=== PATIENT | male | born 1960 | race Caucasian/White ===

== ENCOUNTER 2021-10-02 15:53 | Inpatient (IN) | payer MEDICARE, OTHER, SELFPAY ==
[2021-10-02] VITALS (39 sets, daily range): BP systolic 100–157; BP diastolic 57–99; PULSE 86–130; RESP 12–42; TEMP 36.9–37.3; O2SAT 3–96; BMI 34.9
[2021-10-02] MEDS: amiodarone 50 mg/mL SDV 3 mL 300 MG IVP (16:13)
[2021-10-02] MEDS: midazolam 1 mg/mL INJ 2 mL 2 MG IVP (16:15)
--- NOTE | 2021-10-02 16:25 | XRR_ITS ---
PROCEDURE INFORMATION: Exam: XR Chest Exam date and time: 10/02/2021 4:25 PM Age: 61 years old Clinical indication: Radiating; Patient HX: History--severe chest pain, radiates to the right arm. ; Additional info: Cp TECHNIQUE: Imaging protocol: XR of the chest. Views: 1 view. COMPARISON: CR Chest 1 [place] [id number] 06/11/2019 1:41 PM FINDINGS: Tubes, catheters and devices: External defibrillator patches overlie the chest. Lungs: Stable mild elevation of the right hemidiaphragm. Interval development of ill-defined opacities in the right and left upper lobes and the left lower lobe, findings may suggest atelectasis and/or pneumonia. Pleural spaces: No pleural effusion. No pneumothorax. Heart/Mediastinum: Cardiac monitoring leads overlie the chest. Stable mild enlargement of the cardiac silhouette. Mediastinal contours are unremarkable. Bones/joints: Old fracture of the right mid clavicle. Degenerative changes in the spine and shoulders. Osseous findings are stable. XR/XR chest 1V portable [id number] IMPRESSION: 1. Interval development of ill-defined opacities in the right and left upper lobes and the left lower lobe, findings may suggest atelectasis and/or pneumonia. Recommend followup chest x-ray to ensure resolution. 2. Incidental/nonacute findings are listed in the report. Radiation Dose CTDIVOL = (mGy): DLP = (mGy-cm)
--- NOTE | 2021-10-02 16:26 | ED_ITS ---
HPI - Chest Pain General: Chief Complaint: Chest Pain Stated Complaint: Chest pain Time Seen by Provider: 10/02/21 15:56 History of Present Illness: HPI narrative: 61-year-old male history of A. fib and left bundle branch block who is on NOAC and diltiazem presents with chest pain. States this started just prior to arrival. He was seen at [facility] at that time and EMS was called. Per initial EMS EKG he has A. fib with RVR and left bundle branch block. He reports chest pain that is pressure-like and does not radiate. Denies any lower extremity pain or swelling. Denies fever cough nausea or vomiting. Denies previous CAD. Review of Systems Narrative: - CONSTITUTIONAL: Denies weight loss, fever and chills. - HEENT: Denies changes in vision and hearing. - RESPIRATORY: Denies SOB and cough. - CV: As above - GI: Denies abdominal pain, nausea, vomiting and diarrhea. - : Denies dysuria and urinary frequency. - MSK: Denies myalgia and joint pain. - SKIN: Denies rash and pruritus. - NEUROLOGICAL: Denies headache, weakness, numbness and syncope. - PSYCHIATRIC: Denies suicidal ideation Physical Exam Narrative: EXAM NARRATIVE: - GENERAL: Alert and oriented x 3. Well-nourished. Diaphoretic and in distress. - EYES: EOMI. Anicteric. - HENT: Atraumatic, no C-spine tenderness. Moist mucous membranes. No scleral icterus. No cervical lymphadenopathy. - LUNGS: Clear to auscultation bilaterally. No accessory muscle use. Equal lung sounds bilaterally. No respiratory distress. - CARDIOVASCULAR: Tachycardic, regular rhythm - ABDOMEN: Soft, non-tender and non-distended. Negative CVA tenderness bilater ally, no rebound or guarding, negative Roblero sign. No palpable masses. - EXTREMITIES: No edema. Non-tender. - SKIN: No rashes or lesions. Warm. - NEUROLOGIC: No meningismus or focal neurological deficits. CN II-XII grossly intact. - PSYCHIATRIC: Cooperative. Appropriate mood and affect. Course Vital Signs: Vital signs: Vital Signs Temperature 99.2 F 10/02/21 16:34 Pulse Rate 97 10/02/21 16:34 Respiratory Rate 25 H 10/02/21 16:34 Blood Pressure 113/78 10/02/21 16:34 Pulse Oximetry 95 10/02/21 16:34 MDM - Chest Pain MDM Narrative: Medical decision making narrative: 61-year-old male with history of A. fib presents due to chest pain. States pain was acute and severe. Denies radiation to the back. He is hemodynamically unstable but has A. fib with RVR and left bundle branch block versus V. tach. Due to presence of chest pain he is deemed unstable. Required cardioversion, initially a synchronized rate of 100 J following this was still in RVR. Then he had synchronized cardioversion at 200 J and converted to sinus rhythm. 300 of amiodarone was also provided. Discussed with cardiology who agrees and recommend starting amiodarone drip. Post cardioversion EKG does not reveal any sign of ischemic change. He reports chest pain is resolved following cardioversion. This time lab work and imaging is pending. Per patient discussed with hospitalist regarding ICU admission. Remainder of lab work and imaging reviewed. Discussed with hospitalist and they agreed patient would benefit from admission. Patient admitted in guarded condition to ICU. Further evaluation management per hospitalist team. Lab Data: Labs: Lab Results 10/02/21 15:15 WBC 3.8 10^3/uL L 10^ 3/uL (4.0-10.0) RBC 4.99 10^6/uL 10^6 /uL (4.1-5.3) Hgb 14.3 g/dL g/dL (11.7-16.6) Hct 44.1 % % (42.0-52.0) MCV 88.4 fl fl (80-94) MCH 28.7 pg pg (28.0-34.0) MCHC 32.4 g/dL g/dL (30.0-36.0) RDW 13.9 % % (12.1-15.1) Plt Count 97 10^3/cmm L 10^ 3/cmm (130-400) MPV 14.0 fL H fL (7.4-10.4) Neut % (Auto) 68.3 % % Lymph % (Auto) 22.6 % % [place] % (Auto) 8.5 % % Eos % (Auto) 0.0 % % Baso % (Auto) 0.3 % % Neut # (Auto) 2.57 10^3/uL 10^3 /uL (1.8-7.7) Lymph # (Auto) 0.9 10^3/uL 10^3/ uL (0.8-4.8) [place] # (Auto) 0.3 10^3/uL 10^3/ uL (0.2-0.9) Eos # (Auto) 0.0 10^3/uL 10^3/ uL (0.0-0.8) Baso # (Auto) 0.0 10^3/uL 10^3/ uL (0.0-0.1) Nucleated RBC % (a uto) 0 % % Nucleated RBCs # 0.0 /100WBC /100W BC EKG Data^: EKG 1: Other EKG comments: EMS EKG, A. fib with RVR, rate of 190. EKG 2: Other EKG comments: Sinus rhythm with PVC, rate of 96, no sign of acute ischemia or other acute abnormality. Critical Care Time Critical Care Time: Critical Care Time: Yes Total Critical Care Time: 30 Attestation: This case had a high probability of a clinically significant, sudden, or life threatening deterioration of this patient's condition which required my full and direct attention, intervention and personal management. Coding Level of Care Code ED Rn Diabetes Educator for Maddy Robertson
--- NOTE | 2021-10-02 16:26 | ECG_ITS ---
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 Measurements Intervals [place] Rate: 96 P: 73 NC: 180 QRS: 64 QRSD: 160 T: 83 QT: 356 QTc: 451 Interpretive Statements SINUS RHYTHM WITH FREQUENT SUPRAVENTRICULAR PREMATURE COMPLEXES LEFT BUNDLE BRANCH BLOCK [120+ ms QRS DURATION, 80+ ms Q/S IN V1/V2, 85+ ms R IN I/aVL/V5/V6] Compared to ECG 06/11/2019 16:15:18 No significant changes Electronically Signed On 10-03-2021 17:11:24 CDT by Lefty Vargas M.D. [id number]
[2021-10-02 16:50] LABS: Basophils % 0.3 %; Hematocrit 44.1 % (42.0-52.0); Hemoglobin 14.3 g/dL (11.7-16.6); Lymphocytes # 0.9 10^3/uL (0.8-4.8); Lymphocytes % 22.6 %; Mean Corpuscular HGB Conc 32.4 g/dL (30.0-36.0); Mean Corpuscular Hemoglobin 28.7 pg (28.0-34.0); Mean Corpuscular Volume 88.4 fl (80-94); Monocytes # 0.3 10^3/uL (0.2-0.9); Monocytes % 8.5 %; Neutrophils # 2.57 10^3/uL (1.8-7.7); Neutrophils % 68.3 %; Nucleated Red Blood Cells % 0 %; Platelet Count 97 10^3/cmm (130-400); Red Blood Count 4.99 10^6/uL (4.1-5.3); Red Cell Distribution Width 13.9 % (12.1-15.1); White Blood Count 3.8 10^3/uL (4.0-10.0)
[2021-10-02] MEDS: fentaNYL 50 mcg/mL INJ 2mL 100 MCG IVP (17:10)
[2021-10-02 17:48] LABS: Alanine Aminotransferase 72 U/L (0-41); Alkaline Phosphatase 60 IU/L (40-130); Anion Gap 16.2 (5-19); Aspartate Amino Transferase 97 U/L (0-40); Blood Urea Nitrogen 21 mg/dL (8-23); Calcium 9.9 mg/dL (8.5-10.5); Carbon Dioxide 23 mmol/L (22-29); Chloride 98 mmol/L (98-107); Globulin 2.3 g/dL (1.3-4.6); Glomerular Filtration Rate 61.6 mL/min (90-130); Glucose 104 mg/dL (65-115); Lipase 93 U/L (13-60); NT Pro B Type Natriuretic Pept 568 pg/mL (0-125); Osmolality Calculated 279 mOsm/kg (285-295); Potassium 4.2 mmol/L (3.5-5.1); Sodium 133 mmol/L (136-145); Thyroid Stimulating Hormone 0.17 uIU/mL (0.27-4.20); Total Bilirubin 0.4 mg/dL (0.15-1.2); Total Protein 6.3 g/dL (6.6-8.7)
--- NOTE | 2021-10-02 17:49 | P.HP_ITS ---
Providers/Chief Complaint Admitting Physician: Shakira Carver Chief Complaint: Chest pain History of Present Illness Deepak Chacon is a 61 year old male with past medical history of paroxysmal atrial fibrillation on anticoagulation who presented to ER with chest pain. Started today, left sided pressure. Prior to this noted to have fever, chill, nonproductive cough. Upon arrival patient was cardioverted. Also noted to have covid-19 ag positive. Review of Systems General: Reports: 10 or more systems reviewed and unremarkable except in HPI and below PFSH Acute PFSH: Medical History (Updated 10/02/21 @ 20:06 by Shakira Carver MD) Atrial fibrillation Hyperlipidemia Hypertension Surgical History (Updated 10/02/21 @ 20:02 by Shakira Carver MD) History of knee replacement Social History (Updated 10/02/21 @ 20:03 by Shakira Carver MD) Smoking and tobacco status: never smoked Alcohol intake: never Substance/Drug Use: never Vitals/I&O/Wt Last Vital Signs Temp 99.1 F 10/02/21 18:05 Pulse 96 10/02/21 18:05 Resp 14 10/02/21 18:05 BP 125/83 10/02/21 19:45 Pulse Ox 3 L 10/02/21 18:05 Weight last 48 hrs Weight 123.377 kg Physical Exam Narrative: EXAM NARRATIVE: General : Alert, awake HEENT: EOMI CVS; tachy Chest; Non-labored abd; Soft,NT Ext; No edema Data : 10/02/21 15:15 10/02/21 15:15 A&P Assessment and plan (1) Atrial fibrillation with RVR: S/p cardioversion in Er Cardiology consult amiodarone gtt Tele ECHO Verify and resume anticoagulation Status: Acute (2) Chest pain: Cardiology consult ECHO Status: Acute (3) COVID-19: Not requring o2 Stable respiratory status Covid labs in am Status: Acute (4) Hyperlipidemia: Verify home meds Status: Inactive (5) Hypertension: Status: Inactive (6) Atrial fibrillation: Status: Inactive Attestations Medical Necessity Statement*: will require > 2 day in hospitalization for management of atrib/covid Time Spent in Patient Care: Greater than 35 minutes (>than 50% of time spent in counselling and/or direct pt care on unit) . Coding Level of Care Code Acute Funeral Pre Arrangement Counselor for Maddy Fwd Diagnoses Atrial fibrillation with RVR I48.91 Chest pain R07.9 COVID-19 U07.1 Hyperlipidemia E78.5 Hypertension I10 Atrial fibrillation I48.91
--- NOTE | 2021-10-02 18:18 | PC.NURSE ---
Called and gave report to Elvie BOWSER
--- NOTE | 2021-10-02 18:26 | ECG_ITS ---
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 Measurements Intervals [place] Rate: 92 P: 62 WV: 176 QRS: 110 QRSD: 166 T: 25 QT: 377 QTc: 469 Interpretive Statements SINUS RHYTHM WITH OCCASIONAL VENTRICULAR PREMATURE COMPLEXES LEFT BUNDLE BRANCH BLOCK [120+ ms QRS DURATION, 80+ ms Q/S IN V1/V2, 85+ ms R IN I/aVL/V5/V6] Compared to ECG 10/02/2021 16:19:34 Ventricular premature complex(es) now present Electronically Signed On 10-03-2021 17:16:09 CDT by Lefty Vargas M.D. [id number]
--- NOTE | 2021-10-02 18:35 | W.ED.CHESTPA ---
HPI - Chest Pain General: Chief Complaint: Chest Pain Stated Complaint: Chest pain Time Seen by Provider: 10/02/21 15:56 Course Vital Signs: Vital signs: Vital Signs Temperature 99.1 F 10/02/21 18:05 Pulse Rate 96 10/02/21 18:05 Respiratory Rate 14 10/02/21 18:05 Blood Pressure 120/80 10/02/21 18:05 Pulse Oximetry 3 L 10/02/21 18:05 MDM - Chest Pain Lab Data: Labs: Lab Results 10/02/21 10/02/21 15:15 15:15 WBC 3.8 10^3/uL L 10^ 3/uL (4.0-10.0) RBC 4.99 10^6/uL 10^6 /uL (4.1-5.3) Hgb 14.3 g/dL g/dL (11.7-16.6) Hct 44.1 % % (42.0-52.0) MCV 88.4 fl fl (80-94) MCH 28.7 pg pg (28.0-34.0) MCHC 32.4 g/dL g/dL (30.0-36.0) RDW 13.9 % % (12.1-15.1) Plt Count 97 10^3/cmm L 10^ 3/cmm (130-400) MPV 14.0 fL H fL (7.4-10.4) Neut % (Auto) 68.3 % % Lymph % (Auto) 22.6 % % [place] % (Auto) 8.5 % % Eos % (Auto) 0.0 % % Baso % (Auto) 0.3 % % Neut # (Auto) 2.57 10^3/uL 10^3 /uL (1.8-7.7) Lymph # (Auto) 0.9 10^3/uL 10^3/ uL (0.8-4.8) [place] # (Auto) 0.3 10^3/uL 10^3/ uL (0.2-0.9) Eos # (Auto) 0.0 10^3/uL 10^3/ uL (0.0-0.8) Baso # (Auto) 0.0 10^3/uL 10^3/ uL (0.0-0.1) Nucleated RBC % (a uto) 0 % % Nucleated RBCs # 0.0 /100WBC /100W BC Sodium 133 mmol/L L mmol /L (136-145) Potassium 4.2 mmol/L mmol/L (3.5-5.1) Chloride 98 mmol/L mmol/L (98-107) Carbon Dioxide 23 mmol/L mmol/L (22-29) Anion Gap 16.2 (5-19) BUN 21 mg/dL mg/dL (8-23) Creatinine 1.2 mg/dL mg/dL (0.7-1.2) GFR Calculation 61.6 mL/min L mL/ min (90-130) Glucose 104 mg/dL mg/dL (65-115) Calculated Osmolal ity 279 mOsm/kg L mOs m/kg (285-295) Calcium 9.9 mg/dL mg/dL (8.5-10.5) Total Bilirubin 0.4 mg/dL mg/dL (0.15-1.2) AST 97 U/L H U/L (0-40) ALT 72 U/L H U/L (0-41) Alkaline Phosphata se 60 IU/L IU/L (40-130) NT-Pro-B Natriuret Pep 568 pg/mL H pg/mL (0-125) Total Protein 6.3 g/dL L g/dL (6.6-8.7) Albumin 4.0 g/dL g/dL (3.5-5.2) Globulin 2.3 g/dL g/dL (1.3-4.6) Lipase 93 U/L H U/L (13-60) TSH 0.17 uIU/mL L uIU /mL (0.27-4.20) Free T4 1.60 ng/dL ng/dL (0.82-1.77) EKG Data^: EKG 1: Other EKG comments: Sinus rhythm with PVC, rate of 92, left bundle branch block, no sign of acute ischemia or other acute abnormality. Discharge Plan Discharge Admit Provider: Shakira aCrver Coding Level of Care Code ED Filenet Developer for g Ailyn
[2021-10-02 18:47] LABS: Bilirubin Urine 1+ (Negative); Blood Urine Neg (Negative); Glucose Urine UA Norm (Normal); Ketones Urine Negative (Negative); Leukocyte Esterase Urine Trace (Negative); Nitrate Urine Negative (Negative); Protein Urine 2+ (Negative); RBC Urine 0-4 /hpf (0-2); Urine Appearance SL Hazy (CLEAR); Urine Color Dark Yellow (Yellow); Urobilinogen Urine 1 mg/dL (Negative); pH Urine 5 (5-7)
[2021-10-02 18:48] LABS: Bacteria Urine 2+ /hpf; Mucus Urine 1+ /hpf; Squamous Epithelial Cell Urine 0-4 /hpf (0-5)
[2021-10-02 18:52] LABS: Add Urine Culture? Yes; Coarse Granular Casts Urine 15-25 /lpf
[2021-10-02 18:53] LABS: SARS Covid-2 Antigen Positive (Negative)
--- NOTE | 2021-10-02 19:16 | PC.NURSE ---
Pt arrived by EMS. Upon report, the patient was in AFIb with RVR. Provider was notified. Provider requested crash cart and ECG stat. The provider ordered that the Pt be cardioverted. Fentanyl 50 mcg was given at 1609, Pt was cardioverted at 100 joules at 1610. Fentanyl 50 mcg was given at 1617. Amiodarone 300 mg given at 1613. Verced 2 mg given at 1615. Second cardioversion, 200 joules at 1618. Pt was started on an amiodorone drip per provider order.
[2021-10-02 19:26] LABS: INR 1.03 (0.8-1.2)
[2021-10-02 19:27] LABS: Partial Thromboplastin Time 38.9 SECONDS (23.9-36.7)
[2021-10-02 19:29] LABS: D Dimer 0.41 ug/mIFEU (0-0.59)
[2021-10-02 19:50] LABS: Troponin(5th) Baseline 14 ng/L (0-15)
--- NOTE | 2021-10-02 19:56 | PM.CONSULT ---
Providers/Reason For Consult Consulting Physician/Specialty*: Lefty Vargas MD/ Cardiology Reason for Consult*: Atrial fibrillation Requesting Physician: Dr Escobar Attending Physician: Shakira Carver History of Present Illness History of Present Illness Deepak Chacon is a 61 year old male with past medical history of atrial fibrillation and known left bundle branch block presented to the hospital with chest discomfort, tachycardia. In the ER was found to be in A. fib with RVR. ER physician performed cardioversion. He briefly converted to normal sinus rhythm but went back into atrial fibrillation. Heart rate however is improved now. Denies CAD history. Patient is confused at this time likely from sedation for cardioversion. Family at bedside. Review of Systems General: Reports: ROS unobtainable due to mental status Meds/Allergies Home Medications and Allergies Home Medications Medication Instructions Recorded Confirmed Last Taken Type cyclobenzaprine 10 mg PO TID PRN 10/04/21 10/04/21 Unknown History dicyclomine 20 mg PO TID PRN 10/04/21 10/04/21 Unknown History diltiazem HCl 240 mg PO QAM 10/04/21 10/04/21 Unknown History gemfibrozil 600 mg PO BID 10/04/21 10/04/21 Unknown History levothyroxine 200 mcg PO QAM 10/04/21 10/04/21 Unknown History loratadine 10 mg PO QAM 10/04/21 10/04/21 Unknown History metoprolol tartrate 100 mg PO BID 10/04/21 10/04/21 Unknown History multivitamin 1 tab PO DAILY 10/04/21 10/04/21 Unknown History ofloxacin 2 - 3 drp OTIC (EAR) DAILY 10/04/21 10/04/21 Unknown History potassium chloride [Klor-Con M10] 10 meq PO BEDTIME 10/04/21 10/04/21 Unknown History rivaroxaban [Xarelto] 20 mg PO BEDTIME 10/04/21 10/04/21 Unknown History rizatriptan 10 mg PO Q2H PRN MDD 2 TABS 10/04/21 10/04/21 Unknown History terazosin 2 mg PO BEDTIME 10/04/21 10/04/21 Unknown History Allergies Allergy/AdvReac Type Severity Reaction Status Date / Time No Known Allergies Allergy Verified 10/04/21 10:45 Current Medications Current Medications Generic Name Dose Route Start Last Admin Trade Name Freq PRN Reason Stop Dose Admin Amiodarone HCl 900 mg/ 518 mls @ 0 mls/hr 10/02/21 16:30 10/02/21 16:58 Dextrose/ IV Miscellaneous IV 1 mg/min Supplies .Q0M KIYA 34.53 mls/hr Administration Protocol Per Protocol PFSH Acute PFSH: Medical History Atrial fibrillation Hyperlipidemia Hypertension Surgical History History of knee replacement Social History Smoking and tobacco status: never smoked Alcohol intake: never Substance/Drug Use: never Vitals/I&O/Wt Last Vital Signs Temp 99.1 F 10/02/21 18:05 Pulse 96 10/02/21 18:05 Resp 14 10/02/21 18:05 BP 125/83 10/02/21 19:45 Pulse Ox 3 L 10/02/21 18:05 Weight last 48 hrs Weight 272 lb Physical Exam Narrative: EXAM NARRATIVE: GENERAL: Confused NECK: No jugular vein distension. [] HEENT: No cyanosis. No icterus. No pallor. [] HEART: Tachycardic, irregularly irregular heart rhythm LUNGS: Clear to auscultate bilaterally. [] ABDOMEN: Soft, nontender and nondistended CENTRAL NERVOUS SYSTEM: Grossly nonfocal. [] EXTREMITIES: Lower extremities with 1+ edema bilaterally. Pulses palpable in the lower extremities, both dorsalis pedis and posterior tibial. [] A&P Assessment and plan (1) Chest pain: Status: Acute (2) Atrial fibrillation with RVR: Status: Acute Patient has presented with chest discomfort, atrial fibrillation with RVR. He is also found to have Covid on rapid testing. He was cardioverted however went back into A. fib with RVR. Start amiodarone drip. It can be switched to p.o. amiodarone later. Continue anticoagulation Given his Covid infection, ischemic work-up can be done as outpatient unless has significant elevation of troponins. Order echocardiogram. Thank you for involving us with care of this patient. We will follow if needed further assistance in case heart rates are not controlled. Please call with questions. Otherwise can follow-up with us as outpatient. Coding Level of Care Code Acute Appliquer Zigzag for Maddy Robertson Diagnoses Chest pain R07.9 Atrial fibrillation with RVR I48.91
--- NOTE | 2021-10-02 20:12 | CTR_ITS ---
PROCEDURE INFORMATION: Exam: CTA Chest With Contrast Exam date and time: 10/02/2021 8:12 PM Age: 61 years old Clinical indication: Cough and shortness of breath; Patient HX: Cough with SOB. History of afib. Covid +. Exam repeated. Both axial series submitted due to one having better bolus timing but severe motion artifact. The other with less motion but sub optimal bolus timing. Patient had difficulty controlling cough and holding breath for exam. ; Additional info: R/O pe, covid pneumonia TECHNIQUE: Imaging protocol: Computed tomographic angiography of the chest with contrast. 3D rendering (Not supervised by radiologist): MIP and/or 3D reconstructed images were created by the technologist. Total images: 1471 Radiation optimization: All CT scans at this facility use at least one of these dose optimization techniques: automated exposure control; mA and/or kV adjustment per patient size (includes targeted exams where dose is matched to clinical indication); or iterative reconstruction. Contrast material: OMNI 350; Contrast volume: 160 ml; Contrast route: INTRAVENOUS (IV); COMPARISON: CR XR chest 1V portable [id number] 10/02/2021 4:36 PM RADIATION DOSE METRICS: Total DLP (mGy-cm): 1954.45 FINDINGS: Pulmonary arteries: Pulmonary artery evaluation of poor technical quality due to motion but no pulmonary artery embolism identified. Aorta: Unremarkable. No aortic aneurysm. No aortic dissection. Lungs: Benign granulomatous disease of the lung is noted. Pleural spaces: Unremarkable. No pneumothorax. No pleural effusion. Heart: Unremarkable. No cardiomegaly. No pericardial effusion. Lymph nodes: Small calcified left hilar lymph nodes. Bones/joints: Unremarkable. No acute fracture. Soft tissues: Unremarkable. Other findings: Examination is motion limited. Bilateral patchy areas of ground-glass opacity. CT/CT angio chest PE protcl [id number] IMPRESSION: 1. Examination is motion limited. 2. No large central pulmonary artery embolism identified. Limited quality examination. 3. Bilateral patchy areas of ground-glass opacity. Imaging features can be seen with COVID-19 pneumonia, though are nonspecific and can occur with a variety of infectious and noninfectious processes. (Reference: Dylan) REFERENCES: Dylan Hinton et al., Radiological Society of [place] Expert Consensus Statement on Reporting Chest CT Findings Related to COVID-19. Endorsed by the Society of Thoracic Radiology, the [place] [employer], and RSNA. Published February 22, 2020. Radiation Dose CTDIVOL = (mGy): DLP = 4.45 (mGy-cm)
[2021-10-02 21:27] LABS: Troponin 5 2HR 13.67 ng/L (0-15)
[2021-10-02 21:32] LABS: Troponin 5 2HR Delta -0.33 ABS# (0-10)
--- NOTE | 2021-10-02 22:26 | ECG_ITS ---
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 Measurements Intervals [place] Rate: 126 P: [place]: QRS: 23 QRSD: 170 T: 99 QT: 340 QTc: 492 Interpretive Statements ATRIAL FIBRILLATION WITH RAPID VENTRICULAR RESPONSE LEFT BUNDLE BRANCH BLOCK [120+ ms QRS DURATION, 80+ ms Q/S IN V1/V2, 85+ ms R IN I/aVL/V5/V6] Compared to ECG 10/02/2021 18:13:44 Sinus rhythm no longer present Ventricular premature complex(es) no longer present Electronically Signed On 10-03-2021 17:15:53 CDT by Lefty Vargas M.D. [id number]
[2021-10-02] MEDS: morphine 4 mg/mL SDV 1 mL 2 MG IVP (22:30)
[2021-10-03] VITALS (55 sets, daily range): BP systolic 82–166; BP diastolic 54–139; PULSE 89–168; RESP 13–41; TEMP 36.9–39.6; O2SAT 86–95
[2021-10-03] MEDS: HYDROcodone-acetaminophen 5-325 mg Tablet 1 TAB PO (01:34)
[2021-10-03 01:48] LABS: Troponin 5 6HR 13.87 ng/L (0-15); Troponin 5 6HR Delta -0.13 ng/L (0-12)
[2021-10-03] MEDS: benzonatate 100 mg Capsule PO ×2 (03:42→14:35)
[2021-10-03] MEDS: metoprolol tartrate 1 mg/1 mL SDV 5 mL 5 MG IVP (03:42)
[2021-10-03 04:12] LABS: Basophils % 0.3 %; Hematocrit 42.6 % (42.0-52.0); Lymphocytes # 0.8 10^3/uL (0.8-4.8); Lymphocytes % 23.7 %; Mean Corpuscular HGB Conc 32.9 g/dL (30.0-36.0); Mean Corpuscular Volume 85.2 fl (80-94); Mean Platelet Volume 12.7 fL (7.4-10.4); Monocytes # 0.2 10^3/uL (0.2-0.9); Neutrophils % 69.7 %; Nucleated Red Blood Cells % 0 %; Platelet Count 93 10^3/cmm (130-400); Red Cell Distribution Width 13.6 % (12.1-15.1); White Blood Count 3.2 10^3/uL (4.0-10.0)
[2021-10-03 04:37] LABS: INR 1.18 (0.8-1.2)
[2021-10-03 04:40] LABS: D Dimer 0.53 ug/mIFEU (0-0.59)
[2021-10-03 04:43] LABS: Lactic Sepsis W/Reflex 0.9 mmol/L (0.5-2.2)
[2021-10-03 04:46] LABS: Chol HDL Ratio 7.33 mg/dL (1.0-5.00); Cholesterol 110 mg/dL (0-200); HDL Cholesterol 15 mg/dL (60-100); LDL Cholesterol Calculated 58 mg/dL (50-129); LDL HDL Ratio 3.87 RATIO (0.00-3.22); Triglycerides 186 mg/dL (0-150)
[2021-10-03 04:49] LABS: Free T4 Free Thyroxine 1.51 ng/dL (0.82-1.77); Procalcitonin 0.08 ng/mL (0-0.5)
[2021-10-03 04:56] LABS: Alanine Aminotransferase 70 U/L (0-41); Albumin Level 3.5 g/dL (3.5-5.2); Alkaline Phosphatase 55 IU/L (40-130); Anion Gap 14.7 (5-19); Aspartate Amino Transferase 92 U/L (0-40); Blood Urea Nitrogen 19 mg/dL (8-23); C Reactive Protein 27.7 mg/L (0.0-4.9); Calcium 9.6 mg/dL (8.5-10.5); Carbon Dioxide 22 mmol/L (22-29); Chloride 102 mmol/L (98-107); Ferritin 389 ng/mL (30-400); Globulin 2.9 g/dL (1.3-4.6); Glomerular Filtration Rate 85.8 mL/min (90-130); Glucose 100 mg/dL (65-115); Magnesium 1.9 mg/dL (1.7-2.3); Osmolality Calculated 282 mOsm/kg (285-295); Potassium 3.7 mmol/L (3.5-5.1); Sodium 135 mmol/L (136-145); Thyroid Stimulating Hormone 0.31 uIU/mL (0.27-4.20); Total Bilirubin 0.4 mg/dL (0.15-1.2); Total Protein 6.4 g/dL (6.6-8.7)
[2021-10-03] MEDS: iohexol 350 mg/mL 100 mL Btl IV ×2 (05:57→05:58)
[2021-10-03] MEDS: acetaminophen 325 mg Tablet 650 MG PO ×3 (08:33→19:45)
[2021-10-03] MEDS: pantoprazole DR 40 mg Tablet PO (08:33)
--- NOTE | 2021-10-03 08:51 | PC.NURSE ---
Addendum entered by BELTRAN Iqbal 10/03/21 18:03: Dr. Carver notified of patient's temperatures. Original Note: Patient temperature checked at 0730 this morning and was 102.4. Patient room temperature dropped. Patient temperature rechecked at 0830 and was 103.2. PRN Tylenol administered and blankets removed from patient. Will reassess temperature at 0900.
--- NOTE | 2021-10-03 10:07 | PM.PN ---
Subjective Subjective: Interval history: 61 year old male with past medical history of paroxysmal atrial fibrillation on anticoagulation who presented to ER with chest pain. Started today, left sided pressure. Prior to this noted to have fever, chill, nonproductive cough. Upon arrival patient was cardioverted and started on IV amiodarone gtt. Also noted to have covid-19 ag positive. Continue high fevers overnight. Started on decadron and remdesvir. Subjective Denied chest pain. Vitals/I&O/Wt Last Vital Signs Temp 98.5 F 10/03/21 20:00 Pulse 89 10/03/21 22:00 Resp 21 H 10/03/21 19:45 BP 134/88 10/03/21 17:00 Pulse Ox 93 10/03/21 17:00 10/03/21 10/03/21 10/04/21 14:59 22:59 06:59 Intake Total 1620 / 1620 1116.791 / 2736.791 Output Total 980 / 980 550 / 1530 Balance 640 / 640 566.791 / 1206.791 Weight last 48 hrs Weight 119.748 kg Weight 123.377 kg Physical Exam Narrative: EXAM NARRATIVE: General : Alert, awake HEENT: EOMI CVS; tachy Chest; Non-labored abd; Soft,NT Ext; No edema Data : 10/03/21 03:55 10/03/21 03:55 Micro: Microbiology 10/03/21 17:23 Blood Culture - Preliminary Blood SPECIMEN COLLECTED 10/03/21 17:20 Blood Culture - Preliminary Blood SPECIMEN COLLECTED A&P Assessment and plan (1) Atrial fibrillation with RVR: Cardiology consult amiodarone gtt Tele ECHO - pending Xarelto 20 mg PO daily Metoprolol 12.5 mg PO BID Status: Acute (2) Chest pain: Cardiology consult ECHO Will need outpatient stress test Status: Acute (3) COVID-19: Fever rq supplemental o2 CTA Chest - no PE, B/l ground glass Blood culture x 2 Empirically started on IV abx d/w pt risk vs benefit of remdesivir - agreeable to start Decadron 6 mg IV daily Status: Acute (4) Hyperlipidemia: Verify home meds Status: Inactive (5) Hypertension: Status: Inactive Attestations Medical Necessity Statement*: Will require further hospitalization for management of covid19, and afib with rvr. Time Spent in Patient Care: Greater than 35 minutes (>than 50% of time spent in counselling and/or direct pt care on unit). Coding Level of Care Code Acute Apartment Groundskeeper for Maddy Robertson Diagnoses Atrial fibrillation with RVR I48.91 Chest pain R07.9 COVID-19 U07.1 Hyperlipidemia E78.5 Hypertension I10
[2021-10-03] MEDS: morphine 4 mg/mL SDV 1 mL 2 MG IVP ×2 (10:51→19:45)
--- NOTE | 2021-10-03 15:20 | PC.NURSE ---
Addendum entered by BELTRAN Iqbal 10/03/21 18:04: Dr. Carver notified of patient's temperature. New order placed. Will continue to monitor. Original Note: Patient temperature checked at 1440 this afternoon and was 102.9. PRN Tylenol administered and blankets removed from patient. Will reassess temperature at 1506
[2021-10-03] MEDS: dexamethasone 10 mg/mL INJ 6 MG IVP (16:34)
[2021-10-03] MEDS: metoprolol tartrate 25 mg Tablet 12.5 MG PO (16:58)
[2021-10-03] MEDS: piperacillin-tazobactam 3.375 GM in sodium chloride 0.9% (plus) 50 ML IV (18:13)
[2021-10-03] MEDS: remdesivir 200 MG in sodium chloride 0.9% (100 ml) 60 ML 100 MG IV (18:44)
--- NOTE | 2021-10-03 19:58 | PC.NURSE ---
Addendum entered by Kina Romeo RN 10/03/21 23:47: When patient reassessed, patient states my migrane is almost gone. Rates pain 2/10. Patient also states that his vision has gone back to normal, no blurriness or stripes seen at this time by patient. Patient is resting with equan and nonlabored respirations Original Note: Patient c/o migrane with blurry vision in left eye, also states stripes are beginning to form in my vision Patient states that he takes maxalt for migranes. Dr Abarca notified of patient migrane and patient request for migrane medication. Fiorecit (1 capsule) ordered, [facility] does not carry this medication. Dr Abarca notified of unavailability of medication, recommended to give tylenol at this time. Medication administered.
[2021-10-04] VITALS (125 sets, daily range): BP systolic 97–147; BP diastolic 51–92; PULSE 82–106; RESP 13–52; TEMP 36.8–37.9; O2SAT 74–96
[2021-10-04] MEDS: piperacillin-tazobactam 3.375 GM in sodium chloride 0.9% (plus) 50 ML IV ×3 (01:56→20:12)
[2021-10-04] MEDS: benzonatate 100 mg Capsule PO (04:00)
[2021-10-04 05:12] LABS: Hematocrit 44.1 % (42.0-52.0); Lymphocytes # 0.4 10^3/uL (0.8-4.8); Lymphocytes % 14.1 %; Mean Corpuscular Hemoglobin 28.8 pg (28.0-34.0); Mean Corpuscular Volume 84.6 fl (80-94); Mean Platelet Volume 13.5 fL (7.4-10.4); Monocytes # 0.2 10^3/uL (0.2-0.9); Monocytes % 5.9 %; Neutrophils # 2.04 10^3/uL (1.8-7.7); Neutrophils % 79.6 %; Nucleated Red Blood Cells % 0 %; Platelet Count 89 10^3/cmm (130-400); Red Blood Count 5.21 10^6/uL (4.1-5.3); Red Cell Distribution Width 13.6 % (12.1-15.1); White Blood Count 2.6 10^3/uL (4.0-10.0)
[2021-10-04 05:18] LABS: Alanine Aminotransferase 77 U/L (0-41); Alkaline Phosphatase 54 IU/L (40-130); Blood Urea Nitrogen 16 mg/dL (8-23); Calcium 10.1 mg/dL (8.5-10.5); Carbon Dioxide 24 mmol/L (22-29); Chloride 100 mmol/L (98-107); Creatinine Clr Calc Pharmacy 152.3872; Globulin 2.7 g/dL (1.3-4.6); Glomerular Filtration Rate 114.6 mL/min (90-130); Glucose 106 mg/dL (65-115); Osmolality Calculated 288 mOsm/kg (285-295); Sodium 138 mmol/L (136-145); Total Bilirubin 0.5 mg/dL (0.15-1.2); Total Protein 6.7 g/dL (6.6-8.7)
[2021-10-04 05:23] LABS: Anion Gap 18.6 (5-19); Aspartate Amino Transferase 105 U/L (0-40); Potassium 4.6 mmol/L (3.5-5.1)
[2021-10-04 05:51] LABS: Procalcitonin 0.09 ng/mL (0-0.5)
--- NOTE | 2021-10-04 06:53 | NUR.SHIFT ---
Shift Summary: Treated patient for migrane, migrane resolved-see previous note. Educated patient on medications, vital signs, future plan of care. VSS, no signs or symptoms of distress at this time. Patient ambulated to bedside commode, heart rate increased to max 117, no symptoms of chest pain or shortness of breath with activity.
[2021-10-04] MEDS: pantoprazole DR 40 mg Tablet PO (08:42)
[2021-10-04] MEDS: metoprolol tartrate 25 mg Tablet 12.5 MG PO ×2 (08:42→20:15)
[2021-10-04] MEDS: rivaroxaban 10 mg Tablet 20 MG PO (08:42)
--- NOTE | 2021-10-04 10:05 | PC.CHAP ---
Pastoral Care Encounter/Spiritual Assessment Type of Contact [] Declined commercial real estate appraiser visit [] Patient/Family/Request visit [] Outpatient visit [] Follow-up visit [] Physician referral [] Code/Alert [x] Routine visit [] Staff referral [] Actively dying [] Patient sleeping [] Family support [] [] Out of room [] Palliative care [] [] Receiving care in room [] Pre-surgical visit [] Trauma [] Long length of stay [x] ICU visit [] Other: Relational/Emotional Strength [] Patient feels connected with others/family/visitors/staff [] Distress [] Loneliness/isolation [] Abandonment Spirituality of Patient [] Person of Colette [] Attends Yazidism of their [place] [] Believes in Prayer [] Reads Bible or Judaism materials [] There are Spiritual issues to be addressed Equity Research Analyst Interventions [x] Prayer [] Active listening [] Non-anxious presence [] Spiritual/emotional support [] Crisis/trauma care [] Spiritual counseling [] Bereavement support [] Provided bereavement packet [] Provided Bible/devotional materials [] Provided toy/stuffed animal, coloring book to patient or family member [] Provided Communion [] Anointing/[place] [] Salvation [x] Completed spiritual assessment [] Other: Impact on Illness or Injury [] Angry [] Fearful [] Anxious [] Often cries [] Exhaustion [] Unable to work [] Unable to attend jain [] Unable to walk/stand [] Unable to read [] Unable to drive [] Unable to eat/drink [] Unable to sleep [] Unable to be with family [] Patient intubated [] Other: Summary Time spent with patient
--- NOTE | 2021-10-04 10:45 | PC.PHAR ---
PT STATES HE TAKES CARE OF HIS OWN MEDICATIONS-
[2021-10-04] MEDS: amiodarone 200 mg Tablet 400 MG PO ×2 (10:57→17:52)
--- NOTE | 2021-10-04 11:59 | PM.PN ---
Subjective Subjective: Interval history: Continue to be in A.fib with RVR, has persistent non productive cough, saturating well on 2-3 Ls suplemental oxygen Medications: Reviewed: Yes Vitals/I&O/Wt Last Vital Signs Temp 100.3 F H 10/04/21 07:30 Pulse 92 10/04/21 09:25 Resp 30 H 10/04/21 09:25 BP 117/69 10/04/21 09:25 Pulse Ox 93 10/04/21 09:25 10/03/21 10/04/21 10/04/21 22:59 06:59 14:59 Intake Total 1116.791 / 2736.791 50 / 2786.791 350 / 350 Output Total 550 / 1530 875 / 2405 Balance 566.791 / 1206.791 -825 / 381.791 350 / 350 Weight last 48 hrs Weight 117.962 kg Weight 119.748 kg Weight 123.377 kg Physical Exam Const: COMMON NORMALS: patient oriented x3 HENMT: COMMON NORMALS: normocephalic and atraumatic HEAD & SCALP: normocephalic and atraumatic Resp: COMMON NORMALS: clear to auscultation bilaterally AUSCULTATION: clear to auscultation bilaterally Cardio: COMMON NORMALS: regular rate, regular rhythm, S1 normal heart sound present, S2 normal heart sound present, No gallops present (Cardio), No murmurs present (Cardio), No rub (Cardio) and Peripheral pulses 2+ throughout RATE: regular rate RHYTHM: regular rhythm HEART SOUNDS: S1 normal heart sound present and S2 normal heart sound present PERIPHERAL PULSES: Peripheral pulses 2+ throughout GI: COMMON NORMALS: Normal to inspection, nondistended, normoactive bowel sounds present, Soft to palpation, non-tender, No hepatosplenomegaly present and no masses AUSCULTATION: Yes normoactive bowel sounds PALPATION: Yes Soft to palpation and Yes No hepatosplenomegaly present RECTAL EXAM: Yes deferred Extremity: COMMON NORMALS: no clubbing, cyanosis or edema and no pedal edema Neuro: COMMON NORMALS: patient oriented x3 Data : 10/04/21 04:33 10/04/21 04:33 Micro: Microbiology 10/02/21 17:49 Urine Culture - Preliminary Urine,Clean Catch 10/03/21 17:23 Blood Culture - Preliminary Blood SPECIMEN COLLECTED 10/03/21 17:20 Blood Culture - Preliminary Blood SPECIMEN COLLECTED A&P Assessment and plan (1) Atrial fibrillation with RVR: Cardiology consult amiodarone gtt Tele ECHO - pending Xarelto 20 mg PO daily Metoprolol 12.5 mg PO BID Status: Acute (2) Chest pain: Cardiology consult ECHO Will need outpatient stress test Status: Acute (3) COVID-19: Fever rq supplemental o2 CTA Chest - no PE, B/l ground glass Blood culture x 2 Empirically started on IV abx d/w pt risk vs benefit of remdesivir - agreeable to start Decadron 6 mg IV daily Status: Acute (4) Hyperlipidemia: Verify home meds Status: Inactive (5) Hypertension: Status: Inactive Attestations Medical Necessity Statement*: Patient needs to be in hospital for management of COVID as well as A.fib with RVR Coding Level of Care Code Acute Hyperbaric Welder Diver for Chg Fwd Diagnoses Atrial fibrillation with RVR I48.91 Chest pain R07.9 COVID-19 U07.1 Hyperlipidemia E78.5 Hypertension I10
[2021-10-04] MEDS: acetaminophen 325 mg Tablet 650 MG PO (12:10)
[2021-10-04] MEDS: guaiFENesin 100 mg/5 mL UDC 10 mL 200 MG PO ×3 (13:40→20:15)
--- NOTE | 2021-10-04 16:09 | PC.NURSE ---
New IV start to posterior right forearm. One attempt, 22 gauge. Pt tolerated well. Amiodarone gtt to this IV.
[2021-10-04] MEDS: dexamethasone 10 mg/mL INJ 6 MG IVP (16:32)
[2021-10-04] MEDS: remdesivir 100 MG in sodium chloride 0.9% (100 ml) 80 ML IV (18:33)
--- NOTE | 2021-10-04 18:41 | PC.NURSE ---
Shift Note Frequent safety and comfort rounds continue. Orders and/or nursing care completed as indicated. Patient monitored for response to intervention and treatment(s). Education provided includes medication education upon administration, oxygen safety and education, importance of ambulation, and current plan of care. Patient verbalizes understanding of teachings. Primary complaint this shift is of chronic abdominal pain, relieved my PRN Tylenol.
[2021-10-05] VITALS (134 sets, daily range): BP systolic 93–139; BP diastolic 53–100; PULSE 67–96; RESP 10–40; TEMP 36.7–37.1; O2SAT 83–100
[2021-10-05 00:36] LABS: Glucose Point of Care 122 mg/dL (70-110)
[2021-10-05] MEDS: guaiFENesin 100 mg/5 mL UDC 10 mL 200 MG PO ×7 (01:22→23:36)
[2021-10-05] MEDS: piperacillin-tazobactam 3.375 GM in sodium chloride 0.9% (plus) 50 ML IV ×3 (03:32→19:52)
[2021-10-05] MEDS: levothyroxine 200 mcg Tablet PO (05:45)
--- NOTE | 2021-10-05 06:56 | PC.NURSE ---
Shift Note Frequent safety and comfort rounds continue. Pt slept well throughout the night. Orders and nursing care completed as indicated. Patient monitored for response to intervention and treatments. Education provided includes zosyn. Patient and site safety representative verbalized understanding.
[2021-10-05] MEDS: amiodarone 200 mg Tablet 400 MG PO ×2 (07:53→18:33)
[2021-10-05] MEDS: metoprolol tartrate 25 mg Tablet 12.5 MG PO ×2 (07:53→23:36)
[2021-10-05] MEDS: pantoprazole DR 40 mg Tablet PO (07:54)
[2021-10-05] MEDS: rivaroxaban 10 mg Tablet 20 MG PO (07:54)
[2021-10-05] MEDS: acetaminophen 325 mg Tablet 650 MG PO (07:55)
--- NOTE | 2021-10-05 08:09 | PC.NURSE ---
Report taken, assessment revealed expiatory wheezing in the lower lungs bilaterally, overall diminished. Patient reports abdominal pain at a 7 on scale, relieved my PRN Tylenol. Patient reports increasing cough, relieved by scheduled Robitussin.
--- NOTE | 2021-10-05 08:56 | PC.NURSE ---
Rounded with Dr. Baptiste this morning, orders to stop amiodarone drip as well as for IS at bedside and Flutter valve at beside. orders followed promptly. Transfer pending room/bed availability.
--- NOTE | 2021-10-05 10:36 | PC.SOCIAL ---
IMM update IMM updated with patient's . Verbalized an understanding. Initialled, dated, timed, and placed in chart.
--- NOTE | 2021-10-05 12:52 | ECG_ITS ---
[facility] Test Date: 2021-10-05 Pat Name: Deepak Chacon Department: Room: ICU11 Gender: Male Administrative Program Specialist: : 1960 Requested By: Robi Baptiste Order Number: [id number] Efra MD: Lefty Vargas M.D. Measurements Intervals [place] Rate: 75 P: 59 OK: 193 QRS: 64 QRSD: 180 T: 61 QT: 448 QTc: 501 Interpretive Statements SINUS RHYTHM LEFT BUNDLE BRANCH BLOCK [120+ ms QRS DURATION, 80+ ms Q/S IN V1/V2, 85+ ms R IN I/aVL/V5/V6] Compared to ECG 10/02/2021 21:28:06 Atrial fibrillation no longer present Electronically Signed On 10-06-2021 22:00:01 PRODUCTION CONTROL SPECIALIST by Lefty Vargas M.D. [email or web address] [id number]
--- NOTE | 2021-10-05 12:52 | P.PN_ITS ---
Subjective Subjective: Interval history: Patient was seen and examined this morning, converted to normal sinus rhythm , amiodarone drip has been stopped , currently requiring 3-4 Ls suplemental oxygen. Currently remains afebrile, in the last 24 hours, his other vitals and labs have been reviewed. Medications: Reviewed: Yes Vitals/I&O/Wt Last Vital Signs Temp 98.7 F 10/05/21 07:20 Pulse 70 10/05/21 12:20 Resp 23 H 10/05/21 12:20 BP 130/84 10/05/21 12:20 Pulse Ox 92 10/05/21 12:20 10/04/21 10/05/21 10/05/21 22:59 06:59 14:59 Intake Total 352 / 942 850 / 1792 790 / 790 Output Total 650 / 650 400 / 400 Balance 352 / 942 200 / 1142 390 / 390 Weight last 48 hrs Weight 117.027 kg Weight 117.962 kg Physical Exam Const: COMMON NORMALS: patient oriented x3 HENMT: COMMON NORMALS: normocephalic and atraumatic HEAD & SCALP: normocephalic and atraumatic Resp: COMMON NORMALS: clear to auscultation bilaterally AUSCULTATION: clear to auscultation bilaterally Cardio: COMMON NORMALS: regular rate, regular rhythm, S1 normal heart sound present, S2 normal heart sound present, No gallops present (Cardio), No murmurs present (Cardio), No rub (Cardio) and Peripheral pulses 2+ throughout RATE: regular rate RHYTHM: regular rhythm HEART SOUNDS: S1 normal heart sound present and S2 normal heart sound present PERIPHERAL PULSES: Peripheral pulses 2+ throughout GI: COMMON NORMALS: Normal to inspection, nondistended, normoactive bowel sounds present, Soft to palpation, non-tender, No hepatosplenomegaly present and no masses AUSCULTATION: Yes normoactive bowel sounds PALPATION: Yes Soft to palpation and Yes No hepatosplenomegaly present RECTAL EXAM: Yes deferred Extremity: COMMON NORMALS: no clubbing, cyanosis or edema and no pedal edema Neuro: COMMON NORMALS: patient oriented x3 Data : 10/06/21 04:10 10/06/21 04:10 Micro: Microbiology 10/02/21 17:49 Urine Culture - Final Urine,Clean Catch 10/03/21 17:23 Blood Culture - Preliminary Blood NEGATIVE TO DATE 10/03/21 17:20 Blood Culture - Preliminary Blood NEGATIVE TO DATE A&P Assessment and plan (1) Atrial fibrillation with RVR: Patient has history of paroxysmal A. fib: At home he is on diltiazem to 240 mg p.o. daily as well as metoprolol tartrate 100 mg p.o. twice daily. ECHO : Initially on amiodarone gtt. Currently switched to amiodarone po 400 mg BID Xarelto 20 mg PO daily Metoprolol 12.5 mg PO BID Cardiology consult Status: Acute (2) Chest pain: Will need outpatient stress test Status: Acute (3) COVID-19: Fever rq supplemental o2 CTA Chest - no PE, B/l ground glass Blood culture x 2 Empirically started on IV abx d/w pt risk vs benefit of remdesivir - agreeable to start Decadron 6 mg IV daily Status: Acute (4) Hyperlipidemia: Verify home meds Status: Inactive (5) Hypertension: Status: Inactive Attestations Medical Necessity Statement*: Patient needs to be in hospital for management of pneumonia, A. fib. Coding Level of Care Code Acute Credit Rating Checker for [facility] Fwd Exam Detailed Diagnoses Atrial fibrillation with RVR I48.91 Chest pain R07.9 COVID-19 U07.1 Hyperlipidemia E78.5 Hypertension I10
[2021-10-05] MEDS: dexamethasone 10 mg/mL INJ 6 MG IVP (15:24)
--- NOTE | 2021-10-05 16:42 | PC.NURSE ---
Transfer to first floor: Report given to CSU nurse, patient transferred to room 105, patient appeared to be resting comfortably in bed. Nurse at CSU desk notified that patient arrived with his belongings and chart given to bilingual secretary.
[2021-10-05] MEDS: remdesivir 100 MG in sodium chloride 0.9% (100 ml) 80 ML 80 MG IV (18:34)
--- NOTE | 2021-10-05 19:09 | PC.NURSE ---
received into room 104 from icu.report received.pt is on isolation for covid.pt is alert and awake and oriented x 4.denies pain at present.sr on monitor.oriented to room environment.instructed to notify staff for any pain,sob,or for any concerns at all.pt verb understanding of instructions.
[2021-10-06] VITALS (33 sets, daily range): BP systolic 106–131; BP diastolic 64–84; PULSE 0–116; RESP 14–39; TEMP 36.6–36.8; O2SAT 85–96
[2021-10-06] MEDS: piperacillin-tazobactam 3.375 GM in sodium chloride 0.9% (plus) 50 ML IV ×3 (04:10→19:57)
[2021-10-06] MEDS: guaiFENesin 100 mg/5 mL UDC 10 mL 200 MG PO ×5 (04:10→23:34)
[2021-10-06 04:50] LABS: Hematocrit 40.3 % (42.0-52.0); Hemoglobin 13.6 g/dL (11.7-16.6); Lymphocytes # 0.3 10^3/uL (0.8-4.8); Lymphocytes % 8.4 %; Mean Corpuscular HGB Conc 33.7 g/dL (30.0-36.0); Mean Corpuscular Hemoglobin 28.6 pg (28.0-34.0); Mean Corpuscular Volume 84.7 fl (80-94); Monocytes # 0.3 10^3/uL (0.2-0.9); Monocytes % 7.8 %; Neutrophils % 83.5 %; Nucleated Red Blood Cells % 0 %; Platelet Count 121 10^3/cmm (130-400); Red Blood Count 4.76 10^6/uL (4.1-5.3); Red Cell Distribution Width 13.3 % (12.1-15.1); White Blood Count 3.6 10^3/uL (4.0-10.0)
[2021-10-06 05:26] LABS: D Dimer 0.75 ug/mIFEU (0-0.59)
[2021-10-06 05:29] LABS: Alanine Aminotransferase 43 U/L (0-41); Albumin Level 3.4 g/dL (3.5-5.2); Alkaline Phosphatase 41 IU/L (40-130); Anion Gap 13.6 (5-19); Aspartate Amino Transferase 43 U/L (0-40); Blood Urea Nitrogen 21 mg/dL (8-23); C Reactive Protein 20.6 mg/L (0.0-4.9); Carbon Dioxide 26 mmol/L (22-29); Chloride 101 mmol/L (98-107); Glucose 107 mg/dL (65-115); Lactate Dehydrogenase 313 U/L (135-225); Osmolality Calculated 287 mOsm/kg (285-295); Potassium 3.6 mmol/L (3.5-5.1); Sodium 137 mmol/L (136-145); Total Bilirubin 0.4 mg/dL (0.15-1.2); Total Protein 6.4 g/dL (6.6-8.7)
[2021-10-06] MEDS: levothyroxine 200 mcg Tablet PO (05:57)
[2021-10-06 07:01] LABS: Ferritin 500 ng/mL (30-400)
[2021-10-06] MEDS: amiodarone 200 mg Tablet 400 MG PO ×2 (09:25→17:46)
[2021-10-06] MEDS: rivaroxaban 10 mg Tablet 20 MG PO (09:26)
[2021-10-06] MEDS: pantoprazole DR 40 mg Tablet PO (09:27)
[2021-10-06] MEDS: metoprolol tartrate 25 mg Tablet 12.5 MG PO ×2 (09:28→19:58)
--- NOTE | 2021-10-06 09:33 | XRR_ITS ---
PROCEDURE INFORMATION: Exam: XR Chest Exam date and time: 10/06/2021 9:33 AM Age: 61 years old Clinical indication: Shortness of breath; Additional info: Pna TECHNIQUE: Imaging protocol: XR of the chest. Views: 1 view. Total images: 1 COMPARISON: CR XR chest 1V portable [id number] 10/02/2021 4:36 PM FINDINGS: Lungs: Bilateral patchy airspace densities, favoring pneumonia, possibly atypical pneumonia. Pleural spaces: Unremarkable. No pleural effusion. No pneumothorax. Heart/Mediastinum: Heart size is stable when compared to the prior exam. Diaphragm: There is nonspecific elevation of the right hemidiaphragm. Bones/joints: Osseous structures are unchanged from the prior exam. XR/XR chest 1V portable [id number] IMPRESSION: Bilateral patchy airspace densities, favoring pneumonia, possibly atypical pneumonia. This has shown interval worsening. Radiation Dose CTDIVOL = (mGy): DLP = (mGy-cm)
[2021-10-06] MEDS: ipratropium-albuterol 3 mL Neb INHALATION ×3 (11:18→23:37)
[2021-10-06] MEDS: FUROsemide 10 mg/mL SDV 2mL 20 MG IVP ×2 (11:30→17:46)
--- NOTE | 2021-10-06 12:21 | PC.NURSE ---
flexeril pulled from [facility] for pt.after pkg opened..pt decided to not take.pill was wasted in [facility]..and disposed of properly with alex collier as witness.
--- NOTE | 2021-10-06 14:04 | USCV_ITS ---
InesDeepak Age: 61 Gender: M : 1960 Exam Date: 10/06/2021 15:13 Ordering Phys: Robi Baptiste MD Technologist: Margaret Nelson [place] [facility] [place]: Shortness of breath BP: 107 / 84 HR: 81 Rhythm: Sinus Technical Quality: Suboptimal MEASUREMENTS (Male / Female) Normal Values 2D ECHO LV Diastolic Diameter PLAX 4.0 cm 4.2 - 5.9 / 3.9 - 5.3 cm LV Systolic Diameter PLAX 2.7 cm LV Chamber Size 4.1 cm IVS Diastolic Thickness 2.4 cm 0.6 - 1.0 / 0.6 - 0.9 cm IVS Systolic Thickness 2.5 cm LVPW Diastolic Thickness 1.6 cm 0.6 - 1.0 / 0.6 - 0.9 cm LVPW Systolic Thickness 1.8 cm RV Chamber Size 3.8 cm LVOT Diameter 2.2 cm LV Ejection Fraction 2D Teich 60.7 % LV Ejection Fraction MOD 2C 51.3 % LV Ejection Fraction 2C AL 51.2 % LA Diameter 3.6 cm LA Width 2.8 cm LA Height 3.9 cm RA Width 2.3 cm RA Height 3.7 cm Aorta at Sinotubular Diameter 3.8 cm M-MODE LV Diastolic Diameter MM 5.3 cm 4.2 - 5.9 / 3.9 - 5.3 cm LV Systolic Diameter MM 3.2 cm LV Ejection Fraction MM Teich 69.6 % IVS Diastolic Thickness MM 1.2 cm 0.6 - 1.0 / 0.6 - 0.9 cm IVS Systolic Thickness MM 2.0 cm LVPW Diastolic Thickness MM 1.6 cm 0.6 - 1.0 / 0.6 - 0.9 cm LVPW Systolic Thickness MM 1.9 cm RV Diastolic Diameter MM 1.1 cm Aortic Annulus Diameter 4.3 cm LA Ao Ratio MM 1.0 DOPPLER AV Peak Velocity 139.0 cm/s LVOT Peak Velocity 116.0 cm/s AV Area Cont Eq vti 3.2 cm squared AV Area Cont Eq pk 3.3 cm squared MV Area PHT 5.0 cm squared Mitral E to A Ratio 0.8 MV E' Velocity 35.0 cm/s Mitral E to MV E' Ratio 7.8 Mitral E to LV E' Lateral Ratio 7.7 Mitral E to LV E' Septal Ratio 8.0 TV Peak E Velocity 83.0 cm/s Right Atrial Pressure 3.0 mmHg PV Peak Velocity 127.0 cm/s RV Acceleration Time 0.1 s RV Ejection Time 0.2 s RV AcT/ET 0.4 FINDINGS Left Ventricle Normal left ventricular size. LV systolic function is grossly normal. Regional wall motion abnormalities cannot be accurately assessed because of poor visualization. Septal motion is consistent with conduction abnormality. Grade 1 diastolic dysfunction is seen. Right Ventricle The right ventricle is normal in size and function. Right Atrium The right atrium is normal in size. Left Atrium The left atrium is normal in size. Mitral Valve Structurally normal mitral valve without significant stenosis or prolapse. There is trace mitral regurgitation. Aortic Valve Grossly normal. No significant stenosis seen. There is no aortic regurgitation. Tricuspid Valve Structurally normal tricuspid valve without significant stenosis or regurgitation. Insufficient TR jet to calculate RVSP Pulmonic Valve Not well-visualized Pericardium Normal pericardium without effusion. Aorta Aortic root appears to be mildly dilated. CONCLUSIONS Technically limited quality echocardiogram because of poor ultrasonic windows. LV systolic function is grossly normal. Septal motion is consistent with conduction abnormality. Grade 1 diastolic dysfunction is seen. Trace mitral regurgitation noted. Aortic root appears to be mildly dilated. Compared to prior echocardiogram from 2013, no significant changes are noted. Lefty Vargas MD (Electronically Signed) Final Date: 06 October 2021 21:52 S
--- NOTE | 2021-10-06 15:33 | P.PN_ITS ---
Subjective Subjective: Interval history: Patient was seen and examined this morning continues to have worsening cough, supplemental oxygen requirement is also going up, currently requiring 6 L oxygen through nasal cannula, he is also having watery diarrhea. X-ray chest done this morning shows worsening of bilateral infiltrates. His other vitals and labs have been reviewed. Medications: Reviewed: Yes Vitals/I&O/Wt Last Vital Signs Temp 982 F H 10/06/21 08:00 Pulse 89 10/06/21 11:36 Resp 24 H 10/06/21 11:36 BP 116/67 10/06/21 08:00 Pulse Ox 91 10/06/21 11:36 10/06/21 10/06/21 10/06/21 06:59 14:59 22:59 Intake Total 630 / 630 Output Total 450 / 450 Balance 180 / 180 Weight last 48 hrs Weight 117.48 kg Weight 117.027 kg Physical Exam Const: COMMON NORMALS: patient oriented x3 HENMT: COMMON NORMALS: normocephalic and atraumatic HEAD & SCALP: normocephalic and atraumatic Resp: OTHER: Bilateral wheezing present in both lungs. Cardio: COMMON NORMALS: regular rate, regular rhythm, S1 normal heart sound present, S2 normal heart sound present, No gallops present (Cardio), No murmurs present (Cardio), No rub (Cardio) and Peripheral pulses 2+ throughout RATE: regular rate RHYTHM: regular rhythm HEART SOUNDS: S1 normal heart sound present and S2 normal heart sound present PERIPHERAL PULSES: Peripheral pulses 2+ throughout GI: COMMON NORMALS: Normal to inspection, nondistended, normoactive bowel sounds present, Soft to palpation, non-tender, No hepatosplenomegaly present and no masses AUSCULTATION: Yes normoactive bowel sounds PALPATION: Yes Soft to palpation and Yes No hepatosplenomegaly present RECTAL EXAM: Yes deferred Extremity: COMMON NORMALS: no clubbing, cyanosis or edema and no pedal edema Neuro: COMMON NORMALS: patient oriented x3 Data : 10/06/21 04:10 10/06/21 04:10 A&P Assessment and plan (1) COVID-19: Pneumonia secondary to COVID-19: CTA Chest - no PE, B/l ground glass. Blood culture:NTD ESR CRP D-dimer Ferritin LDH Dexamethasone 6 mg IV daily for 10 days Remdesivir 5 days Duo nebs Advair inhaler Pulmonary toilet Empirically on Zosyn I/O Charting Lasix as needed. Supplemental oxygen as needed. incentive spirometer and flutter valve Possible pulmonary consult Status: Acute (2) Atrial fibrillation with RVR: Patient has history of paroxysmal A. fib: At home he is on diltiazem to 240 mg p.o. daily as well as metoprolol tartrate 100 mg p.o. twice daily. ECHO : Initially on amiodarone gtt. Currently switched to amiodarone po 400 mg BID Xarelto 20 mg PO daily Metoprolol 12.5 mg PO BID Cardiology consult Status: Acute (3) Chest pain: Will need outpatient stress test Status: Acute (4) Hyperlipidemia: Verify home meds Status: Inactive (5) Hypertension: Status: Inactive Attestations Medical Necessity Statement*: Patient is to be in hospital for management of Covid pneumonia. Coding Level of Care Code Acute Church History Professor for Maddy Robertson Diagnoses COVID-19 U07.1 Atrial fibrillation with RVR I48.91 Chest pain R07.9 Hyperlipidemia E78.5 Hypertension I10
--- NOTE | 2021-10-06 15:37 | PC.NURSE ---
pt began shift on 5 liter o2 nc. rt added high flow o2 at 6 liters at aprox 0900.rt communicated to public relations writer that that dr thomas wants to keep o2 sat 90% or greater.public relations writer increased hf o2 to 7 liters at approx 1400 for o2 sats 87-88%.
[2021-10-06] MEDS: dexamethasone 10 mg/mL INJ 6 MG IVP (16:25)
[2021-10-06] MEDS: benzonatate 100 mg Capsule PO (16:26)
[2021-10-06] MEDS: remdesivir 100 MG in sodium chloride 0.9% (100 ml) 80 ML IV (17:47)
--- NOTE | 2021-10-06 19:17 | PC.NURSE ---
at end of shift,pt remains on 7 l hf o2..sats 90%.sats do drop into 80's when pt talks.dr prakash ordered another 20 mg lasix iv push
[2021-10-07] VITALS (23 sets, daily range): BP systolic 113–146; BP diastolic 70–93; PULSE 85–99; RESP 17–39; TEMP 36.6; O2SAT 81–93
[2021-10-07] MEDS: piperacillin-tazobactam 3.375 GM in sodium chloride 0.9% (plus) 50 ML IV ×3 (03:15→20:37)
[2021-10-07] MEDS: guaiFENesin 100 mg/5 mL UDC 10 mL 200 MG PO ×6 (03:15→23:41)
[2021-10-07] MEDS: ipratropium-albuterol 3 mL Neb INHALATION ×6 (03:19→23:48)
[2021-10-07 04:01] LABS: Hematocrit 39.8 % (42.0-52.0); Hemoglobin 13.4 g/dL (11.7-16.6); Lymphocytes # 0.3 10^3/uL (0.8-4.8); Mean Corpuscular HGB Conc 33.7 g/dL (30.0-36.0); Mean Corpuscular Hemoglobin 28.4 pg (28.0-34.0); Mean Corpuscular Volume 84.3 fl (80-94); Mean Platelet Volume 12.3 fL (7.4-10.4); Monocytes # 0.3 10^3/uL (0.2-0.9); Monocytes % 7.1 %; Neutrophils # 3.89 10^3/uL (1.8-7.7); Neutrophils % 86.7 %; Nucleated Red Blood Cells % 0 %; Platelet Count 133 10^3/cmm (130-400); Red Blood Count 4.72 10^6/uL (4.1-5.3); Red Cell Distribution Width 13.4 % (12.1-15.1); White Blood Count 4.5 10^3/uL (4.0-10.0)
[2021-10-07 04:17] LABS: D Dimer 0.39 ug/mIFEU (0-0.59)
[2021-10-07 04:22] LABS: Alanine Aminotransferase 39 U/L (0-41); Albumin Level 3.4 g/dL (3.5-5.2); Alkaline Phosphatase 40 IU/L (40-130); Anion Gap 14.9 (5-19); Aspartate Amino Transferase 35 U/L (0-40); Blood Urea Nitrogen 22 mg/dL (8-23); C Reactive Protein 13.3 mg/L (0.0-4.9); Calcium 9.6 mg/dL (8.5-10.5); Carbon Dioxide 26 mmol/L (22-29); Chloride 100 mmol/L (98-107); Glomerular Filtration Rate 98.3 mL/min (90-130); Glucose 127 mg/dL (65-115); Lactate Dehydrogenase 291 U/L (135-225); Osmolality Calculated 291 mOsm/kg (285-295); Sodium 138 mmol/L (136-145); Total Bilirubin 0.4 mg/dL (0.15-1.2); Total Protein 6.4 g/dL (6.6-8.7)
[2021-10-07 04:25] LABS: Potassium 2.9 mmol/L (3.5-5.1)
[2021-10-07 05:28] LABS: Ferritin 448 ng/mL (30-400)
[2021-10-07] MEDS: potassium chloride ER 20 mEq Tablet 40 MEQ PO (05:56)
[2021-10-07] MEDS: levothyroxine 200 mcg Tablet PO (05:56)
--- NOTE | 2021-10-07 07:54 | PC.NURSE ---
Pt sitting up in bed hob at 45 degree. Pt had O2 non-rebreather mask pulled off and pulseox pulled off finger. Pt teaching was given on the importance of leaving supplemental oxygen and puseox on. Pt verbalized understanding Pulseox was replaced and non-rebreather mask put back on. Pts O2 sat 92% with non-rebreather mask at 15 Lpm. Pt had no c/o pain or discomfort at the present time. No needs voiced. Call light in reach. Will continue to monitor.
--- NOTE | 2021-10-07 08:40 | PC.SOCIAL ---
IMM Updated Updated pt's on IMM. No question voiced. Provided pt care nurse a copy to give to pt. Initialed, dated, & timed copy in chart.
[2021-10-07] MEDS: metoprolol tartrate 25 mg Tablet 12.5 MG PO ×2 (09:25→20:38)
[2021-10-07] MEDS: pantoprazole DR 40 mg Tablet PO (09:25)
[2021-10-07] MEDS: rivaroxaban 10 mg Tablet 20 MG PO (09:27)
[2021-10-07] MEDS: amiodarone 200 mg Tablet 400 MG PO ×2 (09:27→18:00)
[2021-10-07] MEDS: FUROsemide 10 mg/mL SDV 4mL 40 MG IVP (09:28)
[2021-10-07] MEDS: lidocaine 1% 5 ML in potassium chloride premix 100 ML 25 ML IV (12:48)
--- NOTE | 2021-10-07 12:51 | P.PN_ITS ---
Subjective Subjective: Interval history: Patient was seen and examined this morning, patient says he is felling better. Supplemental oxygen requirement has slowly gone up to 8 L HFNC. He has remained afebrile, his other vitals and labs have been reviewed. Medications: Reviewed: Yes Vitals/I&O/Wt Last Vital Signs Temp 97.8 F 10/07/21 11:37 Pulse 95 10/07/21 11:36 Resp 39 H 10/07/21 11:36 BP 113/77 10/07/21 11:36 Pulse Ox 88 L 10/07/21 11:36 10/06/21 10/07/21 10/07/21 22:59 06:59 14:59 Intake Total 410 / 1040 297.5 / 1337.5 50 / 50 Output Total 450 / 1100 600 / 1700 Balance -40 / -60 -302.5 / -362.5 50 / 50 Weight last 48 hrs Weight 117.48 kg Weight 117.48 kg Physical Exam Const: COMMON NORMALS: patient oriented x3 HENMT: COMMON NORMALS: normocephalic and atraumatic HEAD & SCALP: normoceph alic and atraumatic Resp: COMMON NORMALS: clear to auscultation bilaterally AUSCULTATION: clear to auscultation bilaterally OTHER: Diminished air entry bilaterally Cardio: COMMON NORMALS: regular rate, regular rhythm, S1 normal heart sound present, S2 normal heart sound present, No gallops present (Cardio), No murmurs present (Cardio), No rub (Cardio) and Peripheral pulses 2+ throughout RATE: regular rate RHYTHM: regular rhythm HEART SOUNDS: S1 normal heart sound present and S2 normal heart sound present PERIPHERAL PULSES: Peripheral pulses 2+ throughout GI: COMMON NORMALS: Normal to inspection, nondistended, normoactive bowel sounds present, Soft to palpation, non-tender, No hepatosplenomegaly present and no masses AUSCULTATION: Yes normoactive bowel sounds PALPATION: Yes Soft to palpation and Yes No hepatosplenomegaly present RECTAL EXAM: Yes deferred Extremity: COMMON NORMALS: no clubbing, cyanosis or edema and no pedal edema Neuro: COMMON NORMALS: patient oriented x3 Data : 10/07/21 03:36 10/07/21 03:36 Micro: Microbiology 10/06/21 12:30 C.difficile Toxin B Gene (PCR) - Final Stool Routine Collection 10/06/21 12:30 Stool Lactoferrin - Final Stool - Stool Aspirate A&P Assessment and plan (1) COVID-19: Pneumonia secondary to COVID-19: CTA Chest - no PE, B/l ground glass. Blood culture:NTD Urine culture: No growth ESR CRP D-dimer Ferritin LDH Dexamethasone 6 mg IV daily for 10 days Remdesivir 5 days Duo nebs Advair inhaler Pulmonary toilet Empirically on Zosyn I/O Charting Lasix as needed. Supplemental oxygen as needed. incentive spirometer and flutter valve Possible pulmonary consult Status: Acute (2) Atrial fibrillation with RVR: Patient has history of paroxysmal A. fib: At home he is on diltiazem to 240 mg p.o. daily as well as metoprolol tartrate 100 mg p.o. twice daily. ECHO : Poor quality LV systolic function is normal, grade 1 diastolic, trace MR. Initially on amiodarone gtt. Currently switched to amiodarone po 400 mg BID Xarelto 20 mg PO daily Metoprolol 12.5 mg PO BID Cardiology consult Status: Acute (3) Chest pain: Will need outpatient stress test Status: Acute (4) Hyperlipidemia: Verify home meds Status: Inactive (5) Hypertension: Status: Inactive Additional A&P Information Diarrhea: Stool C. difficile negative, follow other stool studies. is improved today DVT prophylaxis: Not needed patient is on Xarelto CODE STATUS: Full code Attestations Medical Necessity Statement*: Patient is still in hospital for management of Covid pneumonia Coding Level of Care Code Acute Link Wire Fabric Machine Tender for [facility] Fwd Exam Detailed Diagnoses COVID-19 U07.1 Atrial fibrillation with RVR I48.91 Chest pain R07.9 Hyperlipidemia E78.5 Hypertension I10
[2021-10-07] MEDS: dexamethasone 10 mg/mL INJ 6 MG IVP (16:05)
[2021-10-07] MEDS: remdesivir 100 MG in sodium chloride 0.9% (100 ml) 80 ML IV (18:01)
[2021-10-08] VITALS (12 sets, daily range): BP systolic 107–140; BP diastolic 55–84; PULSE 84–102; RESP 18–33; TEMP 36.6–37; O2SAT 86–96
[2021-10-08 04:00] LABS: Hematocrit 39.9 % (42.0-52.0); Lymphocytes # 0.2 10^3/uL (0.8-4.8); Lymphocytes % 5.8 %; Mean Corpuscular HGB Conc 32.6 g/dL (30.0-36.0); Mean Corpuscular Hemoglobin 27.7 pg (28.0-34.0); Mean Corpuscular Volume 85.1 fl (80-94); Mean Platelet Volume 12.5 fL (7.4-10.4); Monocytes # 0.2 10^3/uL (0.2-0.9); Monocytes % 6.1 %; Neutrophils # 3.47 10^3/uL (1.8-7.7); Neutrophils % 87.6 %; Nucleated Red Blood Cells % 0 %; Platelet Count 171 10^3/cmm (130-400); Red Blood Count 4.69 10^6/uL (4.1-5.3); Red Cell Distribution Width 13.5 % (12.1-15.1)
[2021-10-08 04:27] LABS: D Dimer 0.42 ug/mIFEU (0-0.59)
[2021-10-08 04:35] LABS: Alanine Aminotransferase 40 U/L (0-41); Albumin Level 3.5 g/dL (3.5-5.2); Alkaline Phosphatase 43 IU/L (40-130); Anion Gap 14.6 (5-19); Aspartate Amino Transferase 33 U/L (0-40); Blood Urea Nitrogen 16 mg/dL (8-23); Calcium 9.8 mg/dL (8.5-10.5); Carbon Dioxide 27 mmol/L (22-29); Chloride 101 mmol/L (98-107); Ferritin 377 ng/mL (30-400); Globulin 2.9 g/dL (1.3-4.6); Glomerular Filtration Rate 98.3 mL/min (90-130); Glucose 161 mg/dL (65-115); Osmolality Calculated 293 mOsm/kg (285-295); Potassium 3.6 mmol/L (3.5-5.1); Sodium 139 mmol/L (136-145); Total Bilirubin 0.4 mg/dL (0.15-1.2); Total Protein 6.4 g/dL (6.6-8.7)
[2021-10-08] MEDS: piperacillin-tazobactam 3.375 GM in sodium chloride 0.9% (plus) 50 ML IV ×2 (05:18→10:07)
[2021-10-08] MEDS: guaiFENesin 100 mg/5 mL UDC 10 mL 200 MG PO ×4 (05:18→22:36)
[2021-10-08] MEDS: levothyroxine 200 mcg Tablet PO (05:18)
[2021-10-08] MEDS: ipratropium-albuterol 3 mL Neb INHALATION ×5 (07:45→23:12)
[2021-10-08] MEDS: rivaroxaban 10 mg Tablet 20 MG PO (10:08)
[2021-10-08] MEDS: potassium chloride oral liq 20 mEq/15 mL UDC 40 MEQ PO (10:08)
[2021-10-08] MEDS: amiodarone 200 mg Tablet 400 MG PO (10:09)
[2021-10-08] MEDS: benzonatate 100 mg Capsule PO (10:09)
[2021-10-08] MEDS: metoprolol tartrate 25 mg Tablet 12.5 MG PO ×2 (10:10→22:34)
[2021-10-08] MEDS: pantoprazole DR 40 mg Tablet PO (10:10)
[2021-10-08] MEDS: FUROsemide 10 mg/mL SDV 2mL 20 MG IVP (10:13)
--- NOTE | 2021-10-08 10:27 | PM.PN ---
Subjective Subjective: Interval history: Patient was seen and examined this morning,Continue to require 7-8Ls. Supplemental oxygen HFNC. Medications: Reviewed: Yes Vitals/I&O/Wt Last Vital Signs Temp 98 F 10/08/21 03:45 Pulse 84 10/08/21 07:46 Resp 18 10/08/21 07:46 BP 140/84 10/08/21 03:45 Pulse Ox 92 10/08/21 07:46 10/07/21 10/08/21 10/08/21 22:59 06:59 14:59 Intake Total 355 / 405 290 / 695 50 / 50 Output Total 700 / 700 1250 / 1950 Balance -345 / -295 -960 / -1255 50 / 50 Weight last 48 hrs Weight 117.48 kg Weight 117.48 kg Physical Exam Const: COMMON NORMALS: patient oriented x3 HENMT: COMMON NORMALS: normocephalic and atraumatic HEAD & SCALP: normocephalic and atraumatic Resp: COMMON NORMALS: clear to auscultation bilaterally AUSCULTATION: clear to auscultation bilaterally Cardio: COMMON NORMALS: regular rate, regular rhythm, S1 normal heart sound present, S2 normal heart sound present, No gallops present (Cardio), No murmurs present (Cardio), No rub (Cardio) and Peripheral pulses 2+ throughout RATE: regular rate RHYTHM: regular rhythm HEART SOUNDS: S1 normal heart sound present and S2 normal heart sound present PERIPHERAL PULSES: Peripheral pulses 2+ throughout GI: COMMON NORMALS: Normal to inspection, nondistended, normoactive bowel sounds present, Soft to palpation, non-tender, No hepatosplenomegaly present and no masses AUSCULTATION: Yes normoactive bowel sounds PALPATION: Yes Soft to palpation and Yes No hepatosplenomegaly present RECTAL EXAM: Yes deferred Extremity: COMMON NORMALS: no clubbing, cyanosis or edema and no pedal edema Neuro: COMMON NORMALS: patient oriented x3 Data : 10/08/21 03:18 10/08/21 03:18 Micro: Microbiology 10/06/21 12:30 Enteric Pathogens (PCR) - Final Stool Routine Collection Parasite Antigen Panel - Final C.difficile Toxin B Gene (PCR) - Final A&P Assessment and plan (1) COVID-19: Pneumonia secondary to COVID-19: CTA Chest - no PE, B/l ground glass. Blood culture:NTD Urine culture: No growth ESR: CRP:9 D-dimer:0.42 Ferritin:377 LDH:291 Dexamethasone 6 mg IV daily for 10 days Remdesivir 5 days Duo nebs Advair inhaler Pulmonary toilet Was Empirically on Zosyn discontinued on 10/08 I/O Charting Lasix as needed. Supplemental oxygen as needed. incentive spirometer and flutter valve Possible pulmonary consult Status: Acute (2) Atrial fibrillation with RVR: Patient has history of paroxysmal A. fib: At home he is on diltiazem to 240 mg p.o. daily as well as metoprolol tartrate 100 mg p.o. twice daily. ECHO : Poor quality LV systolic function is normal, grade 1 diastolic, trace MR. Initially on amiodarone gtt. Currently switched to amiodarone po 400 mg BID Xarelto 20 mg PO daily Metoprolol 12.5 mg PO BID Cardiology consult Status: Acute (3) Chest pain: Will need outpatient stress test Status: Acute (4) Hyperlipidemia: Verify home meds Status: Inactive (5) Hypertension: Status: Inactive Additional A&P Information Diarrhea: Stool C. difficile negative, stool enteric bacterial panel by PCR: Negative, stool enteric parasitic panel: Negative. Has resolved DVT prophylaxis: Not needed patient is on Xarelto CODE STATUS: Full code Attestations Medical Necessity Statement*: Patient is to be in hospital for management of pneumonia Coding Level of Care Code Acute Program Manager Transportation for g Fwd Diagnoses COVID-19 U07.1 Atrial fibrillation with RVR I48.91 Chest pain R07.9 Hyperlipidemia E78.5 Hypertension I10
[2021-10-08] MEDS: dexamethasone 10 mg/mL INJ 6 MG IVP (19:34)
--- NOTE | 2021-10-08 20:24 | PC.NURSE ---
attempt to ween o2 this shift.began shift at 8 liters hf.at 0945 decreased to 7 l hf...but at 1140 ,had to increase back to 8 l due to sats decreasing into lower 80's.cierra villatoro'd this shift.pt's appetite has increased..diet changed to regular diet .
[2021-10-09] VITALS (9 sets, daily range): BP systolic 113–139; BP diastolic 71–89; PULSE 69–98; RESP 16–25; TEMP 36.4–36.6; O2SAT 88–94
[2021-10-09] MEDS: ipratropium-albuterol 3 mL Neb INHALATION ×3 (03:37→13:25)
[2021-10-09] MEDS: levothyroxine 200 mcg Tablet PO (05:00)
[2021-10-09] MEDS: guaiFENesin 100 mg/5 mL UDC 10 mL 200 MG PO ×3 (05:00→12:06)
--- NOTE | 2021-10-09 06:31 | PC.NURSE ---
Frequent safety and comfort rounds continue. Orders and/or nursing care completed as indicated. Patient monitored for response to intervention and treatment(s). Education provided includes oxygen importance. Patient and/or wine sales representative verbalizes understanding. Will continue to monitor.
[2021-10-09] MEDS: pantoprazole DR 40 mg Tablet PO (08:27)
[2021-10-09] MEDS: rivaroxaban 10 mg Tablet 20 MG PO (08:27)
[2021-10-09] MEDS: potassium chloride oral liq 20 mEq/15 mL UDC 40 MEQ PO (08:27)
[2021-10-09] MEDS: amiodarone 200 mg Tablet PO (08:27)
[2021-10-09] MEDS: metoprolol tartrate 25 mg Tablet 12.5 MG PO (08:27)
--- NOTE | 2021-10-09 08:33 | XR_ITS ---
WS: [id number] PORTABLE CHEST HISTORY: Pneumonia. COMPARISON: 10/06/2021, 10/02/2021 Mild elevation of the RIGHT hemidiaphragm is chronic. Mild improvement in the bilateral scattered opa cifications since 10/06/2021. There is still areas of atelectasis and opacification noted bilaterally. Blunting of the RIGHT costophrenic angle. Cardiac size: Mildly enlarged cardiac silhouette. Mediastinum/Aorta: Mild atherosclerosis aorta. No osseous abnormality seen. XR/XR chest 1V portable [id number] IMPRESSION: 1. Mild improvement in the bilateral multilobar opacifications from pneumonia. 2. Small RIGHT pleural effusion. 3. Stable mild elevation RIGHT hemidiaphragm.
--- NOTE | 2021-10-09 08:48 | PC.SOCIAL ---
IMM Update Pg. 2 of IMM updated and reviewed with patient, who verbalized understanding. Initialed, dated, and timed and placed in chart.
[2021-10-09] MEDS: FUROsemide 10 mg/mL SDV 2mL 20 MG IVP (09:18)
--- NOTE | 2021-10-09 09:33 | P.PN_ITS ---
Subjective Subjective: Interval history: Patient was seen and examined this morning,Continue to require 7-8Ls. Supplemental oxygen HFNC. Medications: Reviewed: Yes Vitals/I&O/Wt Last Vital Signs Temp 97.6 F 10/09/21 07:47 Pulse 83 10/09/21 09:21 Resp 16 10/09/21 09:21 BP 113/71 10/09/21 07:47 Pulse Ox 93 10/09/21 09:21 10/08/21 10/09/21 10/09/21 22:59 06:59 14:59 Intake Total 240 / 580 150 / 730 240 / 240 Output Total 300 / 600 200 / 800 Balance -60 / -20 -50 / -70 240 / 240 Weight last 48 hrs Weight 117.48 kg Weight 117.48 kg Physical Exam Const: COMMON NORMALS: patient oriented x3 HENMT: COMMON NORMALS: normocephalic and atraumatic HEAD & SCALP: normocephalic and atraumatic Resp: COMMON NORMALS: clear to auscultation bilaterally AUSCULTATION: clear to auscultation bilaterally OTHER: Diminished air entry bilaterally Cardio: COMMON NORMALS: regular rate, regular rhythm, S1 normal heart sound present, S2 normal heart sound present, No gallops present (Cardio), No murmurs present (Cardio), No rub (Cardio) and Peripheral pulses 2+ throughout RATE: regular rate RHYTHM: regular rhythm HEART SOUNDS: S1 normal heart sound present and S2 normal heart sound present PERIPHERAL PULSES: Peripheral pulses 2+ throughout GI: COMMON NORMALS: Normal to inspection, nondistended, normoactive bowel sounds present, Soft to palpation, non-tender, No hepatosplenomegaly present and no masses AUSCULTATION: Yes normoactive bowel sounds PALPATION: Yes Soft to palpation and Yes No hepatosplenomegaly present RECTAL EXAM: Yes deferred Extremity: COMMON NORMALS: no clubbing, cyanosis or edema and no pedal edema Neuro: COMMON NORMALS: patient oriented x3 Data : 10/08/21 03:18 10/08/21 03:18 Micro: Microbiology 10/03/21 17:23 Blood Culture - Final Blood NO GROWTH AFTER 5 DAYS 10/03/21 17:20 Blood Culture - Final Blood NO GROWTH AFTER 5 DAYS A&P Assessment and plan (1) COVID-19: Pneumonia secondary to COVID-19: CTA Chest - no PE, B/l ground glass. Blood culture:NTD Urine culture: No growth ESR: CRP:9 D-dimer:0.42 Ferritin:377 LDH:291 Dexamethasone 6 mg IV daily for 10 days Remdesivir 5 days Duo nebs Advair inhaler Pulmonary toilet Was Empirically on Zosyn discontinued on 10/08 I/O Charting Lasix as needed. Supplemental oxygen as needed. incentive spirometer and flutter valve Possible pulmonary consult Status: Acute (2) Atrial fibrillation with RVR: Patient has history of paroxysmal A. fib: At home he is on diltiazem to 240 mg p.o. daily as well as metoprolol tartrate 100 mg p.o. twice daily. ECHO : Poor quality LV systolic function is normal, grade 1 diastolic, trace MR. Initially on amiodarone gtt. Currently switched to amiodarone po 400 mg BID Xarelto 20 mg PO daily Metoprolol 12.5 mg PO BID Cardiology consult Status: Acute (3) Chest pain: Will need outpatient stress test Status: Acute (4) Hyperlipidemia: Verify home meds Status: Inactive (5) Hypertension: Status: Inactive Additional A&P Information Diarrhea: Stool C. difficile negative, stool enteric bacterial panel by PCR: N egative, stool enteric parasitic panel: Negative. Has resolved DVT prophylaxis: Not needed patient is on Xarelto CODE STATUS: Full code Coding Level of Care Code Acute Instrument Operator for Chg Fwd Diagnoses COVID-19 U07.1 Atrial fibrillation with RVR I48.91 Chest pain R07.9 Hyperlipidemia E78.5 Hypertension I10
--- NOTE | 2021-10-09 14:42 | P.DS_ITS ---
Discharge Providers Date of Admission: 10/02/21 17:30 Date of Discharge: October 09, 2021 Attending Provider at Admission: Shakira Carver Attending Provider at Discharge: Robi Baptiste MD Diagnoses at Discharge Discharge Diagnosis (1) COVID-19: (2) Atrial fibrillation with RVR: (3) Chest pain: (4) Hyperlipidemia: Status: Inactive (5) Hypertension: Status: Inactive Reason for Visit Reason for Visit: Chest pain Hospital Course Hospital Course 61 year old male with past medical history of paroxysmal atrial fibrillation on anticoagulation who presented to ER with chest pain. Upon arrival in the ER he was found to be in A. fib with RVR and had to be cardioverted, he was placed on amiodarone drip post cardioversion and subsequently to normal sinus rhythm, amiodarone drip was discontinued he was Switched to p.o. amiodarone.He was discharged on 200 mg p.o. amiodarone twice daily, as well as metoprolol succinate 25 mg p.o. daily Xarelto was continued on discharge.2D echo done during the hospital stay :Poor quality,LV systolic function is normal, grade 1 diastolic, trace MR.Cardizem and metoprolol tartrate was discontinued on discharge. Patient will follow cardiology as an outpatient (he will see Dr. Vargas in 2 weeks ).At the time of discharge patient was chest pain-free. On admission patient was also complaining of fever, chill, nonproductive cough. He was diagnosed with Covid pneumonia and was managed for the same during the hospital stay, he completed 5-day course of remdesivir, was kept on steroids, empirically on antibiotics, conservative respiratory support measures ( I/S, Flutter valve, supplemental oxygen as needed, cough medications, nebs) .In flammatory markers were trended. Patient has been discharged on Advair inhaler, albuterol inhaler, oral dexamethasone, as well as vitamin C,zinc, and cough medications, he is on anticoagulation, At the time of discharge he qualified for 5 Ls home oxygen.Patient was also having diarrhea during the hospital Stool C. difficile negative, stool enteric bacterial panel by PCR: Negative, stool enteric parasitic panel: Negative. At the time of discharge diarrhea had resolved Patient responded well to above medical management and was discharged in stable condition to home, he will continue to follow with a primary care physician as well as cardiology as an outpatient. Physical Exam Const: COMMON NORMALS: patient oriented x3 HENMT: COMMON NORMALS: normocephalic and atraumatic HEAD & SCALP: normocephalic and atraumatic Chest: COMMONS NORMALS: normal inspection of the chest and normal palpation of entire chest wall CHEST: Yes Symmetrical chest wall rise Resp: COMMON NORMALS: normal respiratory effort, No retractions, No use of accessory muscles and clear to auscultation bilaterally EFFORT & INSPECTION: Yes symmetric chest movement AUSCULTATION: clear to auscultation bilaterally Cardio: COMMON NORMALS: regular rate, regular rhythm, S1 normal heart sound present, S2 normal heart sound present, No gallops present (Cardio), No murmurs present (Cardio), No rub (Cardio) and Peripheral pulses 2+ throughout RATE: regular rate RHYTHM: regular rhythm HEART SOUNDS: S1 normal heart sound present and S2 normal heart sound present PERIPHERAL PULSES: Peripheral pulses 2+ throughout GI: COMMON NORMALS: Normal to inspection, nondistended, normoactive bowel sounds present, Soft to palpation, non-tender, No hepatosplenomegaly present and no masses AUSCULTATION: Yes normoactive bowel sounds PALPATION: Yes Soft to palpation and Yes No hepatosplenomegaly present RECTAL EXAM: Yes deferred Extremity: COMMON NORMALS: no clubbing, cyanosis or edema and no pedal edema Neuro: COMMON NORMALS: patient oriented x3 Discharge Data Data Completed and Pending: Completed Studies During Hospitalization Category Date Time Status CT angio chest PE protcl [id number] Rout ine Cat Scan 10/02/21 20:12 Completed XR chest 1V corwin ble [id number] Routine Exams 10/06/21 09:33 Completed XR chest 1V corwin ble [id number] Routine Exams 10/09/21 08:33 Completed XR chest 1V corwin ble [id number] Stat Exams 10/02/21 16:25 Completed CV. echo complete * [id number] Routine Ultrasound 10/06/21 14:04 Completed Pending at discharge Category Date Time Status Erythrocyte Sedim entation Rate AM L ABS Lab 10/06/21 04:10 Received Vitals: Last Vital Signs Temp 97.6 F 10/09/21 13:49 Pulse 98 10/09/21 13:49 Resp 25 H 10/09/21 13:49 BP 139/76 10/09/21 13:49 Pulse Ox 89 L 10/09/21 13:49 Discharge Plan Discharge Patient Disposition: Home Condition: Stable Prescriptions: New amiodarone 200 mg tablet 200 mg PO BID Qty: 60 RF: 1 metoprolol succinate 25 mg tablet extended release 24 hr 25 mg PO DAILY Qty: 30 RF: 0 acetaminophen 325 mg Tablet 650 mg PO Q6H PRN (Reason: Mild/Mod Pain Or Temp >/= 101) 7 Days Qty: 10 RF: 0 dexamethasone 4 mg tablet 4 mg PO DAILY Qty: 7 RF: 0 Advair HFA 45-21 mcg/actuation HFA aerosol inhaler 2 inh inhalation BID Qty: 12 RF: 0 ProAir HFA 90 mcg/actuation HFA aerosol inhaler 1 inh inhalation Q6H PRN (Reason: shortness of breath or wheezing) Qty: 6.7 RF: 0 ascorbic acid (vitamin C) 500 mg tablet 250 mg PO BID Qty: 14 RF: 0 zinc 50 mg tablet 50 mg PO DAILY Qty: 7 RF: 0 Tessalon Perles 100 mg capsule 100 mg PO TID PRN (Reason: cough) Qty: 20 RF: 0 Robitussin Cough-Chest Jorgito DM 10-200 mg capsule 1 tab-cap PO Q8H PRN (Reason: cough) Qty: 20 RF: 0 Continued multivitamin Tablet 1 tab PO DAILY RF: 0 rizatriptan 10 mg tablet 10 mg PO Q2H MDD 2 TABS PRN (Reason: Migraine Headache) RF: 0 ofloxacin 0.3 % drops 2 - 3 drp otic (ear) DAILY RF: 0 terazosin 2 mg capsule 2 mg PO BEDTIME RF: 0 dicyclomine 20 mg tablet 20 mg PO TID PRN (Reason: Abdominal Pain) RF: 0 gemfibrozil 600 mg tablet 600 mg PO BID RF: 0 levothyroxine 200 mcg tablet 200 mcg PO QAM RF: 0 loratadine 10 mg tablet 10 mg PO QAM RF: 0 Klor-Con M10 10 mEq tablet,ER particles/crystals 10 meq PO BEDTIME RF: 0 Xarelto 20 mg tablet 20 mg PO BEDTIME RF: 0 Discontinued cyclobenzaprine 10 mg tablet 10 mg PO TID PRN (Reason: Muscle Spasm) RF: 0 metoprolol tartrate 100 mg tablet 100 mg PO BID RF: 0 diltiazem HCl 240 mg capsule,extended release 24hr 240 mg PO QAM RF: 0 Discharge Orders: Discharge Order (Routine); Ordered 10/09/21 Ordered By: Robi Baptiste Other Ambulatory Orders: DME: Oxygen (Order) Location: None Selected Ordered By: Robi Baptiste Referrals: [facility] [Outside] Lefty Vargas M.D [Physician] - 10/30/21 2:00 pm (You have an appointment with Dr. Vargas on October 30, at 2:00pm. ) Martha Savage DO [Family Provider] - 10/11/21 8:20 am ( You have a video appointment with Lennie Coy on Thursday, at 8:20am. ) Discharge Diet: Regular Discharge Activity: Increase activity as tolerated Patient Instructions: Benzonatate (By mouth), Metoprolol (By mouth), Acetaminophen (By mouth), Zinc Sulfate (By mouth), Amiodarone (By mouth), Ascorbic Acid (By mouth), Antitussives (By mouth), Dexamethasone (By mouth), Fluticasone/Salmeterol (By breathing) (Advair Diskus 100/50, Advair..., Opioid Safety Discharge Attestations Time Spent in Discharge Care*: less than 30 min Specific Discharge Activities: educating patient, educating and/or supporting family/caregiver, discussing with pcp/other providers, discussing with business case analyst/social workers/dc planners, documenting/other paperwork and evaluating patient/reviewing data Status at Discharge: Cognitive status at discharge: cognitively intact , Behavioral status at discharge: cooperative , Functional status at discharge: independent ambulation Overall status at discharge: patient is progressing back to baseline Quality Metrics Clinical Quality Measures During this hospital stay, did patient experience: None Coding Level of Care Code Acute Chg FW DC note Exam Detailed Diagnoses COVID-19 U07.1 Atrial fibrillation with RVR I48.91 Chest pain R07.9 Hyperlipidemia E78.5 Hypertension I10
--- NOTE | 2021-10-09 15:26 | PC.NURSE ---
Pt education provided, no questions or concerns. Pt is awaiting sons arrival for discharge
--- NOTE | 2021-10-09 16:38 | PC.NURSE ---
Patients transport has arrived and patient is being wheeled out of the facility
== END 2021-10-09 16:39 | disposition home or self-care (01) | DRG 177 ==
LOC: ER 16:51 → ICU 17:37 → CSU 10-05 16:24
PROVIDERS: Admitting Provider Hospitalist; Emergency Provider Emergency Medicine; Family Provider Family Medicine; Visit Provider Internal Medicine
DX: U07.1 COVID-19 (principal); J12.82 Pneumonia due to coronavirus disease 2019; I48.0 Paroxysmal atrial fibrillation; E78.5 Hyperlipidemia, unspecified; I10 Essential (primary) hypertension; R19.7 Diarrhea, unspecified; Z79.01 Long term (current) use of anticoagulants
CPT/HCPCS: 36415; 36416; 71045; 71275; 80053; 80061; 81001; 82728; 82962; 83605; 83615; 83630; 83690; 83735; 83880; 84145; 84439; 84443; 84481; 84484; 85025; 85378; 85610; 85651; 85730; 86140; 87040; 87086; 87426; 87493; 87506; 93005; 93306; 94640; 96365; 96375; 96376; 99285; J0282; J1100; J1940; J2250; J2270; J2543; J3010; J3480; J3490; J7060; Q9967

== ENCOUNTER 2022-04-14 15:47 | Observation (INO) | payer MEDICARE, SELFPAY ==
[2022-04-14] VITALS (16 sets, daily range): BP systolic 130–187; BP diastolic 67–113; PULSE 63–109; RESP 12–22; TEMP 36.4–36.9; O2SAT 92–96; BMI 37.3
--- NOTE | 2022-04-14 15:51 | ECG_ITS ---
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 Measurements Intervals [place] Rate: 77 P: 38 [place]: 205 QRS: -3 QRSD: 185 T: 98 QT: 442 QTc: 502 Interpretive Statements SINUS RHYTHM LEFT BUNDLE BRANCH BLOCK [120+ ms QRS DURATION, 80+ ms Q/S IN V1/V2, 85+ ms R IN I/aVL/V5/V6] Compared to ECG 10/05/2021 14:13:05 No significant changes Electronically Signed On 04-14-2022 17:31:17 CDT by Elise Khalil M.D. [id number]
--- NOTE | 2022-04-14 15:51 | XRR_ITS ---
PROCEDURE INFORMATION: Exam: XR Chest Exam date and time: 04/14/2022 4:43 PM Age: 61 years old Clinical indication: Pain; Angina pectoris; Additional info: Chest pain TECHNIQUE: Imaging protocol: XR of the chest. Views: 1 view. COMPARISON: CR XR chest 1V portable [id number] 10/09/2021 8:41 AM FINDINGS: Lungs: Unremarkable. No consolidation. Pleural spaces: Unremarkable. No pleural effusion. No pneumothorax. Heart/Mediastinum: Unremarkable. No cardiomegaly. Bones/joints: Unremarkable. XR/XR chest 1V portable [id number] IMPRESSION: No acute findings.
--- NOTE | 2022-04-14 17:51 | ECG_ITS ---
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 Measurements Intervals [place] Rate: 71 P: 53 [place]: 201 QRS: 10 QRSD: 181 T: 141 QT: 453 QTc: 493 Interpretive Statements SINUS RHYTHM LEFT BUNDLE BRANCH BLOCK [120+ ms QRS DURATION, 80+ ms Q/S IN V1/V2, 85+ ms R IN I/aVL/V5/V6] Compared to ECG 04/14/2022 16:19:28 No significant changes Electronically Signed On 04-14-2022 17:41:59 CDT by Elise Khalil M.D. [id number]
[2022-04-14 18:28] LABS: Eosinophils % 0.2 %; Hematocrit 43.6 % (42.0-52.0); Hemoglobin 14.1 g/dL (11.7-16.6); Lymphocytes # 0.9 10^3/uL (0.8-4.8); Lymphocytes % 21.5 %; Mean Corpuscular HGB Conc 32.3 g/dL (30.0-36.0); Mean Corpuscular Hemoglobin 28.5 pg (28.0-34.0); Mean Corpuscular Volume 88.1 fl (80-94); Mean Platelet Volume 12.9 fL (7.4-10.4); Monocytes # 0.4 10^3/uL (0.2-0.9); Monocytes % 9.4 %; Neutrophils # 2.72 10^3/uL (1.8-7.7); Neutrophils % 67.4 %; Nucleated Red Blood Cells % 0 %; Platelet Count 157 10^3/cmm (130-400); Red Blood Count 4.95 10^6/uL (4.1-5.3); Red Cell Distribution Width 15.6 % (12.1-15.1)
[2022-04-14 18:47] LABS: Anion Gap 13.6 (5-19); Blood Urea Nitrogen 15 mg/dL (8-23); Calcium 10.4 mg/dL (8.5-10.5); Carbon Dioxide 24 mmol/L (22-29); Chloride 106 mmol/L (98-107); Glomerular Filtration Rate 85.8 mL/min (90-130); Glucose 109 mg/dL (65-115); Osmolality Calculated 291 mOsm/kg (285-295); Potassium 3.6 mmol/L (3.5-5.1); Sodium 140 mmol/L (136-145)
[2022-04-14 18:50] LABS: Troponin(5th) Baseline 8 ng/L (0-15)
--- NOTE | 2022-04-14 18:50 | CTR_ITS ---
PROCEDURE INFORMATION: Exam: CTA Chest With Contrast Exam date and time: 04/14/2022 7:39 PM Age: 61 years old Clinical indication: Other: Sharp chest pain and hypertension; Additional info: Hypertension, stabbing chest pain TECHNIQUE: Imaging protocol: Computed tomographic angiography of the chest with contrast. 3D rendering (Not supervised by radiologist): MIP and/or 3D reconstructed images were created and reviewed. COMPARISON: CT abdomen pelvis w con* [id number] 07/22/2017 9:06 PM FINDINGS: Pulmonary arteries: Minimal dilatation of main pulmonary artery at 3.2 cm, unchanged. No obvious pulmonary embolism. Aorta: Minimal ascending aortic dilatation at 4.2 by 4.3 cm, unchanged. No dissection or periaortic hemorrhage. Descending aorta measures 3 cm. Lungs: Multiple calcified pulmonary granulomas bilaterally. Bilateral linear scarring in both upper and lower lung zones , likely sequela of previously demonstrated diffuse bilateral ground-glass opacities, likely CV 19 pneumonia. No acute consolidation or ground-glass opacity. No bronchiectasis. Pleural spaces: Unremarkable. No pneumothorax. No pleural effusion. Heart: Normal heart size with coronary calcification. Lymph nodes: Nonenlarged mediastinal hilar lymph nodes consistent with chronic granulomatous disease. Bones/joints: No acute fracture. Soft tissues: Unremarkable. PROCEDURE INFORMATION: Exam: CTA Abdomen and Pelvis With Contrast Exam date and time: 04/14/2022 7:39 PM Age: 61 years old Clinical indication: Other: Sharp chest pain and hypertension; Additional info: Hypertension, stabbing chest pain TECHNIQUE: Imaging protocol: Computed tomographic angiography of the abdomen and pelvis with contrast material. 3D rendering (Not supervised by radiologist): MIP and/or 3D reconstructed images were created by the technologist. Radiation optimization: All CT scans at this facility use at least one of these dose optimization techniques: automated exposure control; mA and/or kV adjustment per patient size (includes targeted exams where dose is matched to clinical indication); or iterative reconstruction. Contrast material: OMNI 300; Contrast volume: 80 ml; Contrast route: INTRAVENOUS (IV); COMPARISON: CT abdomen pelvis w con* [id number] 07/22/2017 9:06 PM RADIATION DOSE METRICS: Total DLP (mGy-cm): 2510.09 FINDINGS: Aorta: No aortic aneurysm or dissection. Infrarenal aorta measures 2 cm in diameter. Celiac trunk and mesenteric arteries: No occlusion or significant stenosis. Renal arteries: Bilateral accessory renal arteries. No significant renal artery stenosis. Right iliac arteries: No occlusion or significant stenosis. Left iliac arteries: No occlusion or significant stenosis. Liver: No mass. Gallbladder and bile ducts: Unremarkable. No calcified stones. No ductal dilation. Pancreas: Unremarkable. No mass. No ductal dilation. Spleen: Mild splenomegaly. Adrenal glands: Unremarkable. No mass. Kidneys and ureters: Irregular bilateral renal cortical contour suggesting chronic scarring. No hydronephrosis or suspicious mass. Stomach and bowel: Colonic diverticulosis. Low-moderate stool burden. No bowel obstruction. Appendix: normal appendix. Intraperitoneal space: Unremarkable. No free air. No significant fluid collection. Lymph nodes: Unremarkable. No enlarged lymph nodes. Urinary bladder: Unremarkable. No mass. Reproductive: Unremarkable as visualized. Bones/joints: No acute fracture. No dislocation. Soft tissues: Unremarkable. CT/CT angio chest abdomen pelvis IMPRESSION: 1. Stable minimal ascending aortic dilatation at 4.2 x 4.3 cm. No aortic dissection or other acute aortic findings. 2. Stable minimal dilatation of main pulmonary artery. 3. Bilateral pulmonary parenchymal scarring, likely sequela of CV 19 pneumonia seen on previous chest CT exam. No acute lung findings otherwise. 4. Other nonacute findings as described. IMPRESSION: 1. No aortic aneurysm or dissection. 2. Mild splenomegaly and colonic diverticulosis. No acute abdominopelvic findings otherwise.
[2022-04-14] MEDS: morphine 4 mg/mL SDV 1 mL IVP (18:57)
[2022-04-14] MEDS: labetalol 5 mg/mL SDV 20mL 20 MG IVP (18:57)
--- NOTE | 2022-04-14 18:59 | W.ED.GENADLT ---
HPI - General Adult General: Chief complaint: Chest Pain Stated complaint: Chest Pains Time Seen by Provider: 04/14/22 18:21 History of Present Illness: CC: Chest Pain HPI: This is a [61]yo patient hx of HTN, atrial fibrillation on amioarone, xarelto, prior covid presenting to the ED complaining of acute sudden onset intermittent sharp chest pain x 2pm with radiation to the back. No associated with shortness of breath, chest pain or dyspnea on exertion. Pain not associated with vomiting or PO intake. Denies any recent sympathomimetic drug use. Patient denies any cough. Denies palpitations, dysphagia, diaphoresis, radiation of pain to bilateral arms, jaw. Denies F/N/V/D. Patient denies any recent immobility, surgery, unilateral leg swelling, or prior PE. Patient denies any orthopnea. Onset: 2:30pm Duration: ongoing since 2:30pm Location: home Severity: mild/moderate Associated symptoms: Reports chest pain and dyspnea; Deny nausea, rash, palpitations or vomiting Review of Systems Const: Denies: fever(s) or chills Eyes: Denies: change in vision ENMT: Denies: mouth pain Card: Reports: chest pain; Denies: palpitations Resp: Reports: dyspnea; Denies: non-productive cough GI: Denies: abdominal pain, nausea, vomiting or diarrhea : Denies: dysuria Musc: Denies: extremity pain Skin/Breast: Denies: rash or new lesions Neuro: Reports: other (+light-headedness); Denies: weakness in extremities Psych: Reports: other (Normal mood) Damon/Lymph: Denies: easy bruising [facility] ED PFSH: Medical History Atrial fibrillation Atrial fibrillation with RVR Chest pain COVID-19 Hyperlipidemia Hypertension Surgical History History of knee replacement Social History Smoking and tobacco status: former smoker Alcohol intake: never Physical Exam Const: COMMON NORMALS: alert HENMT: COMMON NORMALS: atraumatic HEAD & SCALP: atraumatic MOUTH: moist mucous membranes not abnormal Eye: COMMON NORMALS: EOMs intact bilaterally and conjunctivae normal CONJUNCTIVA: Yes conjunctivae normal Neck/C-Spine: COMMON NORMALS: full ROM and supple Resp: COMMON NORMALS: normal respiratory effort and clear to auscultation bilaterally AUSCULTATION: clear to auscultation bilaterally Cardio: COMMON NORMALS: regular rate RATE: regular rate GI: COMMON NORMALS: Soft to palpation and non-tender PALPATION: Yes Soft to palpation Extremity: COMMON NORMALS: full ROM Neuro: SENSORIUM/ORIENTATION: Yes alert MOTOR EXAM: No Abnormal motor strength present and Other motor observations present (no focal motor deficits) Psych: COMMON NORMALS: speech normal SPEECH: Yes normal speech MOOD & AFFECT: Yes euthymic mood Course Vital Signs: Vital signs: Vital Signs Temperature 98.5 F 04/14/22 16:09 Pulse Rate 66 04/14/22 20:30 Respiratory Rate 12 04/14/22 20:30 Blood Pressure 172/95 04/14/22 20:30 Pulse Oximetry 96 04/14/22 20:30 MDM - General Adult Medical Decision Making [61]yo patient w/ hx of HTN, afib on xarelto/amiodarone presenting to the ED with evaluation of new onset sharp/ chestpresure like chest pain since 2:30pm consistent and sharp/stabbing. HDS, pulse 2+ radially bilaterally, no signs of fluid overload, AAOx3, neuro exam intact. Patient initially was found to have systolic blood pressure of 180/110 on the left arm and 212 110 on the right arm. Given systolic greater than 20 with sharp onset of pain, decision was made to evaluate for dissection. Workup: ECG x 2, CXR, CBC, BMP, Troponin x 2 Interventions: labetolol ad morphine Findings: ECG: LBBB, does not meet sgarbossa criteria No overt evidence of STEMI, hyperacute T waves, localizable STD or T wave inversions. No evidence of Brugada?s sign, delta wave, epsilon wave, significantly prolonged QTc, or malignant arrhythmia. No Q waves. Other Labs unremarkable for emergent problems. CXR: Without PTX, PNA, or widened mediastinum Last Stress Test: never Last Heart Catheterization: never Case was discussed with Dr. Vargas who recommended admission for cardiac workup given persistence of pain and uncontrolled BP. She received labetalol and morphine with mild improvement in pain. Patient is on a nitroglycerin drip. Disposition: admission Lab Data : 04/14/22 17:46 04/14/22 17:46 Radiology Impressions Chest X-Ray 04/14/22 15:51 IMPRESSION: No acute findings. Chest/Abdomen/Pelvis CTA 04/14/22 18:50 IMPRESSION: 1. Stable minimal ascending aortic dilatation at 4.2 x 4.3 cm. No aortic dissection or other acute aortic findings. 2. Stable minimal dilatation of main pulmonary artery. 3. Bilateral pulmonary parenchymal scarring, likely sequela of CV 19 pneumonia seen on previous chest CT exam. No acute lung findings otherwise. 4. Other nonacute findings as described. IMPRESSION: 1. No aortic aneurysm or dissection. 2. Mild splenomegaly and colonic diverticulosis. No acute abdominopelvic findings otherwise. Laboratory Results WBC 4.0 10^3/uL (4.0-10.0) 04/14/22 17:46 RBC 4.95 10^6/uL (4.1-5.3) 04/14/22 17:46 Hgb 14.1 g/dL (11.7-16.6) 04/14/22 17:46 Hct 43.6 % (42.0-52.0) 04/14/22 17:46 MCV 88.1 fl (80-94) 04/14/22 17:46 MCH 28.5 pg (28.0-34.0) 04/14/22 17:46 MCHC 32.3 g/dL (30.0-36.0) 04/14/22 17:46 RDW 15.6 % (12.1-15.1) H 04/14/22 17:46 Plt Count 157 10^3/cmm (130-400) 04/14/22 17:46 MPV 12.9 fL (7.4-10.4) H 04/14/22 17:46 Neut % (Auto) 67.4 % 04/14/22 17:46 Lymph % (Auto) 21.5 % 04/14/22 17:46 [place] % (Auto) 9.4 % 04/14/22 17:46 Eos % (Auto) 0.2 % 04/14/22 17:46 Baso % (Auto) 1.0 % 04/14/22 17:46 Neut # (Auto) 2.72 10^3/uL (1.8-7.7) 04/14/22 17:46 Lymph # (Auto) 0.9 10^3/uL (0.8-4.8) 04/14/22 17:46 [place] # (Auto) 0.4 10^3/uL (0.2-0.9) 04/14/22 17:46 Eos # (Auto) 0.0 10^3/uL (0.0-0.8) 04/14/22 17:46 Baso # (Auto) 0.0 10^3/uL (0.0-0.1) 04/14/22 17:46 Nucleated RBC % (auto) 0 % 04/14/22 17:46 Nucleated RBCs # 0.0 /100WBC 04/14/22 17:46 Sodium 140 mmol/L (136-145) 04/14/22 17:46 Potassium 3.6 mmol/L (3.5-5.1) 04/14/22 17:46 Chloride 106 mmol/L (98-107) 04/14/22 17:46 Carbon Dioxide 24 mmol/L (22-29) 04/14/22 17:46 Anion Gap 13.6 (5-19) 04/14/22 17:46 BUN 15 mg/dL (8-23) 04/14/22 17:46 Creatinine 0.9 mg/dL (0.7-1.2) 04/14/22 17:46 GFR Calculation 85.8 mL/min (90-130) L 04/14/22 17:46 Glucose 109 mg/dL (65-115) 04/14/22 17:46 Calculated Osmolality 291 mOsm/kg (285-295) 04/14/22 17:46 Calcium 10.4 mg/dL (8.5-10.5) 04/14/22 17:46 Troponin T Baseline 8 ng/L (0-15) 04/14/22 17:46 Troponin T 120 Minute 7.57 ng/L (0-15) 04/14/22 19:52 Imaging Data Other Imaging: Radiologist's impression: [address] [place] [address] CT Scan Report Signed Patient: Deepak Chacon Unit #: [id number] : 1960 Age/Sex: 61 / M ADM Date: 04/14/22 Loc: ER Room/Bed: Attending Dr: Ordering Provider/Ordering MD: Conrado Trevino MD Date of Service: 04/14/22 Procedure(s): CT angio chest abdomen pelvis Accession Number(s): [id number] Report Number: [id number] PROCEDURE INFORMATION: Exam: CTA Chest With Contrast Exam date and time: 04/14/2022 7:39 PM Age: 61 years old Clinical indication: Other: Sharp chest pain and hypertension; Additional info: Hypertension, stabbing chest pain TECHNIQUE: Imaging protocol: Computed tomographic angiography of the chest with contrast. 3D rendering (Not supervised by radiologist): MIP and/or 3D reconstructed images were created and reviewed. COMPARISON: CT abdomen pelvis w con* [id number] 07/22/2017 9:06 PM FINDINGS: Pulmonary arteries: Minimal dilatation of main pulmonary artery at 3.2 cm, unchanged. No obvious pulmonary embolism. Aorta: Minimal ascending aortic dilatation at 4.2 by 4.3 cm, unchanged. No dissection or periaortic hemorrhage. Descending aorta measures 3 cm. Lungs: Multiple calcified pulmonary granulomas bilaterally. Bilateral linear scarring in both upper and lower lung zones , likely sequela of previously demonstrated diffuse bilateral ground-glass opacities, likely CV 19 pneumonia. No acute consolidation or ground-glass opacity. No bronchiectasis. Pleural spaces: Unremarkable. No pneumothorax. No pleural effusion. Heart: Normal heart size with coronary calcification. Lymph nodes: Nonenlarged mediastinal hilar lymph nodes consistent with chronic granulomatous disease. Bones/joints: No acute fracture. Soft tissues: Unremarkable. PROCEDURE INFORMATION: Exam: CTA Abdomen and Pelvis With Contrast Exam date and time: 04/14/2022 7:39 PM Age: 61 years old Clinical indication: Other: Sharp chest pain and hypertension; Additional info: Hypertension, stabbing chest pain TECHNIQUE: Imaging protocol: Computed tomographic angiography of the abdomen and pelvis with contrast material. 3D rendering (Not supervised by radiologist): MIP and/or 3D reconstructed images were created by the technologist. Radiation optimization: All CT scans at this facility use at least one of these dose optimization techniques: automated exposure control; mA and/or kV adjustment per patient size (includes targeted exams where dose is matched to clinical indication); or iterative reconstruction. Contrast material: OMNI 300; Contrast volume: 80 ml; Contrast route: INTRAVENOUS (IV);? COMPARISON: CT abdomen pelvis w con* [id number] 07/22/2017 9:06 PM RADIATION DOSE METRICS: Total DLP (mGy-cm): 2510.09 FINDINGS: Aorta: No aortic aneurysm or dissection. Infrarenal aorta measures 2 cm in diameter. Celiac trunk and mesenteric arteries: No occlusion or significant stenosis. Renal arteries: Bilateral accessory renal arteries. No significant renal artery stenosis. Right iliac arteries: No occlusion or significant stenosis. Left iliac arteries: No occlusion or significant stenosis. Liver: No mass. Gallbladder and bile ducts: Unremarkable. No calcified stones. No ductal dilation. Pancreas: Unremarkable. No mass. No ductal dilation. Spleen: Mild splenomegaly. Adrenal glands: Unremarkable. No mass. Kidneys and ureters: Irregular bilateral renal cortical contour suggesting chronic scarring. No hydronephrosis or suspicious mass. Stomach and bowel: Colonic diverticulosis. Low-moderate stool burden. No bowel obstruction. Appendix: normal appendix. Intraperitoneal space: Unremarkable. No free air. No significant fluid collection. Lymph nodes: Unremarkable. No enlarged lymph nodes. Urinary bladder: Unremarkable. No mass. Reproductive: Unremarkable as visualized. Bones/joints: No acute fracture. No dislocation. Soft tissues: Unremarkable. CT/CT angio chest abdomen pelvis IMPRESSION: 1. Stable minimal ascending aortic dilatation at 4.2 x 4.3 cm. No aortic dissection or other acute aortic findings. 2. Stable minimal dilatation of main pulmonary artery. 3. Bilateral pulmonary parenchymal scarring, likely sequela of CV 19 pneumonia seen on previous chest CT exam. No acute lung findings otherwise. 4. Other nonacute findings as described. ? ? IMPRESSION: 1. No aortic aneurysm or dissection. 2. Mild splenomegaly and colonic diverticulosis. No acute abdominopelvic findings otherwise. ? Dictated By: Denise Carias MD Signed By: Denise Carias MD Signed Date/Time: 04/14/222031 DD/ [address] [address] XRay Report Signed Patient: Deepak Chacon Unit #: [id number] : 1960 Age/Sex: 61 / M ADM Date: 04/14/22 Loc: ER Room/Bed: Attending Dr: Ordering Provider/Ordering MD: Conrado Trevino MD Date of Service: 04/14/22 Procedure(s): XR chest 1V portable [id number] Accession Number(s): [id number] Report Number: [id number] PROCEDURE INFORMATION: Exam: XR Chest Exam date and time: 04/14/2022 4:43 PM Age: 61 years old Clinical indication: Pain; Angina pectoris; Additional info: Chest pain TECHNIQUE: Imaging protocol: XR of the chest. Views: 1 view. COMPARISON: CR XR chest 1V portable [id number] 10/09/2021 8:41 AM FINDINGS: Lungs: Unremarkable. No consolidation. Pleural spaces: Unremarkable. No pleural effusion. No pneumothorax. Heart/Mediastinum: Unremarkable. No cardiomegaly. Bones/joints: Unremarkable. XR/XR chest 1V portable [id number] IMPRESSION: No acute findings. ? Dictated By: Yeison Cardenas DO Signed By: Yeison Cardenas DO Signed Date/Time: 04/14/22 1701 DD/ 1643 Discharge Plan Discharge Patient Disposition: Admitted As Inpatient Clinical Impression: Chest pain, Hypertension Condition: Stable Coding Level of Care Code ED Partnership Manager for Chg Fwd Exam Comprehensive
[2022-04-14] MEDS: iohexol 300 mg/mL 100 mL Btl IV (19:43)
[2022-04-14 20:16] LABS: Troponin 5 2HR 7.57 ng/L (0-15)
[2022-04-14] MEDS: HYDROmorphone 1 mg/mL INJ 1 mL 0.5 MG IVP (20:21)
[2022-04-14 21:06] LABS: Troponin 5 2HR Delta -0.43 ABS# (0-10)
--- NOTE | 2022-04-14 21:06 | P.HP_ITS ---
Providers/Chief Complaint Primary Care Provider: Martha Savage DO Chief Complaint: Chest Pains History of Present Illness the patient is a 61-year-old male who presents chief complaint chest pain which started approximately 2 PM on April 14, 2022. He states he was watching TV when it was of sudden onset and localized to the left sternal area with radiation to the back. He describes the pain as a sharpness and it was constant since the time of onset. At its worst rated 8 out of 10 and it currently rates it as an 8 out of 10 although his outward appearance does not come close to matching the subjective rating of pain. He did not take any medication for the pain at home. With the onset of chest pain he admits to dyspnea, lightheadedness, dizziness, sense of rapid heartbeat. He denies diaphoresis, palpitations, sense of irregular heartbeat. He states that his last cardiac stress test was possibly 40 years prior to hospitalization. He presents for further evaluation Review of Systems General: Reports: 10 or more systems reviewed and unremarkable except in HPI and below Medications/Allergies Home Medications Medication Instructions Recorded Confirmed Last Taken Type gemfibrozil 600 mg tablet 600 mg PO BID 10/04/21 04/14/22 04/14/22 History levothyroxine 200 mcg tablet 200 mcg PO QAM 10/04/21 04/14/22 04/14/22 History loratadine 10 mg tablet 10 mg PO QAM PRN 10/04/21 04/14/22 Unknown History multivitamin 1 tab PO DAILY 10/04/21 04/14/22 04/14/22 History potassium chloride 10 mEq 10 meq PO BEDTIME 10/04/21 04/14/22 04/13/22 History tablet,extended release(part/cryst) (Klor-Con M) rivaroxaban 20 mg tablet (Xarelto) 20 mg PO BEDTIME 10/04/21 04/14/22 04/13/22 History rizatriptan 10 mg tablet 10 mg PO Q2H PRN MDD 2 TABS 10/04/21 04/14/22 Unknown History terazosin 2 mg capsule 2 mg PO BEDTIME 10/04/21 04/14/22 04/13/22 History zinc 50 mg tablet 50 mg PO DAILY #7 tab 10/09/21 04/14/22 04/14/22 Rx amiodarone 200 mg tablet 200 mg PO DAILY #90 tab 10/30/21 04/14/22 04/14/22 Rx metoprolol succinate 50 mg 50 mg PO DAILY #90 tab 10/30/21 04/14/22 04/14/22 Rx tablet,extended release 24 hr ascorbic acid (vitamin C) 500 mg 500 mg PO DAILY 04/14/22 04/14/22 04/14/22 History tablet Allergies Allergy/AdvReac Type Severity Reaction Status Date / Time No Known Allergies Allergy Verified 04/14/22 19:02 PFSH Acute PFSH: Medical History Atrial fibrillation Atrial fibrillation with RVR Chest pain COVID-19 Hyperlipidemia Hypertension Surgical History History of knee replacement Social History Smoking and tobacco status: former smoker Alcohol intake: never Vitals/I&O/Wt Last Vital Signs Temp 98.5 F 04/14/22 16:09 Pulse 66 04/14/22 20:30 Resp 12 04/14/22 20:30 BP 172/95 04/14/22 20:30 Pulse Ox 96 04/14/22 20:30 Weight last 48 hrs Weight 131.995 kg Physical Exam Narrative: General: -Alert -No acute distress -No dyspnea -No tachypnea Head: -Atraumatic -Normocephalic Eyes: -Pupils equally round and reactive to light and accommodation -Extraocular muscles intact Neurological: -Cranial nerves II-XII intact Neck: -No jugular venous distention -No thyromegaly -No cervical lymphadenopathy Heart: -Regular rate -Regular rhythm -No murmurs -No gallops -No rubs Lungs: -No wheeze -No rhonchi -No rales ? Abdomen: -Normal bowel sounds in all four quadrants -No rebound -No guarding -No tenderness Extremities: -2/4 pulse in all four extremities -No clubbing -No cyanosis -No edema -No calf tenderness present bilaterally -Negative Meng?s sign bilaterally Musculoskeletal: -5/5 bilateral upper extremity strength -5/5 bilateral lower extremity strength -Sensorium of bilateral upper extremities are equal and intact -Sensorium of bilateral lower extremities are equal and intact ? Additional Details / Additional Findings / Exceptions / Miscellaneous: Data : 04/14/22 17:46 04/14/22 17:46 A&P Assessment and plan (1) Chest pain: Status: Acute Plan chest pain, rule out ACS. Will monitor patient on telemetry and checks her cardiac enzymes. Check TSH, free T4, magnesium level. In the morning we will recheck EKG and check fasting lipid panel. Aspirin 81 Mill grams by mouth daily plus Lipitor 40 Mill grams by mouth daily at bedtime +1 inch every 6 hours. No beta-nahid due to borderline bradycardia. Echo cardiac pending. Lexiscan pending Diverticulosis Atrial for ablation. Telemetry monitoring. Amiodarone 200 Mill grams by mouth daily plus Xarelto 20 mg by mouth daily BPH History of migraine Seasonal allergies Hypothyroidism. TSH, free T4 pending History of grade 1 diastolic dysfunction. Echocardiogram pending Coronary artery disease. Aspirin 81 Mill grams by mouth daily plus Lipitor 40 Mill grams by mouth daily at bedtime +1 inch every 6 hours Hyperlipidemia. Fasting lipid panel pending. Lipitor 40 Mill grams by mouth daily at bedtime Hypertension. Nitropaste 1 inch every 6 hours Obesity. The patient becomes regarding left eye modification DVT Proflex is. Xarelto 20 Mill grams by mouth daily Attestations Medical Necessity Statement*: anticipate length of stay is less than 2 midnights for ruling out ACS Coding Level of Care Code Acute Certified Prosthetist for Maddy Robertson Diagnoses Chest pain R07.9
[2022-04-14] MEDS: nitroglycerin drip 50 MG/250 ML PREMIX IV (21:16)
[2022-04-14 21:38] LABS: Free T4 Free Thyroxine 1.88 ng/dL (0.82-1.77); Magnesium 1.9 mg/dL (1.7-2.3); Thyroid Stimulating Hormone 0.82 uIU/mL (0.27-4.20)
--- NOTE | 2022-04-14 21:51 | ECG_ITS ---
[facility] Test Date: 2022-04-14 Pat Name: Deepak Chacon Department: Room: 105 Gender: Male House Calls Nurse: : 1960 Requested By: Conrado Trevino Order Number: [id number] Efra MD: Lefty Vargas M.D. Measurements Intervals [place] Rate: 67 P: 51 MD: 208 QRS: 34 QRSD: 187 T: 86 QT: 461 QTc: 488 Interpretive Statements SINUS RHYTHM LEFT BUNDLE BRANCH BLOCK [120+ ms QRS DURATION, 80+ ms Q/S IN V1/V2, 85+ ms R IN I/aVL/V5/V6] Compared to ECG 04/14/2022 17:41:32 No significant changes Electronically Signed On 04-15-2022 17:17:52 CDT by Lefty Vargas M.D. [id number]
[2022-04-14] MEDS: sodium chloride 0.9% 1,000 ML 100 ML IV (22:15)
[2022-04-14] MEDS: atorvastatin 40 mg Tablet PO (22:16)
[2022-04-14] MEDS: nitroglycerin 1 gm/inch oint Pkt 1 INCH TOPICAL (22:16)
--- NOTE | 2022-04-14 22:22 | PC.NURSE ---
Clarified orders for nitro paste. Dr Ashford requested drip to be discontinued.
[2022-04-14 23:55] LABS: Troponin 5 6HR 9.94 ng/L (0-15)
[2022-04-14 23:57] LABS: Troponin 5 6HR Delta 1.94 ng/L (0-12)
[2022-04-15] VITALS (55 sets, daily range): BP systolic 97–190; BP diastolic 55–113; PULSE 32–100; RESP 7–30; TEMP 36.4–36.8; O2SAT 86–98
[2022-04-15] MEDS: acetaminophen 325 mg Tablet 650 MG PO ×3 (00:24→21:02)
[2022-04-15] MEDS: morphine 4 mg/mL SDV 1 mL IVP ×2 (00:24→04:25)
--- NOTE | 2022-04-15 01:52 | PC.NURSE ---
Patient reporting severe headache. Tylenol administered as ordered. Patient refusing nitropaste due to increase possibility of headache.
--- NOTE | 2022-04-15 03:42 | USCV_ITS ---
Deepak Chacon Age: 61 Gender: M : 1960 Exam Date: 04/15/2022 03:43 Ordering Phys: José Manuel Ashford DO Technologist: CANDY [place] [facility] [place]: Chest Pain BP: 121 / 69 HR: 57 Rhythm: Sinus Technical Quality: Adequate MEASUREMENTS (Male / Female) Normal Values 2D ECHO LV Diastolic Diameter PLAX 5.3 cm 4.2 - 5.9 / 3.9 - 5.3 cm LV Systolic Diameter PLAX 3.8 cm IVS Diastolic Thickness 1.5 cm 0.6 - 1.0 / 0.6 - 0.9 cm IVS Systolic Thickness 1.7 cm LVPW Diastolic Thickness 1.6 cm 0.6 - 1.0 / 0.6 - 0.9 cm LVPW Systolic Thickness 2.4 cm LVOT Diameter 2.2 cm LV Ejection Fraction 2D Teich 55.4 % LV Ejection Fraction MOD 2C 47.6 % LV Ejection Fraction 2C AL 46.1 % LA Diameter 4.2 cm LA Width 4.5 cm LA Height 8.5 cm RA Width 3.3 cm RA Height 4.3 cm Aorta at Sinotubular Diameter 3.5 cm IVC Diameter 2.3 cm M-MODE Aortic Annulus Diameter 3.9 cm LA Ao Ratio MM 1.2 MV E Point Septal Separation 0.7 cm DOPPLER AV Peak Velocity 126.8 cm/s LVOT Peak Velocity 128.0 cm/s AV Area Cont Eq vti 3.7 cm squared AV Area Cont Eq pk 3.7 cm squared MV Peak Velocity 80.0 cm/s MV Area PHT 2.9 cm squared Mitral E to A Ratio 0.8 MV E' Velocity 34.0 cm/s Mitral E to MV E' Ratio 8.2 Mitral E to LV E' Lateral Ratio 6.7 Mitral E to LV E' Septal Ratio 10.8 TR Peak Velocity 229.1 cm/s TR Peak Gradient 21.0 mmHg TR Mean Velocity 181.0 cm/s TR Mean Gradient 15.0 mmHg TR Velocity Time Integral 74.3 cm Right Atrial Pressure 10.0 mmHg Pulmonary Artery Systolic Pressu 31.0 mmHg PV Peak Velocity 119.0 cm/s RV Acceleration Time 0.1 s RV Ejection Time 0.3 s RV AcT/ET 0.4 FINDINGS Left Ventricle Normal left ventricular size. LV systolic function is grossly normal. Septal motion is consistent with conduction abnormalities. Grade 1 diastolic dysfunction Right Ventricle The right ventricle is normal in size and function. Right Atrium The right atrium is normal in size. Left Atrium The left atrium is dilated. Mitral Valve Structurally normal mitral valve without significant stenosis or prolapse. There is trace mitral regurgitation. Aortic Valve Structurally normal aortic valve without significant sclerosis or stenosis. There is no aortic regurgitation. Tricuspid Valve Structurally normal tricuspid valve without significant stenosis. Trace Tricuspid regurgitation. Insufficient TR jet to calculate RVSP Pulmonic Valve Not well visualized Pericardium Normal pericardium without effusion. Aorta Ascending aorta is dilated IVC CONCLUSIONS Technically limited quality echocardiogram because of poor ultrasonic windows LV systolic function is grossly normal Septal motion is consistent with conduction abnormalities Grade 1 diastolic dysfunction Left atrial enlargement Trace mitral regurgitation Trace tricuspid regurgitation Ascending aorta is dilated Compared to prior echocardiogram from 10/06/2021, no significant changes are seen Lefty Vargas MD (Electronically Signed) Final Date: 15 Apr 2022 12:10 S
[2022-04-15 04:08] LABS: Eosinophils % 0.3 %; Hematocrit 39.1 % (42.0-52.0); Hemoglobin 12.6 g/dL (11.7-16.6); Lymphocytes % 25.3 %; Mean Corpuscular HGB Conc 32.2 g/dL (30.0-36.0); Mean Corpuscular Hemoglobin 28.1 pg (28.0-34.0); Mean Corpuscular Volume 87.3 fl (80-94); Mean Platelet Volume 12.9 fL (7.4-10.4); Monocytes # 0.4 10^3/uL (0.2-0.9); Monocytes % 9.6 %; Neutrophils # 2.51 10^3/uL (1.8-7.7); Neutrophils % 63.5 %; Nucleated Red Blood Cells % 0 %; Platelet Count 128 10^3/cmm (130-400); Red Blood Count 4.48 10^6/uL (4.1-5.3); Red Cell Distribution Width 15.3 % (12.1-15.1)
[2022-04-15 04:15] LABS: Alanine Aminotransferase 27 U/L (0-41); Albumin Level 3.8 g/dL (3.5-5.2); Alkaline Phosphatase 54 IU/L (40-130); Anion Gap 12.3 (5-19); Aspartate Amino Transferase 19 U/L (0-40); Blood Urea Nitrogen 16 mg/dL (8-23); Calcium 9.4 mg/dL (8.5-10.5); Carbon Dioxide 25 mmol/L (22-29); Chloride 106 mmol/L (98-107); Chol HDL Ratio 8.19 mg/dL (1.0-5.00); Cholesterol 172 mg/dL (0-200); Globulin 2.1 g/dL (1.3-4.6); Glomerular Filtration Rate 85.8 mL/min (90-130); Glucose 133 mg/dL (65-115); HDL Cholesterol 21 mg/dL (60-100); LDL Cholesterol Calculated 101 mg/dL (50-129); LDL HDL Ratio 4.81 RATIO (0.00-3.22); Osmolality Calculated 293 mOsm/kg (285-295); Potassium 3.3 mmol/L (3.5-5.1); Sodium 140 mmol/L (136-145); Total Bilirubin 0.3 mg/dL (0.15-1.2); Total Protein 5.9 g/dL (6.6-8.7); Triglycerides 250 mg/dL (0-150)
--- NOTE | 2022-04-15 06:58 | ECG_ITS ---
[facility] Test Date: 2022-04-15 Pat Name: Deepak Chacon Department: Room: 105 Gender: Male Orthopedic Tech: : 1960 Requested By: José Manuel Ashford Order Number: [id number] Efra MD: Elise Khalil M.D. Interpretive Statements NAME OF STUDY: LEXISCAN SESTAMIBI STRESS TEST INDICATION: Chest Pain PROCEDURE: At the baseline, the blood pressure was 154/99 mmHg with oxygen saturation of 94% with a heart rate of 57 beats per minute. The electrocardiogram showed normal sinus rhythm with intraventricular conduction delay (left bundle branch like morphology). The Lexiscan was infused over a period of 20 seconds. A total of 0.4 milligrams of Lexiscan was infused. The stress phase was continued for a total of 5 minutes. Heart rate at the end of the stress phase was 66 bpm, oxygen saturation 98% with a blood pressure of 160/93 mmHg. The EKG at the peak infusion revealed sinus rhythm with intraventricular conduction delay. The study was terminated due to protocol completion. Sestamibi was injected 20 seconds after the Lexiscan infusion. Blood pressure at the end of the recovery phase was 155/95 mmHg, oxygen saturation 96% with a heart rate of 70 beats per minute. CONCLUSION: 1. Uninterpretable EKG with LexiScan infusion due to baseline left bundle branch block morphology. 2. No LexiScan induced chest pain or cardiac arrhythmia. 3. Normal blood pressure and heart rate response. 4. Sestamibi/sestamibi perfusion scan pending; see separate report. Electronically Signed On 04-15-2022 11:49:21 CDT by Elise Khalil M.D. [id number]
[2022-04-15] MEDS: regadenoson 0.4 Mg/5 ml Syringe IVP (07:40)
[2022-04-15] MEDS: aminophylline 25 mg/mL SDV 10 mL IVP (08:10)
--- NOTE | 2022-04-15 09:00 | PC.CHAP ---
Pastoral Care Encounter/Spiritual Assessment Type of Contact [] Declined contestant coordinator visit [] Patient/Family/Request visit [] Outpatient visit [] Follow-up visit [] Physician referral [] Code/Alert [] Routine visit [] Staff referral [] Actively dying [] Patient sleeping [] Family support [] [x] Out of room [] Palliative care [] [] Receiving care in room [] Pre-surgical visit [] Trauma [] Long length of stay [] ICU visit [] Other: Relational/Emotional Strength [] Patient feels connected with others/family/visitors/staff [] Distress [] Loneliness/isolation [] Abandonment Spirituality of Patient [] Person of [place]lette [] Attends Roman Catholic of their [place] [] Believes in Prayer [] Reads Bible or Lutheran materials [] There are Spiritual issues to be addressed Toll Testboard Worker Interventions [x] Prayer [] Active listening [] Non-anxious presence [] Spiritual/emotional support [] Crisis/trauma care [] Spiritual counseling [] Bereavement support [] Provided bereavement packet [] Provided Bible/devotional materials [] Provided toy/stuffed animal, coloring book to patient or family member [] Provided Communion [] Anointing/[place] [] Salvation [x] Completed spiritual assessment [] Other: Impact on Illness or Injury [] Angry [] Fearful [] Anxious [] Often cries [] Exhaustion [] Unable to work [] Unable to attend gnosticism [] Unable to walk/stand [] Unable to read [] Unable to drive [] Unable to eat/drink [] Unable to sleep [] Unable to be with family [] Patient intubated [] Other: Summary Time spent with patient
--- NOTE | 2022-04-15 09:02 | ECG_ITS ---
[facility] Test Date: 2022-04-15 Pat Name: Deepak Chacon Department: Room: 105 Gender: Male Expense Clerk: : 1960 Requested By: Feng Mackenzie Order Number: [id number] Efra MD: Lefty Vargas M.D. Measurements Intervals [place] Rate: 138 P: 39 DC: 104 QRS: 60 QRSD: 175 T: -54 QT: 269 QTc: 409 Interpretive Statements SINUS TACHYCARDIA WITH SHORT DC INTERVAL INTRAVENTRICULAR CONDUCTION DELAY [130+ ms QRS DURATION] Compared to ECG 04/14/2022 21:46:00 Short DC interval now present Intraventricular conduction delay now present Sinus rhythm no longer present Left bundle-branch block no longer present Electronically Signed On 04-15-2022 17:13:01 CDT by Lefty Vargas M.D. [id number]
[2022-04-15] MEDS: LORazepam 2 mg/mL INJ 1 mL 0.5 MG IVP (09:11)
[2022-04-15] MEDS: nitroglycerin drip 50 MG/250 ML PREMIX IV (09:21)
--- NOTE | 2022-04-15 09:23 | PC.NURSE ---
patient back to room from testing patient violently shacking in upper extremities patient stating he has chest pressure and right shoulder pain provider called to bedside instructions to give 0.5 mg ativan x1 and start nitro gtt patient continues to shake after Ativan administration
--- NOTE | 2022-04-15 09:41 | PC.NURSE ---
provider spoke with about patients NPO status and PO medications ok to give hold off on xarelto at this time
[2022-04-15] MEDS: amiodarone 200 mg Tablet PO (09:46)
[2022-04-15] MEDS: aspirin 81 mg Chew Tablet PO (09:46)
--- NOTE | 2022-04-15 12:00 | P.CONIM_ITS ---
Providers/Reason For Consult Consulting Physician/Specialty*: Dr. Khalil, Cardiology Reason for Consult*: Chest pain, mildly abnormal stress test Attending Physician: Feng Mackenzie MD Primary Care Provider: Martha Savage DO History of Present Illness History of Present Illness Deepak Chacon is a 61 year old male history of left bundle branch block, paroxysmal atrial fibrillation on amiodarone and Xarelto, h/o CV in 09/2021, dyslipidemia and obesity presented to ER chest discomfort. Patient was placed on nitroglycerin drip overnight. EKG showed left bundle branch block. Troponins x3 without any significant delta change. Lexiscan sestamibi myocardial perfusion imaging showed mild reversibility in mid anterior and mid anteroseptal lo. Left ventricular systolic function mildly decreased at 47%. Patient tells me he started having chest discomfort during the stress test that has persisted and is graded at 7/10 in intensity presently. Patient is on nitroglycerin gtt. at 10 mcgs. Prior intermittent episodes of chest discomfort. Prior cardiac catheterization in 2013 was normal. Review of Systems Const: Denies: fever(s) or chills Eyes: Denies: change in vision ENMT: Denies: mouth pain Card: Reports: chest pain; Denies: palpitations Resp: Reports: dyspnea; Denies: non-productive cough GI: Denies: abdominal pain, nausea, vomiting or diarrhea : Denies: dysuria Musc: Denies: extremity pain Skin/Breast: Denies: rash or new lesions Neuro: Reports: other (+light-headedness); Denies: weakness in extremities Psych: Reports: other (Normal mood) Damon/Lymph: Denies: easy bruising, petechiae or purpura Medications/Allergies Home Medications Medication Instructions Recorded Confirmed Last Taken Type gemfibrozil 600 mg tablet 600 mg PO BID 10/04/21 04/14/22 04/14/22 History levothyroxine 200 mcg tablet 200 mcg PO QAM 10/04/21 04/14/22 04/14/22 History loratadine 10 mg tablet 10 mg PO QAM PRN 10/04/21 04/14/22 Unknown History multivitamin 1 tab PO DAILY 10/04/21 04/14/22 04/14/22 History potassium chloride 10 mEq 10 meq PO BEDTIME 10/04/21 04/14/22 04/13/22 History tablet,extended release(part/cryst) (Klor-Con M) rivaroxaban 20 mg tablet (Xarelto) 20 mg PO BEDTIME 10/04/21 04/14/22 04/13/22 History rizatriptan 10 mg tablet 10 mg PO Q2H PRN MDD 2 TABS 10/04/21 04/14/22 Unknown History terazosin 2 mg capsule 2 mg PO BEDTIME 10/04/21 04/14/22 04/13/22 History zinc 50 mg tablet 50 mg PO DAILY #7 tab 10/09/21 04/14/22 04/14/22 Rx amiodarone 200 mg tablet 200 mg PO DAILY #90 tab 10/30/21 04/14/22 04/14/22 Rx metoprolol succinate 50 mg 50 mg PO DAILY #90 tab 10/30/21 04/14/22 04/14/22 Rx tablet,extended release 24 hr ascorbic acid (vitamin C) 500 mg 500 mg PO DAILY 04/14/22 04/14/22 04/14/22 History tablet Allergies Allergy/AdvReac Type Severity Reaction Status Date / Time No Known Allergies Allergy Verified 04/14/22 19:02 Current Medications Generic Name Dose Route Start Last Admin Trade Name Freq PRN Reason Stop Dose Admin Acetaminophen 650 mg 04/14/22 21:23 04/15/22 04:24 Acetaminophen 325 Mg Tablet PO 650 mg Q6H PRN Administration Mild/Mod Pain Or Temp >/= 101 Aminophylline 25 mg 04/15/22 06:59 04/15/22 08:10 Aminophylline 25 Mg/Ml Sdv 10 Ml IVP 04/16/22 06:58 25 mg Q2M PRN Administration see dose instructions Amiodarone HCl 200 mg 04/15/22 09:00 04/15/22 09:46 Amiodarone 200 Mg Tablet PO 200 mg DAILY KIYA Administration Aspirin 81 mg 04/15/22 09:00 04/15/22 09:46 Aspirin 81 Mg Chew Tablet PO 81 mg DAILY KIYA Administration Atorvastatin Calcium 40 mg 04/14/22 21:23 04/14/22 22:16 Atorvastatin 40 Mg Tablet PO 40 mg BEDTIME KIYA Administration Sodium Chloride 1,000 mls @ 100 mls/hr 04/14/22 21:23 04/14/22 22:15 Sodium Chloride 0.9% IV 100 mls/hr .Q10H KIYA Administration Nitroglycerin/Dextrose 50 mg in 250 mls @ 0 mls/hr 04/15/22 09:15 04/15/22 09:21 Nitroglycerin Drip IV 5 mcg/min .Q0M KIYA 1.5 mls/hr Administration Protocol Per Protocol Morphine Sulfate 4 mg 04/14/22 21:23 04/15/22 04:25 Morphine 4 Mg/Ml Sdv 1 Ml IVP 4 mg Q4H PRN Administration SEVERE PAIN Nitroglycerin 1 inch 04/14/22 21:23 04/15/22 09:40 Nitroglycerin 1 Gm/Inch Oint Pkt TOPICAL Not Given Q6H KIYA Rivaroxaban 20 mg 04/15/22 09:00 04/15/22 09:41 Rivaroxaban 10 Mg Tablet PO Not Given DAILY KIYA PFSH Acute PFSH: Medical History Atrial fibrillation Atrial fibrillation with RVR Chest pain COVID-19 Hyperlipidemia Hypertension Surgical History History of knee replacement Social History Smoking and tobacco status: former smoker Alcohol intake: never Vitals/I&O/Wt Last Vital Signs Temp 98.3 F 04/15/22 11:34 Pulse 64 04/15/22 11:34 Resp 20 H 04/15/22 11:34 BP 147/71 04/15/22 11:34 Pulse Ox 95 04/15/22 11:34 04/14/22 04/15/22 04/15/22 22:59 06:59 14:59 Intake Total 242.95 / 242.95 360 / 602.95 720 / 720 Output Total 200 / 200 800 / 800 Balance 242.95 / 242.95 160 / 402.95 -80 / -80 Weight last 48 hrs Weight 291 lb Weight 291 lb Physical Exam Narrative: GENERAL: Obese man laying in bed in no acute distress HEENT: Pupils equal round reactive to light. No pallor or icterus. NECK: No JVD. No carotid bruit. CARDIOVASCULAR SYSTEM: S1-S2 regular. No S3 or S4 present. No murmur rubs or gallops. RESPIRATORY SYSTEM: Chest clear to auscultation. No wheezes rhonchi or rubs heard. No use of accessory muscles. ABDOMEN: Soft, nontender and nondistended. Normal bowel sounds present. EXTREMITIES: No cyanosis or clubbing. No edema. No signs of chronic venous insufficiency. INFORMATION TECHNOLOGY TEACHER: Patient is alert oriented ?3. No focal neurological deficits. SKIN: Normal turgor and temperature. No breakdown, rash or nail changes noted. PSYCH: Normal insight and judgment. Data : 04/15/22 03:10 04/15/22 03:10 A&P Assessment and plan (1) Chest pain: CAD risk factors of hypertension, dyslipidemia and and mildly abnormal stress test -With ongoing chest discomfort I think he would benefit from cardiac catheterization for further risk ratification. -Xarelto has been held. Risks and benefits were discussed with the patients. Possible complications including risk of heart attack stroke and , coronary perforation, arrhythmia, cardiac tamponade in urgent CABG were discussed with the patient as well. Plan is to proceed for the procedure at the earliest. -I will defer that to patient's primary bulk picker Dr. Vargas. Status: Acute (2) Hypertension: Blood pressure Elevated on arrival -Usually runs good at home. Status: Acute (3) Hyperlipidemia: Status: Acute (4) Atrial fibrillation: Patient remains in sinus rhythm on arrival this time. Status: Acute Plan Chronic left bundle branch block Dyslipidemia BPH Obesity Former smoker Thank you for allowing me to participate in patient's care. Please feel free to call with questions or concerns. Coding Level of Care Code Acute Maintenance Services Dispatcher for Maddy Robertson Diagnoses Chest pain R07.9 Hypertension I10 Hyperlipidemia E78.5 Atrial fibrillation I48.91 Time Spent (min) 35
--- NOTE | 2022-04-15 13:06 | PM.PN ---
Subjective Subjective: Patient was seen this morning, he complained of chest pain overnight, similar in intensity to the chest pain that brought him into the emergency room, after his cardiac stress test, complaining of severe substernal chest pain radiating down the right arm, also had a diffuse tremor, he was placed on nitro drip, given Ativan, EKG no acute ST-T wave changes reexamined an hour after, his tremor has resolved, he was on 5 nitro, his chest pain had improved but continued to have substernal chest pain, I have kept him n.p.o., cardiology has been consulted Vitals/I&O/Wt Last Vital Signs Temp 98.3 F 04/15/22 11:34 Pulse 64 04/15/22 11:34 Resp 20 H 04/15/22 11:34 BP 147/71 04/15/22 11:34 Pulse Ox 95 04/15/22 11:34 04/14/22 04/15/22 04/15/22 22:59 06:59 14:59 Intake Total 242.95 / 242.95 360 / 602.95 720 / 720 Output Total 200 / 200 800 / 800 Balance 242.95 / 242.95 160 / 402.95 -80 / -80 Weight last 48 hrs Weight 131.995 kg Weight 131.995 kg Physical Exam Const: COMMON NORMALS: no acute distress and patient oriented x3 Resp: COMMON NORMALS: normal respiratory effort, No retractions, No use of accessory muscles and clear to auscultation bilaterally AUSCULTATION: clear to auscultation bilaterally Cardio: COMMON NORMALS: regular rate, regular rhythm, S1 normal heart sound present and S2 normal heart sound present RATE: regular rate RHYTHM: regular rhythm HEART SOUNDS: S1 normal heart sound present and S2 normal heart sound present GI: COMMON NORMALS: Normal to inspection, nondistended, normoactive bowel sounds present, Soft to palpation and non-tender PALPATION: Yes Soft to palpation Extremity: COMMON NORMALS: no pedal edema Neuro: COMMON NORMALS: patient oriented x3 Psych: COMMON NORMALS: mental status grossly normal Data : 04/15/22 03:10 04/15/22 03:10 A&P Assessment and plan (1) Chest pain: Status: Acute Plan chest pain, rule out ACS. LV is mildly dilated ?LV systolic function is mildly reduced with EF of 40-45% ?Left atrium is dilated ?Aortic valve is thickened. Mild aortic stenosis with aortic ?valve area of 1.2cm2 and mean gradient? across the valve of ?13.6mmHg.? There is mild to moderate aortic regurgitation.? ?Trace tricuspid regurgitation.? ?Compared to prior echocardiogram from 07/04/2020, no significant ?changes are seen ?1. Small sized perfusion abnormality of mid septal wall with mild reversibility ?in mid anteroseptal and mid anterior lo. ?2. This may represent small area of ischemia in left anterior descending artery ?territory.? However, sensitivity of this finding is limited given baseline left ?bundle branch block. ?3. The left ventricular ejection fraction is mildly reduced with a value of ?47%. ?4.? There is mild hypokinesis of mid anterior and septal lo.? ?5.? Uninterpretable EKG due to baseline left bundle branch block. -Left bundle branch block has been present since September -Continues to have chest pain, given Ativan, placed on nitro drip -Continue aspirin, statin, Xarelto placed on hold just in case he needs an angiogram -Keep n.p.o., cardiology consulted Diverticulosis Atrial for ablation. Telemetry monitoring. Amiodarone 200 Mill grams by mouth daily plus Xarelto 20 mg by mouth daily BPH History of migraine Seasonal allergies Hypothyroidism. TSH, free T4 pending History of grade 1 diastolic dysfunction. Echocardiogram pending Coronary artery disease. Aspirin 81 Mill grams by mouth daily plus Lipitor 40 Mill grams by mouth daily at bedtime +1 inch every 6 hours Hyperlipidemia. Fasting lipid panel pending. Lipitor 40 Mill grams by mouth daily at bedtime Hypertension. Nitropaste 1 inch every 6 hours Obesity. The patient becomes regarding left eye modification DVT Proflex is. Xarelto 20 Mill grams by mouth daily on hold Attestations Medical Necessity Statement*: Patient requires hospitalization for chest pain Coding Level of Care Code Acute Automatic Cigar Wrapper Tender for Maddy Robertson Diagnoses Chest pain R07.9
[2022-04-15] MEDS: atorvastatin 40 mg Tablet PO (21:02)
[2022-04-15] MEDS: ondansetron 2 mg/ML SDV 2 mL 4 MG IVP (21:10)
--- NOTE | 2022-04-15 21:23 | NMCV_ITS ---
NM carrie perf SPECT r/s* [id number] Deepak Chacon Age: 61 Gender: M : 1960 Exam Date: 04/15/2022 07:00 Ordering Phys: José Manuel Ashford DO Technologist: VICTORIA Richardson Exam Location: [facility] Indications: CHEST PAIN STRESS TEST Please see separate stress test report in [facility] for full findings IMAGE PROTOCOL Rest/Stress 1 Lexiscan Day Radiopharmaceutical Dose (mCi) Administration Site Administered by Rest: Tc-99m 10.9 IV VICTORIA Newman Sestamibi Stress:Tc-99m 33.0 IV VICTORIA Newman Sestamibi Rest: 15-Apr-2022 60 Discovery 630 Stress: 15-Apr-2022 30 Discovery 630 0.4mg Lexiscan. Images obtained in supine and prone position. SPECT RESULTS Technical Quality: Excellent Raw Data Analysis: Normal Image Corrections: No attenuation or motion correction applied Summed Stress Score: 3 Summed Rest Score: 4 Summed Difference Score: 1 PERFUSION FINDINGS Small size perfusion abnormality of mild severity of mid inferior, mid septal wall on rest images with some reversibility in mid anteroseptal and mid anterior wall on stress images. FUNCTIONAL RESULTS (calculated via Gated SPECT) Stress Image LV EF (%): 47 Stress EDV (mL):167 TID: 1.04 Stress ESV (mL):88 FUNCTIONAL FINDINGS: The left ventricle is normal in size. Transient Ischemia Dilatation of 1. There is mildly reduced left ventricular systolic function. The left ventricular ejection fraction is mildly reduced with a value of 47%. There is mild hypokinesis of mid anterior and septal lo. Abnormal septal motion. Increased end-diastolic and end-systolic volumes. IMPRESSIONS 1. Small sized perfusion abnormality of mid septal wall with mild reversibility in mid anteroseptal and mid anterior lo. 2. This may represent small area of ischemia in left anterior descending artery territory. However, sensitivity of this finding is limited given baseline left bundle branch block. 3. The left ventricular ejection fraction is mildly reduced with a value of 47%. 4. There is mild hypokinesis of mid anterior and septal lo. 5. Uninterpretable EKG due to baseline left bundle branch block. Elise Khalil MD (Electronically Signed) Final Date: 15 Apr 2022 12:11 S
[2022-04-15] MEDS: LORazepam 2 mg/mL INJ 1 mL 1 MG IVP (22:50)
--- NOTE | 2022-04-15 22:59 | PC.NURSE ---
Patient c/o nausea with vomiting and severe migraine. Patient has not had any relief with tylenol and zofran. Informed Dr Ashford and received telephone orders for Ativan 1mg IVP once and Imitrex 50mg PO once as well. RBVO
--- NOTE | 2022-04-15 23:12 | PC.NURSE ---
Patient refusing to continue with nitrodrip at this time. Patient stated, I just can't handle the headache and the nausea anymore. This stuff makes me feel like shit. Paused drip at this time per patient request. Dr Notified.
[2022-04-15] MEDS: SUMAtriptan 25 mg Tablet 50 MG PO (23:16)
--- NOTE | 2022-04-15 23:42 | PC.NURSE ---
Patient blood pressure is 190/108. Patient has nitro drip ordered but refuses to have it running. He believes it is making him more sick and worsening his headache. Blood pressure has been going up steadily since drip was stopped. Informed Dr Ashford and received order for Hydralazube 10mg IVP once now. RBVO
[2022-04-15] MEDS: hyDRALAzine 20 mg/mL INJ 1 mL 10 MG IVP (23:44)
[2022-04-16] VITALS (38 sets, daily range): BP systolic 132–194; BP diastolic 75–114; PULSE 60–94; RESP 7–25; O2SAT 73–99
--- NOTE | 2022-04-16 00:36 | PC.NURSE ---
BP is remaining 190s/111. He is resting at this time. Informed Dr Ashford and received telephone order for clonidine 0.3mg PO once. RBVO
[2022-04-16] MEDS: cloNIDine 0.1 mg Tablet 0.3 MG PO (00:44)
--- NOTE | 2022-04-16 00:47 | PC.NURSE ---
Patient reporting some relief to head. Medication given as ordered and documented for increased BP. Will continue to monitor.
--- NOTE | 2022-04-16 01:37 | PC.NURSE ---
Patient SpO2 decreasing to the 70s. Patient reports using cpap at home. Informed Dr Ashford and received order to start on cpap with home settings.
--- NOTE | 2022-04-16 03:23 | PC.NURSE ---
Patient with cpap in place. Noted significant decrease in blood pressure. Patient resting with eyes closed up in chair. No distress observed. Will continue to monitor.
[2022-04-16 04:09] LABS: Basophils % 0.6 %; Eosinophils % 0.4 %; Hematocrit 43.1 % (42.0-52.0); Hemoglobin 13.8 g/dL (11.7-16.6); Lymphocytes # 0.7 10^3/uL (0.8-4.8); Lymphocytes % 14.7 %; Mean Corpuscular Volume 87.6 fl (80-94); Mean Platelet Volume 12.7 fL (7.4-10.4); Monocytes # 0.4 10^3/uL (0.2-0.9); Monocytes % 8.2 %; Neutrophils % 75.7 %; Nucleated Red Blood Cells % 0 %; Platelet Count 144 10^3/cmm (130-400); Red Blood Count 4.92 10^6/uL (4.1-5.3); Red Cell Distribution Width 15.6 % (12.1-15.1)
[2022-04-16 04:28] LABS: Alanine Aminotransferase 29 U/L (0-41); Albumin Level 4.4 g/dL (3.5-5.2); Alkaline Phosphatase 56 IU/L (40-130); Anion Gap 11.8 (5-19); Aspartate Amino Transferase 19 U/L (0-40); Blood Urea Nitrogen 12 mg/dL (8-23); Calcium 9.8 mg/dL (8.5-10.5); Carbon Dioxide 27 mmol/L (22-29); Chloride 106 mmol/L (98-107); Globulin 2.3 g/dL (1.3-4.6); Glomerular Filtration Rate 85.8 mL/min (90-130); Glucose 115 mg/dL (65-115); Magnesium 2.1 mg/dL (1.7-2.3); Osmolality Calculated 293 mOsm/kg (285-295); Potassium 3.8 mmol/L (3.5-5.1); Sodium 141 mmol/L (136-145); Total Bilirubin 0.4 mg/dL (0.15-1.2); Total Protein 6.7 g/dL (6.6-8.7)
[2022-04-16] MEDS: diphenhydrAMINE 50 mg Capsule PO (04:59)
[2022-04-16] MEDS: sodium chloride 0.9% 1,000 ML 50 ML IV (04:59)
--- NOTE | 2022-04-16 05:03 | XACV_ITS ---
Exam Room: [facility] Ht: 188 cm Wt: 132 kg BSA: 2.67 m2 Gender: Male : 1960 Any Known Allergies: No known allergies Exam Priority: Routine Procedure(s): Procedure Description: Diagnostic procedure Procedure Description: Left Heart Catheterization Procedure Description: Coronary Angiography Diagnostic Cath Status: Elective Diagnostic Findings * No significant disease noted in the Left Main, Left Anterior Descending, Right, or Circumflex coronary arteries. * INDICATION: Typical chest pain symptoms/abnormal stress test. * Coronary angiography shows left dominance. Conclusions 1. No significant disease noted in the Left Main, Left Anterior Descending, Right, or Circumflex coronary arteries. Recommendations * Aggressive risk factor modification. * Outpatient cardiology follow up in 4 weeks. Interventional RX Recommendation: medical therapy and/or counseling Diagnostic RX Recommendation: medical therapy and/or counseling Pressures Phase:Rest AO : 122 / 91 ( 107 ) @ 7:38:00 AM 149 / 86 ( 111 ) @ 7:43:00 AM 137 / 67 ( 104 ) @ 7:43:00 AM LV : 144 / -5 / 11 @ 7:42:00 AM 146 / -5 / 12 @ 7:43:00 AM Valves Phase:DefaultPhase AV : 0.0 @ 6:52:03 AM 0.0 @ 6:52:03 AM AV Mean Gradient: 0.0 @ 6:52:03 AM 0.0 @ 6:52:03 AM Clinical Evaluation EBL: 5mL-10mL Procedural Details Procedure Consent Obtained. Pre-Procedure Time Out. Identified patient by full name and date of as verbalized by the patient/guarantor. Does the consent match the physician's order: Yes. Accurate & Complete Informed Consent: Yes. Inpatient/Outpatient History & Physical on Chart: Yes. If H&P is completed, is and addenduem needed: No; If yes, is the addendum complete: N/A. Visualize and Verify Site with Patient/Guarantor: N/A. Relevant Radiology Images available: Yes. Pre-op teaching completed and patient verbalized understanding. The risks, benefits, and alternatives of sedation and/or procedure were discussed by physician. The patient agrees to continue. Procedure started. [facility] Clinical Fraility Score: 3: Managing Well. Hearing Aid Dispenser Indications: Suspected CAD. Chest Pain Symptom Assessment: Typical Angina Symptoms. Correct patient, site and procedure confirmed by cath team. Current diagnosis: Chest Pain. PERRLA. Strong, equal hand mortgage assistant bilaterally. Lungs clear x 5 lobes. IV Site on Arrival: 18 gauge in the left anticubital. IV Fluids: 0.9% NaCl at KVO. 0 mL infused prior to supervisor laboratory. Oxygen started at 2liters/min via nasal canula. right groin was prepped with chloroprep then draped in the usual sterile fashion. right radial was prepped with chloroprep then draped in the usual sterile fashion. Physician notified. Baseline sample Acquired. HR: 0 BPM. Pre Procedural Pulses: right radial was 3+. Pre Procedural Pulses: bilateral dorsalis pedis was 3+. Pre Procedural Pulses: bilateral posterior tibial was 2+. Physician arrived. Physician scrubbed in. Immediate Pre-Procedure Time Out. Correct Patient: Yes; Correct Procedure: Yes; Correct Site: Yes; Correct Patient Position: Yes; Correct Supplies: Yes; Dried Flammable Prep: Yes; Blood Products Available: N/A;. Lidocaine 1% infiltrated to the right radial. A 20 gauge IV was started in the left forearm using aseptic technique. Arterial access obtained. A 5 st helenian TIG catheter in over wire. wire out. contrast hand injected through the catheter. wire inserted. Catheter removed over the standard wire. Lidocaine 1% infiltrated to the right groin. Arterial access obtained with micropuncture set. A TR Band was successful obtaining hemostatsis at the Right Radial artery insertion site. Lidocaine 1% infiltrated to the right groin. A 6 st helenian JL4 catheter in over wire. Multiple views taken of left coronary artery. Catheter removed over the standard wire. A 6 st helenian JR4 catheter in over wire. Multiple views taken of right coronary artery. EDP Sample taken: LV 144/-6,11; HR: 69 BPM; SpO2: 84%. Pullback taken: LV 146/-6,12; AO 149/86(111); Mean: 0mmHg, Peak to Peak: 0mmHg, SEP: 5sec/min; HR: 69 BPM; SpO2: 91%. Catheter removed over the standard wire. A Right femoral angiogram was performed to determine safe placement of closure device. A Angio-Seal VIP ([facility] [facility]) was successful obtaining hemostatsis at the Right Femoral artery insertion site. Post Procedure: Pulses reassessed and unchanged. PERRLA. Strong, equal hand mortgage assistant bilaterally. No VTE prophylaxis required. Medication's Wasted: Heparin = 1000 UNITS. Contrast type used: Visipaque 320 mgI/mL, 500 mL bottle. Total IV fluids: 48 mL. Complications: None. Estimated blood loss: 5mL-10mL. Responsiveness - Normal response to verbal stimuli; alert and oriented, PERRLA. Airway - Unaffected, no intervention required; spontaneous ventilation. Circulation: W/N/L, pulses unchanged. Nausea/Vomiting: No. Procedure completed. Patient transferred by bed to 1st floor. Post-op diagnosis: Non-obstructive CAD. Vital chart was stopped. Access Site Site: Right Radial artery Sheath Size: 6 Fr Hemostasis Method: TR Band Hemostasis Success: Successful Site: Right Femoral artery Sheath Size: 6 Fr Hemostasis Method: Angio-Seal VIP ([facility]) Hemostasis Success: Successful Procedure Medications Start: 5:58 AM Stop: 5:58 AM Medication: Fentanyl Amount: 50 mcg Route: I.V. Start: 6:10 AM Stop: 6:10 AM Medication: Versed Amount: 1 mg Route: I.V. Start: 6:19 AM Stop: 6:19 AM Medication: Nitrogylcerin Amount: 200 mcg Route: I.A. Start: 6:23 AM Stop: 6:23 AM Medication: Versed 1 mg and Fentanyl 25 mcg Amount: 1 Route: I.V. Start: 6:33 AM Stop: 6:33 AM Medication: Versed 1 mg and Fentanyl 25 mcg Amount: 1 Route: I.V. Start: 6:45 AM Stop: 6:45 AM Medication: Versed Amount: 1 mg Route: I.V. I, the attending physician, have reviewed and verified all procedure medications. Yes, all medications given per verbal order History/Risk Factors Hypertension: Yes Dyslipidemia: Yes Peripheral Arterial Disease (PAD): No Myocardial Infarction (CT): No Obesity: No Renal Disease: No Prior Interventions PCI: No CABG: No Valve Surgery: No Report Signatures Finalized by Lefty Vargas MD on 04/27/2022 11:11 PM
--- NOTE | 2022-04-16 05:16 | PC.NURSE ---
Patient reports feeling much better this morning. Headache and chest pain mostly resolve. Cpap used during the night.
--- NOTE | 2022-04-16 06:14 | W.PM.OPSUD ---
Surgery/Procedure H&P Update DATE OF PROCEDURE: April 16, 2022 DATE H&P PERFORMED: 04/15/22 H&P UPDATE INFORMATION: I have reviewed H&P completed within last 30 days, I have examined patient prior to procedure and No changes to prior documentation PREOP DIAGNOSIS: Worsening angina PRIMARY INDICATION FOR PROCEDURE: Worsening angina PLANNED PROCEDURE: Operation Date: 04/16/22 06:00 Proposed Procedures p Left heart cath with poss percutaneous coronary intervention(Left) - Lefty Vargas M.D PATIENT REASSESSED PRIOR TO SEDATION, WITH NO CHANGE NOTED: Yes PHYSICAL EXAM: alert, oriented x 3, clear to auscultation bilaterally and regular rate & rhythm AIRWAY EVAL/ANESTHESIA PLAN: ASA III, Risks, benefits & alternatives of sedation and/or procedure discussed and Patient agrees to continue as planned
[2022-04-16] MEDS: amiodarone 200 mg Tablet PO (09:15)
[2022-04-16] MEDS: aspirin 81 mg Chew Tablet PO (09:15)
--- NOTE | 2022-04-16 10:14 | PC.CHAP ---
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 visit [] Patient/Family/Request visit [] Outpatient visit [] Follow-up visit [] Physician referral [] Code/Alert [x] Routine visit [] Staff referral [] Actively dying [x] Patient sleeping [] Family support [] [] Out of room [] Palliative care [] [] Receiving care in room [] Pre-surgical visit [] Trauma [] Long length of stay [] ICU visit [] Other: Relational/Emotional Strength [] Patient feels connected with others/family/visitors/staff [] Distress [] Loneliness/isolation [] Abandonment Spirituality of Patient [] Person of [place]lette [] Attends Yarsanism of their [place] [] Believes in Prayer [] Reads Bible or Mosque materials [] There are Spiritual issues to be addressed Hydrogenation Still Operator Interventions [x] Prayer [] Active listening [] Non-anxious presence [] Spiritual/emotional support [] Crisis/trauma care [] Spiritual counseling [] Bereavement support [] Provided bereavement packet [] Provided Bible/devotional materials [] Provided toy/stuffed animal, coloring book to patient or family member [] Provided Communion [] Anointing/[place] [] Salvation [x] Completed spiritual assessment [] Other: Impact on Illness or Injury [] Angry [] Fearful [] Anxious [] Often cries [] Exhaustion [] Unable to work [] Unable to attend advent [] Unable to walk/stand [] Unable to read [] Unable to drive [] Unable to eat/drink [] Unable to sleep [] Unable to be with family [] Patient intubated [] Other: Summary Time spent with patient
--- NOTE | 2022-04-16 10:56 | P.DS_ITS ---
Discharge Providers Date of Admission: 04/14/22 21:23 Date of Discharge: April 16, 2022 Attending Provider at Admission: José Manuel Ashford DO Attending Provider at Discharge: Feng Mackenzie MD Primary Care Provider: Martha Savage DO Diagnoses at Discharge Discharge Diagnosis (1) Chest pain: Status: Resolved (2) Hypertension: Status: Resolved (3) Hyperlipidemia: Status: Resolved (4) Atrial fibrillation: Status: Resolved Reason for Visit Reason for Visit: Chest Pains Hospital Course Hospital Course This is a 61-year-old male with a past medical history of atrial fibrillation, hyperlipidemia, hypertension, who presents to [facility] for chest pain Patient was admitted to [facility] for chest pain, no significant delta troponin, EKG showing nonspecific ST-T wave changes in inferior leads CTA chest 1. Stable minimal ascending aortic dilatation at 4.2 x 4.3 cm. No aortic dissection or other acute aortic findings. 2. Stable minimal dilatation of main pulmonary artery. 3. Bilateral pulmonary parenchymal scarring, likely sequela of CV 19 pneumonia seen on previous chest CT exam. No acute lung findings otherwise. 4. Other nonacute findings as described. Cardiac stress test 1. Small sized perfusion abnormality of mid septal wall with mild reversibility ?in mid anteroseptal and mid anterior lo. ?2. This may represent small area of ischemia in left anterior descending artery ?territory.? However, sensitivity of this finding is limited given baseline left ?bundle branch block. ?3. The left ventricular ejection fraction is mildly reduced with a value of ?47%. ?4.? There is mild hypokinesis of mid anterior and septal lo.? ?5.? Uninterpretable EKG due to baseline left bundle branch block. cardiac echo ?Technically limited quality echocardiogram because of poor ?ultrasonic windows ?LV systolic function is grossly normal ?Septal motion is consistent with conduction abnormalities ?Grade 1 diastolic dysfunction ?Left atrial enlargement ?Trace mitral regurgitation ?Trace tricuspid regurgitation ?Ascending aorta is dilated ?Compared to prior echocardiogram from 10/06/2021, no significant ?changes are seen -Patient continued to have chest pain, substernal, requiring nitro drip, EKG showing nonspecific ST-T wave changes in inferior leads -Patient underwent coronary angiography, for recurrent chest pain, with no clinically significant evidence of obstructive CAD -Likely musculoskeletal related pain -Patient was discharged home with close follow-up with cardiology as outpatient -For his ascending aortic dilatation, follow-up with cardiothoracic surgery for routine monitoring Physical Exam Const: COMMON NORMALS: no acute distress and patient oriented x3 Resp: COMMON NORMALS: normal respiratory effort, No retractions, No use of accessory muscles and clear to auscultation bilaterally AUSCULTATION: clear to auscultation bilaterally Cardio: COMMON NORMALS: regular rate, regular rhythm, S1 normal heart sound present and S2 normal heart sound present RATE: regular rate RHYTHM: regul ar rhythm HEART SOUNDS: S1 normal heart sound present and S2 normal heart sound present GI: COMMON NORMALS: Normal to inspection, nondistended, normoactive bowel sounds present, Soft to palpation and non-tender PALPATION: Yes Soft to palpation Extremity: COMMON NORMALS: no pedal edema Neuro: COMMON NORMALS: patient oriented x3 Psych: COMMON NORMALS: mental status grossly normal Discharge Data Studies Completed and Pending Completed Studies During Hospitalization Category Date Time Status CTA chest abdomen pelvis [CT angio chest abdomen pelvis Cat Scan 04/14/22 18:50 Completed ] Urgent Cardiac Stress Test MIBI [Sestamibi Stress Test Request Exams 04/15/22 06:58 Completed ] Routine XR chest 1V portable [id number] Stat Exams 04/14/22 15:51 Completed NM carrie perf SPECT r/s* [id number] Routine Nuc Med 04/15/22 21:23 Completed CV. echo complete* [id number] Routine Ultrasound 04/15/22 03:42 Completed Pending at discharge Category Date Time Status ENVIRONMENTAL MONITORING TECHNICIAN request for service Routine Exams 04/16/22 05:03 Ordered Complete Blood Count w/Auto AM LABS Lab 04/17/22 04:00 Ordered Complete Blood Count w/Auto AM LABS Lab 04/18/22 04:00 Ordered Comprehensive Metabolic Panel AM LABS Lab 04/17/22 04:00 Ordered Comprehensive Metabolic Panel AM LABS Lab 04/18/22 04:00 Ordered Magnesium AM LABS Lab 04/17/22 04:00 Ordered Magnesium AM LABS Lab 04/18/22 04:00 Ordered Radiology Impressions Chest X-Ray 04/14/22 15:51 IMPRESSION: No acute findings. Chest/Abdomen/Pelvis CTA 04/14/22 18:50 IMPRESSION: 1. Stable minimal ascending aortic dilatation at 4.2 x 4.3 cm. No aortic dissection or other acute aortic findings. 2. Stable minimal dilatation of main pulmonary artery. 3. Bilateral pulmonary parenchymal scarring, likely sequela of CV 19 pneumonia seen on previous chest CT exam. No acute lung findings otherwise. 4. Other nonacute findings as described. IMPRESSION: 1. No aortic aneurysm or dissection. 2. Mild splenomegaly and colonic diverticulosis. No acute abdominopelvic findings otherwise. Laboratory Results WBC 5.0 10^3/uL (4.0-10.0) 04/16/22 03:40 RBC 4.92 10^6/uL (4.1-5.3) 04/16/22 03:40 Hgb 13.8 g/dL (11.7-16.6) 04/16/22 03:40 Hct 43.1 % (42.0-52.0) 04/16/22 03:40 MCV 87.6 fl (80-94) 04/16/22 03:40 MCH 28.0 pg (28.0-34.0) 04/16/22 03:40 MCHC 32.0 g/dL (30.0-36.0) 04/16/22 03:40 RDW 15.6 % (12.1-15.1) H 04/16/22 03:40 Plt Count 144 10^3/cmm (130-400) 04/16/22 03:40 MPV 12.7 fL (7.4-10.4) H 04/16/22 03:40 Neut % (Auto) 75.7 % 04/16/22 03:40 Lymph % (Auto) 14.7 % 04/16/22 03:40 Graham % (Auto) 8.2 % 04/16/22 03:40 Eos % (Auto) 0.4 % 04/16/22 03:40 Baso % (Auto) 0.6 % 04/16/22 03:40 Neut # (Auto) 3.80 10^3/uL (1.8-7.7) 04/16/22 03:40 Lymph # (Auto) 0.7 10^3/uL (0.8-4.8) L 04/16/22 03:40 Graham # (Auto) 0.4 10^3/uL (0.2-0.9) 04/16/22 03:40 Eos # (Auto) 0.0 10^3/uL (0.0-0.8) 04/16/22 03:40 Baso # (Auto) 0.0 10^3/uL (0.0-0.1) 04/16/22 03:40 Nucleated RBC % (auto) 0 % 04/16/22 03:40 Nucleated RBCs # 0.0 /100WBC 04/16/22 03:40 Sodium 141 mmol/L (136-145) 04/16/22 03:40 Potassium 3.8 mmol/L (3.5-5.1) 04/16/22 03:40 Chloride 106 mmol/L (98-107) 04/16/22 03:40 Carbon Dioxide 27 mmol/L (22-29) 04/16/22 03:40 Anion Gap 11.8 (5-19) 04/16/22 03:40 BUN 12 mg/dL (8-23) 04/16/22 03:40 Creatinine 0.9 mg/dL (0.7-1.2) 04/16/22 03:40 GFR Calculation 85.8 mL/min (90-130) L 04/16/22 03:40 Glucose 115 mg/dL (65-115) 04/16/22 03:40 Calculated Osmolality 293 mOsm/kg (285-295) 04/16/22 03:40 Calcium 9.8 mg/dL (8.5-10.5) 04/16/22 03:40 Magnesium 2.1 mg/dL (1.7-2.3) 04/16/22 03:40 Total Bilirubin 0.4 mg/dL (0.15-1.2) 04/16/22 03:40 AST 19 U/L (0-40) 04/16/22 03:40 ALT 29 U/L (0-41) 04/16/22 03:40 Alkaline Phosphatase 56 IU/L (40-130) 04/16/22 03:40 Troponin T Baseline 8 ng/L (0-15) 04/14/22 17:46 Troponin T 120 Minute 7.57 ng/L (0-15) 04/14/22 19:52 Delta Troponin T -0.43 ABS# (0-10) L 04/14/22 19:52 Troponin T Hi Sens 6Hr 9.94 ng/L (0-15) 04/14/22 23:32 Troponin T Hi Sens 6Hr Delta 1.94 ng/L (0-12) 04/14/22 23:32 Total Protein 6.7 g/dL (6.6-8.7) 04/16/22 03:40 Albumin 4.4 g/dL (3.5-5.2) 04/16/22 03:40 Globulin 2.3 g/dL (1.3-4.6) 04/16/22 03:40 Triglycerides 250 mg/dL (0-150) H 04/15/22 03:10 Cholesterol 172 mg/dL (0-200) 04/15/22 03:10 LDL Cholesterol, Calc 101 mg/dL (50-129) 04/15/22 03:10 HDL Cholesterol 21 mg/dL (60-100) L 04/15/22 03:10 LDL/HDL Ratio 4.81 RATIO (0.00-3.22) H 04/15/22 03:10 Cholesterol/HDL Ratio 8.19 mg/dL (1.0-5.00) H 04/15/22 03:10 TSH 0.82 uIU/mL (0.27-4.20) 04/14/22 17:46 Free T4 1.88 ng/dL (0.82-1.77) H 04/14/22 17:46 Vitals Last Vital Signs Temp 98.1 F 04/15/22 15:10 Pulse 68 04/16/22 08:00 Resp 19 H 04/16/22 08:00 BP 148/97 04/16/22 08:00 Pulse Ox 95 04/16/22 07:45 Discharge Plan Discharge Patient Disposition: Home Condition: Stable Prescriptions: Continued amiodarone 200 mg tablet 200 mg PO DAILY Qty: 90 3RF metoprolol succinate 50 mg tablet extended release 24 hr 50 mg PO DAILY Qty: 90 3RF multivitamin Tablet 1 tab PO DAILY 0RF rizatriptan 10 mg tablet 10 mg PO Q2H MDD 2 TABS PRN (Reason: Migraine Headache) 0RF terazosin 2 mg capsule 2 mg PO BEDTIME 0RF gemfibrozil 600 mg tablet 600 mg PO BID 0RF levothyroxine 200 mcg tablet 200 mcg PO QAM 0RF loratadine 10 mg tablet 10 mg PO QAM PRN (Reason: Allergy Symptoms) 0RF potassium chloride [Klor-Con M10] 10 mEq tablet,ER particles/crystals 10 meq PO BEDTIME 0RF Xarelto 20 mg tablet 20 mg PO BEDTIME 0RF zinc 50 mg tablet 50 mg PO DAILY Qty: 7 0RF ascorbic acid (vitamin C) 500 mg tablet 500 mg PO DAILY 0RF Discharge Orders: Discharge Order (Routine); Ordered 04/16/22 Ordered By: Feng Mackenzie Referrals: Lefty Vargas M.D [Physician] - (Please keep your appointment with Dr. Vargas on April 30 at 2:00P.M. If you have any questions or need to reschedule. Please call ) Martha Savage DO [Primary Care Provider] - (Please follow-up Martha Savage on April 22 at 9:40A.M. If you have any questions or need to reschedule. PLease call ) Discharge Diet: Cardiac Discharge Activity: Resume usual activity Discharge Attestations Time Spent in Discharge Care*: less than 30 min Status at Discharge: Cognitive status at discharge: cognitively intact , Behavioral status at discharge: cooperative , Quality Metrics Clinical Quality Measures [ No reported AMI, CVA or VTE this stay] Coding Level of Care Code Acute [facility] note Exam Detailed Diagnoses Chest pain R07.9 Hypertension I10 Hyperlipidemia E78.5 Atrial fibrillation I48.91
--- NOTE | 2022-04-16 11:12 | PM.PN ---
Subjective Subjective: Patient's chest pain has improved. Coronary angiogram was performed that showed patent coronary arteries Vitals/I&O/Wt Last Vital Signs Temp 98.1 F 04/15/22 15:10 Pulse 68 04/16/22 08:00 Resp 19 H 04/16/22 08:00 BP 148/97 04/16/22 08:00 Pulse Ox 95 04/16/22 07:45 04/15/22 04/16/22 04/16/22 22:59 06:59 14:59 Intake Total 640.375 / 2368.100 36.75 / 2404.850 Output Total 800 / 1600 200 / 1800 Balance -159.625 / 768.100 -163.25 / 604.850 Weight last 48 hrs Weight 291 lb Weight 291 lb Physical Exam Narrative: GENERAL: Obese man laying in bed in no acute distress HEENT: Pupils equal round reactive to light. No pallor or icterus. NECK: No JVD. No carotid bruit. CARDIOVASCULAR SYSTEM: S1-S2 regular. No S3 or S4 present. No murmur rubs or gallops. RESPIRATORY SYSTEM: Chest clear to auscultation. No wheezes rhonchi or rubs heard. No use of accessory muscles. ABDOMEN: Soft, nontender and nondistended. Normal bowel sounds present. EXTREMITIES: No cyanosis or clubbing. No edema. No signs of chronic venous insufficiency. CHEMICAL DEPENDENCY THERAPIST: Patient is alert oriented ?3. No focal neurological deficits. SKIN: Normal turgor and temperature. No breakdown, rash or nail changes noted. PSYCH: Normal insight and judgment. Data : 04/16/22 03:40 04/16/22 03:40 A&P Assessment and plan (1) Chest pain: CAD risk factors of hypertension, dyslipidemia and and mildly abnormal stress test -Coronary angiogram showed patent coronary arteries. Non cardiac chest pain -Restart xarelto Status: Resolved (2) Hypertension: Blood pressure Elevated on arrival -Usually runs good at home. Status: Resolved (3) Hyperlipidemia: Status: Resolved (4) Atrial fibrillation: Patient remains in sinus rhythm on arrival this time. Status: Resolved Plan Chronic left bundle branch block Dyslipidemia BPH Obesity Former smoker Thank you for allowing me to participate in patient's care. Please feel free to call with questions or concerns. Attestations Medical Necessity Statement*: Care expected to cross 2 midnights. Coding Level of Care Code Acute Call Center Trainer for Chg Fwd Diagnoses Chest pain R07.9 Hypertension I10 Hyperlipidemia E78.5 Atrial fibrillation I48.91
--- NOTE | 2022-04-16 13:56 | PC.NURSE ---
pt r fem site soft, non tender, no s/s of hematoma and no bleeding since arrival. r radial site oozed slightly post tr band removal. dressing applied with foam tape. instructed patient to use limb minimally to prevent bleeding. post cath instructions discussed in detail. no futher questions. no new medications or medication changes made. encouraged to use his cpap at home. pt left via [place] to private vehicle with his .
== END 2022-04-16 13:56 | disposition home or self-care (01) ==
LOC: ER 19:00 → CSU 23:04
PROVIDERS: Internal Medicine; Admitting Provider Internal Medicine; Emergency Provider Emergency Medicine; PCP Family Medicine; Visit Provider Family Medicine
DX: R07.9 Chest pain, unspecified (principal); I10 Essential (primary) hypertension; E78.5 Hyperlipidemia, unspecified; N40.0 Benign prostatic hyperplasia without lower urinary tract symptoms; E66.9 Obesity, unspecified; Z68.37 Body mass index [BMI] 37.0-37.9, adult; Z87.891 Personal history of nicotine dependence; E03.9 Hypothyroidism, unspecified; I25.10 Atherosclerotic heart disease of native coronary artery without angina pectoris; Z86.16 Personal history of COVID-19; I44.7 Left bundle-branch block, unspecified; I48.0 Paroxysmal atrial fibrillation; Z79.01 Long term (current) use of anticoagulants
CPT/HCPCS: 36415; 71045; 71275; 74174; 78452; 80048; 80053; 80061; 83735; 84439; 84443; 84484; 85025; 93005; 93017; 93306; 93452; 93458; 94660; 96360; 96365; 96366; 96375; 96376; 99152; 99153; 99285; A9500; C1760; C1769; C1887; C1894; G0378; J0280; J0360; J1170; J1644; J2060; J2250; J2270; J2405; J2785; J3010; J3490; J7030; Q0163; Q9967

== ENCOUNTER → 2022-04-30 14:17 | Outpatient (BNVA) | payer MEDICARE, SELFPAY | PROVIDERS: PCP Family Medicine; Visit Provider Internal Medicine | DX: I48.91 Unspecified atrial fibrillation (principal); I10 Essential (primary) hypertension; E78.5 Hyperlipidemia, unspecified; Z87.891 Personal history of nicotine dependence | CPT/HCPCS: 99214 ==

== ENCOUNTER → 2022-11-06 14:29 | Outpatient (BNVA) | payer MEDICARE, SELFPAY | PROVIDERS: PCP Family Medicine; Visit Provider Internal Medicine | DX: I10 Essential (primary) hypertension (principal); I48.91 Unspecified atrial fibrillation; E78.5 Hyperlipidemia, unspecified; Z87.891 Personal history of nicotine dependence | CPT/HCPCS: 36415; 80048; 83880; 99214 ==

== ENCOUNTER → 2023-03-20 13:57 | Outpatient (BNVA) | payer MEDICARE, SELFPAY | PROVIDERS: PCP Family Medicine; Visit Provider Surgery | DX: R10.11 Right upper quadrant pain (principal); K92.1 Melena; Z80.0 Family history of malignant neoplasm of digestive organs; R22.2 Localized swelling, mass and lump, trunk; K42.9 Umbilical hernia without obstruction or gangrene | CPT/HCPCS: 99204 ==

== ENCOUNTER 2023-04-09 09:23 | Outpatient (CLI) | payer MEDICARE, SELFPAY ==
--- NOTE | 2023-04-09 10:15 | US_ITS ---
WS: [id number] ULTRASOUND ABDOMEN LIMITED CLINICAL INFORMATION: abdominal pain COMPARISON: None. FINDINGS: Liver Size: Normal. Craniocaudal length: 14.9 cm. Echogenicity: Coarse Surface nodularity: None. Mass (size and location): None. Bile ducts Intrahepatic ducts: Normal. Common bile duct diameter: 0.5 cm. Gallbladder Normal. Gallstones: None. Gallbladder sludge: None. Gallbladder wall thickening: None. Pericholecystic fluid: None. Sonographic Roblero sign: Absent. Pancreas Normal as visualized. Right kidney: Normal. Hydronephrosis: None. Size: 12.4 cm x 5.3 cm x 5.7 cm. Abdominal aorta and IVC Visualized portions are normal. Ascites: None. US/US gall bladder [id number] IMPRESSION: 1. Diffuse fatty infiltration liver. 2. Normal gallbladder. 3. Normal common bile duct. 4. No hydronephrosis in RIGHT kidney.
== END 2023-04-09 09:24 | disposition home or self-care (01) ==
LOC: RAD 09:29
PROVIDERS: PCP Family Medicine; Visit Provider Surgery
DX: R10.9 Unspecified abdominal pain (principal); K76.0 Fatty (change of) liver, not elsewhere classified
CPT/HCPCS: 76705

== ENCOUNTER 2023-04-10 07:15 | Day surgery (SDC) | payer MEDICARE, SELFPAY ==
[2023-04-08 13:20] VITALS: BMI 34.0
[2023-04-10 07:45] VITALS: BP 168/109; PULSE 80; RESP 18; TEMP 36.4; O2SAT 95
[2023-04-10] MEDS: sodium chloride 0.9% 1,000 ML 30 ML IV (07:45)
--- NOTE | 2023-04-10 09:47 | ANES.PREANE2 ---
Pre-Anesthetic Assessment Height/Weight: Height 1.88 m Weight 120.202 kg Temp Pulse Resp BP Pulse Ox O2 Del Method 97.6 F 80 18 168/109 95 Room Air 04/10/23 07:45 04/10/23 07:45 04/10/23 07:45 04/10/23 07:45 04/10/23 07:45 04/10/23 07:45 Operation Date: 04/10/23 09:30 Proposed Procedures p [id number] egd [id number] colon Z12.11,R10.9(Not Applicable) - Alexander Cooley DO s Colonoscopy(Not Applicable) - Alexander Cooley DO Familial anesthetic complications: none Was Beta Dickson taken within 24 hours: Yes Was Clonidine taken within 24 hours: N/A Last intake: Intake Last Liquid Date 04/09/23 Last Liquid Time 23:55 Last Solid Date 04/08/23 Social No alcohol and No tobacco Exam alert and oriented x 3 Airway Submandibular: within normal limits Cervical ROM: within normal limits Mallampati: Class II Dentition: false History/ROS No significant history except as noted Pulmonary Sleep Apnea (CPAP) CV/HEM Atrial Fibrillation and Hypertension None reported Hepatic None reported Metabolic Hyperlipidemia, Morbid Obesity and Thyroid Disease Neuropsych None reported Anesthetic Plan ASA status: 3 Anesthesia: Anesthesia Evaluation and MAC Medications/Allergies Home Medications Medication Instructions Recorded Confirmed Last Taken Type gemfibrozil 600 mg tablet 600 mg PO BID 10/04/21 04/08/23 04/09/23 History levothyroxine 200 mcg tablet 200 mcg PO QAM 10/04/21 04/08/23 04/09/23 History loratadine 10 mg tablet 10 mg PO QAM PRN Allergy Symptoms 10/04/21 04/10/23 04/09/23 History multivitamin 1 tab PO DAILY 10/04/21 04/08/23 04/09/23 History potassium chloride 10 mEq 10 meq PO BEDTIME 10/04/21 04/08/23 04/09/23 History tablet,extended release(part/cryst) (Klor-Con M) rivaroxaban 20 mg tablet (Xarelto) 20 mg PO BEDTIME 10/04/21 04/08/23 04/07/23 History terazosin 2 mg capsule 2 mg PO BEDTIME 10/04/21 04/08/23 04/09/23 History zinc 50 mg tablet 50 mg PO DAILY #7 tabs 10/09/21 04/08/23 04/09/23 Rx metoprolol succinate 50 mg 50 mg PO DAILY #90 tabs 10/30/21 04/08/23 04/10/23 Rx tablet,extended release 24 hr ascorbic acid (vitamin C) 500 mg 500 mg PO DAILY 04/14/22 04/08/23 04/09/23 History tablet amlodipine 10 mg tablet 10 mg PO DAILY #90 tabs 04/30/22 04/08/23 04/10/23 Rx pantoprazole 40 mg tablet,delayed 40 mg PO BID 6 weeks #84 tabs 03/20/23 04/08/23 04/09/23 Rx release (Protonix) Allergies Allergy/AdvReac Type Severity Reaction Status Date / Time No Known Allergies Allergy Verified 04/10/23 07:51 Current Medications Generic Name Dose Route Start Last Admin Trade Name Freq PRN Reason Stop Dose Admin Sodium Chloride 1,000 mls @ 30 mls/hr 04/10/23 07:30 04/10/23 07:45 Sodium Chloride 0.9% IV 04/11/23 07:29 30 mls/hr .Q24H KIYA Administration PFSH Anesthesia Medical History (Updated 03/20/23 @ 15:01 by Alexander Cooley DO) Atrial fibrillation Atrial fibrillation with RVR Chest pain COVID-19 Family history of colon cancer Hyperlipidemia Hypertension Surgical History (Updated 03/20/23 @ 14:55 by Alexander Cooley DO) History of esophagogastroduodenoscopy (EGD) History of knee replacement Hx of colonoscopy with polypectomy 2014 Hx of knee surgery bilateral Social History Smoking and tobacco status: former smoker Alcohol intake: never Substance/Drug Use: never Data Anesthesia Cardiac Studies: Echocardiogram 04/15/22 Sestamibi Stress Test (Cardiology) 04/15/22
--- NOTE | 2023-04-10 09:48 | W.PM.OPSUD ---
Surgery/Procedure H&P Update DATE OF PROCEDURE: April 10, 2023 DATE H&P PERFORMED: 03/20/23 H&P UPDATE INFORMATION: I have reviewed H&P completed within last 30 days, I have examined patient prior to procedure and No changes to prior documentation PLANNED PROCEDURE: Operation Date: 04/10/23 09:30 Proposed Procedures p [id number] egd [id number] colon Z12.11,R10.9(Not Applicable) - DO marcel [place] Colonoscopy(Not Applicable) - Alexander Cooley DO
[2023-04-10 10:17] VITALS: BP 138/82; PULSE 75; RESP 14; TEMP 36.1; O2SAT 94
[2023-04-10 10:37] VITALS: BP 135/80; PULSE 72; RESP 16; O2SAT 98
--- NOTE | 2023-04-10 14:39 | ANE.PACU2 ---
Inpatient post-anesthesia follow up: Airway intact: Yes Vital signs: Temperature 97 F Pulse Rate 72 Respiratory Rate 16 Blood Pressure 135/80 Pulse Oximetry 98 Oxygen Delivery Me thod Room Air Oxygen Flow Rate Fraction of Inspir ed Oxygen Hydration adequate: Yes Nausea and vomiting: No Pain level: 2 Mental status: Baseline
== END 2023-04-10 11:08 | disposition home or self-care (01) ==
PROVIDERS: PCP Family Medicine; Visit Provider Surgery
PROC: 0DJ08ZZ Inspection of Upper Intestinal Tract, Via Natural or Artificial Opening Endoscopic (ICD-10-PCS; CPT 43235; principal; 2023-04-10 09:30)
PROC: 0DJD8ZZ Inspection of Lower Intestinal Tract, Via Natural or Artificial Opening Endoscopic (ICD-10-PCS; CPT 45378; 2023-04-10 09:30)
DX: R10.11 Right upper quadrant pain (principal); K92.1 Melena; Z80.0 Family history of malignant neoplasm of digestive organs; R22.2 Localized swelling, mass and lump, trunk; K42.9 Umbilical hernia without obstruction or gangrene; D12.3 Benign neoplasm of transverse colon; K57.30 Diverticulosis of large intestine without perforation or abscess without bleeding; I48.91 Unspecified atrial fibrillation; I10 Essential (primary) hypertension; E78.5 Hyperlipidemia, unspecified; E66.01 Morbid (severe) obesity due to excess calories; Z68.34 Body mass index [BMI] 34.0-34.9, adult; E03.9 Hypothyroidism, unspecified
CPT/HCPCS: 43239; 45385; 88305; J2704; J7030

== ENCOUNTER → 2023-04-22 13:54 | Outpatient (BNVA) | payer MEDICARE, SELFPAY | PROVIDERS: PCP Family Medicine; Visit Provider Internal Medicine Cardiovascular Disease | DX: I11.0 Hypertensive heart disease with heart failure (principal); I50.9 Heart failure, unspecified; E78.5 Hyperlipidemia, unspecified; I44.7 Left bundle-branch block, unspecified; I48.91 Unspecified atrial fibrillation | CPT/HCPCS: 93005; 99214 ==

== ENCOUNTER → 2023-04-24 15:39 | Outpatient (BNVA) | payer MEDICARE, SELFPAY | PROVIDERS: PCP Family Medicine; Visit Provider Surgery | DX: Z09 Encounter for follow-up examination after completed treatment for conditions other than malignant neoplasm (principal) | CPT/HCPCS: 99024; 99212 ==

== ENCOUNTER 2023-05-06 09:25 | Outpatient (CLI) | payer MEDICARE, SELFPAY ==
--- NOTE | 2023-05-06 10:00 | NM_ITS ---
WS: [id number] NUCLEAR MEDICINE HIDA SCAN CLINICAL INFORMATION: right upper quadrant pain TECHNIQUE: Following intravenous administration of 7.8 mCi of technetium 99m mebrofenin, images of th e abdomen were obtained over the course of 60 minutes. Next, gallbladder ejection fraction was determ ined by obtaining preprandial and one-hour postprandial images of the gallbladder following oral nirmal stion of Ensure. COMPARISON: Gallbladder ultrasound January 10, 2023 FINDINGS: Normal hepatic uptake at 5 minutes. Normal hepatic excretion. Normal common bile duct and small bowel activity. Gallbladder is visualized by 10-15 minutes. No evidence of acute cholecystitis. Gallbladder ejection fraction 79% within normal limits. No evidence of chronic cholecystitis. NM/NM hepatobiliary w phar* [id number] IMPRESSION: 1. No evidence of acute or chronic cholecystitis. 2. Gallbladder ejection fraction 79% within normal limits.
== END 2023-05-06 09:26 | disposition home or self-care (01) ==
LOC: RAD 09:26
PROVIDERS: PCP Family Medicine; Visit Provider Surgery
DX: R10.11 Right upper quadrant pain (principal)
CPT/HCPCS: 78227; A9537

== ENCOUNTER → 2023-05-19 18:01 | Outpatient (BNVA) | payer MEDICARE, SELFPAY | PROVIDERS: PCP Family Medicine; Visit Provider Surgery | DX: Z09 Encounter for follow-up examination after completed treatment for conditions other than malignant neoplasm (principal) | CPT/HCPCS: 99212 ==

== ENCOUNTER → 2023-10-29 13:38 | Outpatient (BNVA) | payer MEDICARE, SELFPAY | PROVIDERS: PCP Family Medicine; Visit Provider Internal Medicine Cardiovascular Disease | DX: I48.0 Paroxysmal atrial fibrillation (principal); I11.0 Hypertensive heart disease with heart failure; I50.32 Chronic diastolic (congestive) heart failure; Z87.891 Personal history of nicotine dependence; Z79.01 Long term (current) use of anticoagulants | CPT/HCPCS: 99214 ==

== ENCOUNTER → 2024-01-06 10:32 | Outpatient (BNVA) | payer MEDICARE, SELFPAY | PROVIDERS: PCP Family Medicine; Visit Provider Internal Medicine Cardiovascular Disease | DX: I11.0 Hypertensive heart disease with heart failure (principal); I50.32 Chronic diastolic (congestive) heart failure; I48.0 Paroxysmal atrial fibrillation; E78.2 Mixed hyperlipidemia; Z87.891 Personal history of nicotine dependence; Z79.01 Long term (current) use of anticoagulants | CPT/HCPCS: 99213 ==

== ENCOUNTER 2024-03-21 13:49 | Outpatient (CLI) | payer MEDICARE, SELFPAY ==
--- NOTE | 2024-03-21 13:54 | XRR_ITS ---
PROCEDURE INFORMATION: Exam: XR Chest Exam date and time: 03/21/2024 2:02 PM Age: 63 years old Clinical indication: Shortness of breath TECHNIQUE: Imaging protocol: Radiologic exam of the chest. Views: 2 views. COMPARISON: CR XR chest 1V portable [id number] 04/14/2022 4:43 PM FINDINGS: Lungs: No focal consolidation. Pleural spaces: No evidence of pneumothorax. No evidence of pleural effusion. Heart/Mediastinum: Cardiomediastinal silhouette is within normal limits. Bones/joints: No evidence of acute osseous abnormality. XR/XR chest 2V* [id number] IMPRESSION: 1. No acute cardiopulmonary abnormality.
== END 2024-03-21 13:50 | disposition home or self-care (01) ==
LOC: RAD 13:50
PROVIDERS: PCP Family Medicine; Visit Provider Family Medicine
DX: R06.02 Shortness of breath (principal)
CPT/HCPCS: 71046

== ENCOUNTER 2024-07-07 17:12 | Inpatient (IN) | payer MEDICARE, SELFPAY ==
[2024-07-07 17:17] VITALS: BP 175/79; PULSE 134; RESP 18; TEMP 36.9; O2SAT 95
--- NOTE | 2024-07-07 17:21 | ECG_ITS ---
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 Measurements Intervals [place] Rate: 138 P: 0 IN: 0 QRS: 80 QRSD: 181 T: 0 QT: 328 QTc: 498 Interpretive Statements ATRIAL FIBRILLATION WITH RAPID VENTRICULAR RESPONSE LEFT BUNDLE BRANCH BLOCK [120+ ms QRS DURATION, 80+ ms Q/S IN V1/V2, 85+ ms R IN I/aVL/V5/V6] Compared to ECG 04/22/2023 13:59:37 Sinus rhythm no longer present Electronically Signed On 07-08-2024 11:56:43 CDT by Lefty Vargas M.D. [id number]
--- NOTE | 2024-07-07 17:30 | ECG_ITS ---
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 Measurements Intervals [place] Rate: 117 P: 0 AR: 0 QRS: 99 QRSD: 182 T: 0 QT: 294 QTc: 410 Interpretive Statements ATRIAL FIBRILLATION WITH RAPID VENTRICULAR RESPONSE BORDERLINE RIGHT AXIS DEVIATION [QRS AXIS > 90] LEFT BUNDLE BRANCH BLOCK [120+ ms QRS DURATION, 80+ ms Q/S IN V1/V2, 85+ ms R IN I/aVL/V5/V6] Compared to ECG 07/07/2024 17:10:32 No significant changes Electronically Signed On 07-08-2024 11:56:32 CDT by Lefty Vargas M.D. [id number]
--- NOTE | 2024-07-07 17:30 | XRR_ITS ---
PROCEDURE INFORMATION: Exam: XR Chest Exam date and time: 07/07/2024 5:38 PM Age: 64 years old Clinical indication: Shortness of breath and other: Afib; Additional info: Chest pain TECHNIQUE: Imaging protocol: Radiologic exam of the chest. Views: 1 view. COMPARISON: CR XR chest 2V* [id number] 03/21/2024 2:02 PM FINDINGS: Lungs: Vague ground-glass opacity projecting peripherally left lower lobe more pronounced on the current study and may be secondary to a ground-glass infiltrate in the left lower lobe. Remaining lung phillips are clear. There is mild elevation the right hemidiaphragm that is chronic and unchanged. Pleural spaces: Unremarkable. No pleural effusion. No pneumothorax. Heart/Mediastinum: Unremarkable. No cardiomegaly. Bones/joints: Unremarkable for age. XR/XR chest 1V portable [id number] IMPRESSION: Questionable ground-glass infiltrate left lower lobe difficult to further assess on this portable chest. Consider follow-up CT chest for clarification.
--- NOTE | 2024-07-07 17:32 | ED_ITS ---
Documented by User: Valentin Grande DO 07/08/24 06:01 HPI - Chest Pain 2 General: Chief Complaint: Chest Pain Stated Complaint: Cp Time Seen by Provider: 07/07/24 17:29 History of Present Illness: 64-[facility] of chest discomfort and rapid heart rate. Patient has a known history of atrial fibrillation is on metoprolol as well as Xarelto he has been taking both there is been no change in his medications recently. He spontaneously began to get short of breath had some chest discomfort radiating down into his left arm. He felt like he was going to pass out. On arrival here he is in A-fib with RVR. He has a known previous left bundle branch block. Pertinent past history: other (Atrial fibrillation) Onset (ago): minute(s) Associated symptoms: Reports palpitations; Deny abdominal pain, dyspnea or fever(s) Review of Systems 2 Const: Denies: fever(s) or chills Card: Reports: chest pain, palpitations and irregular heart rhythm Resp: Denies: dyspnea GI: Denies: abdominal pain : Denies: dysuria, urinary frequency or urinary urgency Musc: Denies: neck pain or back pain Skin/Breast: Denies: rash PFSH ED 2 PFSH: Medical History Hyperlipidemia Atrial fibrillation CHF (congestive heart failure), NYHA class III Family history of colon cancer COVID-19 Chest pain Atrial fibrillation with RVR Hypertension Surgical History Hx of knee surgery bilateral Hx of colonoscopy with polypectomy 2014 History of esophagogastroduodenoscopy (EGD) History of knee replacement Social History Smoking and tobacco/nicotine status: former use of tobacco/nicotine Alcohol intake: never Substance/Drug Use: never Physical Exam 2 Const: COMMON NORMALS: no acute distress GENERAL APPEARANCE: cooperative and comfortable ORIENTATION/CONSCIOUSNESS: Yes awake, Yes oriented to person, Yes oriented to place and Yes oriented to time HENMT: COMMON NORMALS: normocephalic, atraumatic and hearing grossly normal bilaterally HEAD & SCALP: normocephalic and atraumatic Resp: COMMON NORMALS: normal respiratory effort, No retractions, No use of accessory muscles and clear to auscultation bilaterally AUSCULTATION: clear to auscultation bilaterally Cardio: COMMON NORMALS: No murmurs present (Cardio) RATE: tachycardic R HYTHM: abnormal rhythm irregularly irregular GI: COMMON NORMALS: Soft to palpation and No hepatosplenomegaly present A USCULTATION: Yes normoactive bowel sounds PALPATION: Yes Soft to palpation, No Tenderness to palpation present (GI), No Guarding due to palpation present (GI) and Yes No hepatosplenomegaly present Extremity: COMMON NORMALS: normal to inspection, capillary refill normal, no clubbing, cyanosis or edema, no calf tenderness and no pedal edema Neuro: SENSORIUM/ORIENTATION: Yes oriented to person, Yes oriented to place and Yes oriented to time Skin: COMMON NORMALS: no rashes or lesions noted GENERAL SKIN EXAM: no rashes or lesions noted Course 2 Vital Signs: Vital signs: Vital Signs Temperature 98.0 F 07/08/24 04:00 Pulse Rate 69 07/08/24 04:00 Respiratory Rate 16 07/08/24 04:00 Blood Pressure 116/78 07/08/24 04:00 Pulse Oximetry 98 07/08/24 04:00 Oxygen Delivery Me thod Room Air 07/08/24 04:00 Oxygen Flow Rate 4 07/07/24 18:26 MDM - Chest Pain Medical Decision Making Patient presents with A-fib with RVR with mild chest discomfort. Cardizem initiated rate has improved. Signout hold Patient care transferred over to myself at shift change, reviewed lab work and x-rays and EKGs, patient was still hypoxic so ended up getting a CTA which was negative. Patient is still on Cardizem drip with a rate of approximately 95 to [address] Foote about placing him inpatient for further evaluation and treatment. Discussed case with Dr. Foote we will place him in CSU full admit Lab Data 07/07/24 17:30 07/08/24 00:00 Radiology Impressions Chest X-Ray 07/07/24 17:30 IMPRESSION: Questionable ground-glass infiltrate left lower lobe difficult to further assess on this portable chest. Consider follow-up CT chest for clarification. Chest CTA 07/07/24 18:29 IMPRESSION: 1. No pulmonary embolus. 2. Scattered areas of linear atelectasis versus scarring within the bilateral lungs. No focal consolidations. Laboratory Results WBC 6.19 10^3/uL (3.29-11.43) 07/07/24 17:30 RBC 5.28 10^6/uL (3.85-5.65) 07/07/24 17:30 Hgb 14.80 g/dL (11.27-16.99) 07/07/24 17:30 Hct 44.5 % (37-53) 07/07/24 17:30 MCV 84.3 fl (82-101) 07/07/24 17:30 MCH 28.0 pg (27-33) 07/07/24 17:30 MCHC 33.3 g/dL (30-55) 07/07/24 17:30 RDW 14.6 % (12.1-15.1) 07/07/24 17:30 Plt Count 158 10^3/cmm (157-399) 07/07/24 17:30 MPV 12.7 fL (7.4-10.4) H 07/07/24 17:30 Neut % (Auto) 68.8 % 07/07/24 17:30 Lymph % (Auto) 21.5 % 07/07/24 17:30 [place] % (Auto) 8.4 % 07/07/24 17:30 Eos % (Auto) 0.6 % 07/07/24 17:30 Baso % (Auto) 0.5 % 07/07/24 17:30 Neut # (Auto) 4.26 10^3/uL (1.8-7.7) 07/07/24 17:30 Lymph # (Auto) 1.3 10^3/uL (0.8-4.8) 07/07/24 17:30 [place] # (Auto) 0.5 10^3/uL (0.2-0.9) 07/07/24 17:30 Eos # (Auto) 0.0 10^3/uL (0.0-0.8) 07/07/24 17:30 Baso # (Auto) 0.0 10^3/uL (0.0-0.1) 07/07/24 17:30 Nucleated RBC % (auto) 0 % 07/07/24 17:30 Nucleated RBCs # 0.0 /100WBC 07/07/24 17:30 Sodium 140 mmol/L (136-145) 07/07/24 17:30 Potassium 3.0 mmol/L (3.5-5.1) L 07/07/24 17:30 Chloride 100 mmol/L (98-107) 07/07/24 17:30 Carbon Dioxide 26 mmol/L (22-29) 07/07/24 17:30 Anion Gap 17.0 (5-19) 07/07/24 17:30 BUN 21 mg/dL (8-23) 07/07/24 17:30 Creatinine 1.0 mg/dL (0.7-1.2) 07/07/24 17:30 GFR Calculation 75.2 mL/min (90-130) L 07/07/24 17:30 Glucose 145 mg/dL (65-115) H 07/07/24 17:30 Calculated Osmolality 296 mOsm/kg (285-295) H 07/07/24 17:30 Calcium 10.0 mg/dL (8.5-10.5) 07/07/24 17:30 Total Bilirubin 0.4 mg/dL (0.15-1.2) 07/07/24 17:30 AST 22 U/L (0-40) 07/07/24 17:30 ALT 29 U/L (0-41) 07/07/24 17:30 Alkaline Phosphatase 70 U/L (40-130) 07/07/24 17:30 Troponin T Baseline 10 ng/L (0-15) 07/07/24 17:30 Troponin T 120 Minute 9.92 ng/L (0-15) 07/07/24 19:28 Delta Troponin T -0.08 ABS# (0-10) L 07/07/24 19:28 Total Protein 7.1 g/dL (6.6-8.7) 07/07/24 17:30 Albumin 4.6 g/dL (3.5-5.2) 07/07/24 17:30 Globulin 2.5 g/dL (1.3-4.6) 07/07/24 17:30 Discharge Plan Discharge Patient Disposition: Admitted As Inpatient Admit Provider: Veronica Foote Clinical Impression: Atrial fibrillation with rapid ventricular response, Hypoxia, Acute hypokalemia, Chest pain Condition: Stable Coding Level of Care Code ED Straight Tooth Gear Generator Operator for Chg Fwd Documented by User: Ravi Garcia DO 07/07/24 21:00 HPI - Chest Pain 2 General: Chief Complaint: Chest Pain Stated Complaint: Cp Time Seen by Provider: 07/07/24 17:29 PFSH ED 2 PFSH: Medical History Hyperlipidemia Atrial fibrillation CHF (congestive heart failure), NYHA class III Family history of colon cancer COVID-19 Chest pain Atrial fibrillation with RVR Hypertension Surgical History Hx of knee surgery bilateral Hx of colonoscopy with polypectomy 2015 History of esophagogastroduodenoscopy (EGD) History of knee replacement Social History Smoking and tobacco/nicotine status: former use of tobacco/nicotine Alcohol intake: never Substance/Drug Use: never Course 2 Vital Signs: Vital signs: Vital Signs Temperature 98.0 F 07/08/24 04:00 Pulse Rate 69 07/08/24 04:00 Respiratory Rate 16 07/08/24 04:00 Blood Pressure 116/78 07/08/24 04:00 Pulse Oximetry 98 07/08/24 04:00 Oxygen Delivery Me thod Room Air 07/08/24 04:00 Oxygen Flow Rate 4 07/07/24 18:26 MDM - Chest Pain Medical Decision Making Patient care transferred over to myself at shift change, reviewed lab work and x-rays and EKGs, patient was still hypoxic so ended up getting a CTA which was negative. Patient is still on Cardizem drip with a rate of approximately 95 to [address] Foote about placing him inpatient for further evaluation and treatment. Discussed case with Dr. Foote we will place him in CSU full admit Differential Diagnosis Unlikely acute massive pulmonary embolism, acute respiratory failure, acute myocardial infarction, cardiac arrest or sudden cardiac Medical Records I reviewed the patient's medical records. Lab Data I reviewed the patient's lab results. 07/07/24 17:30 07/08/24 00:00 Radiology Impressions Chest X-Ray 07/07/24 17:30 IMPRESSION: Questionable ground-glass infiltrate left lower lobe difficult to further assess on this portable chest. Consider follow-up CT chest for clarification. Chest CTA 07/07/24 18:29 IMPRESSION: 1. No pulmonary embolus. 2. Scattered areas of linear atelectasis versus scarring within the bilateral lungs. No focal consolidations. Laboratory Results WBC 6.19 10^3/uL (3.29-11.43) 07/07/24 17:30 RBC 5.28 10^6/uL (3.85-5.65) 07/07/24 17:30 Hgb 14.80 g/dL (11.27-16.99) 07/07/24 17:30 Hct 44.5 % (37-53) 07/07/24 17:30 MCV 84.3 fl (82-101) 07/07/24 17:30 MCH 28.0 pg (27-33) 07/07/24 17:30 MCHC 33.3 g/dL (30-55) 07/07/24 17:30 RDW 14.6 % (12.1-15.1) 07/07/24 17:30 Plt Count 158 10^3/cmm (157-399) 07/07/24 17:30 MPV 12.7 fL (7.4-10.4) H 07/07/24 17:30 Neut % (Auto) 68.8 % 07/07/24 17:30 Lymph % (Auto) 21.5 % 07/07/24 17:30 [place] % (Auto) 8.4 % 07/07/24 17:30 Eos % (Auto) 0.6 % 07/07/24 17:30 Baso % (Auto) 0.5 % 07/07/24 17:30 Neut # (Auto) 4.26 10^3/uL (1.8-7.7) 07/07/24 17:30 Lymph # (Auto) 1.3 10^3/uL (0.8-4.8) 07/07/24 17:30 [place] # (Auto) 0.5 10^3/uL (0.2-0.9) 07/07/24 17:30 Eos # (Auto) 0.0 10^3/uL (0.0-0.8) 07/07/24 17:30 Baso # (Auto) 0.0 10^3/uL (0.0-0.1) 07/07/24 17:30 Nucleated RBC % (auto) 0 % 07/07/24 17:30 Nucleated RBCs # 0.0 /100WBC 07/07/24 17:30 Sodium 140 mmol/L (136-145) 07/07/24 17:30 Potassium 3.0 mmol/L (3.5-5.1) L 07/07/24 17:30 Chloride 100 mmol/L (98-107) 07/07/24 17:30 Carbon Dioxide 26 mmol/L (22-29) 07/07/24 17:30 Anion Gap 17.0 (5-19) 07/07/24 17:30 BUN 21 mg/dL (8-23) 07/07/24 17:30 Creatinine 1.0 mg/dL (0.7-1.2) 07/07/24 17:30 GFR Calculation 75.2 mL/min (90-130) L 07/07/24 17:30 Glucose 145 mg/dL (65-115) H 07/07/24 17:30 Calculated Osmolality 296 mOsm/kg (285-295) H 07/07/24 17:30 Calcium 10.0 mg/dL (8.5-10.5) 07/07/24 17:30 Total Bilirubin 0.4 mg/dL (0.15-1.2) 07/07/24 17:30 AST 22 U/L (0-40) 07/07/24 17:30 ALT 29 U/L (0-41) 07/07/24 17:30 Alkaline Phosphatase 70 U/L (40-130) 07/07/24 17:30 Troponin T Baseline 10 ng/L (0-15) 07/07/24 17:30 Troponin T 120 Minute 9.92 ng/L (0-15) 07/07/24 19:28 Delta Troponin T -0.08 ABS# (0-10) L 07/07/24 19:28 Total Protein 7.1 g/dL (6.6-8.7) 07/07/24 17:30 Albumin 4.6 g/dL (3.5-5.2) 07/07/24 17:30 Globulin 2.5 g/dL (1.3-4.6) 07/07/24 17:30 All radiology interpretation(s) finalized by discharge Discharge Plan Discharge Patient Disposition: Admitted As Inpatient Admit Provider: Veronica Foote Clinical Impression: Atrial fibrillation with rapid ventricular response, Hypoxia, Acute hypokalemia, Chest pain Condition: Stable Coding Level of Care Code ED Straight Tooth Gear Generator Operator for Maddy Robertson
[2024-07-07] MEDS: dilTIAZem 5 mg/mL SDV 5 mL 20 MG IVP (17:34)
[2024-07-07] MEDS: dilTIAZem 100 MG in sodium chloride 0.9% (add-van) 100 ML IV (17:35)
[2024-07-07] MEDS: aspirin 81 mg Chew Tablet 324 MG PO (17:35)
[2024-07-07 17:42] LABS: Basophils % 0.5 %; Eosinophils % 0.6 %; Hematocrit 44.5 % (37-53); Lymphocytes # 1.3 10^3/uL (0.8-4.8); Lymphocytes % 21.5 %; Mean Corpuscular HGB Conc 33.3 g/dL (30-55); Mean Corpuscular Volume 84.3 fl (82-101); Mean Platelet Volume 12.7 fL (7.4-10.4); Monocytes # 0.5 10^3/uL (0.2-0.9); Monocytes % 8.4 %; Neutrophils # 4.26 10^3/uL (1.8-7.7); Neutrophils % 68.8 %; Nucleated Red Blood Cells % 0 %; Platelet Count 158 10^3/cmm (157-399); Red Blood Count 5.28 10^6/uL (3.85-5.65); Red Cell Distribution Width 14.6 % (12.1-15.1); White Blood Count 6.19 10^3/uL (3.29-11.43)
[2024-07-07 17:52] LABS: Troponin(5th) Baseline 10 ng/L (0-15)
[2024-07-07] MEDS: nitroglycerin 1 gm/inch oint Pkt 1 INCH TOPICAL (17:52)
[2024-07-07 17:55] LABS: Alanine Aminotransferase 29 U/L (0-41); Albumin Level 4.6 g/dL (3.5-5.2); Alkaline Phosphatase 70 U/L (40-130); Aspartate Amino Transferase 22 U/L (0-40); Blood Urea Nitrogen 21 mg/dL (8-23); Carbon Dioxide 26 mmol/L (22-29); Chloride 100 mmol/L (98-107); Creatinine Clr Calc Pharmacy 104.7272; Globulin 2.5 g/dL (1.3-4.6); Glomerular Filtration Rate 75.2 mL/min (90-130); Glucose 145 mg/dL (65-115); Osmolality Calculated 296 mOsm/kg (285-295); Sodium 140 mmol/L (136-145); Total Bilirubin 0.4 mg/dL (0.15-1.2); Total Protein 7.1 g/dL (6.6-8.7)
[2024-07-07 18:26] VITALS: BP 141/81; PULSE 118; O2SAT 91
--- NOTE | 2024-07-07 18:29 | CTR_ITS ---
PROCEDURE INFORMATION: Exam: CTA Chest With Contrast Exam date and time: 07/07/2024 7:17 PM Age: 64 years old Clinical indication: Dyspnea; Additional info: Dyspnea chest pain tachycardia hypoxia TECHNIQUE: Imaging protocol: Computed tomographic angiography of the chest with contrast. Exam focused on the arteries. 3D rendering (Not supervised by radiologist): MIP and/or 3D reconstructed images were created by the technologist. Radiation optimization: All CT scans at this facility use at least one of these dose optimization techniques: automated exposure control; mA and/or kV adjustment per patient size (includes targeted exams where dose is matched to clinical indication); or iterative reconstruction. Contrast material: OMNI 350; Contrast volume: 100 ml; Contrast route: INTRAVENOUS (IV); COMPARISON: CT angio chest PE protcl [id number] 10/03/2021 5:43 AM RADIATION DOSE METRICS: Total DLP (mGy-cm): 637 FINDINGS: Pulmonary arteries: No pulmonary embolus. Aorta: Unremarkable. No aortic aneurysm. No aortic dissection. Lungs: Calcified granulomas within the bilateral lungs. Scattered areas of linear atelectasis versus scarring within the bilateral lungs. No focal consolidations. Pleural spaces: Small left sided pleural effusion within the inferior major fissure. Heart: Cardiomegaly. Coronary arteries: Coronary artery calcifications. Lymph nodes: Unremarkable. No enlarged lymph nodes. Diaphragm: Asymmetric elevation of the right hemidiaphragm. Kidneys and ureters: Nonspecific bilateral perinephric fat stranding. No renal calculi visualized. Bones/joints: Mild multilevel spondylosis. Soft tissues: Unremarkable. CT/CT angio chest PE protcl [id number] IMPRESSION: 1. No pulmonary embolus. 2. Scattered areas of linear atelectasis versus scarring within the bilateral lungs. No focal consolidations.
[2024-07-07] MEDS: potassium chloride ER 20 mEq Tablet 40 MEQ PO (18:54)
[2024-07-07] MEDS: iohexol 350 mg/mL 500 mL Btl (per mL) IV (19:30)
--- NOTE | 2024-07-07 19:30 | ECG_ITS ---
[facility] Test Date: 2024-07-07 Pat Name: Deepak Chacon Department: Room: Gender: Male Strategic Consultant: : 1960 Requested By: Valentin Wilhelm Order Number: [id number] Efra MD: Lefty Vargas M.D. Measurements Intervals [place] Rate: 101 P: 0 CT: 0 QRS: 4 QRSD: 182 T: 139 QT: 403 QTc: 525 Interpretive Statements ATRIAL FIBRILLATION WITH RAPID VENTRICULAR RESPONSE LEFT BUNDLE BRANCH BLOCK [120+ ms QRS DURATION, 80+ ms Q/S IN V1/V2, 85+ ms R IN I/aVL/V5/V6] Compared to ECG 07/07/2024 17:52:53 No significant changes Electronically Signed On 07-08-2024 11:58:18 CDT by Lefty Vargas M.D. [id number]
[2024-07-07 20:03] LABS: Troponin 5 2HR 9.92 ng/L (0-15)
[2024-07-07 20:07] LABS: Troponin 5 2HR Delta -0.08 ABS# (0-10)
[2024-07-07 20:59] VITALS: BP 110/81; PULSE 91; RESP 12; O2SAT 92
[2024-07-07 23:00] VITALS: BP 115/72; PULSE 91; RESP 22; TEMP 36.9; O2SAT 92
--- NOTE | 2024-07-07 23:25 | ECG_ITS ---
[facility] Test Date: 2024-07-07 Pat Name: Deepak Chacon Department: Room: 103 Gender: Male Professor Of Languages: : 1960 Requested By: Valentin Wilhelm Order Number: [id number] Kraus MD: Lefty Vargas M.D. Measurements Intervals [place] Rate: 62 P: 0 MA: 0 QRS: 71 QRSD: 177 T: 0 QT: 441 QTc: 448 Interpretive Statements ATRIAL FIBRILLATION LEFT BUNDLE BRANCH BLOCK [120+ ms QRS DURATION, 80+ ms Q/S IN V1/V2, 85+ ms R IN I/aVL/V5/V6] Compared to ECG 07/07/2024 19:12:09 No significant changes Electronically Signed On 07-08-2024 11:57:54 CDT by Lefty Vargas M.D. [id number]
[2024-07-07] MEDS: dilTIAZem 100 MG in sodium chloride 0.9% (add-van) 100 ML 10 MG IV (23:37)
[2024-07-07 23:48] LABS: Troponin 5 6HR 13.41 ng/L (0-15); Troponin 5 6HR Delta 3.41 ng/L (0-12)
[2024-07-07] MEDS: acetaminophen 325 mg Tablet 650 MG PO (23:52)
[2024-07-08] VITALS (9 sets, daily range): BP systolic 116–138; BP diastolic 67–87; PULSE 68–85; RESP 13–24; TEMP 36.3–36.7; O2SAT 94–98
--- NOTE | 2024-07-08 00:41 | P.HP_ITS ---
Providers/Chief Complaint 2 Admitting Physician: Veronica Foote MD Primary Care Provider: Martha Savage DO Chief Complaint: Cp History of Present Illness Deepak Chacon is a 64 year old male with past medical history of atrial fibrillation and known left bundle branch block presented to the emergency room with chest pain and A-fib with RVR. He states he has had A-fib for about 7 years now. He he has intermittent episodes of palpitations and RVR, however he is thinks that this is becoming more frequent recently. There has been on no recent change in his medications. is also complaining of chest pain. Thinks that pain starts in the middle of the chest and radiates down both arms, felt as a tingling sensation.. The pain is intermittent, states he also feels nauseous and short of breath every time he has the pain. He was placed on 2 L/min supplemental O2 in the ER, which is new requirement for him. Denies any history of COPD. Patient is currently on metoprolol 75 mg daily and used to be on amiodarone 200 mg twice twice daily until 2 years ago when it was discontinued due to concern for side effects (? Pulmonary side effects). He had a stress test in 2021 which was suspicious for reversible ischemia in the LAD territory. He went on to have a coronary angiogram in follow-up which did not show any obstructive CAD. Per review of cardiology notes patient has reported that he is short of breath chronically and no energy. He had complained of palpitations at his outpatient follow-up, an event monitor was placed in October 2023 which had revealed sinus rhythm rare PVCs but no A-fib. He has had an EGD in 2022 which showed mild gastritis without other abnormalities. He is on Protonix. He was started on Cardizem infusion in the ER, currently at 7.5 at the time of this assessment. Review of Systems 2 General: Reports: 10 or more systems reviewed and unremarkable except in HPI and below Const: Denies: fever(s), chills or body aches Eyes: Denies: change in vision, blurry vision or photophobia ENMT: Reports: hoarseness; Denies: throat pain, enlarged tonsils, odynophagia or nasal congestion Card: Denies: chest pain, palpitations, irregular heart rhythm, edema, swelling of feet/ankles, lightheadedness, pre-syncope, dyspnea on exertion or orthopnea Resp: Denies: dyspnea, productive cough, non-productive cough, wheezing, stridor, pain on inspiration, change in phlegm color, hemoptysis or chest congestion GI: Denies: abdominal pain, nausea, vomiting, hematemesis, coffee ground emesis, dysphagia, heartburn, diarrhea, constipation, GI cramping, change in stool character, hematochezia or melena : Denies: flank pain, dysuria, urinary frequency, urinary urgency, urinary hesitancy or hematuria Musc: Denies: neck pain, back pain, extremity pain, joint swelling, joint warmth or deformity Neuro: Denies: headache(s), numbness in extremities, weakness in extremities, sensory changes, difficulty walking, frequent falls, dizziness, vertigo, behavioral changes, Slurred speech present or seizure-like activity Psych: Denies: anxiety, depression, suicidal ideation or homicidal ideation Endo: Denies: polyuria, polydipsia, tired all the time, cold intolerance or hot flashes Damon/Lymph: Denies: easy bruising or easy bleeding Medications/Allergies Home Medications Medication Instructions Recorded Confirmed Last Taken Type gemfibrozil 600 mg tablet 600 mg PO BID 10/04/21 07/07/24 07/07/24 History levothyroxine 200 mcg tablet 200 mcg PO QAM 10/04/21 07/07/24 07/07/24 History loratadine 10 mg tablet 10 mg PO QAM PRN Allergy Symptoms 10/04/21 07/07/24 04/09/23 History multivitamin 1 tab PO DAILY 10/04/21 07/07/24 07/07/24 History rivaroxaban 20 mg tablet (Xarelto) 20 mg PO BEDTIME 10/04/21 07/07/24 07/07/24 History terazosin 2 mg capsule 2 mg PO BEDTIME 10/04/21 07/07/24 07/07/24 History zinc 50 mg tablet 50 mg PO DAILY #7 tabs 10/09/21 07/07/24 07/07/24 Rx pantoprazole 40 mg tablet,delayed 40 mg PO BID 6 weeks #84 tabs 03/20/23 07/07/24 07/07/24 Rx release (Protonix) albuterol sulfate 90 mcg/actuation 2 puff inhalation Q6H PRN 04/22/23 07/07/24 Unknown History aerosol inhaler Bronchodilation fluticasone propionate 50 1 spray intranasal DAILY 04/22/23 07/07/24 1 Day Ago History mcg/actuation nasal ~07/06/24 spray,suspension (Flonase Allergy Relief) hydrochlorothiazide 25 mg tablet 25 mg PO DAILY #90 tabs 04/22/23 07/07/24 07/07/24 Rx metoprolol succinate 50 mg 75 mg (1.5 x 50 mg) PO DAILY #135 04/22/23 07/07/24 07/07/24 Rx tablet,extended release 24 hr tabs potassium chloride 10 mEq 10 meq PO DAILY 04/22/23 07/07/24 07/07/24 History tablet,extended release(part/cryst) (Klor-Con M) rizatriptan 10 mg tablet (Maxalt) 10 mg PO Q2H PRN Headache 04/22/23 07/07/24 Unknown History Allergies Allergy/AdvReac Type Severity Reaction Status Date / Time No Known Allergies Allergy Verified 01/06/24 10:59 PFSH Acute 2 PFSH: Medical History Hyperlipidemia Atrial fibrillation CHF (congestive heart failure), NYHA class III Family history of colon cancer COVID-19 Chest pain Atrial fibrillation with RVR Hypertension Surgical History Hx of knee surgery bilateral Hx of colonoscopy with polypectomy 2014 History of esophagogastroduodenoscopy (EGD) History of knee replacement Social History Smoking and tobacco/nicotine status: former use of tobacco/nicotine Alcohol intake: never Substance/Drug Use: never Vitals/I&O/Wt Last Vital Signs Temp 97.8 F 07/08/24 00:00 Pulse 85 07/08/24 00:32 Resp 13 07/08/24 00:00 BP 120/67 07/08/24 00:00 Pulse Ox 98 07/08/24 00:00 O2 Del Method Room Air 07/08/24 00:00 O2 Flow Rate 4 07/07/24 18:26 07/07/24 07/07/24 07/08/24 14:59 22:59 06:59 Intake Total 70.833 / 70.833 13.626 / 84.459 Balance 70.833 / 70.833 13.626 / 84.459 Weight last 48 hrs Weight 125.645 kg Weight 124.738 kg Physical Exam 2 Narrative: General: No acute distress, AO x3 HEENT: PERRLA, pupils bilaterally equal and reactive, pallors not present Chest: Normal vesicular breath sounds, no added sounds, equal good air entry bilaterally CVS: S1-S2 regular, no murmurs, no tachycardia, no gallops, no rubs Abdomen: Soft, nontender, no organomegaly, bowel sounds present Neuro: No focal deficits, no facial deformity, AO x3, power 5/5 in all limbs Data 07/07/24 17:30 07/08/24 00:00 A&P Assessment and plan (1) Atrial fibrillation with rapid ventricular response: A-fib with RVR. EKG showing baseline left bundle branch block, no new ST-T changes after comparing to prior EKGs. Started on Cardizem infusion in the emergency room which we will continue for now, currently patient is on 7.5 mg/h. Overlap with oral Cardizem 30 mg every 6 hours and titrate of the drip. Continue metoprolol 75 mg p.o. daily as he takes at home. Continue anticoagulation with Xarelto. Last echocardiogram from March 2022 with grossly normal LV function, septal motion consistent with conduction abnormalities, grade 1 diastolic dysfunction. Hypokalemia with potassium at 3.0, he has received supplemental oral KCl in the emergency room, will recheck after supplementation. Aim to keep level at 4.0. Check magnesium (2) Chest pain: Baseline troponin at 10, at 2 hours at 9.92, pending 6-hour trend. No new changes on EKG. Per review of chart it appears patient does continue to have intermittent chest pain, discussed with him possibility of a stress test, however would need A-fib with RVR to be controlled before putting him through Lexiscan stress test. 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 Clinically does not appear to be in overt heart failure. Chest is clear to auscultation. Check BNP. CTA of the chest is negative for PE or edema. Noted scattered patches of atelectasis and scarring, and reviewing prior CTs this appears to be a chronic finding since 2020 after patient recovered from COVID-19 pneumonia. No h/o COPD. Maintain supplemental 02 to keep saturation > 90% Plan dvt ppx: Xarelto Full code Attestations 2 Medical Necessity Statement*: Greater than 2 midnight stay is anticipated Coding Level of Care Code Acute Code for Chg Fwd High MDM includes number and complexity of problems actively addressed during encounter, amount and/or complexity of data reviewed/ordered and described risk of complication, morbidity or mortality of management as documented Diagnoses Atrial fibrillation with rapid ventricular response I48.91 Chest pain R07.9 Chest pain type: unspecified Hypoxia R09.02
[2024-07-08 01:16] LABS: Alanine Aminotransferase 24 U/L (0-41); Albumin Level 3.9 g/dL (3.5-5.2); Alkaline Phosphatase 58 U/L (40-130); Anion Gap 16.9 (5-19); Aspartate Amino Transferase 18 U/L (0-40); Blood Urea Nitrogen 19 mg/dL (8-23); Calcium 9.7 mg/dL (8.5-10.5); Carbon Dioxide 24 mmol/L (22-29); Chloride 102 mmol/L (98-107); Globulin 2.2 g/dL (1.3-4.6); Glucose 128 mg/dL (65-115); Osmolality Calculated 294 mOsm/kg (285-295); Sodium 140 mmol/L (136-145); Total Bilirubin 0.6 mg/dL (0.15-1.2); Total Protein 6.1 g/dL (6.6-8.7)
[2024-07-08 01:21] LABS: Potassium 2.9 mmol/L (3.5-5.1)
--- NOTE | 2024-07-08 01:22 | ECG_ITS ---
[facility] Test Date: 2024-07-08 Pat Name: Deepak Chacon Department: Room: 103 Gender: Male Flavorer: : 1960 Requested By: Veronica Foote Order Number: [id number] [id number] MD: Lefty Vargas M.D. Measurements Intervals [place] Rate: 75 P: 0 HI: 0 QRS: 74 QRSD: 182 T: 86 QT: 437 QTc: 488 Interpretive Statements ATRIAL FIBRILLATION LEFT BUNDLE BRANCH BLOCK [120+ ms QRS DURATION, 80+ ms Q/S IN V1/V2, 85+ ms R IN I/aVL/V5/V6] Compared to ECG 07/07/2024 23:25:35 No significant changes Electronically Signed On 07-08-2024 11:54:05 CDT by Lefty Vargas M.D. [id number]
[2024-07-08 01:37] LABS: Thyroid Stimulating Hormone 1.44 uIU/mL (0.27-4.20)
[2024-07-08] MEDS: lidocaine 1% 5 ML in potassium chloride premix 100 ML 26.25 ML IV (02:16)
[2024-07-08 02:21] LABS: Magnesium 1.8 mg/dL (1.7-2.3); NT Pro B Type Natriuretic Pept 90 pg/mL (0-125)
[2024-07-08] MEDS: morphine 4 mg/mL SDV 1 mL 2 MG IVP (02:50)
[2024-07-08] MEDS: levothyroxine 200 mcg Tablet PO (05:21)
--- NOTE | 2024-07-08 06:38 | USCV_ITS ---
Deepak Chacon Age: 64 Gender: M : 1960 Exam Date: 07/08/2024 08:36 Ordering Phys: Veronica Foote MD Technologist: Apolinar Marsh Exam Location: [facility] [place] Indication: angina BP: 124 / 79 HR: 69 Rhythm: Sinus Technical Quality: Adequate MEASUREMENTS (Male / Female) Normal Values 2D ECHO LV Diastolic Diameter PLAX 4.6 cm 4.2 - 5.9 / 3.9 - 5.3 cm IVS Diastolic Thickness 1.6 cm 0.6 - 1.0 / 0.6 - 0.9 cm IVS Systolic Thickness 1.9 cm LVPW Diastolic Thickness 1.9 cm 0.6 - 1.0 / 0.6 - 0.9 cm LVPW Systolic Thickness 2.1 cm LVOT Diameter 2.2 cm LV Ejection Fraction 2D Teich 62.5 % LV Ejection Fraction MOD 4C 56.0 % LV Ejection Fraction MOD 2C 52.1 % LV Ejection Fraction 2C AL 52.7 % LA Diameter 3.2 cm RA Systolic Volume 4C AL 35.4 ml RA Systolic Volume 4C MOD 35.0 ml LA Sys Volume AL 53.1 cm cubed LA Sys Volume Index AL 20.3 cm cubed/m squared Aorta at Sinotubular Diameter 3.3 cm IVC Diameter 2.1 cm M-MODE LA Ao Ratio MM 1.2 AV Cusp Separation MM 2.4 cm DOPPLER AV Peak Velocity 150.0 cm/s LVOT Peak Velocity 137.0 cm/s AV Area Cont Eq vti 3.4 cm squared AV Area Cont Eq pk 3.3 cm squared MV Peak Velocity 77.0 cm/s MV Area PHT 4.1 cm squared Mitral E to A Ratio 1.1 TV Peak Velocity 196.7 cm/s TR Peak Velocity 212.0 cm/s TR Peak Gradient 18.0 mmHg TR Mean Velocity 157.0 cm/s TR Mean Gradient 11.0 mmHg TR Velocity Time Integral 50.8 cm RV Ejection Time 0.3 s FINDINGS Left Ventricle Left ventricle is normal in size. LV systolic function is normal with EF 50 to 55%. Septal motion is consistent with conduction abnormality. Right Ventricle Normal in size and function Right Atrium Normal in size Left Atrium Normal in size Mitral Valve Structurally normal mitral valve. Mild mitral regurgitation. Aortic Valve Structurally normal aortic valve. No significant stenosis or regurgitation. Tricuspid Valve Insufficient TR jet to calculate RVSP. Pulmonic Valve Not well visualized Pericardium Normal Aorta Ascending aorta is dilated with diameter of 3.72 cm. IVC Appears to be dilated. CONCLUSIONS LV systolic function is normal with EF of 50 to 55%. Mild mitral regurgitation Ascending aorta is dilated with diameter of 3.72 cm. Compared to prior echo from 2021, no significant changes are seen. Lefty Vargas MD (Electronically Signed) Final Date: 08 July 2024 14:15 S
[2024-07-08 08:15] LABS: Alanine Aminotransferase 24 U/L (0-41); Albumin Level 3.8 g/dL (3.5-5.2); Alkaline Phosphatase 58 U/L (40-130); Anion Gap 13.3 (5-19); Aspartate Amino Transferase 18 U/L (0-40); Blood Urea Nitrogen 18 mg/dL (8-23); Calcium 9.5 mg/dL (8.5-10.5); Carbon Dioxide 26 mmol/L (22-29); Chloride 103 mmol/L (98-107); Creatinine Clr Calc Pharmacy 131.8663; Globulin 2.3 g/dL (1.3-4.6); Glomerular Filtration Rate 97.3 mL/min (90-130); Glucose 115 mg/dL (65-115); Osmolality Calculated 291 mOsm/kg (285-295); Potassium 3.3 mmol/L (3.5-5.1); Sodium 139 mmol/L (136-145); Total Bilirubin 0.4 mg/dL (0.15-1.2); Total Protein 6.1 g/dL (6.6-8.7)
[2024-07-08] MEDS: metoprolol succinate ER (24 HR) 50 mg Tablet 75 MG PO (08:52)
[2024-07-08] MEDS: gemfibrozil 600 mg Tablet PO (08:53)
[2024-07-08] MEDS: pantoprazole DR 40 mg Tablet PO (08:53)
[2024-07-08] MEDS: hydroCHLOROthiazide 25 mg Tablet PO (08:53)
[2024-07-08] MEDS: lidocaine 1% 5 ML in potassium chloride premix 100 ML 12.5 ML IV (09:00)
--- NOTE | 2024-07-08 09:09 | PC.CHAP ---
Pastoral Care Encounter/Spiritual Assessment Type of Contact [] Declined wrapper sizer visit [] Patient/Family/Request visit [] Outpatient visit [] Follow-up visit [] Physician referral [] Code/Alert [] Routine visit [] Staff referral [] Actively dying [] Patient sleeping [] Family support [] [] Out of room [] Palliative care [] [] Receiving care in room [] Pre-surgical visit [] Trauma [] Long length of stay [] ICU visit [] Other: Relational/Emotional Strength [] Patient feels connected with others/family/visitors/staff [] Distress [] Loneliness/isolation [] Abandonment Spirituality of Patient [] Person of Colette [] Attends Adventism of their [place]lette [] Believes in Prayer [] Reads Bible or Latter Day materials [] There are Spiritual issues to be addressed Muffler Hand Interventions [] Prayer [] Active listening [] Non-anxious presence [] Spiritual/emotional support [] Crisis/trauma care [] Spiritual counseling [] Bereavement support [] Provided bereavement packet [] Provided Bible/devotional materials [] Provided toy/stuffed animal, coloring book to patient or family member [] Provided Communion [] Anointing/Sweet [] Salvation [] Completed spiritual assessment [] Other: Impact on Illness or Injury [] Angry [] Fearful [] Anxious [] Often cries [] Exhaustion [] Unable to work [] Unable to attend taoist [] Unable to walk/stand [] Unable to read [] Unable to drive [] Unable to eat/drink [] Unable to sleep [] Unable to be with family [] Patient intubated [] Other: Summary Staff X2 Time spent with patient
--- NOTE | 2024-07-08 10:05 | P.DS_ITS ---
Discharge Providers Date of Admission: 07/07/24 21:11 Date of Discharge: July 08, 2024 Attending Provider at Admission: Veronica Foote MD Attending Provider at Discharge: Marnie Faulkner MD Primary Care Provider: Martha Savage DO Diagnoses at Discharge Discharge Diagnosis (1) Atrial fibrillation with rapid ventricular response: Status: Acute (2) Chest pain: Status: Acute Qualifiers: Chest pain type: unspecified Qualified Code(s): R07.9 - Chest pain, unspecified (3) Hypoxia: Status: Acute Reason for Visit Reason for Visit: Cp Hospital Course Hospital Course 64-year-old male who present to the hospital with palpitation and chest discomfort, his chest discomfort improved as soon as we were able to control his heart rate, patient was put on Cardizem drip which was turned off when he converted to sinus rhythm, at the time of my evaluation heart rate was in 60s, hemodynamically stable, CTA chest ruled out PE, chest x-ray showing atelectasis, TSH is normal. His potassium was replenished. Patient is not experiencing any chest pain at the time of discharge. Previous angiogram did not show any obstructive coronary disease. Patient used to follow-up with Dr. Khalil I will ask him to follow-up with Akanksha Cornejo for now. I have increased the dose of metoprolol to 100 mg twice a day instead of 75 mg. He will continue his anticoagulating agent Xarelto. Physical Exam 2 Narrative: Awake and alert Sinus rhythm Pleasant cough No active chest pain Euvolemic Discharge Data Studies Completed and Pending Completed Studies During Hospitalization Category Date Time Status CTA chest [CT angio chest PE protcl [id number]] Stat Cat Scan 07/07/24 18:29 Completed XR chest 1V portable [id number] Stat Exams 07/07/24 17:30 Completed Pending at discharge Category Date Time Status Comprehensive Metabolic Panel AM LABS Lab 07/09/24 04:00 Ordered Magnesium AM LABS Lab 07/09/24 04:00 Ordered SARS Covid-2 Antigen Routine Lab 07/08/24 01:49 Uncollected CV. echo complete* [id number] Routine Ultrasound 07/08/24 06:38 Taken Radiology Impressions Chest X-Ray 07/07/24 17:30 IMPRESSION: Questionable ground-glass infiltrate left lower lobe difficult to further assess on this portable chest. Consider follow-up CT chest for clarification. Chest CTA 07/07/24 18:29 IMPRESSION: 1. No pulmonary embolus. 2. Scattered areas of linear atelectasis versus scarring within the bilateral lungs. No focal consolidations. Laboratory Results WBC 6.19 10^3/uL (3.29-11.43) 07/07/24 17:30 RBC 5.28 10^6/uL (3.85-5.65) 07/07/24 17:30 Hgb 14.80 g/dL (11.27-16.99) 07/07/24 17:30 Hct 44.5 % (37-53) 07/07/24 17:30 MCV 84.3 fl (82-101) 07/07/24 17:30 MCH 28.0 pg (27-33) 07/07/24 17:30 MCHC 33.3 g/dL (30-55) 07/07/24 17:30 RDW 14.6 % (12.1-15.1) 07/07/24 17:30 Plt Count 158 10^3/cmm (157-399) 07/07/24 17:30 MPV 12.7 fL (7.4-10.4) H 07/07/24 17:30 Neut % (Auto) 68.8 % 07/07/24 17:30 Lymph % (Auto) 21.5 % 07/07/24 17:30 [place] % (Auto) 8.4 % 07/07/24 17:30 Eos % (Auto) 0.6 % 07/07/24 17:30 Baso % (Auto) 0.5 % 07/07/24 17:30 Neut # (Auto) 4.26 10^3/uL (1.8-7.7) 07/07/24 17:30 Lymph # (Auto) 1.3 10^3/uL (0.8-4.8) 07/07/24 17:30 [place] # (Auto) 0.5 10^3/uL (0.2-0.9) 07/07/24 17:30 Eos # (Auto) 0.0 10^3/uL (0.0-0.8) 07/07/24 17:30 Baso # (Auto) 0.0 10^3/uL (0.0-0.1) 07/07/24 17:30 Nucleated RBC % (auto) 0 % 07/07/24 17:30 Nucleated RBCs # 0.0 /100WBC 07/07/24 17:30 Sodium 139 mmol/L (136-145) 07/08/24 07:30 Potassium 3.3 mmol/L (3.5-5.1) L 07/08/24 07:30 Chloride 103 mmol/L (98-107) 07/08/24 07:30 Carbon Dioxide 26 mmol/L (22-29) 07/08/24 07:30 Anion Gap 13.3 (5-19) 07/08/24 07:30 BUN 18 mg/dL (8-23) 07/08/24 07:30 Creatinine 0.8 mg/dL (0.7-1.2) 07/08/24 07:30 GFR Calculation 97.3 mL/min (90-130) 07/08/24 07:30 Glucose 115 mg/dL (65-115) 07/08/24 07:30 Calculated Osmolality 291 mOsm/kg (285-295) 07/08/24 07:30 Calcium 9.5 mg/dL (8.5-10.5) 07/08/24 07:30 Magnesium 1.8 mg/dL (1.7-2.3) 07/08/24 00:00 Total Bilirubin 0.4 mg/dL (0.15-1.2) 07/08/24 07:30 AST 18 U/L (0-40) 07/08/24 07:30 ALT 24 U/L (0-41) 07/08/24 07:30 Alkaline Phosphatase 58 U/L (40-130) 07/08/24 07:30 Troponin T Baseline 10 ng/L (0-15) 07/07/24 17:30 Troponin T 120 Minute 9.92 ng/L (0-15) 07/07/24 19:28 Delta Troponin T -0.08 ABS# (0-10) L 07/07/24 19:28 Troponin T Hi Sens 6Hr 13.41 ng/L (0-15) 07/07/24 23:23 Troponin T Hi Sens 6Hr Delta 3.41 ng/L (0-12) 07/07/24 23:23 NT-Pro-B Natriuret Pep 90 pg/mL (0-125) 07/08/24 00:00 Total Protein 6.1 g/dL (6.6-8.7) L 07/08/24 07:30 Albumin 3.8 g/dL (3.5-5.2) 07/08/24 07:30 Globulin 2.3 g/dL (1.3-4.6) 07/08/24 07:30 TSH 1.44 uIU/mL (0.27-4.20) 07/07/24 23:23 Vitals Last Vital Signs Temp 97.3 F L 07/08/24 07:26 Pulse 77 07/08/24 08:02 Resp 16 07/08/24 08:02 BP 124/75 07/08/24 07:26 Pulse Ox 94 07/08/24 08:02 O2 Del Method Room Air 07/08/24 08:02 O2 Flow Rate 4 07/07/24 18:26 Discharge Plan Discharge Patient Disposition: Home Condition: Stable Prescriptions: New magnesium 200 mg tablet 200 mg PO BID Qty: 6 0RF potassium chloride 10 mEq tablet extended release 10 meq PO DAILY Qty: 3 0RF metoprolol tartrate 100 mg tablet 100 mg PO BID Qty: 60 4RF Continued pantoprazole [Protonix] 40 mg tablet,delayed release (DR/EC) 40 mg PO BID 42 Days Qty: 84 0RF rizatriptan [Maxalt] 10 mg tablet 10 mg PO Q2H PRN (Reason: Headache) Rx Instructions: do not exceed 3 doses per 24 hrs albuterol sulfate 90 mcg/actuation HFA aerosol inhaler 2 puff inhalation Q6H PRN (Reason: Bronchodilation) fluticasone propionate [Flonase Allergy Relief] 50 mcg/actuation spray,suspension 1 spray intranasal DAILY Rx Instructions: administer into each nostril hydrochlorothiazide 25 mg tablet 25 mg PO DAILY Qty: 90 1RF metoprolol succinate 50 mg tablet extended release 24 hr 75 mg PO DAILY Qty: 135 3RF multivitamin Tablet 1 tab PO DAILY terazosin 2 mg capsule 2 mg PO BEDTIME gemfibrozil 600 mg tablet 600 mg PO BID levothyroxine 200 mcg tablet 200 mcg PO QAM loratadine 10 mg tablet 10 mg PO QAM PRN (Reason: Allergy Symptoms) Xarelto 20 mg tablet 20 mg PO BEDTIME Hold Instructions: Resume on 04/12/23. zinc 50 mg tablet 50 mg PO DAILY Qty: 7 0RF potassium chloride [Klor-Con M10] 10 mEq tablet,ER particles/crystals 10 meq PO DAILY Discharge Orders: Discharge Order (Routine); Ordered 07/08/24 Ordered By: Marnie Faulkner Referrals: Martha Savage DO [Primary Care Provider] - 1 week (Follow up with Dr. Savage ThursdayJuly 12 @2pm ) Patient Instructions: Opioid Safety Discharge Attestations Time Spent in Discharge Care*: less than 30 min Status at Discharge: Cognitive status at discharge: cognitively intact , Behavioral status at discharge: cooperative , Quality Metrics Clinical Quality Measures [ No reported AMI, CVA or VTE this stay] Coding Level of Care Code Acute Code for Chg Fwd Diagnoses Atrial fibrillation with rapid ventricular response I48.91 Chest pain R07.9 Chest pain type: unspecified Hypoxia R09.02
--- NOTE | 2024-07-08 10:24 | PC.NURSE ---
ambulation patient ambulated down hallways back and forth. he denies any shortness of breath, palpitations, pain. HR o tele box during activity remains in SR w/LBBB rate of 70s to 95s.
--- NOTE | 2024-07-08 10:28 | PC.NURSE ---
pt refused covid swab ordered
--- NOTE | 2024-07-08 11:00 | PC.NURSE ---
discharge meds verified Notified Dr. Faulkner to review med rec since metoprolol 75 mg XL is still on continued meds and new med is 100 mg metoprolol tartrate BID. Pt stated he is worried since he has a hx of pre syncope on the medicine before. Dr. Faulkner has been notified and talked to his via phone. they both verbalizes understanding.
--- NOTE | 2024-07-08 11:52 | PC.NURSE ---
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 voicemail left to their #.
--- NOTE | 2024-07-08 13:38 | PC.NURSE ---
notified doctor that i left a voicemail to rust department if the result is read. no answer or call back yet. Per Dr. Faulkner, okay for pt to be discharge.
== END 2024-07-08 13:57 | disposition home or self-care (01) | DRG 310 ==
LOC: ER 20:40 → CSU 21:12
PROVIDERS: Admitting Provider Student in an Organized Health Care Education/Training Program; Emergency Provider Family Medicine; PCP Family Medicine; Visit Provider Internal Medicine
DX: I48.91 Unspecified atrial fibrillation (principal); R07.9 Chest pain, unspecified; R09.02 Hypoxemia; I44.7 Left bundle-branch block, unspecified; E87.6 Hypokalemia; Z79.01 Long term (current) use of anticoagulants
CPT/HCPCS: 36415; 71045; 71275; 80053; 83735; 83880; 84443; 84484; 85025; 93005; 93306; 96365; 96366; 96375; 99285; J2270; J3480; J3490; Q9967

== ENCOUNTER 2024-07-21 10:42 | Outpatient (CLI) | payer MEDICARE, SELFPAY ==
--- NOTE | 2024-07-21 10:48 | XR_ITS ---
WS: [email or web address] Left foot, 2 views, 07/21/2024 Clinical Data: BILATERAL FOOT PAIN Comparison: None. Findings: No fractures or dislocations are seen. No bone destruction or erosion is noted. The joint spaces and soft tissues are normal. XR/XR foot LT 2V [id number] Impression: Negative left foot.
--- NOTE | 2024-07-21 10:48 | XR_ITS ---
WS: [email or web address] Right foot, 2 views, 07/21/2024 Clinical Data: BILATERAL FOOT PAIN Comparison: None. Findings: No fractures or dislocations are seen. No bone destruction or erosion is noted. The joint spaces and soft tissues are normal. XR/XR foot RT 2V [id number] Impression: Negative right foot.
== END 2024-07-21 10:43 | disposition home or self-care (01) ==
LOC: RAD 10:45
PROVIDERS: PCP Family Medicine; Visit Provider Family Medicine
DX: I48.0 Paroxysmal atrial fibrillation (principal); R07.9 Chest pain, unspecified; I44.7 Left bundle-branch block, unspecified
CPT/HCPCS: 73620; 93005; 99213

== ENCOUNTER → 2024-08-08 09:02 | Outpatient (BNVA) | payer MEDICARE, SELFPAY | PROVIDERS: PCP Family Medicine; Visit Provider Podiatrist Foot & Ankle Surgery | DX: M79.671 Pain in right foot (principal); M79.672 Pain in left foot; G62.9 Polyneuropathy, unspecified; R20.0 Anesthesia of skin; R20.2 Paresthesia of skin | CPT/HCPCS: 36415; 82607; 83036; 99203 ==

== ENCOUNTER 2024-08-17 21:53 | Emergency (ER) | payer MEDICARE, SELFPAY ==
[2024-08-17] VITALS (14 sets, daily range): BP systolic 83–112; BP diastolic 32–73; PULSE 80–115; RESP 13–21; TEMP 36.4; O2SAT 92–97; BMI 38.6
--- NOTE | 2024-08-17 21:55 | ECG_ITS ---
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 Measurements Intervals [place] Rate: 117 P: 0 ID: 0 QRS: 12 QRSD: 174 T: 105 QT: 359 QTc: 502 Interpretive Statements ATRIAL FIBRILLATION WITH RAPID VENTRICULAR RESPONSE LEFT BUNDLE BRANCH BLOCK [120+ ms QRS DURATION, 80+ ms Q/S IN V1/V2, 85+ ms R IN I/aVL/V5/V6] Compared to ECG 07/21/2024 13:40:29 Sinus rhythm no longer present Electronically Signed On 08-18-2024 0:24:12 CDT by Sandor Marques M.D. [id number]
--- NOTE | 2024-08-17 21:55 | XRR_ITS ---
PROCEDURE INFORMATION: Exam: XR Chest Exam date and time: 08/17/2024 10:11 PM Age: 64 years old Clinical indication: Dyspnea; Additional info: Chest pain TECHNIQUE: Imaging protocol: Radiologic exam of the chest. Views: 1 view. COMPARISON: CT angio chest PE protcl [id number] 07/07/2024 7:17 PM FINDINGS: Lungs: Opacification at the left costophrenic angle. Pleural spaces: No pleural effusion. No pneumothorax. Heart/Mediastinum: No cardiomegaly. Diaphragm: Elevation of the right hemidiaphragm, unchanged. Bones/joints: No acute findings. XR/XR chest 1V portable [id number] IMPRESSION: Opacification sy the left costophrenic angle concerning for acute infiltrate.
[2024-08-17] MEDS: sodium chloride 0.9% 1,000 ML 999 ML IV (22:35)
[2024-08-17 22:37] LABS: Basophils % 0.3 %; Eosinophils % 0.3 %; Hematocrit 42.8 % (37-53); Lymphocytes # 1.3 10^3/uL (0.8-4.8); Lymphocytes % 22.1 %; Mean Corpuscular HGB Conc 32.9 g/dL (30-55); Mean Corpuscular Hemoglobin 28.1 pg (27-33); Mean Corpuscular Volume 85.3 fl (82-101); Mean Platelet Volume 12.6 fL (7.4-10.4); Monocytes # 0.5 10^3/uL (0.2-0.9); Monocytes % 8.4 %; Neutrophils # 3.98 10^3/uL (1.8-7.7); Neutrophils % 68.7 %; Nucleated Red Blood Cells % 0 %; Platelet Count 171 10^3/cmm (157-399); Red Blood Count 5.02 10^6/uL (3.85-5.65); Red Cell Distribution Width 14.2 % (12.1-15.1)
--- NOTE | 2024-08-17 22:48 | ED_ITS ---
HPI - Chest Pain 2 General: Chief Complaint: Chest Pain Stated Complaint: Weakness, sob, chest pains Time Seen by Provider: 08/17/24 22:07 History of Present Illness: Patient presents to the ER with complaints of chest pain shortness of breath about 4 PM. He says his pain radiated up into the left side of his neck and into his left shoulder. Patient also complained of episodic numbness in his left wrist to his elbow. But this has resolved. Patient does have a history of A-fib with RVR and is on medicine and for this. He has seen Akanksha Cornejo since his last hospital stay from about a month or 2 ago. Patient is not taking any aspirin or nitro. He does states that he is compliant with all his medicine. He does think that his potassium magnesium is low the last time he is in hospital and had to be replaced. Related Data Home Medications Medication Instructions Recorded Confirmed gemfibrozil 600 mg tablet 600 mg PO BID 10/04/21 08/08/24 levothyroxine 200 mcg tablet 200 mcg PO QAM 10/04/21 08/08/24 loratadine 10 mg tablet 10 mg PO QAM PRN Allergy Symptoms 10/04/21 08/08/24 multivitamin 1 tab PO DAILY 10/04/21 08/08/24 rivaroxaban 20 mg tablet (Xarelto) 20 mg PO BEDTIME 10/04/21 08/08/24 terazosin 2 mg capsule 2 mg PO BEDTIME 10/04/21 08/08/24 albuterol sulfate 90 mcg/actuation 2 puff inhalation Q6H PRN 04/22/23 08/08/24 aerosol inhaler Bronchodilation fluticasone propionate 50 1 spray intranasal DAILY 04/22/23 08/08/24 mcg/actuation nasal spray,suspension (Flonase Allergy Relief) potassium chloride 10 mEq 10 meq PO DAILY 04/22/23 08/08/24 tablet,extended release(part/cryst) (Klor-Con M) rizatriptan 10 mg tablet (Maxalt) 10 mg PO Q2H PRN Headache 04/22/23 08/08/24 Previous Rx's Medication Instructions Recorded zinc 50 mg tablet 50 mg PO DAILY #7 tabs 10/09/21 pantoprazole 40 mg tablet,delayed 40 mg PO BID 6 weeks #84 tabs 03/20/23 release (Protonix) hydrochlorothiazide 25 mg tablet 25 mg PO DAILY #90 tabs 04/22/23 magnesium 200 mg tablet 200 mg PO BID #6 tabs 07/08/24 metoprolol tartrate 100 mg tablet 100 mg PO BID #60 tabs 07/08/24 potassium chloride 10 mEq 10 meq PO DAILY #3 tabs 07/08/24 tablet,extended release valsartan 80 mg tablet 80 mg PO DAILY #90 tabs 07/21/24 Allergies Allergy/AdvReac Type Severity Reaction Status Date / Time No Known Allergies Allergy Verified 08/08/24 09:19 Review of Systems 2 General: Reports: 10 or more systems reviewed and unremarkable except in HPI and below PFSH ED 2 PFSH: Medical History Chest pain Acute hypokalemia Hypoxia Atrial fibrillation with rapid ventricular response Hyperlipidemia Atrial fibrillation CHF (congestive heart failure), NYHA class III Family history of colon cancer COVID-19 Chest pain Atrial fibrillation with RVR Hypertension Surgical History Hx of knee surgery bilateral Hx of colonoscopy with polypectomy 2014 History of esophagogastroduodenoscopy (EGD) History of knee replacement Social History Smoking and tobacco/nicotine status: former use of tobacco/nicotine Alcohol intake: never Substance/Drug Use: never Physical Exam 2 Const: COMMON NORMALS: no acute distress, average body habitus, patient oriented x3, no limitations, healthy appearing, alert and well nourished HENMT: COMMON NORMALS: normocephalic, atraumatic, hearing grossly normal bilaterally, external ears normal, Normal external nose present and moist oral mucous membranes HEAD & SCALP: normocephalic and atraumatic NOSE: Normal external nose present EXTERNAL EAR: Yes external ears normal Neck/C-Spine: COMMON NORMALS: full ROM, no lymphadenopathy, supple, no meningeal signs, no JVD and Thyroid normal THYROID: Thyroid normal Chest: COMMONS NORMALS: normal inspection of the chest and normal palpation of entire chest wall Resp: COMMON NORMALS: normal respiratory effort, No retractions, No use of accessory muscles and clear to auscultation bilaterally AUSCULTATION: clear to auscultation bilaterally Cardio: COMMON NORMALS: no JVD, regular rate, regular rhythm, S1 normal heart sound present, S2 normal heart sound present, No gallops present (Cardio), No clicks present (Cardio), No murmurs present (Cardio) and No rub (Cardio) R ATE: regular rate RHYTHM: regular rhythm HEART SOUNDS: S1 normal heart sound present and S2 normal heart sound present GI: COMMON NORMALS: Normal to inspection, nondistended, normoactive bowel sounds present, Soft to palpation, non-tender, No hepatosplenomegaly present and no masses PALPATION: Yes Soft to palpation and Yes No hepatosplenomegaly present Neuro: COMMON NORMALS: patient oriented x3 SENSORIUM/ORIENTATION: Yes alert MENINGEAL SIGNS: Yes no meningeal signs Course 2 Vital Signs: Vital signs: Vital Signs Temperature 97.6 F 08/17/24 22:01 Pulse Rate 113 H 08/18/24 01:45 Respiratory Rate 12 08/18/24 01:45 Blood Pressure 155/73 08/18/24 01:45 Pulse Oximetry 97 08/18/24 01:40 Oxygen Delivery Me thod Nasal Cannula 08/17/24 23:03 Oxygen Flow Rate 2 08/17/24 23:03 MDM - Chest Pain Medical Decision Making Presents to the ER with chest pain, found to be in A-fib with RVR at a rate of approximately 113 bpm, patient was given 10 mg of Cardizem as well as 2 L normal saline, lab work was obtained, chest x-ray was obtained and was unchanged, troponin baseline was 16 2 hours 14.2 with a delta of -1.72, upon further discussing the labs with the patient and his blood pressure patient says his blood pressure is all over the place due to him of the amount of medicine he takes and he feels better and is ready to go home. Patient will be discharged home. Differential Diagnosis Unlikely acute massive pulmonary embolism, acute respiratory failure, acute myocardial infarction, cardiac arrest or sudden cardiac Medical Records I reviewed the patient's medical records. Lab Data I reviewed the patient's lab results. 08/17/24 22:29 08/17/24 22:29 Radiology Impressions Chest X-Ray 08/17/24 21:55 IMPRESSION: Opacification sy the left costophrenic angle concerning for acute infiltrate. Laboratory Results WBC 5.80 10^3/uL (3.29-11.43) 08/17/24 22: RBC 5.02 10^6/uL (3.85-5.65) 08/17/24: Hgb 14.10 g/dL (11.27-16.99) 08/17/24 22: Hct 42.8 % (37-53) 08/17/24 22: MCV 85.3 fl (82-101) 08/17/24 22: MCH 28.1 pg (27-33) 08/17/24 22: MCHC 32.9 g/dL (30-55) 08/17/24: RDW 14.2 % (12.1-15.1) 08/17/24: Plt Count 171 10^3/cmm (157-399) 08/17/24: MPV 12.6 fL (7.4-10.4) H 08/17/24: Neut % (Auto) 68.7 % 08/17/24: Lymph % (Auto) 22.1 % 08/17/24: [place] % (Auto) 8.4 % 08/17/24: Eos % (Auto) 0.3 % 08/17/24: Baso % (Auto) 0.3 % 08/17/24: Neut # (Auto) 3.98 10^3/uL (1.8-7.7) 08/17/24: Lymph # (Auto) 1.3 10^3/uL (0.8-4.8) 08/17/24: [place] # (Auto) 0.5 10^3/uL (0.2-0.9) 08/17/24: Eos # (Auto) 0.0 10^3/uL (0.0-0.8) 08/17/24: Baso # (Auto) 0.0 10^3/uL (0.0-0.1) 08/17/24: Nucleated RBC % (auto) 0 % 08/17/24: Nucleated RBCs # 0.0 /100WBC 08/17/24: PT 22.00 SECONDS (12.1-14.9) H 09/18/24 22:29 INR 1.85 (0.8-1.2) H 08/17/24 22:29 Sodium 142 mmol/L (136-145) 08/17/24 22:29 Potassium 4.1 mmol/L (3.5-5.1) 08/17/24 22:29 Chloride 107 mmol/L (98-107) 08/17/24 22:29 Carbon Dioxide 20 mmol/L (22-29) L 08/17/24 22: Anion Gap 19.1 (5-19) H 08/17/24 22:29 BUN 25 mg/dL (8-23) H 08/17/24 22:29 Creatinine 1.4 mg/dL (0.7-1.2) H 08/17/24 22: GFR Calculation 51.0 mL/min (90-130) L 08/17/24 22: Glucose 144 mg/dL (65-115) H 08/17/24 22: Calculated Osmolality 301 mOsm/kg (285-295) H 08/17/24 22:29 Calcium 10.2 mg/dL (8.5-10.5) 08/17/24 22: Magnesium 2.0 mg/dL (1.7-2.3) 08/17/24 22:29 Total Bilirubin 0.6 mg/dL (0.15-1.2) 08/17/24 22:29 AST 28 U/L (0-40) 08/17/24 22:29 ALT 28 U/L (0-41) 08/17/24 22:29 Alkaline Phosphatase 72 U/L (40-130) 08/17/24 22:29 Troponin T Baseline 16 ng/L (0-15) H 08/17/24 22:29 Troponin T 120 Minute 14.28 ng/L (0-15) 08/18/24 00:26 Delta Troponin T -1.72 ABS# (0-10) L 08/18/24 00:26 NT-Pro-B Natriuret Pep 233 pg/mL (0-125) H 08/18/24 00:26 Total Protein 6.7 g/dL (6.6-8.7) 08/17/24 22:29 Albumin 4.5 g/dL (3.5-5.2) 08/17/24 22:29 Globulin 2.2 g/dL (1.3-4.6) 08/17/24 22:29 Urine Color Yellow (Yellow) 08/18/24 00:26 Urine Appearance Slightly cloudy (CLEAR) 08/18/24 00:26 Urine pH 5 (5-7) 08/18/24 00:26 Ur Specific [place] 1.020 (1.005-1.030) 08/18/24 00:26 Urine Protein 1+ (Negative) H 08/18/24 00:26 Urine Glucose (UA) Norm (Normal) 08/18/24 00:26 Urine Ketones Negative (Negative) 08/18/24 00:26 Urine Blood Neg (Negative) 08/18/24 00: Urine Nitrate Negative (Negative) 08/18/24 00:26 Urine Bilirubin 1+ (Negative) H 08/18/24 00:26 Urine Urobilinogen 1 mg/dL (Negative) H 08/18/24 00:26 Ur Leukocyte Esterase Negative (Negative) 08/18/24 00:26 Urine RBC 0-4 /hpf (0-2) H 08/18/24 00:26 Urine WBC 0-4 /hpf (0-5) H 08/18/24 00:26 Ur Squamous Epith Cells 5-10 /hpf (0-5) H 08/18/24 00:26 Amorphous Sediment Not Reportable 08/18/24 00:26 Urine Bacteria None /hpf (NONE) 08/18/24 00:26 Hyaline Casts 5-10 /lpf H 08/18/24 00:26 Urine Mucus 2+ /hpf 08/18/24 00:26 All radiology interpretation(s) finalized by discharge Discharge Plan Discharge Patient Disposition: Home Clinical Impression: Atrial fibrillation with rapid ventricular response Chest pain Qualifiers: Chest pain type: unspecified Qualified Code(s): R07.9 - Chest pain, unspecified Condition: Stable Prescriptions: No Action pantoprazole [Protonix] 40 mg tablet,delayed release (DR/EC) 40 mg PO BID 42 Days Qty: 84 0RF rizatriptan [Maxalt] 10 mg tablet 10 mg PO Q2H PRN (Reason: Headache) Rx Instructions: do not exceed 3 doses per 24 hrs albuterol sulfate 90 mcg/actuation HFA aerosol inhaler 2 puff inhalation Q6H PRN (Reason: Bronchodilation) fluticasone propionate [Flonase Allergy Relief] 50 mcg/actuation spray,suspension 1 spray intranasal DAILY Rx Instructions: administer into each nostril hydrochlorothiazide 25 mg tablet 25 mg PO DAILY Qty: 90 1RF valsartan 80 mg tablet 80 mg PO DAILY Qty: 90 3RF multivitamin Tablet 1 tab PO DAILY terazosin 2 mg capsule 2 mg PO BEDTIME gemfibrozil 600 mg tablet 600 mg PO BID levothyroxine 200 mcg tablet 200 mcg PO QAM loratadine 10 mg tablet 10 mg PO QAM PRN (Reason: Allergy Symptoms) Xarelto 20 mg tablet 20 mg PO BEDTIME Hold Instructions: Resume on 04/12/23. zinc 50 mg tablet 50 mg PO DAILY Qty: 7 0RF potassium chloride [Klor-Con M10] 10 mEq tablet,ER particles/crystals 10 meq PO DAILY metoprolol tartrate 100 mg tablet 100 mg PO BID Qty: 60 4RF magnesium 200 mg tablet 200 mg PO BID Qty: 6 0RF potassium chloride 10 mEq tablet extended release 10 meq PO DAILY Qty: 3 0RF Discharge Orders: Discharge ED (Routine); Ordered 08/18/24 Ordered By: Ravi Garcia Referrals: Martha Savage DO [Primary Care Provider] - 1 week Patient Instructions: A-fib (Atrial Fibrillation) (ED), Chest Pain (ED) Activity Restrictions/Additional Instructions: If your chest pain worsens or her heart beats out of control please feel free to return to the ER for more treatment and further evaluation. Otherwise follow-up with your family practice physician and/or refrigeration systems installer within the next 7 to 10 days for follow-up. Coding Level of Care Code ED Scheduling Specialist for Maddy Robertson
[2024-08-17 22:58] LABS: Troponin(5th) Baseline 16 ng/L (0-15)
[2024-08-17] MEDS: dilTIAZem 5 mg/mL SDV 5 mL 10 MG IVP (22:59)
[2024-08-17 23:00] LABS: Alanine Aminotransferase 28 U/L (0-41); Albumin Level 4.5 g/dL (3.5-5.2); Alkaline Phosphatase 72 U/L (40-130); Aspartate Amino Transferase 28 U/L (0-40); Blood Urea Nitrogen 25 mg/dL (8-23); Calcium 10.2 mg/dL (8.5-10.5); Carbon Dioxide 20 mmol/L (22-29); Chloride 107 mmol/L (98-107); Creatinine Clr Calc Pharmacy 74.0922; Globulin 2.2 g/dL (1.3-4.6); Glucose 144 mg/dL (65-115); Osmolality Calculated 301 mOsm/kg (285-295); Sodium 142 mmol/L (136-145); Total Bilirubin 0.6 mg/dL (0.15-1.2); Total Protein 6.7 g/dL (6.6-8.7)
[2024-08-17 23:03] LABS: Anion Gap 19.1 (5-19); Potassium 4.1 mmol/L (3.5-5.1)
[2024-08-17 23:21] LABS: INR 1.85 (0.8-1.2)
--- NOTE | 2024-08-17 23:53 | ECG_ITS ---
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 Measurements Intervals [place] Rate: 100 P: 0 [place]: 0 QRS: -17 QRSD: 175 T: 134 QT: 396 QTc: 512 Interpretive Statements ATRIAL FIBRILLATION WITH RAPID VENTRICULAR RESPONSE LEFT BUNDLE BRANCH BLOCK [120+ ms QRS DURATION, 80+ ms Q/S IN V1/V2, 85+ ms R IN I/aVL/V5/V6] Compared to ECG 08/17/2024 22:00:01 No significant changes Electronically Signed On 08-18-2024 22:29:42 CDT by Sandor Marques M.D. [email or web address]
[2024-08-18] VITALS (23 sets, daily range): BP systolic 87–155; BP diastolic 58–83; PULSE 81–120; RESP 11–27; O2SAT 84–98
[2024-08-18] MEDS: sodium chloride 0.9% 1,000 ML 999 ML IV (00:44)
[2024-08-18 00:50] LABS: Add Urine Microscopic? YES; Bilirubin Urine 1+ (Negative); Blood Urine Neg (Negative); Glucose Urine UA Norm (Normal); Ketones Urine Negative (Negative); Leukocyte Esterase Urine Negative (Negative); Mucus Urine 2+ /hpf; Nitrate Urine Negative (Negative); Protein Urine 1+ (Negative); RBC Urine 0-4 /hpf (0-2); Urine Appearance Slightly Cloudy (CLEAR); Urine Color Yellow (Yellow); Urobilinogen Urine 1 mg/dL (Negative); WBC Urine 0-4 /hpf (0-5); pH Urine 5 (5-7)
[2024-08-18 00:51] LABS: Add Urine Culture? No
[2024-08-18 01:01] LABS: Troponin 5 2HR 14.28 ng/L (0-15)
[2024-08-18 01:02] LABS: Troponin 5 2HR Delta -1.72 ABS# (0-10)
[2024-08-18 01:11] LABS: NT Pro B Type Natriuretic Pept 233 pg/mL (0-125)
[2024-08-18 01:58] LABS: Procalcitonin 0.05 ng/mL (0-0.5)
== END 2024-08-18 02:09 | disposition home or self-care (01) ==
PROVIDERS: Emergency Provider Emergency Medicine; PCP Family Medicine
DX: I48.20 Chronic atrial fibrillation, unspecified (principal); R07.9 Chest pain, unspecified; Z87.891 Personal history of nicotine dependence; E78.5 Hyperlipidemia, unspecified; I11.0 Hypertensive heart disease with heart failure; I50.9 Heart failure, unspecified
CPT/HCPCS: 71045; 80053; 81001; 83735; 83880; 84145; 84484; 85025; 85610; 93005; 96361; 96374; 99285; J3490; J7030

== ENCOUNTER → 2024-09-19 08:38 | Outpatient (BNVA) | payer MEDICARE, SELFPAY | PROVIDERS: PCP Family Medicine; Visit Provider Podiatrist Foot & Ankle Surgery | DX: M79.671 Pain in right foot (principal); M79.672 Pain in left foot; G62.9 Polyneuropathy, unspecified; R20.0 Anesthesia of skin; R20.2 Paresthesia of skin; I10 Essential (primary) hypertension; I48.0 Paroxysmal atrial fibrillation; R09.89 Other specified symptoms and signs involving the circulatory and respiratory systems; R55 Syncope and collapse; Z87.891 Personal history of nicotine dependence | CPT/HCPCS: 99213; 99214 ==

== ENCOUNTER → 2024-10-03 10:52 | Outpatient (BNVA) | payer MEDICARE, SELFPAY | PROVIDERS: PCP Family Medicine; Visit Provider Podiatrist Foot & Ankle Surgery | DX: M79.671 Pain in right foot (principal); M79.672 Pain in left foot; G62.9 Polyneuropathy, unspecified; R20.0 Anesthesia of skin; R20.2 Paresthesia of skin; I10 Essential (primary) hypertension | CPT/HCPCS: 99213 ==

== ENCOUNTER 2024-12-01 10:30 | Emergency (ER) | payer MEDICARE, SELFPAY ==
--- NOTE | 2024-12-01 10:34 | ECG_ITS ---
[facility] Date: 2024-[facility]-01 Pat Name: Deepak Chacon Department: Room: Gender: Male Manager Behavior: : 1960 Requested By: Norma Wilhelm Order Number: [id number] Efra MD: Lefty Vargas M.D. 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 [email or web address]
[2024-12-01 10:43] VITALS: BP 154/99; PULSE 78; RESP 18; TEMP 36.7; O2SAT 95; BMI 38.6
--- NOTE | 2024-12-01 10:46 | XRR_ITS ---
PROCEDURE INFORMATION: Exam: XR Chest Exam date and time: 12/01/2024 10:54 AM Age: 64 years old Clinical indication: Patient HX: A-fib and weakness TECHNIQUE: Imaging protocol: Radiologic exam of the chest. Views: 1 view. COMPARISON: CR XR chest 1V portable [id number] 08/17/2024 10:11 PM FINDINGS: Lungs: Unremarkable. No consolidation or mass. Pleural spaces: Unremarkable. No pleural effusion. No pneumothorax. Heart/Mediastinum: Unremarkable. No cardiomegaly. Bones/joints: Unremarkable. XR/XR chest 1V portable [id number] IMPRESSION: No acute findings.
--- NOTE | 2024-12-01 10:46 | CT_ITS ---
WS: [id number] CT HEAD TECHNIQUE: Noncontrast CT of the head obtained from the skullbase to the vertex. CLINICAL INFORMATION: vision changes, weakness COMPARISON: 2019 DLP: 1136.[address] scans at [facility] use at least one of these dose optimization techniques: automated e xposure control; mA and/or kV adjustment per patient size (includes targeted exams where dose is matc hed to clinical indication); or iterative reconstruction. FINDINGS: No evidence of intracranial hemorrhage or mass effect. Ventricular system and basal cisterns are oseguera nt. Mild small vessel changes with mild parenchymal volume loss. No extra-axial fluid collections. No evidence of mass or mass effect. Vascular calcification. Paranasal sinuses and mastoid air cells are well aerated. .Normal visualized soft tissues. CT/CT head wo con* [id number] IMPRESSION: 1. No evidence of intracranial hemorrhage or mass effect. 2. No acute intracranial findings.
--- NOTE | 2024-12-01 10:49 | ED_ITS ---
HPI - Weakness 2 General: Chief complaint: Weakness Stated complaint: afib problems Time Seen by Provider: 12/01/24 10:41 History of Present Illness: 64-year-old man with a history of atrial fibrillation on chronic anticoagulation with Xarelto, hypothyroidism, hypertension and CHF who presents to the emergency room with generalized weakness and vision changes. He says the vision changes have been present for several weeks now. He saw an eye doctor about this. He says he had some double vision. Says today he felt more weak. He was somewhat dizzy. He says his arms felt heavy and his legs felt heavy. He was concerned it might be related to his atrial fibrillation. However he is in a sinus rhythm on presentation. Slightly hypertensive. Afebrile. No focal motor deficits. No cough. No chest pain. No shortness of breath. No lower extremity swelling. No abdominal pain. No nausea or vomiting. Review of Systems 2 Narrative: Constitutional symptoms: Negative except as documented in HPI. Skin symptoms: Negative except as documented in HPI. Eye symptoms: Negative except as documented in HPI. ENMT symptoms: Negative except as documented in HPI. Respiratory symptoms: Negative except as documented in HPI. Cardiovascular symptoms: Negative except as documented in HPI. Gastrointestinal symptoms: Negative except as documented in HPI. Genitourinary symptoms: Negative except as documented in HPI. Musculoskeletal symptoms: Negative except as documented in HPI. Neurologic symptoms: Negative except as documented in HPI. Psychiatric symptoms: Negative except as documented in HPI. Endocrine symptoms: Negative except as documented in HPI. PFSH ED 2 PFSH: Medical History Labile hypertension Chest pain Acute hypokalemia Hypoxia Atrial fibrillation with rapid ventricular response Hyperlipidemia Atrial fibrillation CHF (congestive heart failure), NYHA class III Family history of colon cancer COVID-19 Chest pain Atrial fibrillation with RVR Hypertension Surgical History Hx of knee surgery bilateral Hx of colonoscopy with polypectomy 2015 History of esophagogastroduodenoscopy (EGD) History of knee replacement Social History Smoking and tobacco/nicotine status: former use of tobacco/nicotine Alcohol intake: never Substance/Drug Use: never Physical Exam 2 Narrative: EXAM NARRATIVE: General: Alert, no acute distress. Skin: Warm, dry. Head: Normocephalic, atraumatic. Neck: Supple, trachea midline. Eye: Extraocular movements are intact. Ears, nose, mouth and throat: mucosa moist. Cardiovascular: Regular, Normal peripheral perfusion. Respiratory: Lungs are clear to auscultation, respirations are non-labored, breath sounds are equal, Symmetrical chest wall expansion. Gastrointestinal: Soft, Nontender, Non distended Musculoskeletal: Normal ROM, no deformity. Neurological: Alert and oriented, No focal neurological deficit observed. Psychiatric: Cooperative, appropriate mood & affect. Course 2 Vital Signs: Vital signs: Vital Signs Temperature 98.1 F 12/01/24 10:43 Pulse Rate 62 12/01/24 13:49 Respiratory Rate 16 12/01/24 13:49 Blood Pressure 172/88 12/01/24 13:49 Pulse Oximetry 92 12/01/24 13:49 Oxygen Delivery Me thod Room Air 12/01/24 13:49 MDM - Weakness Medical Decision Making Medical decision making: Differential diagnosis for patient presenting with generalized weakness including but not limited to and based on the above HPI, review of systems and physical exam: Sepsis. Dehydration. Renal failure. Electrolyte abnormalities. Anemia. Congestive heart failure. Hypotension. Coronary syndrome. Hepatitis. Cirrhosis. Infections such as pneumonia, urinary tract infection, [place]ne illness, Cellulitis, Viral infections including influenza and Covid-19. Workup: labwork and lab/exam driven imaging ordered to evaluate, rule in and rule out above pathologies. EKG: Time 1034. Rate 67. Normal sinus rhythm, No ST-T changes, no ectopy, left bundle branch block, This was reviewed and interpreted by myself the ER physician at 10:36 AM. When compared to EKG on 08/17/2024 there was a left bundle branch block but the patient was in A-fib at the time. He appears to be in sinus today. Repeat EKG: Time 1245. Rate 60. Normal sinus rhythm, No ST-T changes, no ectopy, left bundle branch block, This was reviewed and interpreted by myself the ER physician at 1248. No changes from EKG done previously in the ER today. CT head: No acute intracranial process. no intracranial hemorrhage, no evidence of infarct. no evidence of acute fracture.This was reviewed and interpreted by myself the ER physician. Chest x-ray: No acute process. No infiltrate. No pneumothorax. This was reviewed and interpreted by myself the emergency room physician. I also reviewed the radiology report. Lab Review: Laboratory results were reviewed and interpreted by myself the emergency room physician. No leukocytosis. No anemia. No renal failure. Serial troponins are negative. Urinalysis is negative for infection. I reviewed the patient's medical record. Reexamination: Patient remained stable. No increased work of breathing. No altered mental status. No focal motor deficits. Discussed findings with the patient. Assessment and plan: Generalized weakness - Discharged home - Discussed plan with patient. Answered any questions. - Evaluation and treatment of this problem were appropriate in the emergency setting. Lab Data 12/01/24 11:14 12/01/24 11:14 Radiology Impressions Chest X-Ray 12/01/24 10:46 IMPRESSION: No acute findings. Head CT 12/01/24 10:46 IMPRESSION: 1. No evidence of intracranial hemorrhage or mass effect. 2. No acute intracranial findings. Laboratory Results WBC 3.57 10^3/uL (3.29-11.43) 12/01/24 11:14 RBC 4.53 10^6/uL (3.85-5.65) 12/01/24 11:14 Hgb 13.10 g/dL (11.27-16.99) 12/01/24 11:14 Hct 40.2 % (37-53) 12/01/24 11:14 MCV 88.7 fl (82-101) 12/01/24 11:14 MCH 28.9 pg (27-33) 12/01/24 11:14 MCHC 32.6 g/dL (30-55) 12/01/24 11:14 RDW 14.2 % (12.1-15.1) 12/01/24 11:14 Plt Count 131 10^3/cmm (157-399) L 12/01/24 11:14 MPV 12.1 fL (7.4-10.4) H 12/01/24 11:14 Neut % (Auto) 66.1 % 12/01/24 11:14 Lymph % (Auto) 23.0 % 12/01/24 11:14 Union % (Auto) 9.5 % 12/01/24 11:14 Eos % (Auto) 0.8 % 12/01/24 11:14 Baso % (Auto) 0.6 % 12/01/24 11:14 Neut # (Auto) 2.36 10^3/uL (1.8-7.7) 12/01/24 11:14 Lymph # (Auto) 0.8 10^3/uL (0.8-4.8) 12/01/24 11:14 Union # (Auto) 0.3 10^3/uL (0.2-0.9) 12/01/24 11:14 Eos # (Auto) 0.0 10^3/uL (0.0-0.8) 12/01/24 11:14 Baso # (Auto) 0.0 10^3/uL (0.0-0.1) 12/01/24 11:14 Nucleated RBC % (auto) 0 % 12/01/24 11:14 Nucleated RBCs # 0.0 /100WBC 12/01/24 11:14 Sodium 139 mmol/L (136-145) 12/01/24 11:14 Potassium 3.9 mmol/L (3.5-5.1) 12/01/24 11:14 Chloride 107 mmol/L (98-107) 12/01/24 11:14 Carbon Dioxide 20 mmol/L (22-29) L 12/01/24 11:14 Anion Gap 15.9 (5-19) 12/01/24 11:14 BUN 17 mg/dL (8-23) 12/01/24 11:14 Creatinine 0.7 mg/dL (0.7-1.2) 12/01/24 11:14 GFR Calculation 113.5 mL/min (90-130) 12/01/24 11:14 Glucose 114 mg/dL (65-115) 12/01/24 11:14 Calculated Osmolality 290 mOsm/kg (285-295) 12/01/24 11:14 Calcium 9.4 mg/dL (8.5-10.5) 12/01/24 11:14 Total Bilirubin 0.3 mg/dL (0.15-1.2) 12/01/24 11:14 AST 26 U/L (0-40) 12/01/24 11:14 ALT 24 U/L (0-41) 12/01/24 11:14 Alkaline Phosphatase 63 U/L (40-130) 12/01/24 11:14 Troponin T Baseline 7 ng/L (0-15) 12/01/24 11:14 Troponin T 120 Minute 7.92 ng/L (0-15) 12/01/24 13:18 Delta Troponin T 0.92 ABS# (0-10) 12/01/24 13:18 NT-Pro-B Natriuret Pep < 36 pg/mL (0-125) 12/01/24 11:14 Total Protein 6.0 g/dL (6.6-8.7) L 12/01/24 11:14 Albumin 3.9 g/dL (3.5-5.2) 12/01/24 11:14 Globulin 2.1 g/dL (1.3-4.6) 12/01/24 11:14 Urine Color Dark yellow (Yellow) A 12/01/24 13:17 Urine Appearance Clear (CLEAR) 12/01/24 13:17 Urine pH 6.5 (5-7) 12/01/24 13:17 Ur Specific [place] 1.024 (1.005-1.030) 12/01/24 13:17 Urine Protein Negative (Negative) 12/01/24 13:17 Urine Glucose (UA) Negative (Normal) 12/01/24 13:17 Urine Ketones Negative (Negative) 12/01/24 13:17 Urine Blood Negative (Negative) 12/01/24 13:17 Urine Nitrate Negative (Negative) 12/01/24 13:17 Urine Bilirubin Negative (Negative) 12/01/24 13:17 Urine Urobilinogen 1.0 mg/dL (Negative) 12/01/24 13:17 Ur Leukocyte Esterase Negative (Negative) 12/01/24 13:17 Urine RBC 0-2 /hpf (0-2) 12/01/24 13:17 Urine WBC 0-5 /hpf (0-5) 12/01/24 13:17 Ur Squamous Epith Cells 0-5 /hpf (0-5) 12/01/24 13:17 Amorphous Sediment Not Reportable 12/01/24 13:17 Urine Bacteria None seen /hpf (NONE) 12/01/24 13:17 Hyaline Casts 0-4 /lpf H 12/01/24 13:17 All radiology interpretation(s) finalized by discharge Discharge Plan Discharge Patient Disposition: Home Clinical Impression: Generalized weakness, Vision changes Condition: Stable Prescriptions: No Action rizatriptan [Maxalt] 10 mg tablet 10 mg PO Q2H PRN (Reason: Headache) Rx Instructions: do not exceed 3 doses per 24 hrs albuterol sulfate 90 mcg/actuation HFA aerosol inhaler 2 puff inhalation Q6H PRN (Reason: Bronchodilation) fluticasone propionate [Flonase Allergy Relief] 50 mcg/actuation spray,suspension 1 spray intranasal DAILY Rx Instructions: administer into each nostril terazosin 2 mg capsule 2 mg PO BEDTIME gemfibrozil 600 mg tablet 600 mg PO BID Xarelto 20 mg tablet 20 mg PO BEDTIME Hold Instructions: Resume on 04/12/23. levothyroxine [Synthroid] 175 mcg tablet 175 mcg PO DAILY clonidine HCl 0.1 mg tablet 0.1 mg PO TID Nurtec ODT 75 mg tablet,disintegrating 75 mg PO PRN PRN (Reason: Migraine Headache) metoprolol tartrate 100 mg tablet 100 mg PO BID Qty: 60 4RF potassium chloride 10 mEq tablet extended release 10 meq PO DAILY Qty: 3 0RF Discharge Orders: Discharge ED (Routine); Ordered 12/01/24 Ordered By: Norma Roy Referrals: Martha Savage DO [Primary Care Provider] - Discharge Diet: Usual diet Discharge Activity: Increase activity as tolerated Patient Instructions: Weakness (ED), Diplopia (ED), Opioid Safety, Pain Management, Vision Problems Activity Restrictions/Additional Instructions: Please continue to follow with your banking services clerk and with your primary care physician. Thank you for choosing [facility] for your healthcare needs today. Please realize this is an emergency room and that we are providing you with a medical screening exam and this may not be complete and all inclusive of all the testing and or work up that you may need to determine your ailment or severity of your illness. You have been screened and evaluated and felt safe for discharge. Health conditions do change or evolve sometimes and as such it is important that you follow up with your Primary Doctor to be re checked, 3-5 days is a general good time frame for follow up. You are always welcome to return to the ED for re assessment if your symptoms are worsening or you have new concerns Coding Level of Care Code ED Gericare Aide for Chg Fwd Related Data Home Medications Medication Instructions Recorded Confirmed gemfibrozil 600 mg tablet 600 mg PO BID 10/04/21 12/01/24 rivaroxaban 20 mg tablet (Xarelto) 20 mg PO BEDTIME 10/04/21 12/01/24 terazosin 2 mg capsule 2 mg PO BEDTIME 10/04/21 12/01/24 albuterol sulfate 90 mcg/actuation 2 puff inhalation Q6H PRN 04/22/23 12/01/24 aerosol inhaler Bronchodilation fluticasone propionate 50 1 spray intranasal DAILY 04/22/23 12/01/24 mcg/actuation nasal spray,suspension (Flonase Allergy Relief) rizatriptan 10 mg tablet (Maxalt) 10 mg PO Q2H PRN Headache 04/22/23 12/01/24 clonidine HCl 0.1 mg tablet 0.1 mg PO TID 12/01/24 12/01/24 levothyroxine 175 mcg tablet 175 mcg PO DAILY 12/01/24 12/01/24 (Synthroid) rimegepant 75 mg disintegrating 75 mg PO PRN PRN Migraine Headache 12/01/24 12/01/24 tablet (Nurtec ODT) Previous Rx's Medication Instructions Recorded metoprolol tartrate 100 mg tablet 100 mg PO BID #60 tabs 07/08/24 potassium chloride 10 mEq 10 meq PO DAILY #3 tabs 07/08/24 tablet,extended release Allergies Allergy/AdvReac Type Severity Reaction Status Date / Time No Known Allergies Allergy Verified 09/19/24 09:25
[2024-12-01 11:21] LABS: Basophils % 0.6 %; Eosinophils % 0.8 %; Hematocrit 40.2 % (37-53); Lymphocytes # 0.8 10^3/uL (0.8-4.8); Mean Corpuscular HGB Conc 32.6 g/dL (30-55); Mean Corpuscular Hemoglobin 28.9 pg (27-33); Mean Corpuscular Volume 88.7 fl (82-101); Mean Platelet Volume 12.1 fL (7.4-10.4); Monocytes # 0.3 10^3/uL (0.2-0.9); Monocytes % 9.5 %; Neutrophils # 2.36 10^3/uL (1.8-7.7); Neutrophils % 66.1 %; Nucleated Red Blood Cells % 0 %; Platelet Count 131 10^3/cmm (157-399); Red Blood Count 4.53 10^6/uL (3.85-5.65); Red Cell Distribution Width 14.2 % (12.1-15.1); White Blood Count 3.57 10^3/uL (3.29-11.43)
[2024-12-01 11:42] LABS: Troponin(5th) Baseline 7 ng/L (0-15)
[2024-12-01 11:51] LABS: Alanine Aminotransferase 24 U/L (0-41); Albumin Level 3.9 g/dL (3.5-5.2); Alkaline Phosphatase 63 U/L (40-130); Anion Gap 15.9 (5-19); Aspartate Amino Transferase 26 U/L (0-40); Blood Urea Nitrogen 17 mg/dL (8-23); Calcium 9.4 mg/dL (8.5-10.5); Carbon Dioxide 20 mmol/L (22-29); Chloride 107 mmol/L (98-107); Creatinine Clr Calc Pharmacy 148.1843; Globulin 2.1 g/dL (1.3-4.6); Glomerular Filtration Rate 113.5 mL/min (90-130); Glucose 114 mg/dL (65-115); NT Pro B Type Natriuretic Pept < 36 pg/mL (0-125); Osmolality Calculated 290 mOsm/kg (285-295); Potassium 3.9 mmol/L (3.5-5.1); Sodium 139 mmol/L (136-145); Total Bilirubin 0.3 mg/dL (0.15-1.2)
[2024-12-01 12:23] VITALS: BP 171/95; PULSE 60; RESP 16; O2SAT 96
--- NOTE | 2024-12-01 12:45 | ECG_ITS ---
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 Measurements Intervals [place] Rate: 60 P: 48 OH: 169 QRS: 82 QRSD: 179 T: 128 QT: 466 QTc: 467 Interpretive Statements SINUS RHYTHM LEFT BUNDLE BRANCH BLOCK [120+ ms QRS DURATION, 80+ ms Q/S IN V1/V2, 85+ ms R IN I/aVL/V5/V6] Compared to ECG 12/01/2024 10:34:03 Left bundle-branch block now present Intraventricular conduction delay no longer present Electronically Signed On 12-01-2024 16:10:06 ELECTRONIC BENCH TECHNICIAN by Lefty Vargas M.D. [id number]
[2024-12-01 13:25] LABS: Bilirubin Urine Negative (Negative); Blood Urine Negative (Negative); Glucose Urine UA Negative (Normal); Ketones Urine Negative (Negative); Leukocyte Esterase Urine Negative (Negative); Nitrate Urine Negative (Negative); Protein Urine Negative (Negative); Specific Gravity, Urine 1.024 (1.005-1.030); Urine Appearance Clear (CLEAR); Urine Color Dark Yellow (Yellow); pH Urine 6.5 (5-7)
[2024-12-01 13:30] LABS: Bacteria Urine None Seen /hpf; Hyaline Casts Urine 0-4 /lpf; RBC Urine 0-2 /hpf (0-2); Squamous Epithelial Cell Urine 0-5 /hpf (0-5); WBC Urine 0-5 /hpf (0-5)
[2024-12-01 13:45] LABS: Troponin 5 2HR 7.92 ng/L (0-15); Troponin 5 2HR Delta 0.92 ABS# (0-10)
[2024-12-01 13:49] VITALS: BP 172/88; PULSE 62; RESP 16; O2SAT 92
[2024-12-01 13:59] VITALS: BP 181/96; PULSE 66; RESP 16; O2SAT 95
== END 2024-12-01 13:56 | disposition home or self-care (01) ==
PROVIDERS: Emergency Provider Emergency Medicine; PCP Family Medicine
DX: R53.1 Weakness (principal); H53.9 Unspecified visual disturbance; Z87.891 Personal history of nicotine dependence; I11.0 Hypertensive heart disease with heart failure; I50.9 Heart failure, unspecified; E78.5 Hyperlipidemia, unspecified
CPT/HCPCS: 36415; 70450; 71045; 80053; 81001; 83880; 84484; 85025; 93005; 93010; 99285

== ENCOUNTER 2025-02-10 15:04 | Inpatient (IN) | payer MEDICARE, SELFPAY ==
[2025-02-10] VITALS (17 sets, daily range): BP systolic 97–142; BP diastolic 63–92; PULSE 83–145; RESP 15–25; TEMP 36.3–36.6; O2SAT 92–99
--- NOTE | 2025-02-10 15:06 | ECG_ITS ---
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 Measurements Intervals [place] Rate: 145 P: 0 OR: 0 QRS: 31 QRSD: 162 T: 213 QT: 318 QTc: 495 Interpretive Statements ATRIAL FLUTTER WITH RAPID VENTRICULAR RESPONSE LEFT BUNDLE BRANCH BLOCK [120+ ms QRS DURATION, 80+ ms Q/S IN V1/V2, 85+ ms R IN I/aVL/V5/V6] Compared to ECG 12/01/2024 12:45:48 Sinus rhythm no longer present Electronically Signed On 02-10-2025 19:01:30 CDT by Lefty Vargas M.D. [id number]
--- NOTE | 2025-02-10 15:09 | CTR_ITS ---
PROCEDURE INFORMATION: Exam: CT Head Without Contrast Exam date and time: 02/10/2025 3:44 PM Age: 64 years old Clinical indication: Stroke-like symptoms; Altered mental status/memory loss and other: Unresponsive; Additional info: AMS TECHNIQUE: Imaging protocol: Computed tomography of the head without contrast. Radiation optimization: All CT scans at this facility use at least one of these dose optimization techniques: automated exposure control; mA and/or kV adjustment per patient size (includes targeted exams where dose is matched to clinical indication); or iterative reconstruction. Other technique: STROKE PROTOCOL was implemented. COMPARISON: CT head wo con* [id number] 12/01/2024 10:59 AM RADIATION DOSE METRICS: Total DLP (mGy-cm): 905.68 FINDINGS: Brain: No hemorrhage. No edema. Moderate diffuse cerebral atrophy. 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 No mass effect. Cerebral ventricles: No ventriculomegaly. Paranasal sinuses: Visualized sinuses are unremarkable. No fluid levels. Mastoid air cells: Visualized mastoid air cells are well aerated. Bones: Unremarkable. No acute fracture. Soft tissues: Unremarkable. CT/CT head thrombolytic [id number] IMPRESSION: No acute intracranial abnormality. ASSESSMENT: ASPECTS ([place] Stroke Program Early CT Score) is 10.
--- NOTE | 2025-02-10 15:09 | XRR_ITS ---
PROCEDURE INFORMATION: Exam: XR Chest Exam date and time: 02/10/2025 3:22 PM Age: 64 years old Clinical indication: Shortness of breath; Additional info: SOB; Hypoxia; Found unresponsive TECHNIQUE: Imaging protocol: Radiologic exam of the chest. Views: 1 view. COMPARISON: CR XR chest 1V portable [id number] 12/01/2024 10:54 AM FINDINGS: Lungs: Small calcified granuloma on the left. Mild hypoventilatory changes at the lung bases. Pleural spaces: Unremarkable. No pleural effusion. No pneumothorax. Heart/Mediastinum: Unremarkable. No cardiomegaly. Bones/joints: Unremarkable. XR/XR chest 1V portable [id number] IMPRESSION: No acute cardiopulmonary disease.
[2025-02-10 15:13] LABS: Glucose Point of Care 127 mg/dL (70-110)
[2025-02-10 15:15] LABS: ABG PCO2 23.8 mmHg (35-45); ABG PH Result 7.58 (7.35-7.45); Arterial Blood Gas Hematocrit 47.7 % (42-52); Base Excess ABG 2.1 mmol/L (-2.0-2.0); Blood Gas Allen Test Pos; Blood Gas Operator Identificat WALCI; Blood Gas Sample Site Radial, right; Blood Gas Sample Type Arterial; Carboxyhemoglobin 0.2 %THgb (0.4-20.1); HCO3 ABG 22.1 mmol/L (22-26); HGB O2 Sat 95.5 % (95-100); Ionized Calcium Level - ABG 1.3 mmol/L (1.1-1.4); Methemoglobin 0.8 % (0.4-1.5); Oxygen Device ROOM AIR; Oxygen Saturation ABG 96.4; PO2 ABG 77.2 mmHg (80.0-100.0); PO2 FiO2 Ratio Arterial Blood 367; Total Hemoglobin 15.6 g/dL (14-18)
[2025-02-10 15:20] LABS: Basophils % 0.4 %; Eosinophils % 0.2 %; Hematocrit 44.9 % (37-53); Lymphocytes # 1.4 10^3/uL (0.8-4.8); Lymphocytes % 26.4 %; Mean Corpuscular Hemoglobin 28.4 pg (27-33); Mean Corpuscular Volume 86.2 fl (82-101); Mean Platelet Volume 12.6 fL (7.4-10.4); Monocytes # 0.7 10^3/uL (0.2-0.9); Monocytes % 13.5 %; Neutrophils # 3.03 10^3/uL (1.8-7.7); Neutrophils % 59.3 %; Nucleated Red Blood Cells % 0 %; Platelet Count 150 10^3/cmm (157-399); Red Blood Count 5.21 10^6/uL (3.85-5.65); Red Cell Distribution Width 14.5 % (12.1-15.1); White Blood Count 5.11 10^3/uL (3.29-11.43)
[2025-02-10] MEDS: sodium chloride 0.9% 1,000 ML 999 ML IV ×2 (15:23→15:39)
[2025-02-10] MEDS: amiodarone 150 MG/100 ML PREMIX 400 MG IV (15:25)
--- NOTE | 2025-02-10 15:26 | ED_ITS ---
HPI - Altered Mental Status 2 General: Chief Complaint: Altered Mental Status Stated Complaint: unresponsive Time Seen by Provider: 02/10/25 15:09 Source: EMS Mode of arrival: EMS Limitations: altered mental status History of Present Illness: 64-year-old male presents here with EMS patient presented to clinic today with his and stated to the clinic per EMS that he had been having some flulike symptoms just for general malaise not feeling well clinic and called EMS due to him being in A-fib with RVR he does have a history of A-fib EMS states that en route here he became completely unresponsive patient here will respond to painful stimuli he was able to tell me his name and follow some directions but he is very lethargic and not able to tell me where he is at or the year. He would wiggle his fingers and toes for me but no other history is really available from him at this time he is in A-fib with RVR with heart rate of 145 normal blood pressure. Patient is now more awake at this time he is moving all extremities able answer all my questions appropriate this time he states has been having some shortness of breath since Thursday and flulike symptoms denies any acute chest pain Related Data Home Medications ?Medication ?Instructions ?Recorded ?Confirmed gemfibrozil 600 mg tablet 600 mg PO BID 10/04/2102/10 rivaroxaban 20 mg tablet (Xarelto) 20 mg PO BEDTIME 02/10/25 terazosin 2 mg capsule 2 mg PO BEDTIME 10/04/21 albuterol sulfate 90 mcg/actuation 2 puff inhalation Q 6H PRN 04/22/23 02/10/25 aerosol inhaler Bronchodilation fluticasone propionate 50 1 spray intranasal DAILY 02/10/25 mcg/actuation nasal spray,suspension (Flonase Allergy Relief) rizatriptan 10 mg tablet (Maxalt) 10 mg PO Q2H PRN Hea dache 04/22/23 02/10/25 clonidine HCl 0.1 mg tablet 0.1 mg PO TID 12/01/24 levothyroxine 175 mcg tablet 175 mcg PO DAILY 12/01/24 02/10/25 (Synthroid) rimegepant 75 mg disintegrating 75 mg PO PRN PRN Migra ine Headache 12/01/24 02/10/25 tablet (Nurtec ODT) Previous Rx's ?Medication ?Instructions ?Recorded metoprolol tartrate 100 mg tablet 100 mg PO BID #60 ta bs 07/08/24 potassium chloride 10 mEq 10 meq PO DAILY #3 tabs 08/23 tablet,extended release Allergies Allergy/AdvReac Type Severity Reaction Status Date / Time No Known Allergies Allergy Verified 02/10/25 15:20 Review of Systems 2 Const: Denies: fever(s), chills, body aches or change in appetite Eyes: Denies: blurry vision or eye discomfort ENMT: Denies: throat pain or dental pain Card: Reports: palpitations and irregular heart rhythm Resp: Reports: dyspnea GI: Denies: abdominal pain, nausea, vomiting or diarrhea Musc: Denies: neck pain or back pain Skin/Breast: Denies: rash Neuro: Denies: headache(s) PFSH ED 2 PFSH: Medical History Labile hypertension Chest pain Acute hypokalemia Hypoxia Atrial fibrillation with rapid ventricular response Hyperlipidemia Atrial fibrillation CHF (congestive heart failure), NYHA class III Family history of colon cancer COVID-19 Chest pain Atrial fibrillation with RVR Hypertension Surgical History Hx of knee surgery bilateral Hx of colonoscopy with polypectomy 2014 History of esophagogastroduodenoscopy (EGD) History of knee replacement Social History Smoking and tobacco/nicotine status: former use of tobacco/nicotine Alcohol intake: never Substance/Drug Use: never Physical Exam 2 Const: COMMON NORMALS: patient oriented x3 HENMT: COMMON NORMALS: normocephalic and atraumatic HEAD & SCALP: n ormocephalic and atraumatic Eye: COMMON NORMALS: Equal, round and reactive pupils present and EOMs intact bilaterally PUPIL: Yes Equal, round and reactive pupils present Neck/C-Spine: COMMON NORMALS: full ROM and supple Chest: COMMONS NORMALS: normal inspection of the chest and normal palpation of entire chest wall Resp: COMMON NORMALS: normal respiratory effort, No retractions, No use of accessory muscles and clear to auscultation bilaterally AUSCULTATION: clear to auscultation bilaterally Cardio: COMMON NORMALS: No murmurs present (Cardio) RATE: tachycardic R HYTHM: abnormal rhythm irregularly irregular GI: COMMON NORMALS: Normal to inspection, nondistended, normoactive bowel sounds present, Soft to palpation, non-tender and no masses PALPATION: Yes Soft to palpation Extremity: COMMON NORMALS: normal to inspection and full ROM Neuro: COMMON NORMALS: patient oriented x3, moves all extremities and no focal motor deficits SPEECH: speech normal Psych: COMMON NORMALS: mental status grossly normal, Normal thought process present and cooperative THOUGHT PROCESS: Normal thought process present Skin: COMMON NORMALS: no rashes or lesions noted and no wounds GENERAL SKIN EXAM: no rashes or lesions noted Course 2 Vital Signs: Vital signs: Vital Signs Temperature 97.4 F L 02/10/25 15:14 Pulse Rate 103 H 02/10/25 16:15 Respiratory Rate 15 02/10/25 16:15 Blood Pressure 97/75 02/10/25 16:15 Pulse Oximetry 98 02/10/25 16:15 Oxygen Delivery Me thod Room Air 02/10/25 15:14 MDM - Altered Mental Status Medical Decision Making Patient presents here with A-fib with RVR his heart rate when he originally arrived was in the 150s he was altered with pressures in the 70s 80s did give him amiodarone amiodarone drip and fluids his heart rates now in the 90s blood pressure is 143/92 he is now awake and alert and at his baseline he has no signs of a stroke CT of his chest shows no signs of PE I believe his altered mental status was likely due to the blood pressure due to his high heart rate I spoke to hospitalist will admit at this time Medical Records I reviewed the patient's medical records. Lab Data I reviewed the patient's lab results. 02/10/25 15:09 02/10/25 15:09 Radiology Impressions Chest X-Ray 02/10/25 15:09 IMPRESSION: No acute cardiopulmonary disease. Head CT 02/10/25 15:09 IMPRESSION: No acute intracranial abnormality. ASSESSMENT: ASPECTS ([place] Stroke Program Early CT Score) is 10. ADDENDUM: 02/10/25 0027 PAULIE SANDS acknowledged receipt of report at 02/10/2025 4:14 PM CDT. Head/Neck CTA 02/10/25 15:42 IMPRESSION: No large vessel stenosis or occlusion. IMPRESSION: No stenosis or occlusion. REFERENCES: NASCET CRITERIA. The degree of stenosis in the cervical segment of the internal carotid artery is based on NASCET criteria. Normal is no stenosis. Mild is less than 50% stenosis. Moderate is 50-69% stenosis. Severe is 70% to 99% stenosis. Total occlusion is no detectable patent lumen. Chest CTA 02/10/25 16:01 IMPRESSION: No acute findings. Laboratory Results WBC 5.11 10^3/uL (3.29-11.43) 02/10/25 15:09 RBC 5.21 10^6/uL (3.85-5.65) 02/10/25 15:09 Hgb 14.80 g/dL (11.27-16.99) 02/10/25 15:09 Hct 44.9 % (37-53) 02/10/25 15:09 MCV 86.2 fl (82-101) 02/10/25 15:09 MCH 28.4 pg (27-33) 02/10/25 15:09 MCHC 33.0 g/dL (30-55) 02/10/25 15:09 RDW 14.5 % (12.1-15.1) 02/10/25 15:09 Plt Count 150 10^3/cmm (157-399) L 02/10/25 15:09 MPV 12.6 fL (7.4-10.4) H 02/10/25 15:09 Neut % (Auto) 59.3 % 02/10/25 15:09 Lymph % (Auto) 26.4 % 02/10/25 15:09 [place] % (Auto) 13.5 % 02/10/25 15:09 Eos % (Auto) 0.2 % 02/10/25 15:09 Baso % (Auto) 0.4 % 02/10/25 15:09 Neut # (Auto) 3.03 10^3/uL (1.8-7.7) 02/10/25 15:09 Lymph # (Auto) 1.4 10^3/uL (0.8-4.8) 02/10/25 15:09 [place] # (Auto) 0.7 10^3/uL (0.2-0.9) 02/10/25 15:09 Eos # (Auto) 0.0 10^3/uL (0.0-0.8) 02/10/25 15:09 Baso # (Auto) 0.0 10^3/uL (0.0-0.1) 02/10/25 15:09 Nucleated RBC % (auto) 0 % 02/10/25 15:09 Nucleated RBCs # 0.0 /100WBC 02/10/25 15:09 PT 15.20 SECONDS (12.1-14.9) H 02/10/25 15:09 INR 1.13 (0.8-1.2) 02/10/25 15:09 Specimen Type Arterial 02/10/25 15:04 Sample Site Radial, right 02/10/25 15:04 ABG pH 7.58 (7.35-7.45) H* 02/10/25 15:04 ABG pCO2 23.8 mmHg (35-45) L 02/10/25 15:04 ABG pO2 77.2 mmHg (80.0-100.0) L 02/10/25 15:04 ABG PO2/FiO2 Ratio 367 02/10/25 15:04 ABG HCO3 22.1 mmol/L (22-26) 02/10/25 15:04 ABG O2 Saturation 96.4 02/10/25 15:04 ABG Base Excess 2.1 mmol/L (-2.0-2.0) H 02/10/25 15:04 Claus Test Pos 02/10/25 15:04 A-a O2 Gradient 5.0 mmHg (5-10) 02/10/25 15:04 Hematocrit 47.7 % (42-52) 02/10/25 15:04 Hgb O2 Saturation 95.5 % (95-100) 02/10/25 15:04 Carboxyhemoglobin 0.2 %THgb (0.4-20.1) L 02/10/25 15:04 Methemoglobin 0.8 % (0.4-1.5) 02/10/25 15:04 Total Hemoglobin 15.6 g/dL (14-18) 02/10/25 15:04 Sodium 141.0 mmol/L (131-143) 02/10/25 15:04 Potassium 4.0 mmol/L (3.5-5.0) 02/10/25 15:04 Glucose 130.0 mg/dL (70-115) H 02/10/25 15:04 Ionized Calcium 1.3 mmol/L (1.1-1.4) 02/10/25 15:04 O2 Delivery Device Room air 02/10/25 15:04 FiO2 21.0 % 02/10/25 15:04 Handle Bar Assembler ID [place] 02/10/25 15:04 Sodium 139 mmol/L (136-145) 02/10/25 15:09 Potassium 4.5 mmol/L (3.5-5.1) 02/10/25 15:09 Chloride 101 mmol/L (98-107) 02/10/25 15:09 Carbon Dioxide 23 mmol/L (22-29) 02/10/25 15:09 Anion Gap 19.5 (5-19) H 02/10/25 15:09 BUN 14 mg/dL (8-23) 02/10/25 15:09 Creatinine 1.6 mg/dL (0.7-1.2) H 02/10/25 15:09 GFR Calculation 43.7 mL/min (90-130) L 02/10/25 15:09 Glucose 125 mg/dL (65-115) H 02/10/25 15:09 POC Glucose 127 mg/dL (70-110) H 02/10/25 15:09 Calculated Osmolality 290 mOsm/kg (285-295) 02/10/25 15:09 Calcium 10.3 mg/dL (8.5-10.5) 02/10/25 15:09 Total Bilirubin 0.4 mg/dL (0.15-1.2) 02/10/25 15:09 AST 28 U/L (0-40) 02/10/25 15:09 ALT 25 U/L (0-41) 02/10/25 15:09 Alkaline Phosphatase 80 U/L (40-130) 02/10/25 15:09 Troponin T Baseline 19 ng/L (0-15) H 02/10/25 15:09 NT-Pro-B Natriuret Pep 1427 pg/mL (0-125) H 02/10/25 15:09 Total Protein 7.0 g/dL (6.6-8.7) 02/10/25 15:09 Albumin 4.0 g/dL (3.5-5.2) 02/10/25 15:09 Globulin 3.0 g/dL (1.3-4.6) 02/10/25 15:09 Lipase 35 U/L (13-60) 02/10/25 15:09 TSH 4.17 uIU/mL (0.27-4.20) 02/10/25 15:09 Urine Color Dark yellow (Yellow) A 02/10/25 16:24 Urine Appearance Cloudy (CLEAR) A 02/10/25 16:24 Urine pH 7.0 (5-7) 02/10/25 16:24 Ur Specific [place] 1.021 (1.005-1.030) 02/10/25 16:24 Urine Protein 2+ (Negative) A 02/10/25 16:24 Urine Glucose (UA) Negative (Normal) 02/10/25 16:24 Urine Ketones Trace (Negative) 02/10/25 16:24 Urine Blood Negative (Negative) 02/10/25 16:24 Urine Nitrate Negative (Negative) 02/10/25 16:24 Urine Bilirubin 1+ (Negative) H 02/10/25 16:24 Urine Urobilinogen 1.0 mg/dL (Negative) 02/10/25 16:24 Ur Leukocyte Esterase Negative (Negative) 02/10/25 16:24 Amorphous Sediment Not Reportable 02/10/25 16:24 All radiology interpretation(s) finalized by discharge EKG Data EKG 1: I personally reviewed and interpreted this EKG as follows: EKG interpretation date: 02/10/25 EKG interpretation time: 15:06 Interpretation: atrial flutter hr [address] elevation qrs 162 qtc 402 Critical Care Time 2 Critical Care Time: Critical Care Time: Yes Total Critical Care Time: 45 Attestation: The high probability of a clinically significant, sudden or life threatening deterioration of the patient's cv system(s) required my full and direct attention, intervention and personal management. The critical care time is as shown. This time is in addition to time spent performing any reported procedures but includes the following: [x] Data and vital sign review and interpretation [x] Patient assessment, examination and intervention [x] Documentation [x] Medication orders and management Discharge Plan Discharge Patient Disposition: Admitted As Inpatient Clinical Impression: Atrial fibrillation with RVR Condition: Stable Prescriptions: No Action rizatriptan [Maxalt] 10 mg tablet 10 mg PO Q2H PRN (Reason: Headache) Rx Instructions: do not exceed 3 doses per 24 hrs albuterol sulfate 90 mcg/actuation HFA aerosol inhaler 2 puff inhalation Q6H PRN (Reason: Bronchodilation) fluticasone propionate [Flonase Allergy Relief] 50 mcg/actuation spray,suspension 1 spray intranasal DAILY Rx Instructions: administer into each nostril terazosin 2 mg capsule 2 mg PO BEDTIME gemfibrozil 600 mg tablet 600 mg PO BID Xarelto 20 mg tablet 20 mg PO BEDTIME levothyroxine [Synthroid] 175 mcg tablet 175 mcg PO DAILY clonidine HCl 0.1 mg tablet 0.1 mg PO TID Nurtec ODT 75 mg tablet,disintegrating 75 mg PO PRN PRN (Reason: Migraine Headache) metoprolol tartrate 100 mg tablet 100 mg PO BID Qty: 60 4RF potassium chloride 10 mEq tablet extended release 10 meq PO DAILY Qty: 3 0RF Referrals: Martha Savage DO [Primary Care Provider] - Patient Instructions: Altered Mental Status (ED) Print Language: Upper Sorbian Coding Level of Care Code ED V 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
[2025-02-10 15:27] LABS: INR 1.13 (0.8-1.2)
[2025-02-10 15:39] LABS: Troponin(5th) Baseline 19 ng/L (0-15)
--- NOTE | 2025-02-10 15:42 | CTR_ITS ---
PROCEDURE INFORMATION: Exam: CTA Head With Contrast, Arteriography Exam date and time: 02/10/2025 3:48 PM Age: 64 years old Clinical indication: Other: Unresponsive; Additional info: AMS TECHNIQUE: Imaging protocol: Computed tomographic angiography of the head with contrast. Exam focused on the arteries. 3D rendering (Not supervised by radiologist): MIP and/or 3D reconstructed images were created by the technologist. Radiation optimization: All CT scans at this facility use at least one of these dose optimization techniques: automated exposure control; mA and/or kV adjustment per patient size (includes targeted exams where dose is matched to clinical indication); or iterative reconstruction. Contrast material: OMNI 350; Contrast volume: 100 ml; Contrast route: INTRAVENOUS (IV); COMPARISON: CT head thrombolytic [id number] 02/10/2025 3:44 PM RADIATION DOSE METRICS: Total DLP (mGy-cm): 616.6 FINDINGS: ANTERIOR CIRCULATION: Right internal carotid artery: Intracranial segment is patent with no significant stenosis. No aneurysm. Right middle cerebral artery: No occlusion or significant stenosis. No aneurysm. Right anterior cerebral artery: No occlusion or significant stenosis. No aneurysm. Left internal carotid artery: Intracranial segment is patent with no significant stenosis. No aneurysm. Left middle cerebral artery: No occlusion or significant stenosis. No aneurysm. Left anterior cerebral artery: No occlusion or significant stenosis. No aneurysm. POSTERIOR CIRCULATION: Right vertebral artery: No occlusion or significant stenosis. No aneurysm. Left vertebral artery: No occlusion or significant stenosis. No aneurysm. Basilar artery: No occlusion or significant stenosis. No aneurysm. Right posterior cerebral artery: No occlusion or significant stenosis. No aneurysm. Left posterior cerebral artery: No occlusion or significant stenosis. No aneurysm. Brain: No definite mass, mass effect, or midline shift. Cerebral ventricles: No ventriculomegaly. Bones/joints: Unremarkable. No acute fracture. Soft tissues: Unremarkable. PROCEDURE INFORMATION: Exam: CTA Neck With Contrast Exam date and time: 02/10/2025 3:48 PM Age: 64 years old Clinical indication: Other: Unresponsive; Additional info: AMS TECHNIQUE: Imaging protocol: Computed tomographic angiography of the neck with contrast. Exam focused on the cervical segments of the vasculature. 3D rendering (Not supervised by radiologist): MIP and/or 3D reconstructed images were created by the technologist. Radiation optimization: All CT scans at this facility use at least one of these dose optimization techniques: automated exposure control; mA and/or kV adjustment per patient size (includes targeted exams where dose is matched to clinical indication); or iterative reconstruction. Contrast material: OMNI 350; Contrast volume: 100 ml; Contrast route: INTRAVENOUS (IV); COMPARISON: CT cervical spin wo con* [id number] 06/11/2019 3:27 PM RADIATION DOSE METRICS: Total DLP (mGy-cm): 616.6 FINDINGS: Right common carotid artery: No stenosis. No dissection or occlusion. Right internal carotid artery: No stenosis of the extracranial segment. No dissection or occlusion. Right external carotid artery: No occlusion or stenosis of the origin. Left common carotid artery: No stenosis. No dissection or occlusion. Left internal carotid artery: No stenosis of the extracranial segment. No dissection or occlusion. Left external carotid artery: No occlusion or stenosis of the origin. Right vertebral artery: No stenosis. No dissection or occlusion. Left vertebral artery: No stenosis. No dissection or occlusion. Soft tissues: Normal. No significant soft tissue swelling. Bones/joints: No acute fracture. CT/CT angio headneck* [id number] IMPRESSION: No large vessel stenosis or occlusion. IMPRESSION: No stenosis or occlusion. REFERENCES: NASCET CRITERIA. The degree of stenosis in the cervical segment of the internal carotid artery is based on NASCET criteria. Normal is no stenosis. Mild is less than 50% stenosis. Moderate is 50-69% stenosis. Severe is 70% to 99% stenosis. Total occlusion is no detectable patent lumen.
[2025-02-10 15:45] LABS: Alanine Aminotransferase 25 U/L (0-41); Alkaline Phosphatase 80 U/L (40-130); Anion Gap 19.5 (5-19); Aspartate Amino Transferase 28 U/L (0-40); Blood Urea Nitrogen 14 mg/dL (8-23); Calcium 10.3 mg/dL (8.5-10.5); Carbon Dioxide 23 mmol/L (22-29); Chloride 101 mmol/L (98-107); Glomerular Filtration Rate 43.7 mL/min (90-130); Glucose 125 mg/dL (65-115); Lipase 35 U/L (13-60); NT Pro B Type Natriuretic Pept 1427 pg/mL (0-125); Osmolality Calculated 290 mOsm/kg (285-295); Potassium 4.5 mmol/L (3.5-5.1); Sodium 139 mmol/L (136-145); Thyroid Stimulating Hormone 4.17 uIU/mL (0.27-4.20); Total Bilirubin 0.4 mg/dL (0.15-1.2)
--- NOTE | 2025-02-10 16:01 | CTR_ITS ---
PROCEDURE INFORMATION: Exam: CTA Chest With Contrast Exam date and time: 02/10/2025 3:52 PM Age: 64 years old Clinical indication: Shortness of breath; Additional info: SOB TECHNIQUE: Imaging protocol: Computed tomographic angiography of the chest with contrast. Exam focused on the arteries. 3D rendering (Not supervised by radiologist): MIP and/or 3D reconstructed images were created by the technologist. Radiation optimization: All CT scans at this facility use at least one of these dose optimization techniques: automated exposure control; mA and/or kV adjustment per patient size (includes targeted exams where dose is matched to clinical indication); or iterative reconstruction. Contrast material: OMNI 350; Contrast volume: 95 ml; Contrast route: INTRAVENOUS (IV); COMPARISON: CT angio chest PE protcl [id number] 07/07/2024 7:17 PM RADIATION DOSE METRICS: Total DLP (mGy-cm): 546.6 FINDINGS: Pulmonary arteries: Normal. No pulmonary emboli. Aorta: Unremarkable. No aortic aneurysm. No aortic dissection. Lungs: Multifocal areas of curvilinear scarring in the upper lobes of both lungs. Scattered calcified granulomas throughout both lungs. No consolidation. No masses. Pleural spaces: Unremarkable. No pneumothorax. No pleural effusion. Heart: Unremarkable. No cardiomegaly. No pericardial effusion. Lymph nodes: Partially calcified mediastinal and hilar lymph nodes suggestive of prior granulomatous disease. No enlarged lymph nodes. Bones/joints: Unremarkable. No acute fracture. Soft tissues: Unremarkable. CT/CT angio chest PE protcl [id number] IMPRESSION: No acute findings.
[2025-02-10] MEDS: iohexol 350 mg/mL 500 mL Btl (per mL) IV ×2 (16:05→16:06)
--- NOTE | 2025-02-10 16:20 | ECG_ITS ---
[facility] Test Date: 2025-02-10 Pat Name: Deepak Chacon Department: Room: Gender: Male Carding Supervisor: : 1960 Requested By: Homer Madrigal Order Number: [id number] Efra MD: Lefty Vargas M.D. Measurements Intervals [place] Rate: 83 P: -12 WI: 188 QRS: -10 QRSD: 162 T: -51 QT: 389 QTc: 459 Interpretive Statements SINUS RHYTHM LEFT BUNDLE BRANCH BLOCK [120+ ms QRS DURATION, 80+ ms Q/S IN V1/V2, 85+ ms R IN I/aVL/V5/V6] Compared to ECG 02/10/2025 15:06:38 Atrial flutter no longer present Electronically Signed On 02-10-2025 19:17:30 CDT by Lefty Vargas M.D. [email or web address]
[2025-02-10 16:38] LABS: Bilirubin Urine 1+ (Negative); Blood Urine Negative (Negative); Glucose Urine UA Negative (Normal); Ketones Urine Trace (Negative); Leukocyte Esterase Urine Negative (Negative); Nitrate Urine Negative (Negative); Protein Urine 2+ (Negative); Specific Gravity, Urine 1.021 (1.005-1.030); Urine Appearance Cloudy (CLEAR); Urine Color Dark Yellow (Yellow)
[2025-02-10 16:40] LABS: Add Urine Microscopic? YES; Bacteria Urine None Seen /hpf; Hyaline Casts Urine 124.52 /lpf; RBC Urine 0-2 /hpf (0-2); Squamous Epithelial Cell Urine 0-5 /hpf (0-5); WBC Urine 0-5 /hpf (0-5)
[2025-02-10 17:08] LABS: Add Urine Culture? No
[2025-02-10 17:14] LABS: Influenza A POSITIVE (Negative); Influenza B NEGATIVE (Negative); Respiratory Syncytial Virus Ce NEGATIVE (Negative); SARS-CoV-2 PCR NEGATIVE (Negative)
[2025-02-10 17:56] LABS: Troponin 5 2HR 14.39 ng/L (0-15); Troponin 5 2HR Delta -4.61 ABS# (0-10)
--- NOTE | 2025-02-10 18:04 | PM.HP ---
Providers/Chief Complaint Primary Care Provider: Martha Savage DO Chief Complaint: unresponsive History of Present Illness with a past medical history of atrial fibrillation, hypertension, hyperlipidemia, and benign prostatic hyperplasia presents with flu-like symptoms starting Thursday. Noted cough, fever to 101?F on Thursday, diarrhea which has since resolved, and a head cold. Associated symptoms include chest pain for almost two weeks, described as being in the middle of the chest. Denies sore throat or pain radiating down the arms. Has been feeling like his heart is racing. The patient and his went to an urgent care clinic today due to the flu-like symptoms. At the clinic, an EKG showed a high heart rate. The patient became unresponsive with low blood pressure and was difficult to arouse. He was given IV fluids and transferred to the emergency department via ambulance. In the ED, initial evaluation revealed: - Laboratory Findings: WBC 5.1, hemoglobin 14.8, platelets 150, creatinine 1.6, BUN 14, troponin T <19, proBNP 1427. COVID, flu, and RSV tests pending. - EKG: Showed atrial fibrillation, now appears to be back in normal sinus rhythm. The patient was treated with amiodarone in the ED and is now more responsive. He does not recall the events leading up to the hospital admission. No history of falls, head trauma, or loss of consciousness. Review of Systems General: Reports: 10 or more systems reviewed and unremarkable except in HPI and below Medications/Allergies Home Medications ?Medication ?Instructions ?Recorded ?Confirmed ?Last Taken ?Type gemfibrozil 600 mg tablet 600 mg PO BID 10/04/21 02/10/25 07/07/24 History rivaroxaban 20 mg tablet (Xarelto) 20 mg PO BEDTIME 10/04/21 02/10/25 07/07/24 History terazosin 2 mg capsule 2 mg PO BEDTIME 10/04/21 02/10/25 07/07/24 History albuterol sulfate 90 mcg/actuation 2 puff inhalation Q6H PRN 04/22/23 02/10/25 Unknown History aerosol inhaler Bronchodilation fluticasone propionate 50 1 spray intranasal DAILY 04/22/23 02/10/25 1 Day Ago History mcg/actuation nasal ~07/06/24 spray,suspension (Flonase Allergy Relief) rizatriptan 10 mg tablet (Maxalt) 10 mg PO Q2H PRN Headache 04/22/23 02/10/25 Unknown History metoprolol tartrate 100 mg tablet 100 mg PO BID #60 tabs 07/08/24 02/10/25 Unknown Rx potassium chloride 10 mEq 10 meq PO DAILY #3 tabs 07/08/24 02/10/25 Unknown Rx tablet,extended release clonidine HCl 0.1 mg tablet 0.1 mg PO TID 12/01/24 02/10/25 Unknown History levothyroxine 175 mcg tablet 175 mcg PO DAILY 12/01/24 02/10/25 Unknown History (Synthroid) rimegepant 75 mg disintegrating 75 mg PO PRN PRN Migraine Headache 12/01/24 02/10/25 Unknown History tablet (Nurtec ODT) Allergies Allergy/AdvReac Type Severity Reaction Status Date / Time No Known Allergies Allergy Verified 02/10/25 15:20 PFSH Acute PFSH: Medical History Labile hypertension Chest pain Acute hypokalemia Hypoxia Atrial fibrillation with rapid ventricular response Hyperlipidemia Atrial fibrillation CHF (congestive heart failure), NYHA class III Family history of colon cancer COVID-19 Chest pain Atrial fibrillation with RVR Hypertension Surgical History Hx of knee surgery bilateral Hx of colonoscopy with polypectomy 2015 History of esophagogastroduodenoscopy (EGD) History of knee replacement Social History Smoking and tobacco/nicotine status: former use of tobacco/nicotine Alcohol intake: never Substance/Drug Use: never Vitals/I&O/Wt Last Vital Signs Temp 97.4 F L 02/10/25 15:14 Pulse 87 02/10/25 17:00 Resp 15 02/10/25 17:00 BP 107/78 02/10/25 17:00 Pulse Ox 97 02/10/25 17:00 O2 Del Method Room Air 02/10/25 15:14 Weight last 48 hrs Weight 124.284 kg Physical Exam Narrative: Physical Exam - General: Appears stable in no distress - Neck: Supple, no lymphadenopathy, no JVD - Cardiovascular: NSR - Respiratory: clear to auscultation bilaterally, no wheezes, rales, or rhonchi - Abdomen: Soft, non-tender, non-distended, no organomegaly, normal bowel sounds - Extremities: - No edema - Neurologic: - Alert and oriented x3 - CN II-XII grossly intact - Strength 5/5 in all extremities - Sensation intact to light touch - Skin: Warm, dry, no rashes or lesions Data 02/10/25 15:09 02/10/25 15:09 A&P Assessment and plan (1) Atrial fibrillation with RVR: (2) Pre-syncope: (3) Labile hypertension: (4) CHF (congestive heart failure), NYHA class III: Qualifiers: Congestive heart failure type: diastolic Congestive heart failure chronicity: chronic Qualified Code(s): I50.32 - Chronic diastolic (congestive) heart failure Plan Atrial Fibrillation with RVR - Presented with unresponsiveness and hypotension, likely secondary to rapid atrial fibrillation. Now appears to be back in normal sinus rhythm after amiodarone in the ED. Plan: 1. Continuous telemetry monitoring. 2. Consult Dr. Landry (mattress filling machine tender) regarding continuing amiodarone vs rate control , given history of pulmonary toxicity with amiodarone. 3. Repeat EKG to confirm rhythm. 4. Echocardiogram to assess cardiac function. 5. Hold other antihypertensives (hydrochlorothiazide, valsartan) for now due to hypotension. Acute Kidney Injury - Creatinine elevated to 1.6 from baseline of 1.0, likely pre-renal from hypotension and decreased cardiac output. Plan: 1. Trend creatinine and urine output. 2. Gentle IV fluids if remains hypotensive. 3. Avoid nephrotoxic medications. Hypothyroidism - On Synthroid 175 mcg daily. Will check TSH to ensure at goal. Benign Prostatic Hyperplasia - Continue current management. Hyperlipidemia - Continue statin Disposition: - Admit to cardiac step-down unit for further monitoring and management. PDMP PDMP Reviewed: Not Reviewed Attestations Medical Necessity Statement*: Anticiapte over 2 midnight stay Coding Level of Care Code Acute Code for Chg Fwd Diagnoses Atrial fibrillation with RVR I48.91 Pre-syncope R55 Labile hypertension R09.89 Chronic diastolic congestive heart failure, NYHA class 3 I50.32 Congestive heart failure type: diastolic Congestive heart failure chronicity: chronic
[2025-02-10] MEDS: sodium chloride 0.9% 1,000 ML 75 ML IV (18:41)
--- NOTE | 2025-02-10 21:10 | ECG_ITS ---
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
[2025-02-10 22:37] LABS: Troponin 5 6HR 20.19 ng/L (0-15); Troponin 5 6HR Delta 1.19 ng/L (0-12)
--- NOTE | 2025-02-10 23:04 | PC.NURSE ---
IV pump was beeping, amiodarone was empty this nurse went to scan the second (new) bag, when looking into the MAR the first bag was never scanned from ER the rate on the pump was 1mg when entering the room, this nurse started the second bag at the 0.5mg dose, like stated in protocol
[2025-02-11] VITALS: BP 130/87; PULSE 79; RESP 13; O2SAT 94
[2025-02-11 04:00] VITALS: BP 157/89; PULSE 87; RESP 15; TEMP 36.8; O2SAT 95
[2025-02-11 05:18] LABS: Basophils % 0.3 %; Eosinophils % 0.6 %; Hematocrit 39.7 % (37-53); Lymphocytes % 27.5 %; Mean Corpuscular HGB Conc 32.7 g/dL (30-55); Mean Corpuscular Hemoglobin 28.3 pg (27-33); Mean Corpuscular Volume 86.5 fl (82-101); Mean Platelet Volume 12.7 fL (7.4-10.4); Monocytes # 0.3 10^3/uL (0.2-0.9); Monocytes % 8.7 %; Neutrophils # 2.16 10^3/uL (1.8-7.7); Neutrophils % 62.6 %; Nucleated Red Blood Cells % 0 %; Platelet Count 107 10^3/cmm (157-399); Red Blood Count 4.59 10^6/uL (3.85-5.65); Red Cell Distribution Width 14.6 % (12.1-15.1); White Blood Count 3.45 10^3/uL (3.29-11.43)
[2025-02-11 05:38] LABS: Estmated Average Glucose 114; Hemoglobin A1C 5.6 % (4.0-6.0)
[2025-02-11 05:43] LABS: Alanine Aminotransferase 20 U/L (0-41); Albumin Level 3.6 g/dL (3.5-5.2); Alkaline Phosphatase 69 U/L (40-130); Anion Gap 14.7 (5-19); Aspartate Amino Transferase 22 U/L (0-40); Blood Urea Nitrogen 18 mg/dL (8-23); Calcium 9.6 mg/dL (8.5-10.5); Carbon Dioxide 22 mmol/L (22-29); Chloride 106 mmol/L (98-107); Chol HDL Ratio 6.74 mg/dL (1.0-5.00); Cholesterol 128 mg/dL (0-200); Globulin 2.5 g/dL (1.3-4.6); Glomerular Filtration Rate 75.2 mL/min (90-130); Glucose 102 mg/dL (65-115); HDL Cholesterol 19 mg/dL (60-100); LDL Cholesterol Calculated 77 mg/dL (50-129); LDL HDL Ratio 4.05 RATIO (0.00-3.22); Osmolality Calculated 290 mOsm/kg (285-295); Potassium 3.7 mmol/L (3.5-5.1); Sodium 139 mmol/L (136-145); Thyroid Stimulating Hormone 3.14 uIU/mL (0.27-4.20); Total Bilirubin 0.2 mg/dL (0.15-1.2); Total Protein 6.1 g/dL (6.6-8.7); Triglycerides 159 mg/dL (0-150)
[2025-02-11] MEDS: levothyroxine 175 mcg Tablet PO (06:38)
[2025-02-11 08:00] VITALS: BP 125/83; PULSE 80; RESP 16; TEMP 36.9; O2SAT 94
[2025-02-11] MEDS: rivaroxaban 10 mg Tablet 20 MG PO (09:39)
[2025-02-11] MEDS: gemfibrozil 600 mg Tablet PO (09:48)
[2025-02-11 12:00] VITALS: BP 150/88; PULSE 82; RESP 19; TEMP 36.7; O2SAT 92
--- NOTE | 2025-02-11 12:56 | PM.CONSULT ---
Providers/Reason For Consult Consulting Physician/Specialty*: Marnie Landry MD/cardiology Reason for Consult*: Atrial fibrillation with rapid ventricle response Attending Physician: Shakira Carver Primary Care Provider: Martha Savage DO History of Present Illness History of Present Illness Deepak Chacon is a 64 year old male past medical history significant for labile hypertension atrial fibrillation hyperlipidemia presented with uncontrolled blood pressure and A-fib with RVR patient converted back to sinus rhythm after amiodarone. He has underlying bundle branch block. He denies chest pain PND orthopnea bleeding per rectum or melena. Medications/Allergies Home Medications ?Medication ?Instructions ?Recorded ?Confirmed ?Last Taken ?Type gemfibrozil 600 mg tablet 600 mg PO BID 10/04/21 02/10/25 07/07/24 History rivaroxaban 20 mg tablet (Xarelto) 20 mg PO BEDTIME 10/04/21 02/10/25 07/07/24 History terazosin 2 mg capsule 2 mg PO BEDTIME 10/04/21 02/10/25 07/07/24 History albuterol sulfate 90 mcg/actuation 2 puff inhalation Q6H PRN 04/22/23 02/10/25 Unknown History aerosol inhaler Bronchodilation fluticasone propionate 50 1 spray intranasal DAILY 04/22/23 02/10/25 1 Day Ago History mcg/actuation nasal ~07/06/24 spray,suspension (Flonase Allergy Relief) rizatriptan 10 mg tablet (Maxalt) 10 mg PO Q2H PRN Headache 04/22/23 02/10/25 Unknown History metoprolol tartrate 100 mg tablet 100 mg PO BID #60 tabs 07/08/24 02/10/25 Unknown Rx potassium chloride 10 mEq 10 meq PO DAILY #3 tabs 07/08/24 02/10/25 Unknown Rx tablet,extended release clonidine HCl 0.1 mg tablet 0.1 mg PO TID 12/01/24 02/10/25 Unknown History levothyroxine 175 mcg tablet 175 mcg PO DAILY 12/01/24 02/10/25 Unknown History (Synthroid) rimegepant 75 mg disintegrating 75 mg PO PRN PRN Migraine Headache 12/01/24 02/10/25 Unknown History tablet (Nurtec ODT) Allergies Allergy/AdvReac Type Severity Reaction Status Date / Time No Known Allergies Allergy Verified 02/10/25 15:20 Current Medications Generic Name Dose Route Start Last Admin Trade Name Marianoq PRN Reason Stop Dose Admin Gemfibrozil 600 mg 02/11/25 09:00 02/11/25 09:48 Gemfibrozil 600 Mg Tablet PO 600 mg BID KIYA Administration Amiodarone HCl/Dextrose 360 mg in 200 mls @ 0 mls/hr 02/10/25 15:11 02/10/25 23:04 Nexterone IV 0.5 mg/min .Q0M KIYA 16.67 mls/hr Administration Protocol Per Protocol Sodium Chloride 1,000 mls @ 75 mls/hr 02/10/25 18:00 02/11/25 09:38 Sodium Chloride 0.9% IV Not Given .[id number] KIYA Levothyroxine Sodium 175 mcg 02/11/25 07:00 02/11/25 06:38 Levothyroxine 175 Mcg Tablet PO 175 mcg ACBREAKFAST KIYA Administration Rivaroxaban 20 mg 02/11/25 09:00 02/11/25 09:39 Rivaroxaban 10 Mg Tablet PO 20 mg DAILY KIYA Administration Terazosin HCl 2 mg 02/11/25 09:00 02/11/25 09:39 Terazosin 1 Mg Capsule PO 2 mg DAILY KIYA Administration PFSH Acute PFSH: Medical History Labile hypertension Chest pain Acute hypokalemia Hypoxia Atrial fibrillation with rapid ventricular response Hyperlipidemia Atrial fibrillation CHF (congestive heart failure), NYHA class III Family history of colon cancer COVID-19 Chest pain Atrial fibrillation with RVR Hypertension Surgical History Hx of knee surgery bilateral Hx of colonoscopy with polypectomy 2015 History of esophagogastroduodenoscopy (EGD) History of knee replacement Social History Smoking and tobacco/nicotine status: former use of tobacco/nicotine Alcohol intake: never Substance/Drug Use: never Vitals/I&O/Wt Last Vital Signs Temp 98.1 F 02/11/25 12:00 Pulse 82 02/11/25 12:00 Resp 19 H 02/11/25 12:00 BP 150/88 02/11/25 12:00 Pulse Ox 92 02/11/25 12:00 O2 Del Method Room Air 02/11/25 12:00 02/10/25 02/11/25 02/11/25 22:59 06:59 14:59 Intake Total 2550 / 2550 450 / 3000 480 / 480 Output Total 800 / 800 1600 / 2400 Balance 1750 / 1750 -1150 / 600 480 / 480 Weight last 48 hrs Weight 287 lb 3.2 oz Weight 281 lb 3.2 oz Weight 274 lb Physical Exam Const: OTHER: GENERAL: Patient is alert, awake and oriented x3. HEART: Regular S1 and S2. No murmur, rub or gallop. LUNGS: Clear to auscultate bilaterally. CENTRAL NERVOUS SYSTEM: Grossly nonfocal. EXTREMITIES: Lower extremities with out edema bilaterally. Data 02/11/25 04:51 02/11/25 04:51 A&P Assessment and plan (1) CHF (congestive heart failure), NYHA class III: Qualifiers: Congestive heart failure type: diastolic Congestive heart failure chronicity: chronic Qualified Code(s): I50.32 - Chronic diastolic (congestive) heart failure (2) Atrial fibrillation: Qualifiers: Atrial fibrillation type: paroxysmal Qualified Code(s): I48.0 - Paroxysmal atrial fibrillation (3) Hypertension: Qualifiers: Hypertension type: primary hypertension Qualified Code(s): I10 - Essential (primary) hypertension Plan I have detailed discussion with the patient, there is a questionable allergy with amiodarone in the past therefore at this point it would be discontinued. Currently he is in sinus rhythm. Patient was given choice for starting on sotalol he would not like to stay in the hospital. We therefore recommend as follows Reduce metoprolol to 50 mg succinate once a day Start patient on Cardizem 120 mg once a day Continue Xarelto Echocardiogram is suggestive of low normal ejection fraction which has not changed from the prior admission. EF is 50%. Patient would like to go home since he is in sinus rhythm we will start him on metoprolol 50 mg and Cardizem 120 mg once a day he can be discharged home with instruction to follow-up in cardiology nurse practitioner clinic after 1 month. Advised to keep log of blood pressure pulse and send it to us in 1 week. PDMP PDMP Reviewed: Not Reviewed Consult Attestations Medical Necessity Statement: As per medicine Coding Level of Care Code Acute Code for Chg Fwd Diagnoses Chronic diastolic congestive heart failure, NYHA class 3 I50.32 Congestive heart failure type: diastolic Congestive heart failure chronicity: chronic Paroxysmal atrial fibrillation I48.0 Atrial fibrillation type: paroxysmal Primary hypertension I10 Hypertension type: primary hypertension
[2025-02-11 13:49] VITALS: BP 136/78; PULSE 86; RESP 20; O2SAT 96
--- NOTE | 2025-02-11 17:11 | USCV_ITS ---
Deepak Chacon Age: 64 Gender: M : 1960 Exam Date: 02/11/2025 07:50 Ordering Phys: Shakira Carver MD Technologist: REINIER Exam Location: [facility] [place] Indication: new onset afib BP: 107 / 78 HR: 76 Rhythm: Sinus Technical Quality: Adequate MEASUREMENTS (Male / Female) Normal Values 2D ECHO LV Diastolic Diameter PLAX 6.2 cm 4.2 - 5.9 / 3.9 - 5.3 cm IVS Diastolic Thickness 1.5 cm 0.6 - 1.0 / 0.6 - 0.9 cm IVS Systolic Thickness 1.4 cm LVPW Diastolic Thickness 1.6 cm 0.6 - 1.0 / 0.6 - 0.9 cm LVPW Systolic Thickness 2.8 cm LVOT Diameter 2.2 cm LV Ejection Fraction 2D Teich 48.8 % LV Ejection Fraction MOD 4C 42.3 % LV Ejection Fraction MOD 2C 54.7 % LV Ejection Fraction 2C AL 53.9 % LA Diameter 3.5 cm RA Systolic Volume 4C AL 42.2 ml RA Systolic Volume 4C MOD 40.5 ml LA Sys Volume AL 48.6 cm cubed LA Sys Volume Index AL 19.0 cm cubed/m squared Aorta at Sinotubular Diameter 3.3 cm IVC Diameter 1.9 cm M-MODE LA Ao Ratio MM 1.1 AV Cusp Separation MM 2.0 cm DOPPLER AV Peak Velocity 140.0 cm/s LVOT Peak Velocity 108.0 cm/s AV Area Cont Eq vti 2.4 cm squared AV Area Cont Eq pk 2.9 cm squared MV Peak Velocity 89.0 cm/s MV Area PHT 6.7 cm squared Mitral E to A Ratio 0.9 TV Peak Velocity 254.0 cm/s TR Peak Velocity 272.0 cm/s TR Peak Gradient 29.6 mmHg TR Mean Velocity 209.0 cm/s TR Mean Gradient 19.1 mmHg TR Velocity Time Integral 63.3 cm PV Peak Velocity 120.7 cm/s RV Ejection Time 0.3 s FINDINGS Left Ventricle Normal left ventricular cavity size. Mildly decreased left ventricular systolic function. Left ventricular ejection fraction is estimated at 50 %. Grade I/IV diastolic dysfunction (abnormal relaxation filling pattern), normal to mildly elevated filling pressures. Global left ventricular hypokinesis. Right Ventricle The right ventricle is normal in size and function. Right Atrium The right atrium is normal in size. Left Atrium The left atrium is normal in size. Mitral Valve Moderately thickened mitral valve. No mitral valve stenosis. Moderate mitral valve regurgitation. Aortic Valve Moderate aortic valve calcification. No aortic valve stenosis. Mild aortic valve regurgitation. Tricuspid Valve Structurally normal tricuspid valve without significant stenosis or regurgitation. Pulmonary artery systolic pressure is normal. Pulmonic Valve Structurally normal pulmonic valve without significant stenosis. There is no pulmonic regurgitation. Pericardium Normal pericardium without effusion. Aorta Normal ascending aorta dimension. IVC The inferior vena cava appears normal. CONCLUSIONS Normal left ventricular cavity size. Mildly decreased left ventricular systolic function. Left ventricular ejection fraction is estimated at 50 %. Grade I/IV diastolic dysfunction (abnormal relaxation filling pattern), normal to mildly elevated filling pressures. Global left ventricular hypokinesis. Moderately thickened mitral valve. No mitral valve stenosis. Moderate mitral valve regurgitation. There is no pericardial effusion. Right atrial pressure is around 5 mm of mercury. Marnie Landry MD (Electronically Signed) Final Date: 11 February 2025 12:50 S
--- NOTE | 2025-03-03 11:57 | PM.DCS ---
Discharge Providers Date of Admission: 02/10/25 18:13 Date of Discharge: 02/11/2025 Attending Provider at Admission: Shakira Carver Attending Provider at Discharge: Shakira Carver Primary Care Provider: Martha Savage DO Diagnoses at Discharge Discharge Diagnosis (1) CHF (congestive heart failure), NYHA class III: Status: Acute Qualifiers: Congestive heart failure type: diastolic Congestive heart failure chronicity: chronic Qualified Code(s): I50.32 - Chronic diastolic (congestive) heart failure (2) Atrial fibrillation: Status: Acute Qualifiers: Atrial fibrillation type: paroxysmal Qualified Code(s): I48.0 - Paroxysmal atrial fibrillation (3) Hypertension: Status: Acute Qualifiers: Hypertension type: primary hypertension Qualified Code(s): I10 - Essential (primary) hypertension Reason for Visit Reason for Visit: unresponsive Hospital Course Hospital Course 64-year-old male with a past medical history of atrial fibrillation, hypertension, hyperlipidemia, and benign prostatic hyperplasia, who presented with flu-like symptoms beginning on Thursday. He reported a cough, fever reaching 101?F on Thursday, and diarrhea that has since resolved. The patient also experienced chest pain in the middle of the chest for almost two weeks, as well as a sensation of heart racing. Following a visit to an urgent care clinic due to his symptoms, he became unresponsive with hypotension and was transferred to the emergency department. Initial evaluation in the ED revealed a WBC count of 5.1, creatinine of 1.6, and an elevated proBNP of 1427, with pending tests for COVID, flu, and RSV. An EKG indicated atrial fibrillation, which reverted to normal sinus rhythm following treatment with amiodarone. The patient's physical exam showed him to be stable and in no distress, with clear lungs, a soft abdomen, and no neurological deficits. His hospital course included management of atrial fibrillation with rapid ventricular response, acute kidney injury, and monitoring of his chronic conditions. Upon cardiology consultation, it was decided to reduce his metoprolol dosage and initiate Cardizem while continuing Xarelto. The patient expressed a desire to be discharged and was instructed to follow up with the cardiology nurse practitioner clinic in one month, keeping a log of his blood pressure and pulse to share within a week. Overall, the patient is in sinus rhythm and stable for discharge. Physical Exam Const: OTHER: GENERAL: Patient is alert, awake and oriented x3. HEART: Regular S1 and S2. No murmur, rub or gallop. LUNGS: Clear to auscultate bilaterally. CENTRAL NERVOUS SYSTEM: Grossly nonfocal. EXTREMITIES: Lower extremities with out edema bilaterally. Discharge Data Studies Completed and Pending Completed Studies During Hospitalization Category Date Time Status CT head thrombolytic [id number] Stat Cat Scan 02/10/25 15:09 Completed CTA chest [CT angio chest PE protcl [id number]] Stat Cat Scan 02/10/25 16:01 Completed CTA head neck [CT angio headneck* [id number]] Stat Cat Scan 02/10/25 15:42 Completed XR chest 1V portable [id number] Stat Exams 02/10/25 15:09 Completed CV. echo complete* [id number] Routine Ultrasound 02/11/25 17:11 Completed Radiology Impressions Chest X-Ray 02/10/25 15:09 IMPRESSION: No acute cardiopulmonary disease. Head CT 02/10/25 15:09 IMPRESSION: No acute intracranial abnormality. ASSESSMENT: ASPECTS ([place] Stroke Program Early CT Score) is 10. ADDENDUM: 02/10/25 Christine3 PAULIE SANDS receipt of report at 02/10/2025 4:14 PM CDT. Head/Neck CTA 02/10/25 15:42 IMPRESSION: No large vessel stenosis or occlusion. IMPRESSION: No stenosis or occlusion. REFERENCES: NASCET CRITERIA. The degree of stenosis in the cervical segment of the internal carotid artery is based on NASCET criteria. Normal is no stenosis. Mild is less than 50% stenosis. Moderate is 50-69% stenosis. Severe is 70% to 99% stenosis. Total occlusion is no detectable patent lumen. Chest CTA 02/10/25 16:01 IMPRESSION: No acute findings. Laboratory Results WBC 3.45 10^3/uL (3.29-11.43) 02/11/25 04:51 RBC 4.59 10^6/uL (3.85-5.65) 02/11/25 04:51 Hgb 13.00 g/dL (11.27-16.99) 02/11/25 04:51 Hct 39.7 % (37-53) 02/11/25 04:51 MCV 86.5 fl (82-101) 02/11/25 04:51 MCH 28.3 pg (27-33) 02/11/25 04:51 MCHC 32.7 g/dL (30-55) 02/11/25 04:51 RDW 14.6 % (12.1-15.1) 02/11/25 04:51 Plt Count 107 10^3/cmm (157-399) L 02/11/25 04:51 MPV 12.7 fL (7.4-10.4) H 02/11/25 04:51 Neut % (Auto) 62.6 % 02/11/25 04:51 Lymph % (Auto) 27.5 % 02/11/25 04:51 [place] % (Auto) 8.7 % 02/11/25 04:51 Eos % (Auto) 0.6 % 02/11/25 04:51 Baso % (Auto) 0.3 % 02/11/25 04:51 Neut # (Auto) 2.16 10^3/uL (1.8-7.7) 02/11/25 04:51 Lymph # (Auto) 1.0 10^3/uL (0.8-4.8) 02/11/25 04:51 [place] # (Auto) 0.3 10^3/uL (0.2-0.9) 02/11/25 04:51 Eos # (Auto) 0.0 10^3/uL (0.0-0.8) 02/11/25 04:51 Baso # (Auto) 0.0 10^3/uL (0.0-0.1) 02/11/25 04:51 Nucleated RBC % (auto) 0 % 02/11/25 04:51 Nucleated RBCs # 0.0 /100WBC 02/11/25 04:51 PT 15.20 SECONDS (12.1-14.9) H 02/10/25 15:09 INR 1.13 (0.8-1.2) 02/10/25 15:09 Specimen Type Arterial 02/10/25 15:04 Sample Site Radial, right 02/10/25 15:04 ABG pH 7.58 (7.35-7.45) H* 02/10/25 15:04 ABG pCO2 23.8 mmHg (35-45) L 02/10/25 15:04 ABG pO2 77.2 mmHg (80.0-100.0) L 02/10/25 15:04 ABG PO2/FiO2 Ratio 367 02/10/25 15:04 ABG HCO3 22.1 mmol/L (22-26) 02/10/25 15:04 ABG O2 Saturation 96.4 02/10/25 15:04 ABG Base Excess 2.1 mmol/L (-2.0-2.0) H 02/10/25 15:04 Claus Test Pos 02/10/25 15:04 A-a O2 Gradient 5.0 mmHg (5-10) 02/10/25 15:04 Hematocrit 47.7 % (42-52) 02/10/25 15:04 Hgb O2 Saturation 95.5 % (95-100) 02/10/25 15:04 Carboxyhemoglobin 0.2 %THgb (0.4-20.1) L 02/10/25 15:04 Methemoglobin 0.8 % (0.4-1.5) 02/10/25 15:04 Total Hemoglobin 15.6 g/dL (14-18) 02/10/25 15:04 Sodium 141.0 mmol/L (131-143) 02/10/25 15:04 Potassium 4.0 mmol/L (3.5-5.0) 02/10/25 15:04 Glucose 130.0 mg/dL (70-115) H 02/10/25 15:04 Ionized Calcium 1.3 mmol/L (1.1-1.4) 02/10/25 15:04 O2 Delivery Device Room air 02/10/25 15:04 FiO2 21.0 % 02/10/25 15:04 Occupational Medicine Physician ID [place] 02/10/25 15:04 Sodium 139 mmol/L (136-145) 02/11/25 04:51 Potassium 3.7 mmol/L (3.5-5.1) 02/11/25 04:51 Chloride 106 mmol/L (98-107) 02/11/25 04:51 Carbon Dioxide 22 mmol/L (22-29) 02/11/25 04:51 Anion Gap 14.7 (5-19) 02/11/25 04:51 BUN 18 mg/dL (8-23) 02/11/25 04:51 Creatinine 1.0 mg/dL (0.7-1.2) 02/11/25 04:51 GFR Calculation 75.2 mL/min (90-130) L 02/11/25 04:51 Glucose 102 mg/dL (65-115) 02/11/25 04:51 POC Glucose 127 mg/dL (70-110) H 02/10/25 15:09 Estimat Average Glucose 114 02/11/25 04:51 Hemoglobin A1c 5.6 % (4.0-6.0) 02/11/25 04:51 Calculated Osmolality 290 mOsm/kg (285-295) 02/11/25 04:51 Calcium 9.6 mg/dL (8.5-10.5) 02/11/25 04:51 Total Bilirubin 0.2 mg/dL (0.15-1.2) 02/11/25 04:51 AST 22 U/L (0-40) 02/11/25 04:51 ALT 20 U/L (0-41) 02/11/25 04:51 Alkaline Phosphatase 69 U/L (40-130) 02/11/25 04:51 Troponin T Baseline 19 ng/L (0-15) H 02/10/25 15:09 Troponin T 120 Minute 14.39 ng/L (0-15) 02/10/25 17:33 Delta Troponin T -4.61 ABS# (0-10) L 02/10/25 17:33 Troponin T Hi Sens 6Hr 20.19 ng/L (0-15) H 02/10/25 21:55 Troponin T Hi Sens 6Hr Delta 1.19 ng/L (0-12) 02/10/25 21:55 NT-Pro-B Natriuret Pep 1427 pg/mL (0-125) H 02/10/25 15:09 Total Protein 6.1 g/dL (6.6-8.7) L 02/11/25 04:51 Albumin 3.6 g/dL (3.5-5.2) 02/11/25 04:51 Globulin 2.5 g/dL (1.3-4.6) 02/11/25 04:51 Triglycerides 159 mg/dL (0-150) H 02/11/25 04:51 Cholesterol 128 mg/dL (0-200) 02/11/25 04:51 LDL Cholesterol, Calc 77 mg/dL (50-129) 02/11/25 04:51 HDL Cholesterol 19 mg/dL (60-100) L 02/11/25 04:51 LDL/HDL Ratio 4.05 RATIO (0.00-3.22) H 02/11/25 04:51 Cholesterol/HDL Ratio 6.74 mg/dL (1.0-5.00) H 02/11/25 04:51 Lipase 35 U/L (13-60) 02/10/25 15:09 TSH 3.14 uIU/mL (0.27-4.20) 02/11/25 04:51 Urine Color Dark yellow (Yellow) A 02/10/25 16:24 Urine Appearance Cloudy (CLEAR) A 02/10/25 16:24 Urine pH 7.0 (5-7) 02/10/25 16:24 Ur Specific [place] 1.021 (1.005-1.030) 02/10/25 16:24 Urine Protein 2+ (Negative) A 02/10/25 16:24 Urine Glucose (UA) Negative (Normal) 02/10/25 16:24 Urine Ketones Trace (Negative) 02/10/25 16:24 Urine Blood Negative (Negative) 02/10/25 16:24 Urine Nitrate Negative (Negative) 02/10/25 16:24 Urine Bilirubin 1+ (Negative) H 02/10/25 16:24 Urine Urobilinogen 1.0 mg/dL (Negative) 02/10/25 16:24 Ur Leukocyte Esterase Negative (Negative) 02/10/25 16:24 Urine RBC 0-2 /hpf (0-2) 02/10/25 16:24 Urine WBC 0-5 /hpf (0-5) 02/10/25 16:24 Ur Squamous Epith Cells 0-5 /hpf (0-5) 02/10/25 16:24 Amorphous Sediment Not Reportable 02/10/25 16:24 Urine Bacteria None seen /hpf (NONE) 02/10/25 16:24 Hyaline Casts 124.52 /lpf 02/10/25 16:24 Influenza A (PCR) Positive (Negative) 02/10/25 16:24 Influenza Type B (PCR) Negative (Negative) 02/10/25 16:24 RSV (PCR) Negative (Negative) 02/10/25 16:24 SARS-CoV-2 (PCR) Negative (Negative) 02/10/25 16:24 Vitals Last Vital Signs Temp 98.1 F 02/11/25 12:00 Pulse 86 02/11/25 13:49 Resp 20 H 02/11/25 13:49 BP 136/78 02/11/25 13:49 Pulse Ox 96 02/11/25 13:49 O2 Del Method Room Air 02/11/25 12:00 Discharge Plan Discharge Patient Disposition: Home Condition: Stable Prescriptions: New metoprolol succinate 50 mg tablet extended release 24 hr 50 mg PO DAILY Qty: 30 0RF diltiazem HCl [Cardizem CD] 120 mg capsule,extended release 24hr 120 mg PO DAILY Qty: 30 0RF Continued rizatriptan [Maxalt] 10 mg tablet 10 mg PO Q2H PRN (Reason: Headache) Rx Instructions: do not exceed 3 doses per 24 hrs albuterol sulfate 90 mcg/actuation HFA aerosol inhaler 2 puff inhalation Q6H PRN (Reason: Bronchodilation) terazosin 2 mg capsule 2 mg PO BEDTIME gemfibrozil 600 mg tablet 600 mg PO BID Xarelto 20 mg tablet 20 mg PO BEDTIME levothyroxine [Synthroid] 175 mcg tablet 175 mcg PO DAILY Discontinued fluticasone propionate [Flonase Allergy Relief] 50 mcg/actuation spray,suspension 1 spray intranasal DAILY Rx Instructions: administer into each nostril clonidine HCl 0.1 mg tablet 0.1 mg PO TID Nurtec ODT 75 mg tablet,disintegrating 75 mg PO PRN PRN (Reason: Migraine Headache) metoprolol tartrate 100 mg tablet 100 mg PO BID Qty: 60 4RF potassium chloride 10 mEq tablet extended release 10 meq PO DAILY Qty: 3 0RF Discharge Orders: Discharge Order (Routine); Ordered 02/11/25 Ordered By: Shakira Carver Referrals: Marnie Landry MD [Physician] - 2 weeks Martha Savage DO [Primary Care Provider] - 4-7 days (Please call to make appointment on thursday. ) Discharge Diet: Cardiac Discharge Activity: Increase activity as tolerated Patient Instructions: Atrial Fibrillation, Metoprolol (By mouth), Diltiazem (By mouth), Chronic Hypertension (DC), Near Syncope (DC), Altered Mental Status (ED), Opioid Safety Activity Restrictions/Additional Instructions: Monitor BP twice daily at home Return to hospital if any recurrance of symptoms Discharge Attestations Time Spent in Discharge Care*: greater than 30 min Status at Discharge: Cognitive status at discharge: cognitively intact, Behavioral status at discharge: cooperative, Functional status at discharge: independent ambulation, Overall status at discharge: patient is back to baseline Quality Metrics Clinical Quality Measures [ No reported AMI, CVA or VTE this stay] Coding Level of Care Code Acute Code for Chg Fwd Diagnoses Chronic diastolic congestive heart failure, NYHA class 3 I50.32 Congestive heart failure type: diastolic Congestive heart failure chronicity: chronic Paroxysmal atrial fibrillation I48.0 Atrial fibrillation type: paroxysmal Primary hypertension I10 Hypertension type: primary hypertension
== END 2025-02-11 14:08 | disposition home or self-care (01) | DRG 309 ==
LOC: ER 18:02 → CSU 18:13
PROVIDERS: Admitting Provider Hospitalist; Emergency Provider Emergency Medicine; PCP Family Medicine; Visit Provider Hospitalist
DX: I48.0 Paroxysmal atrial fibrillation (principal); I50.32 Chronic diastolic (congestive) heart failure; N17.9 Acute kidney failure, unspecified; I11.0 Hypertensive heart disease with heart failure; E78.5 Hyperlipidemia, unspecified; N40.0 Benign prostatic hyperplasia without lower urinary tract symptoms; I95.9 Hypotension, unspecified; E03.9 Hypothyroidism, unspecified; I44.7 Left bundle-branch block, unspecified; Z79.01 Long term (current) use of anticoagulants; Z86.16 Personal history of COVID-19; Z87.891 Personal history of nicotine dependence; Z80.0 Family history of malignant neoplasm of digestive organs
CPT/HCPCS: 36415; 36416; 36600; 70450; 70496; 70498; 71045; 71275; 80051; 80053; 80061; 81001; 82330; 82805; 82962; 83036; 83690; 83880; 84443; 84484; 85025; 85610; 87637; 93005; 93306; 96365; 96366; 96375; 99291; A4222; A9270; J0283; J7030; J9999

== ENCOUNTER → 2025-03-22 15:41 | Outpatient (BNVA) | payer MEDICARE, SELFPAY | PROVIDERS: PCP Family Medicine; Visit Provider Internal Medicine Cardiovascular Disease | DX: I48.20 Chronic atrial fibrillation, unspecified (principal); Z79.01 Long term (current) use of anticoagulants; I10 Essential (primary) hypertension; Z87.891 Personal history of nicotine dependence | CPT/HCPCS: 99214 ==

== ENCOUNTER 2025-09-21 23:15 | Observation (INO) | payer MEDICARE, SELFPAY ==
--- NOTE | 2025-09-21 23:21 | ECG_ITS ---
[employer] Test Date: 2025-09-21 Pat Name: Deepak Chacon Department: Room: Gender: Male [employer]: : 1960 Requested By: Priti Broderick Order Number: [id number] Efra MD: Sandor Marques M.D. Measurements Intervals [place] Rate: 97 P: 0 AL: 195 QRS: 69 QRSD: 171 T: -80 QT: 386 QTc: 493 Interpretive Statements SINUS RHYTHM LEFT BUNDLE BRANCH BLOCK [120+ ms QRS DURATION, 80+ ms Q/S IN V1/V2, 85+ ms R IN I/aVL/V5/V6] Compared to ECG 02/10/2025 23:58:52 No significant changes Electronically Signed On 09-22-2025 15:24:05 CDT by Sandor Marques M.D. [email or web address]
[2025-09-21 23:25] VITALS: BP 117/95; PULSE 95; RESP 18; TEMP 36.6; O2SAT 93; BMI 38.6
--- NOTE | 2025-09-21 23:27 | XRR_ITS ---
PROCEDURE INFORMATION: Exam: XR Chest Exam date and time: 09/21/2025 11:34 PM Age: 65 years old Clinical indication: Pain; Angina pectoris; Additional info: Chest pain TECHNIQUE: Imaging protocol: Radiologic exam of the chest. Views: 1 view. COMPARISON: CT angio chest PE protcl [id number] 02/10/2025 3:52 PM FINDINGS: Lungs: Minimal basilar airspace opacities favor atelectatic changes. No confluent consolidation. Pleural spaces: Unremarkable. No pleural effusion. No pneumothorax. Heart/Mediastinum: Unremarkable. No cardiomegaly. Bones/joints: Unremarkable. XR/XR chest 1V portable [id number] IMPRESSION: 1. Suggested basilar atelectasis. 2. Otherwise, no acute cardiopulmonary process.
--- NOTE | 2025-09-21 23:28 | W.ED.GENADLT ---
Documented by User: Priti Broderick MD 09/22/25 02:19 HPI - General Adult General: Chief complaint: Arrhythmia/Palpitations Stated complaint: CP Time Seen by Provider: 09/21/25 23:25 History of Present Illness: Patient is a 65-year-old male, with history of A-fib, compliant to diltiazem, metoprolol and Eliquis, presents to the emergency room with awakening chest pain at 9?9:30 PM, as a pressure component to the left side of his chest associated with shortness of breath, and palpitations. He states he felt like his heart was beating too fast, Pain radiates to the neck. When he walked to the ambulance, he felt the pain was worse. Currently, pain is still 7/10 and patient reports subjective shortness of breath. Patient has not had a fever, cough, hemoptysis, syncope, lower extremity swelling. He denies abdominal pain, nausea, vomiting, diarrhea, blood in stool, dysuria or hematuria. He received nitroglycerin x 2 via EMS, Amiodarone load given He did receive aspirin via EMS. [facility] 03/2022: Diagnostic Cath Status: Elective Diagnostic Findings * No significant disease noted in the Left Main, Left Anterior Descending, Right, or Circumflex coronary arteries. * INDICATION: Typical chest pain symptoms/abnormal stress test. * Coronary angiography shows left dominance. Conclusions 1. No significant disease noted in the Left Main, Left Anterior Descending, Right, or Circumflex coronary arteries. Related Data Home Medications ?Medication ?Instructions ?Recorded ?Confirmed gemfibrozil 600 mg tablet 600 mg PO BID 10/04/21 03/22/25 rivaroxaban 20 mg tablet (Xarelto) 20 mg PO BEDTIME 10/04/21 03/22/25 terazosin 2 mg capsule 2 mg PO BEDTIME 10/04/21 03/22/25 albuterol sulfate 90 mcg/actuation 2 puff inhalation Q6H PRN 04/22/23 03/22/25 aerosol inhaler Bronchodilation levothyroxine 175 mcg tablet 175 mcg PO DAILY 12/01/24 03/22/25 (Synthroid) Previous Rx's ?Medication ?Instructions ?Recorded diltiazem HCl 120 mg 120 mg PO DAILY #90 caps 03/22/25 capsule,extended release 24 hr (Cardizem CD) metoprolol succinate 50 mg 50 mg PO BID #90 tabs 05/10/25 tablet,extended release 24 hr valsartan 40 mg tablet 20 mg (1/2 x 40 mg) PO BID #60 tabs 06/23/25 Allergies Allergy/AdvReac Type Severity Reaction Status Date / Time No Known Allergies Allergy Verified 03/22/25 16:05 [facility] ED PFSH: Medical History (Updated 09/22/25 @ 02:19 by Priti Broderick MD) Atrial fibrillation with rapid ventricular response Hypertension Labile hypertension Chest pain Acute hypokalemia Hypoxia Hyperlipidemia Atrial fibrillation CHF (congestive heart failure), NYHA class III Family history of colon cancer COVID-19 Chest pain Atrial fibrillation with RVR Surgical History Hx of knee surgery bilateral Hx of colonoscopy with polypectomy 2015 History of esophagogastroduodenoscopy (EGD) History of knee replacement Social History Smoking and tobacco/nicotine status: former use of tobacco/nicotine Alcohol intake: never Substance/Drug Use: never Physical Exam Narrative: EXAM NARRATIVE: Vital signs were reviewed. Patient is alert and oriented. Patient is breathing comfortably, no increased WOB or accessory muscle use. SpO2 is above 95% on RA. Patient has clear lungs b/l, no rhonchi, wheezing or crackles. No hypotension or tachycardia. Abdomen is soft, nondistended and nontender. Patient is moving all extremities, no deformity or gross injury. No lower extremity edema or asymmetry. Course Vital Signs: Vital signs: Vital Signs Temperature 98 F 09/21/25 23:25 Pulse Rate 70 09/22/25 01:21 Respiratory Rate 15 09/22/25 01:21 Blood Pressure 127/76 09/22/25 01:21 Pulse Oximetry 93 09/22/25 01:21 [facility] - General Adult Medical Decision Making 65-year-old male with a past medical history of atrial fibrillation on diltiazem and metoprolol, high cholesterol, COPD/asthma presents with a chief complaint of chest pain that started around 9:00 this evening at rest. Pain is in the left chest, has an exertional component and radiates to the left neck. Differential diagnosis includes, but is not limited to, ACS, myocarditis, pericarditis, pneumonia, viral upper respiratory infection, PE, GERD, other. On initial exam, patient is hemodynamically stable nontoxic appearing. EKG was personally reviewed and interpreted and shows sinus rhythm with heart rate of 97, normal axis, LBBB, no STEMI per Sgarbossa. Patient was evaluated with CBC, CMP, troponin, BNP, chest x-ray and EKG. He was treated with aspirin per EMS, was given nitroglycerin, morphine. Patient has a normal white blood cell count and is not anemic. He does not have any actionable electrolyte abnormalities. He has normal kidney and liver function. Baseline troponin is 16. Chest x-ray does not show consolidation, pleural effusion, pneumothorax. Patient continues to have pain and was given additional dose of morphine. Patient has a HEART score of 7 and is high risk for ACS. Will admit for ACS r/o. Lab Data 09/22/25 00:49 09/22/25 00:49 Radiology Impressions Chest X-Ray 09/21/25 23:27 IMPRESSION: 1. Suggested basilar atelectasis. 2. Otherwise, no acute cardiopulmonary process. Laboratory Results WBC 4.25 10^3/uL (3.29-11.43) 09/22/25 00:49 RBC 4.70 10^6/uL (3.85-5.65) 09/22/25 00:49 Hgb 13.60 g/dL (11.27-16.99) 09/22/25 00:49 Hct 40.3 % (37-53) 09/22/25 00:49 MCV 85.7 fl (82-101) 09/22/25 00:49 MCH 28.9 pg (27-33) 09/22/25 00:49 MCHC 33.7 g/dL (30-55) 09/22/25 00:49 RDW 14.3 % (12.1-15.1) 09/22/25 00:49 Plt Count 130 10^3/cmm (157-399) L 09/22/25 00:49 MPV 12.4 fL (7.4-10.4) H 09/22/25 00:49 Neut % (Auto) 68.8 % 09/22/25 00:49 Lymph % (Auto) 22.1 % 09/22/25 00:49 [place] % (Auto) 7.3 % 09/22/25 00:49 Eos % (Auto) 0.7 % 09/22/25 00:49 Baso % (Auto) 0.9 % 09/22/25 00:49 Neut # (Auto) 2.92 10^3/uL (1.8-7.7) 09/22/25 00:49 Lymph # (Auto) 0.9 10^3/uL (0.8-4.8) 09/22/25 00:49 [place] # (Auto) 0.3 10^3/uL (0.2-0.9) 09/22/25 00:49 Eos # (Auto) 0.0 10^3/uL (0.0-0.8) 09/22/25 00:49 Baso # (Auto) 0.0 10^3/uL (0.0-0.1) 09/22/25 00:49 Nucleated RBC % (auto) 0 % 09/22/25 00:49 Nucleated RBCs # 0.0 /100WBC 09/22/25 00:49 Sodium 140 mmol/L (136-145) 09/22/25 00:49 Potassium 3.5 mmol/L (3.5-5.1) 09/22/25 00:49 Chloride 105 mmol/L (98-107) 09/22/25 00:49 Carbon Dioxide 23 mmol/L (22-29) 09/22/25 00:49 Anion Gap 15.5 (5-19) 09/22/25 00:49 BUN 12 mg/dL (8-23) 09/22/25 00:49 Creatinine 0.7 mg/dL (0.7-1.2) 09/22/25 00:49 GFR Calculation 113.2 mL/min (90-130) 09/22/25 00:49 Glucose 104 mg/dL (65-115) 09/22/25 00:49 Calculated Osmolality 290 mOsm/kg (285-295) 09/22/25 00:49 Calcium 9.5 mg/dL (8.5-10.5) 09/22/25 00:49 Total Bilirubin 0.3 mg/dL (0.15-1.2) 09/22/25 00:49 AST 21 U/L (0-40) 09/22/25 00:49 ALT 27 U/L (0-41) 09/22/25 00:49 Alkaline Phosphatase 70 U/L (40-130) 09/22/25 00:49 Troponin T Baseline 16 ng/L (0-15) H 09/22/25 00:49 NT-Pro-B Natriuret Pep 60 pg/mL (0-125) 09/22/25 00:49 Total Protein 6.1 g/dL (6.6-8.7) L 09/22/25 00:49 Albumin 4.2 g/dL (3.5-5.2) 09/22/25 00:49 Globulin 1.9 g/dL (1.3-4.6) 09/22/25 00:49 All radiology interpretation(s) finalized by discharge EKG Data EKG 1: Interpretation: EKG was personally reviewed and interpreted and shows sinus rhythm with heart rate of 97, normal axis, LBBB, no STEMI per Sgarbossa. Computer generated interpretation: Chest X-Ray 09/21/25 23:27 IMPRESSION: 1. Suggested basilar atelectasis. 2. Otherwise, no acute cardiopulmonary process. EKG 2: Computer generated interpretation: Chest X-Ray 09/21/25 23:27 IMPRESSION: 1. Suggested basilar atelectasis. 2. Otherwise, no acute cardiopulmonary process. Normal sinus rhythm with a heart rate of 69, normal axis, left bundle branch block, no evidence of STEMI per Sgarbossa criteria. There is inversion of complex in lead III and aVL, I wonder about lead reversal. Discharge Plan Discharge Patient Disposition: Admitted As Inpatient Clinical Impression: Unstable angina Condition: Stable Coding Level of Care Code ED Sheet Metal Shop Supervisor for Chg Fwd Documented by User: PATY Severino 09/22/25 00:18 HPI - General Adult General: Chief complaint: Arrhythmia/Palpitations Stated complaint: CP Time Seen by Provider: 09/21/25 23:25 History of Present Illness: Patient is a 65-year-old male, with history of A-fib, compliant to diltiazem and Eliquis, presents to the emergency room with awakening chest pain at 9?9:30 PM, as a pressure component to the left side of his chest associated with shortness of breath, and palpitations, synthetic anxiety. Content: Patient was asleep, awoken by pain. He still has pain. He received nitroglycerin x 2 via EMS, Amiodarone load given He did receive aspirin via EMS. [facility] 03/2022: Diagnostic Cath Status: Elective Diagnostic Findings * No significant disease noted in the Left Main, Left Anterior Descending, Right, or Circumflex coronary arteries. * INDICATION: Typical chest pain symptoms/abnormal stress test. * Coronary angiography shows left dominance. Conclusions 1. No significant disease noted in the Left Main, Left Anterior Descending, Right, or Circumflex coronary arteries. Related Data Home Medications ?Medication ?Instructions ?Recorded ?Confirmed gemfibrozil 600 mg tablet 600 mg PO BID 10/04/21 03/22/25 rivaroxaban 20 mg tablet (Xarelto) 20 mg PO BEDTIME 10/04/21 03/22/25 terazosin 2 mg capsule 2 mg PO BEDTIME 10/04/21 03/22/25 albuterol sulfate 90 mcg/actuation 2 puff inhalation Q6H PRN 04/22/23 03/22/25 aerosol inhaler Bronchodilation levothyroxine 175 mcg tablet 175 mcg PO DAILY 12/01/24 03/22/25 (Synthroid) Previous Rx's ?Medication ?Instructions ?Recorded diltiazem HCl 120 mg 120 mg PO DAILY #90 caps 03/22/25 capsule,extended release 24 hr (Cardizem CD) metoprolol succinate 50 mg 50 mg PO BID #90 tabs 05/10/25 tablet,extended release 24 hr valsartan 40 mg tablet 20 mg (1/2 x 40 mg) PO BID #60 tabs 06/23/25 Allergies Allergy/AdvReac Type Severity Reaction Status Date / Time No Known Allergies Allergy Verified 03/22/25 16:05 [facility] ED PFS: Medical History (Updated 09/22/25 @ 02:19 by Priti Broderick MD) Atrial fibrillation with rapid ventricular response Hypertension Labile hypertension Chest pain Acute hypokalemia Hypoxia Hyperlipidemia Atrial fibrillation CHF (congestive heart failure), NYHA class III Family history of colon cancer COVID-19 Chest pain Atrial fibrillation with RVR Surgical History Hx of knee surgery bilateral Hx of colonoscopy with polypectomy 2015 History of esophagogastroduodenoscopy (EGD) History of knee replacement Social History Smoking and tobacco/nicotine status: former use of tobacco/nicotine Alcohol intake: never Substance/Drug Use: never Course Vital Signs: Vital signs: Vital Signs Temperature 98 F 09/21/25 23:25 Pulse Rate 70 09/22/25 01:21 Respiratory Rate 15 09/22/25 01:21 Blood Pressure 127/76 09/22/25 01:21 Pulse Oximetry 93 09/22/25 01:21 [facility] - General Adult Lab Data 09/22/25 00:49 09/22/25 00:49 Radiology Impressions Chest X-Ray 09/21/25 23:27 IMPRESSION: 1. Suggested basilar atelectasis. 2. Otherwise, no acute cardiopulmonary process. Laboratory Results WBC 4.25 10^3/uL (3.29-11.43) 09/22/25 00:49 RBC 4.70 10^6/uL (3.85-5.65) 09/22/25 00:49 Hgb 13.60 g/dL (11.27-16.99) 09/22/25 00:49 Hct 40.3 % (37-53) 09/22/25 00:49 MCV 85.7 fl (82-101) 09/22/25 00:49 MCH 28.9 pg (27-33) 09/22/25 00:49 MCHC 33.7 g/dL (30-55) 09/22/25 00:49 RDW 14.3 % (12.1-15.1) 09/22/25 00:49 Plt Count 130 10^3/cmm (157-399) L 09/22/25 00:49 MPV 12.4 fL (7.4-10.4) H 09/22/25 00:49 Neut % (Auto) 68.8 % 09/22/25 00:49 Lymph % (Auto) 22.1 % 09/22/25 00:49 [place] % (Auto) 7.3 % 09/22/25 00:49 Eos % (Auto) 0.7 % 09/22/25 00:49 Baso % (Auto) 0.9 % 09/22/25 00:49 Neut # (Auto) 2.92 10^3/uL (1.8-7.7) 09/22/25 00:49 Lymph # (Auto) 0.9 10^3/uL (0.8-4.8) 09/22/25 00:49 [place] # (Auto) 0.3 10^3/uL (0.2-0.9) 09/22/25 00:49 Eos # (Auto) 0.0 10^3/uL (0.0-0.8) 09/22/25 00:49 Baso # (Auto) 0.0 10^3/uL (0.0-0.1) 09/22/25 00:49 Nucleated RBC % (auto) 0 % 09/22/25 00:49 Nucleated RBCs # 0.0 /100WBC 09/22/25 00:49 Sodium 140 mmol/L (136-145) 09/22/25 00:49 Potassium 3.5 mmol/L (3.5-5.1) 09/22/25 00:49 Chloride 105 mmol/L (98-107) 09/22/25 00:49 Carbon Dioxide 23 mmol/L (22-29) 09/22/25 00:49 Anion Gap 15.5 (5-19) 09/22/25 00:49 BUN 12 mg/dL (8-23) 09/22/25 00:49 Creatinine 0.7 mg/dL (0.7-1.2) 09/22/25 00:49 GFR Calculation 113.2 mL/min (90-130) 09/22/25 00:49 Glucose 104 mg/dL (65-115) 09/22/25 00:49 Calculated Osmolality 290 mOsm/kg (285-295) 09/22/25 00:49 Calcium 9.5 mg/dL (8.5-10.5) 09/22/25 00:49 Total Bilirubin 0.3 mg/dL (0.15-1.2) 09/22/25 00:49 AST 21 U/L (0-40) 09/22/25 00:49 ALT 27 U/L (0-41) 09/22/25 00:49 Alkaline Phosphatase 70 U/L (40-130) 09/22/25 00:49 Troponin T Baseline 16 ng/L (0-15) H 09/22/25 00:49 NT-Pro-B Natriuret Pep 60 pg/mL (0-125) 09/22/25 00:49 Total Protein 6.1 g/dL (6.6-8.7) L 09/22/25 00:49 Albumin 4.2 g/dL (3.5-5.2) 09/22/25 00:49 Globulin 1.9 g/dL (1.3-4.6) 09/22/25 00:49 EKG Data EKG 1: Computer generated interpretation: Chest X-Ray 09/21/25 23:27 IMPRESSION: 1. Suggested basilar atelectasis. 2. Otherwise, no acute cardiopulmonary process. EKG 2: Computer generated interpretation: Chest X-Ray 09/21/25 23:27 IMPRESSION: 1. Suggested basilar atelectasis. 2. Otherwise, no acute cardiopulmonary process. Discharge Plan Discharge Patient Disposition: Admitted As Inpatient Clinical Impression: Unstable angina Condition: Stable Coding Level of Care Code ED Sheet Metal Shop Supervisor for Maddy Robertson
--- OUTSIDE RECORDS SUMMARY | 2025-09-21 23:29 | XMS_ITS | Encounter Summary ---
Author Organization [facility] Address [address] [place] [address] Care Team Providers Care Marine Engineering Professor Name Role Phone JanetteMartha magaña Primary Care Provider Encounter Details Date Type Department Care Team (Latest Contact Info) Description 12/22/2006 Outpatient Historical [facility] Medicine[address] [phone] Keven De Los Santos MD NO ADDRESS ON FILE Unspecified Hypothyroidism (Primary Dx) Social History Tobacco Use Types Packs/Day Years Used Date Smoking Tobacco: Never Assessed Sex and Gender Information Value Date Recorded Sex Assigned at Not on file Legal Sex Male 5:09 AM PAY STATION DEPARTMENT MANAGER Gender Identity Not on file Sexual Orientation Not on file documented as of this encounter Plan of Treatment Not on file documented as of this encounter Procedures Procedure Name Priority Date/Time Associated Diagnosis Comments NM THYROID UPTAKE SINGLE 24 HR Routine 12/22/2006 12:01 AM PAY STATION DEPARTMENT MANAGER documented in this encounter Results * NM THYROID UPTAKE SINGLE 24 HR (12/22/2006 12:01 AM PAY STATION DEPARTMENT MANAGER) Anatomical Region Laterality Modality Neck Other 12/22/2006 12:0 1 AM PAY STATION DEPARTMENT MANAGER Narrative 12/22/2006 12:01 AM PAY STATION DEPARTMENT MANAGER Thyroid Imaging and Single Uptake Examination: Radiopharmaceutical: I-123 sodium iodide Dose: 484 uCiReason for Consultation: Hypothyroidism. Thyroid nodules. Evaluation of thyroid function. Thyroid Uptake: Six-hour uptake: 1.2 %. The six hour radioactive iodine uptake is markedly depressed. Thyroid Imaging: The thyroid gland was imaged in the anterior and both anterior oblique projections. The thyroid gland is overall reduced in size. Tracer distribution is diffusely significantly decreasedthroughout both lobes. Tracer distribution is very irregular with two areas of relative increase intracer activity in the lower pole regions. On physical examination, the thyroid gland wasborderline palpable. No absolute discrete focal nodules were palpated. Impression: The six hour radioactive iodine uptake is markedly depressed. The thyroid gland is borderline smallwith significantly decreased and irregular tracer distribution suggesting the presence of verysignificant chronic thyroiditis and/or multinodular/multicystic degeneration. No definitive coldnodules were identified. - Dictated By: Jae Allan M.D. Electronically Signed By: Jae Allan M.D. Date Signed: 12/22/06 Procedure Note 10/19/2009 Thyroid Imaging and Single Uptake Examination: Radiopharmaceutical: I-123 sodium iodide Dose: 484 uCiReason for Consultation: Hypothyroidism. Thyroid nodules. Evaluation of thyroid function. Thyroid Uptake: Six-hour uptake: 1.2 %. The six hour radioactive iodine uptake is markedly depressed. Thyroid Imaging: The thyroid gland was imaged in the anterior and both anterior obliqueprojections. The thyroid gland is overall reduced in size. Tracer distribution isdiffusely significantly decreasedthroughout both lobes. Tracer distribution is very irregular withtwo areas of relative increase intracer activity in the lower pole regions. On physical examination, thethyroid gland wasborderline palpable. No absolute discrete focal nodules were palpated. Impression: The six hour radioactive iodine uptake is markedly depressed. The thyroidgland is borderline smallwith significantly decreased and irregular tracer distribution suggesting thepresence of verysignificant chronic thyroiditis and/or multinodular/multicystic degeneration. Nodefinitive coldnodules were identified. - Dictated By: Jae Allan M.D. Electronically Signed By: Jae Allan M.D. Date Signed: 12/22/06 Keven De Los Santos MD NM ORDERABLES Final Result documented in this encounter Visit Diagnoses Diagnosis Unspecified hypothyroidism- Primary documented in this encounter Care Teams Marine Engineering Professor Relationship Specialty Start Date End Date Martha Savage DO [address] [place] [phone] PCP - General Family Practice 10/18/10 documented as of this encounter
--- OUTSIDE RECORDS SUMMARY | 2025-09-21 23:29 | XMS_ITS | Clinical Summary ---
Author Organization [facility] Address [address] [place] [address] Care Team Providers Care Control Director Name Role Phone Khloe Savageoragianfranco Wilhelm DO Primary Care Provider [phone] Allergies Active Allergy Reactions Criticality Noted Date Comments Albuterol Rash,Swelling High 09/25/2009 Nose and face swelling Amlodipine Hypotension Medium 09/13/2018 Naproxen Other (See Comments) 06/22/2012 Had a gi bleed episode Olmesartan Hypotension Medium 01/22/2017 Prednisone Other (See Comments) High 09/12/2008 With oral med only, rash Sulfa (Sulfonamide Antibiotics) Rash Low 09/19/2008 Medications dicyclomine (BENTYL) 20 mg tabletIndications: Irritable bowel syndrome with diarrhea Take 1 Tablet (20 mg) by mouth 3 times daily as needed for Other (See Comment) (abdominal pain). 90 Tablet 2 0 Active cyclobenzaprine (FLEXERIL) 10 mg tablet Take 1 Tablet (10 mg) by mouth 3 times daily as needed for Spasm. 90 Tablet 2 0 Active Saccharomyces boulardii (FLORASTOR) 250 mg Capsule Take 1 Capsule (250 mg) by mouth 2 times daily. 180 Capsule 4 0 Active diclofenac sodium (VOLTAREN) 1 % gel Apply 4 Grams to affected area 4 times daily. 100 Gram 0 Active nystatin (MYCOSTATIN) 100,000 unit/gram Cream Apply to affected area 2 times daily. 30 Gram 5 0 Active benzonatate (TESSALON) 200 mg capsule Take 1 Capsule (200 mg) by mouth 3 times daily. 30 Capsule 1 0 Active ofloxacin (FLOXIN) 0.3 % Drops Administer 10 Drops in both ears 2 times daily. 10 mL 2 1 Active levothyroxine (SYNTHROID) 200 mcg tabletIndications: Hypothyroidism due to acquired atrophy of thyroid TAKE ONE TABLET BY MOUTH EVERY DAY EARLY IN THE MORNING 90 Tablet 1 1 Active rivaroxaban (XARELTO) 20 mg TabletIndications: Paroxysmal atrial fibrillation (CMS/HCC) Take 1 Tablet (20 mg) by mouth daily with supper. 90 Tablet 4 1 Active gemfibroziL (LOPID) 600 mg tabletIndications: Mixed hyperlipidemia TAKE ONE TABLET BY MOUTH TWICE DAILY 180 Tablet 4 1 Active metoprolol tartrate (LOPRESSOR) 100 mg tablet Take 1 tab by mouth two times daily 180 Tablet 4 1 Active rizatriptan (Maxalt) 10 mg Tablet Take 1 Tablet (10 mg) by mouth every 2 hours as needed for Migraine or Headaches. 36 Tablet 3 1 Active diltiaZEM (CARDIZEM CD) 240 mg Controlled Delivery 24 hour capsuleIndications :Paroxysmal atrial fibrillation (CMS/HCC) Take 1 Capsule (240 mg) by mouth daily. 90 Capsule 4 1 Active terazosin (HYTRIN) 2 mg capsule TAKE ONE CAPSULE BY MOUTH AT BEDTIME 90 Capsule 4 1 Active Hospital, Clinic, or Other Facility Administered Medication Ordered Dose Route Frequency Start Date End Date Status ondansetron (ZOFRAN ODT) tablet 4 mgIndications:Non-intract able vomiting with nausea, unspecified vomiting type 4 mg Oral ONE TIME ONLY 10/26/2017 Active Active Problems Problem Noted Date Diagnosed Date Chest tightness or pressure 08/24/2019 Shortness of breath 08/24/2019 Atrial fibrillation with rapid ventricular respo nse 08/24/2019 Overview (08/24/2019): New Onset Hypoxemia 08/24/2019 Overview (08/24/2019): 90% on RA RIGHT TKA (08/22/2019) 08/22/2019 Gastroesophageal reflux disease without esophagi tis 08/08/2019 Irritable bowel syndrome 08/08/2019 LEFT TKA (06/30/2018) 07/13/2018 Left bundle branch block 06/16/2018 Primary osteoarthritis of right knee 06/16/2018 BPH (benign prostatic hyperplasia) 06/16/2018 Obesity (BMI 30.0-34.9) 06/16/2018 Obstructive sleep apnea on CPAP 02/01/2017 Essential hypertension 12/14/2016 Mixed hyperlipidemia 12/28/2012 Hypothyroidism due to acquired atrophy of thyroi d 09/12/2008 Migraine without aura and wi thout status migrainosus, not intractable Resolved Problems Problem Noted Date Diagnosed Date Resolved Date Somnolence 07/02/2018 08/08/2019 Allergic rhinitis 06/16/2018 08/24/2019 Leukocytopenia 06/16/2018 08/24/2019 Hypercalcemia 06/16/2018 08/24/2019 Preoperative general physical examination 06/16/2018 08/24/2019 Acute bronchitis 09/12/2008 03/28/2014 Need for influenza vaccine 09/12/2008 0 03/28/2014 Immunizations Immunization Administration Dates Next Due (PNEUMOVAX 23)(50 YRS UP) PN EUMOCOCCAL POLYSACCHARIDE (PPV23) 0.5 ML, IM 03/30/2012 Influenza Seasonal Unspecified Formulation IM Influenza Vaccine Split 3+ Yrs IM 09/12/2008 Influenza Vaccine Split 3+ Yrs PF IM 10/28/2012 Family History Medical History Relation Name Comments No Known Problems Brother Crohn's Disease Father Aneurysm Mother Dementia Mother Cancer Sister 1 No Known Problems Sister 2 Relation Name Status Comments Brother Alive Daughter none bio Father Mother Sister 1 Alive Sister 2 Alive Son none bio Social History Tobacco Use Types Packs/Day Years Used Date Smoking Tobacco: Former Cigarettes 2 20 0 04/30/1994 - 04/30/2014 Smokeless Tobacco: Former Chew Quit: 04/30/2014 Comments: Alcohol Use Standard Drinks/Week Comments No 0 (1 standard drink = 0.6 oz pur e alcohol) Sex and Gender Information Value Date Recorded Sex Assigned at Not on file 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 Gender Identity Not on file Sexual Orientation Not on file Occupation Industry Job Start Date Job End Date Not on file Not on file Not on file Not on file Not on file Not on file Not on file Last Filed Vital Signs Vital Sign Reading Time Taken Comments Blood Pressure 127/76 12/28/2020 9:04 AM ENTERTAINMENT DIRECTOR Pulse 75 12/28/2020 9:04 AM ENTERTAINMENT DIRECTOR Temperature 36.2 C (97.1 F) 12/28/2020 9:04 AM ENTERTAINMENT DIRECTOR Respiratory Rate 18 12/28/2020 9:04 AM ENTERTAINMENT DIRECTOR Oxygen Saturation 94% 12/28/2020 9:04 AM ENTERTAINMENT DIRECTOR Inhaled Oxygen Concentration - - Weight 120.7 kg (266 lb) 12/28/2020 9:04 AM ENTERTAINMENT DIRECTOR Height 188 cm (6' 2 ) 12/28/2020 9:04 AM ENTERTAINMENT DIRECTOR Body Mass Index 34.15 12/28/2020 9:04 AM ENTERTAINMENT DIRECTOR Plan of Treatment Health Maintenance Due Date Last Done Comments Pre-Diabetes and Diabetes Screening 1960 FIT/ DNA Q 3 YEARS (AUTO ORDER) 1978 FIT/FOBT Q 1 YEAR (AUTO ORDER) 1978 FLEX SIG/CT COLONOGRAPHY Q 5 YEARS (AUTO ORDER) 1978 DTAP/TDAP/TD VACCINES (1 - Tdap) 1979 FIT-DNA Q 3 years 2005 FIT/FOBT Q 1 year 2005 Flex Sig/CT Colonography Q 5 years 2005 ZOSTER VACCINE (1 of 2) 2010 PNEUMOCOCCAL VACCINE 50+ YEA RS (2 of 2 - PCV) 03/30/2013 03/30/2012 Preventative Visit- Commercial 11/30/2024 10/12/2020 INFLUENZA VACCINE (#1) 2025 8, 09/27/2013, 10/28/2012, Additional history exists COLORECTAL CANCER SCREENING (AUTO ORDER) 04/10/2033 04/10/2023, 11/04/2017, 11/04/2017, Additional history exists COLORECTAL SCREENING 04/10/2033 04/10/2023, 11/04/2017, 11/04/2017, Additional history exists Colorectal Cancer Screening (AUTO ORDER) 04/10/2033 Colorectal Cancer Screening 04/10/2033 RSV VACCINE (60+ or ) (1 - 1-dose 75+ series) 2035 Medical Devices Implanted Type Area Six Pack Loader Operator Device Identifier Shelf Expiration Date Model / Serial / Lot Simplex Hi Viscosity Gent 6195-1-010 - [id number] Implanted:Qty: 1 on 06/30/2018 by Cruz Mccarthy III, MD at [facility] Cement Left: Knee [employer] 07/30/2019 6195-1-010 / / [id number] Simplex Hi Viscosity Gent 6195-1-010 - [id number] Implanted:Qty: 1 on 06/30/2018 by Cruz Mccarthy III, MD at [facility] Cement Left: Knee [employer] 07/30/2019 6195-1-010 / / [id number] Simplex Hi Viscosity Gent 6195-1-010 - [id number] Implanted:Qty: 1 on 08/22/2019 by Cruz Mccarthy III, MD at [facility] Cement Right: Knee [employer] 02/27/2021 6195-1-010 / / [id number] Simplex Hi Viscosity Gent 6195-1-010 - [id number] Implanted:08/22 by Cruz Mccarthy III, MD at [facility] (Quantity not on file) Cement Right: Knee [employer] 02/27/2021 6195-1-010 / / [id number] Comp Fem Attn Ps Cmnt Sz9 1504-10-109 - [id number] Implanted:Qty: 1 on 06/30/2018 by Cruz Mccarthy III, MD at [facility] Knee Left: Knee [employer] 03/29/2026 [id number] / / [id number] Comp Tib Sttn Fb Cmnt Sz8 1506-70-008 - [id number] Implanted:Qty: 1 on 06/30/2018 by Cruz Mccarthy III, MD at [facility] Knee Left: Knee [employer] 12/30/2027 [id number] / / [id number] Ins Attn Fb Ps Sz9 12mm 1516-40-912 - [id number] Implanted:Qty: 1 on 06/30/2018 by Cruz Mccarthy III, MD at [facility] Knee Left: Knee [employer] 02/27/2019 [id number] / / [id number] Patella Attune Stefanie 35mm 1518-10-035 - [id number] Implanted:Qty: 1 on 06/30/2018 by Cruz Mccarthy III, MD at [facility] Knee Left: Knee [employer] 03/29/2023 [id number] / / [id number] Comp Fem Attn Ps Cmnt Sz9 1504-10-209 - [id number] Implanted:Qty: 1 on 08/22/2019 by Cruz Mccarthy III, MD at [facility] Knee Right: Knee [employer] 01/27/2026 [id number] / / [id number] Patella Attune Stefanie 35mm 1518-10-035 - [id number] Implanted:Qty: 1 on 08/22/2019 by Cruz Mccarthy III, MD at [facility] Knee Right: Knee [employer] 02/27/2023 [id number] / / [id number] Ins Attn Fb Ps Sz9 6mm 1516-40-906 - [id number] Implanted:Qty: 1 on 08/22/2019 by Cruz Mccarthy III, MD at [facility] Knee Right: Knee [employer] 01/27/2021 [id number] / / [id number] Comp Tib Attn Fb Cmnt Sz8 1506-70-008 - [id number] Implanted:Qty: 1 on 08/22/2019 by Cruz Mccarthy III, MD at [facility] Knee Right: Knee [employer] 06/29/2029 [id number] / / [id number] Procedures Procedure Name Priority Date/Time Associated Diagnosis Comments ENDOSCOPY, COLON, DIAGNOSTIC Routine 11/04/2017 from Last 3 Months or Most Recently Relevant to Health Maintenance Results * ENDOSCOPY, COLON, DIAGNOSTIC (11/04/2017) us Abstract Spg Provider GI PROCEDURE ORDERABLES Fi nal Result from Last 3 Months or Most Recently Relevant to Health Maintenance Insurance RX [facility] Medicare Part D [facility] Advance Directives For more information, please contact: [phone] * Full Code (Latest Code Status on File) Date Activated Date Inactivated Comments 08/26/2019 4:30 AM 08/26/2019 2:31 PM * Full Code Date Activated Date Inactivated Comments 08/22/2019 11:53 AM 08/24/2019 3:06 PM * Full Code Date Activated Date Inactivated Comments 08/22/2019 6:10 AM 08/22/2019 11:53 AM * Full Code Date Activated Date Inactivated Comments 06/30/2018 4:09 PM 07/03/2018 3:27 PM * Full Code Date Activated Date Inactivated Comments 06/30/2018 8:37 AM 06/30/2018 4:09 PM Care Teams Control Director Relationship Specialty Start Date End Date Martha Savage DO [address] [address] PCP - General Family Practice 10/18/10
--- OUTSIDE RECORDS SUMMARY | 2025-09-21 23:29 | XMS_ITS | Encounter Summary ---
Author Organization [facility] Address [address] [place] [address] Care Team Providers Care Box Printing Machine Operator Name Role Phone Martha Savage DO Primary Care Provider Encounter Details Date Type Department Care Team (Latest Contact Info) Description 11/10/2006 Outpatient Historical [facility] Ear, Nose and Throat 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
--- OUTSIDE RECORDS SUMMARY | 2025-09-21 23:29 | XMS_ITS | Encounter Summary ---
Author Organization [facility] Address [address] [place] [address] Care Team Providers Care Human Relations Manager Name Role Phone Martha Savage DO Primary Care Provider [phone] Encounter Details Date Type Department Care Team (Latest Contact Info) Description 09/22/2006 Outpatient Historical [facility] Family Medicine- [place] [address] [place] [phone] Jacky Cummings MD NO ADDRESS ON FILE Olecranon Bursitis (Primary Dx) Social History Tobacco Use Types Packs/Day Years Used Date Smoking Tobacco: Never Assessed Sex and Gender Information Value Date Recorded Sex Assigned at Not on file Legal Sex Male 5:09 AM SECOND HAND Gender Identity Not on file Sexual Orientation Not on file documented as of this encounter Plan of Treatment Not on file documented as of this encounter Visit Diagnoses Diagnosis Olecranon bursitis- Primary documented in this encounter Care Teams Human Relations Manager Relationship Specialty Start Date End Date Martah Savage DO [address] [place] [phone] PCP - General Family Practice 10/18/10 documented as of this encounter
--- OUTSIDE RECORDS SUMMARY | 2025-09-21 23:29 | XMS_ITS | Encounter Summary ---
Author Organization [facility] Address [address] [place] [address] Care Team Providers Care Publicist Name Role Phone Martha Savage DO Primary Care Provider [phone]- [phone] Encounter Details Date Type Department Care Team (Latest Contact Info) Description 10/29/2006 Outpatient Historical [facility] Family Medicine- [place] [address] [place] [phone] Jacky Cummings MD NO ADDRESS ON FILE Olecranon Bursitis (Primary Dx) Social History Tobacco Use Types Packs/Day Years Used Date Smoking Tobacco: Never Assessed Sex and Gender Information Value Date Recorded Sex Assigned at Not on file 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
--- OUTSIDE RECORDS SUMMARY | 2025-09-21 23:29 | XMS_ITS | Encounter Summary ---
Author Organization [facility] Address [address] [place] [address] Care Team Providers Care Family Life Counselor Name Role Phone Martha Savage DO Primary Care Provider [phone] Encounter Details Date Type Department Care Team (Latest Contact Info) Description 09/04/2006 Outpatient Historical [facility] Family Medicine- [place] [address] [place] [phone] Jacky Cummings MD NO ADDRESS ON FILE Olecranon Bursitis (Primary Dx) Social History Tobacco Use Types Packs/Day Years Used Date Smoking Tobacco: Never Assessed Sex and Gender Information Value Date Recorded Sex Assigned at Not on file Legal Sex Male 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
--- OUTSIDE RECORDS SUMMARY | 2025-09-21 23:29 | XMS_ITS | Encounter Summary ---
Author Organization [facility] Address [address] [place] [address] Care Team Providers Care Director Equipment Name Role Phone Martha Savage DO Primary Care Provider Encounter Details Date Type Department Care Team (Late st Contact Info) Description 07/09/2018 Telephone [facility] Case Management [address] [facility] 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
--- OUTSIDE RECORDS SUMMARY | 2025-09-21 23:29 | XMS_ITS | Encounter Summary ---
Author Organization [facility] Address [address] [place] [address] Care Team Providers Care Scientist Propagator Name Role Phone Martha Savage DO Primary Care Provider [phone] Reason for Referral * Outpatient Services (Routine) - Closed Specialty Diagnoses / Procedures Referred By Contac t Referred To Contact Diagnoses Visual field defect, unspecified Headache(784.0) Transient arterial occlusion of retina Chest pain, unspecified Procedures CT ORBITS W CONTRAST [facility] [place] Pre-Registration [place] CALL TO MAKE APPOINTMENT ONLY [address] [place] [address] Phone: tel: fax: [facility] [place] CALL TO MAKE APPOINTMENT ONLY [address] [place] [address] Phone: tel: fax: Referral ID Status Reason Start Date Expiration Date V isits Requested Visits Authorized [id number] Closed [facility] TO SCHEDULE (SGF) 10/10/2013 11/10/2014 1 1 RVISOR MAPPING * Outpatient Services (Routine) - Closed Specialty Diagnoses / Procedures Referred By Contac t Referred To Contact Diagnoses Visual field defect, unspecified Headache(784.0) Transient arterial occlusion of retina Chest pain, unspecified Procedures US CAROTID DOPPLER [facility] CALL TO MAKE APPOINTMENT ONLY [address] [place] [address] Phone: tel: fax: [facility] Pre-Registration [place] CALL TO MAKE APPOINTMENT ONLY [address] [place] [address] Phone: tel: fax: Referral ID Status Reason Start Date Expiration Date V isits Requested Visits Authorized [id number] Closed [facility] TO SCHEDULE (SG) 10/10/2013 11/10/2014 1 1 RVISOR MAPPING * Outpatient Services (Routine) - Closed Specialty Diagnoses / Procedures Referred By Contac t Referred To Contact Diagnoses Visual field defect, unspecified Headache(784.0) Transient arterial occlusion of retina Chest pain, unspecified Procedures ECHO COMPLETE [facility] Pre-Registration [place] CALL TO MAKE APPOINTMENT ONLY [address] [place] [address] Phone: tel: fax: [facility] Pre-Registration [place] CALL TO MAKE APPOINTMENT ONLY [address] [place] [address] Phone: tel: fax: Referral ID Status Reason Start Date Expiration Date V isits Requested Visits Authorized [id number] Closed [facility] TO SCHEDULE ([facility]) 10/10/2013 11/10/2014 1 1 RVISOR MAPPING * Outpatient Services (Routine) - Closed Specialty Diagnoses / Procedures Referred By Contac t Referred To Contact Diagnoses Visual field defect Headache(784.0) Transient arterial occlusion of retina Chest pain, unspecified Procedures CT HEAD W WO CONTRAST [facility] Pre-Registration [place] CALL TO MAKE APPOINTMENT ONLY [address] [place] [address] Phone: tel: fax: [facility] Pre-Registration [place] CALL TO MAKE APPOINTMENT ONLY [address] [place] [address] Phone: tel: fax: Referral ID Status Reason Start Date Expiration Date V isits Requested Visits Authorized [id number] Closed [facility] [place]ED[place] [place] 10/10/2013 11/10/2014 1 1 RVISOR MAPPING Encounter Details Date Type Department Care Team (Late st Contact Info) Description 10/10/2013 Ancillary Orders [facility] Pre-Registration [place] CALL TO MAKE APPOINTMENT ONLY [address] [place] [address] [facility], External Provider [address] [place] [address] Visual field defect (Primary Dx); Headache; Transient arterial occlusion of retina; Chest pain, unspecified; Visual field defect, unspecified Social History Tobacco Use Types Packs/Day Years Used Date Smoking Tobacco: Every Day Cigarettes 0.2 30 Smokeless Tobacco: Current Chew Comments:trying to decrease and quit Alcohol Use Standard Drinks/Week Comments No 0 (1 standard drink = 0.6 oz pur e alcohol) Sober X 26 years Sex and Gender Information Value Date Recorded Sex Assigned at Not on file Legal Sex Male 5:09 AM SUPERVISOR MAPPING Gender Identity Not on file Sexual Orientation Not on file 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 Not on file Not on file documented as of this encounter Plan of Treatment Not on file documented as of this encounter Results * ECHO COMPLETE (10/11/2013 10:36 AM SUPERVISOR MAPPING) 10/11/2013 9:50 AM [facility] Narrative INTERFACE SYSTEM - 10/11/2013 11:01 AM [facility] Echocardiography-[address] [place] [address] Transthoracic Echocardiography Patient: Deepak Marinelli Study ID: ECHO COMPLETE Gender: M : 1960 Age: 53 Room: Study Date: 10/11/2013 Pt Status: Outpatient Study Time: 09:50 AM Ordering:[facility], External Provider Provider Interpreting:Andre Glynn [[id number]] Teller: Maria A Garcia Indications and History: Chest Pain, unspecified. Risk factors: Current tobacco use. Hypertension. Procedure information: No prior study was available for comparison. Study status: Routine. Procedure: Transthoracic echocardiography. Image quality was adequate. Scanning was performed from the parasternal, apical, subcostal, and suprasternal notch acoustic windows. Study components: M-mode, 2D, complete spectral Doppler, and color Doppler. Height: Height: 188cm. Height: 74in. Weight: Weight: 101.1kg. Weight: 222.5lb. Body mass index: BMI: 28.6kg/m^2. Body surface area: BSA: 2.32m^2. Patient status: Outpatient. Location: Echo laboratory. Summary and Conclusion: - Left ventricle: The cavity size was normal. Wall thickness was increased in a pattern of mild LVH. Systolic function was normal. The estimated ejection fraction was in the range of 55% to 60%. No diagnostic regional wall motion abnormality identified. Interventricular septum changes are consistent with previous thoracotomy, conduction delay or RV pacing. The study is not technically sufficient to allow evaluation of LV diastolic function. - Right ventricle: The cavity size was normal. Systolic function was normal. Systolic pressure was within the normal range. - Left atrium: The atrium was mildly dilated. - Aortic valve: Trileaflet; mildly thickened leaflets. - Mitral valve: Mildly thickened leaflets. Trivial to mild regurgitation. - Tricuspid valve: Trivial to mild regurgitation. Cardiac Anatomy: LEFT VENTRICLE: The cavity size was normal. Wall thickness was increased in a pattern of mild LVH. Systolic function was normal. The estimated ejection fraction was in the range of 55% to 60%. No diagnostic regional wall motion abnormality identified. Interventricular septum changes are consistent with previous thoracotomy, conduction delay or RV pacing. The study is not technically sufficient to allow evaluation of LV diastolic function. RIGHT VENTRICLE: The cavity size was normal. Systolic function was normal. Systolic pressure was within the normal range. LEFT ATRIUM: The atrium was mildly dilated. RIGHT ATRIUM: The atrium was normal in size. ATRIAL SEPTUM: No defect or patent foramen ovale was identified. AORTIC VALVE: Trileaflet; mildly thickened leaflets. Mobility was not restricted. Doppler: There was no stenosis. No significant regurgitation. Peak gradient: 11mm Hg (S). MITRAL VALVE: Mildly thickened leaflets. Mobility was not restricted. No echocardiographic evidence for prolapse. Doppler: There was no evidence for stenosis. Trivial to mild regurgitation. TRICUSPID VALVE: Structurally normal valve. Mobility was not restricted. Doppler: There was no evidence for stenosis. Trivial to mild regurgitation. PULMONIC VALVE: Not well visualized. Doppler: There was no evidence for stenosis. No significant regurgitation. PERICARDIUM: There was no pericardial effusion. AORTA: Aortic root: The aortic root was normal in size. Aortic arch: The aortic arch was normal in size. SYSTEMIC VEINS: Inferior vena cava: The vessel was normal in size. INTRACARDIAC MASS THROMBUS: No intracavitary masses or thrombi detected. 2D measurements Adult Normal Range Left ventricle LVID ED, chord, PLAX 51.36 mm 43-52 LVID ES, chord, PLAX 37.46 mm 23-38 FS, chord, PLAX *27 % >29 LVPW, ED 12.83 mm IVS/LVPW ratio, ED 1.06 <1.3 Vol ED, MOD1 165.8 ml Vol ES, MOD1 57.9 ml EF, MOD1 65.04 % Stroke vol, MOD1 107.8 ml Vol index, ED, MOD1 72 ml/m^2 Vol index, ES, MOD1 25 ml/m^2 Stroke index, MOD1 46.6 ml/m^2 Vol ED, MOD2 165 ml Vol ES, MOD2 56.6 ml EF, MOD2 65.73 % Vol index, ED, MOD2 71 ml/m^2 Vol index, ES, MOD2 24 ml/m^2 Ventricular septum IVS, ED 13.66 mm Aorta Root diam, ED 37.69 mm Right ventricle RVID ED, PLAX 28.53 mm 19-38 Doppler measurements Adult Normal Range Aortic valve Peak christiano, S 165.94 cm/s Peak gradient, S 11 mm Hg Tricuspid valve Regurg peak christiano 250.3 cm/s Peak RV-RA gradient, S 25 mm Hg Max regurg christiano 250.3 cm/s Legend: Mean values are shown as u=mean value. Asterisk (*) zimmerman values outside specified normal range. [facility] Echo Lab is accredited with the Intersocietal Commission for the Accreditation of Echocardiography Laboratories (ICAEL) Prepared and Electronically Authenticated Andre Glynn [[id number]] Confirmed 10/11/2013 11:01 Procedure Note Andre Glynn MD - 10/11/2013 [facility] Echocardiography-[address] [place] [address] Transthoracic Echocardiography Patient: Deepak Marinelli Study ID: ECHO COMPLETE Gender: M : 1960 Age: 53 Room: Study Date: 10/11/2013 Pt Status: Outpatient Study Time: 09:50 AM Ordering:[facility], External Provider Provider Interpreting:Andre Glynn [[id number]] Teller: Maria A Garcia Indications and History: Chest Pain, unspecified. Risk factors: Current tobacco use. Hypertension. Procedure information: No prior study was available for comparison. Study status: Routine. Procedure: Transthoracic echocardiography. Image quality was adequate. Scanning was performed from the parasternal, apical, subcostal, and suprasternal notch acoustic windows. Study components: M-mode, 2D, complete spectral Doppler, and color Doppler. Height: Height: 188cm. Height: 74in. Weight: Weight: 101.1kg. Weight: 222.5lb. Body mass index: BMI: 28.6kg/m^2. Body surface area: BSA: 2.32m^2. Patient status: Outpatient. Location: Echo laboratory. Summary and Conclusion: - Left ventricle: The cavity size was normal. Wall thickness was increased in a pattern of mild LVH. Systolic function was normal. The estimated ejection fraction was in the range of 55% to 60%. No diagnostic regional wall motion abnormality identified. Interventricular septum changes are consistent with previous thoracotomy, conduction delay or RV pacing. The study is not technically sufficient to allow evaluation of LV diastolic function. - Right ventricle: The cavity size was normal. Systolic function was normal. Systolic pressure was within the normal range. - Left atrium: The atrium was mildly dilated. - Aortic valve: Trileaflet; mildly thickened leaflets. - Mitral valve: Mildly thickened leaflets. Trivial to mild regurgitation. - Tricuspid valve: Trivial to mild regurgitation. Cardiac Anatomy: LEFT VENTRICLE: The cavity size was normal. Wall thickness was increased in a pattern of mild LVH. Systolic function was normal. The estimated ejection fraction was in the range of 55% to 60%. No diagnostic regional wall motion abnormality identified. Interventricular septum changes are consistent with previous thoracotomy, conduction delay or RV pacing. The study is not technically sufficient to allow evaluation of LV diastolic function. RIGHT VENTRICLE: The cavity size was normal. Systolic function was normal. Systolic pressure was within the normal range. LEFT ATRIUM: The atrium was mildly dilated. RIGHT ATRIUM: The atrium was normal in size. ATRIAL SEPTUM: No defect or patent foramen ovale was identified. AORTIC VALVE: Trileaflet; mildly thickened leaflets. Mobility was not restricted. Doppler: There was no stenosis. No significant regurgitation. Peak gradient: 11mm Hg (S). MITRAL VALVE: Mildly thickened leaflets. Mobility was not restricted. No echocardiographic evidence for prolapse. Doppler: There was no evidence for stenosis. Trivial to mild regurgitation. TRICUSPID VALVE: Structurally normal valve. Mobility was not restricted. Doppler: There was no evidence for stenosis. Trivial to mild regurgitation. PULMONIC VALVE: Not well visualized. Doppler: There was no evidence for stenosis. No significant regurgitation. PERICARDIUM: There was no pericardial effusion. AORTA: Aortic root: The aortic root was normal in size. Aortic arch: The aortic arch was normal in size. SYSTEMIC VEINS: Inferior vena cava: The vessel was normal in size. INTRACARDIAC MASS THROMBUS: No intracavitary masses or thrombi detected. 2D measurements Adult Normal Range Left ventricle LVID ED, chord, PLAX 51.36 mm 43-52 LVID ES, chord, PLAX 37.46 mm 23-38 FS, chord, PLAX *27 % >29 LVPW, ED 12.83 mm IVS/LVPW ratio, ED 1.06 <1.3 Vol ED, MOD1 165.8 ml Vol ES, MOD1 57.9 ml EF, MOD1 65.04 % Stroke vol, MOD1 107.8 ml Vol index, ED, MOD1 72 ml/m^2 Vol index, ES, MOD1 25 ml/m^2 Stroke index, MOD1 46.6 ml/m^2 Vol ED, MOD2 165 ml Vol ES, MOD2 56.6 ml EF, MOD2 65.73 % Vol index, ED, MOD2 71 ml/m^2 Vol index, ES, MOD2 24 ml/m^2 Ventricular septum IVS, ED 13.66 mm Aorta Root diam, ED 37.69 mm Right ventricle RVID ED, PLAX 28.53 mm 19-38 Doppler measurements Adult Normal Range Aortic valve Peak christiano, S 165.94 cm/s Peak gradient, S 11 mm Hg Tricuspid valve Regurg peak christiano 250.3 cm/s Peak RV-RA gradient, S 25 mm Hg Max regurg christiano 250.3 cm/s Legend: Mean values are shown as u=mean value. Asterisk (*) zimmerman values outside specified normal range. [facility] Echo Lab is accredited with the Intersocietal Commission for the Accreditation of Echocardiography Laboratories (ICAEL) Prepared and Electronically Authenticated Ander Glynn [[id number]] Confirmed 10/11/2013 11:01 us External Provider [facility] US ORDERABLES Final Resu lt INTERFACE SYSTEM Refer to clinic/hospital department * US CAROTID DOPPLER (10/11/2013 8:23 AM SUPERVISOR MAPPING) Anatomical Region Laterality Modality Neck Ultrasound 10/11/2013 7:50 AM SUPERVISOR MAPPING Narrative 10/11/2013 9:08 AM SUPERVISOR MAPPING [facility] Cardiovascular Services Noninvasive Vascular Laboratory [address] [place] [address] Noninvasive Vascular Lab Cerebrovascular Exam Carotid Duplex Patient: Deepak Marinelli Study ID: US CAROTID DOPPL Gender: M : 1960 Age: 53 Room: Height: Weight: BSA: Pt status: Outpatient Study Date: 10/11/2013 Study Time: 07:50 AM BSA: Ordering: [facility], External Provider Provider Teller: Mary Ann Farr [[id number]] History: Amaurosis fugax in the left eye and headaches. Risk factors: Current tobacco use. 20 years Hypertension. Summary The internal carotid arteries reveal no evidence of plaque or stenosis. The common and external carotid arteries reveal no significant stenosis. Spectral velocity data is normal with normal peak systolic and diastolic velocities. The vertebral arteries are patent with normal antegrade flow. Impression: No evidence of significant extracrancial carotid disease. Study data: Carotid duplex study. Complete study and Doppler flow study including spectral analysis, color and diego scale imaging. Location: Vascular laboratory. Patient status: Outpatient. Study status: Routine. Procedure: A vascular evaluation was performed. Image quality was good. Physical exam: Brachial pressures not obtained due to lack of sphygmomanometer in department Arterial flow: - Right CCA - proximal - 0.73m/sec 0.23m/sec - Right CCA - mid - 0.69m/sec 0.19m/sec - Right CCA - distal - 0.47m/sec 0.15m/sec - Right ECA - 0.74m/sec 0.16m/sec - Right ICA - proximal - 0.57m/sec 0.27m/sec - Right ICA - mid - 0.72m/sec 0.37m/sec - Right ICA - distal - 1m/sec 0.5m/sec - Right vertebral - 0.28m/sec 0.07m/sec - Left CCA - proximal - 1.04m/sec 0.27m/sec - Left CCA - mid - 0.92m/sec 0.22m/sec - Left CCA - distal - 0.75m/sec 0.25m/sec - Left ECA - 0.71m/sec 0.14m/sec - Left ICA - proximal - 0.56m/sec 0.26m/sec - Left ICA - mid - 0.71m/sec 0.31m/sec - Left ICA - distal - 1.1m/sec 0.57m/sec - Left vertebral - 0.53m/sec 0.21m/sec [facility] Vascular Lab is accredited with the Intersocietal Commission for the Accreditation of Vascular Laboratories (ICAVL) Prepared and Electronically Authenticated Jose Nava MD, FACS, RPVI Confirmed 10/11/2013 09:08 Procedure Note Jose Nava MD - 10/11/2013 [facility] Cardiovascular Services Noninvasive Vascular Laboratory [address] [place] [address] Noninvasive Vascular Lab Cerebrovascular Exam Carotid Duplex Patient: Deepak Marinelli Study ID: US CAROTID DOPPL Gender: M : 1960 Age: 53 Room: Height: Weight: BSA: Pt status: Outpatient Study Date: 10/11/2013 Study Time: 07:50 AM BSA: Ordering: [facility], External Provider Provider Teller: Mary Ann Farr [[id number]] History: Amaurosis fugax in the left eye and headaches. Risk factors: Current tobacco use. 20 years Hypertension. Summary The internal carotid arteries reveal no evidence of plaque or stenosis. The common and external carotid arteries reveal no significant stenosis. Spectral velocity data is normal with normal peak systolic and diastolic velocities. The vertebral arteries are patent with normal antegrade flow. Impression: No evidence of significant extracrancial carotid disease. Study data: Carotid duplex study. Complete study and Doppler flow study including spectral analysis, color and diego scale imaging. Location: Vascular laboratory. Patient status: Outpatient. Study status: Routine. Procedure: A vascular evaluation was performed. Image quality was good. Physical exam: Brachial pressures not obtained due to lack of sphygmomanometer in department Arterial flow: - Right CCA - proximal - 0.73m/sec 0.23m/sec - Right CCA - mid - 0.69m/sec 0.19m/sec - Right CCA - distal - 0.47m/sec 0.15m/sec - Right ECA - 0.74m/sec 0.16m/sec - Right ICA - proximal - 0.57m/sec 0.27m/sec - Right ICA - mid - 0.72m/sec 0.37m/sec - Right ICA - distal - 1m/sec 0.5m/sec - Right vertebral - 0.28m/sec 0.07m/sec - Left CCA - proximal - 1.04m/sec 0.27m/sec - Left CCA - mid - 0.92m/sec 0.22m/sec - Left CCA - distal - 0.75m/sec 0.25m/sec - Left ECA - 0.71m/sec 0.14m/sec - Left ICA - proximal - 0.56m/sec 0.26m/sec - Left ICA - mid - 0.71m/sec 0.31m/sec - Left ICA - distal - 1.1m/sec 0.57m/sec - Left vertebral - 0.53m/sec 0.21m/sec [facility] Vascular Lab is accredited with the Intersocietal Commission for the Accreditation of Vascular Laboratories (ICAVL) Prepared and Electronically Authenticated Jose Nava MD FACS, RPVI Confirmed 10/11/2013 09:08 us External Provider [facility] US ORDERABLES Final Resu lt * CT ORBITS W CONTRAST (10/11/2013 8:01 AM SUPERVISOR MAPPING) Anatomical Region Laterality Modality Head Computed Tomogra phy 10/11/2013 7:56 AM SUPERVISOR MAPPING Impressions 10/11/2013 11:20 AM SUPERVISOR MAPPING IMPRESSION: See report below. Exam: CT ORBITS W CONTRAST Date/Time of Exam: Oct 11, 2013 08:01:52 AM Reason For Exam: Visual field defect, unspecified. Technique: CT of the orbits was performed following the administration of intravenous contrast. Contrast: 100 mL of Optiray-240 were given. No bony abnormality is seen. Paranasal sinuses are clear and within normal limits. The orbits show a normal appearance of the globes, extraocular muscles and optic nerves. No proptosis or orbital mass is seen. The cavernous sinus and skull base region is unremarkable. No abnormal enhancement is seen. Impression: Unremarkable exam. Chin - uploaded from [employer] Narrative Procedure Note Gustabo Rivera MD - 10/11/2013 IMPRESSION IMPRESSION: See report below. Exam: CT ORBITS W CONTRAST Date/Time of Exam: Oct 11, 2013 08:01:52 AM Reason For Exam: Visual field defect, unspecified. Technique: CT of the orbits was performed following the administration of intravenous contrast. Contrast: 100 mL of Optiray-240 were given. No bony abnormality is seen. Paranasal sinuses are clear and within normal limits. The orbits show a normal appearance of the globes, extraocular muscles and optic nerves. No proptosis or orbital mass is seen. The cavernous sinus and skull base region is unremarkable. No abnormal enhancement is seen. Impression: Unremarkable exam. Chin - uploaded from [employer]- us External Provider [facility] CT ORDERABLES Final Resu lt * CT HEAD W WO CONTRAST (10/11/2013 7:59 AM SUPERVISOR MAPPING) Anatomical Region Laterality Modality Head Computed Tomogra phy 10/11/2013 7:55 AM SUPERVISOR MAPPING Impressions 10/11/2013 11:20 AM SUPERVISOR MAPPING IMPRESSION: See report below. Exam: CT HEAD W WO CONTRAST Date/Time of Exam: Oct 11, 2013 07:59:02 AM Reason For Exam: Visual field defect, unspecified. Technique: CT of the head was performed both before and after the administration of intravenous contrast. Contrast: 100 mL of Optiray-240 were given. Ventricles are normal in size. No mass, hemorrhage or acute intracranial abnormality is seen. No bony abnormalities identified. The post-contrast images show no abnormal enhancement. Impression: Unremarkable exam. Madeleine - uploaded from [employer] - Narrative Procedure Note Gustabo Rivera MD - 10/11/2013 IMPRESSION IMPRESSION: See report below. Exam: CT HEAD W WO CONTRAST Date/Time of Exam: Oct 11, 2013 07:59:02 AM Reason For Exam: Visual field defect, unspecified. Technique: CT of the head was performed both before and after the administration of intravenous contrast. Contrast: 100 mL of Optiray-240 were given. Ventricles are normal in size. No mass, hemorrhage or acute intracranial abnormality is seen. No bony abnormalities identified. The post-contrast images show no abnormal enhancement. Impression: Unremarkable exam. Madeleine - uploaded from [employer] - us External Provider [facility] CT ORDERABLES Final Resu lt documented in this encounter Visit Diagnoses Diagnosis Visual field defect- Primary Visual field defect, unspecified Headache(784.0) Headache Transient arterial occlusion of retina Chest pain, unspecified Visual field defect, unspecified Visual field defect, unspecified Headache(784.0) Headache Transient arterial occlusion of retina Chest pain, unspecified Visual field defect Visual field defect, unspecified Headache(784.0) Headache Transient arterial occlusion of retina Chest pain, unspecified Visual field defect, unspecified Headache(784.0) Headache Transient arterial occlusion of retina Chest pain, unspecified Visual field defect, unspecified Headache(784.0) Headache Transient arterial occlusion of retina Chest pain, unspecified documented in this encounter Care Teams Scientist Propagator Relationship Specialty Start Date End Date Martha Savage DO [address] [place] [address] PCP - General Family Practice 10/18/10 documented as of this encounter
--- OUTSIDE RECORDS SUMMARY | 2025-09-21 23:29 | XMS_ITS | Encounter Summary ---
Author Organization [facility] Address [address] [place] [address] Care Team Providers Care Convention Services Director Name Role Phone Martha Savage DO Primary Care Provider [phone]- [phone] Reason for Visit * Reason Onset Date Comments Post-op Follow-up 07/07/2018 day 4 Encounter Details Date Type Department Care Team (Late st Contact Info) Description 07/07/2018 Telephone [facility] Case Management [address] 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
--- OUTSIDE RECORDS SUMMARY | 2025-09-21 23:29 | XMS_ITS | Encounter Summary ---
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
--- OUTSIDE RECORDS SUMMARY | 2025-09-21 23:30 | XMS_ITS | Encounter Summary ---
Author Organization [facility] Address [address] [place] [address] Care Team Providers Care Roll Picker Name Role Phone Martha Savage DO Primary Care Provider [phone]- [phone] Encounter Details Date Type Department Care Team (Latest Contact Info) Description 03/02/2007 Outpatient Historical [facility] Endocrinology-[place]her h Marinette Stutsman [address] [place] [address] Ramses Smith MD NO ADDRESS ON FILE Unspecified Hypothyroidism (Primary Dx) Social History Tobacco Use Types Packs/Day Years Used Date Smoking Tobacco: Never Assessed Sex and Gender Information Value Date Recorded Sex Assigned at Not on file 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
--- OUTSIDE RECORDS SUMMARY | 2025-09-21 23:30 | XMS_ITS | Encounter Summary ---
Author Organization [facility] Address [address] [place] [address] Care Team Providers Care Scheduling Coordinator Name Role Phone Martha Savage DO Primary Care Provider Encounter Details Date Type Department Care Team (Latest Contact Info) Description 12/25/2006 Outpatient Historical [facility] 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
--- OUTSIDE RECORDS SUMMARY | 2025-09-21 23:30 | XMS_ITS | Clinical Summary ---
Author Organization [facility] Address [address] [facility] Attn: Epic Prelude ADT RAPHAEL ARIAS [address] Care Team Providers Care General Science Teacher Name Role Phone Martha Savage DO Primary Care Provider [phone] Allergies Active Allergy Reactions Criticality Noted Date Comments Amlodipine Hypotension Medium 09/13/2018 Naproxen Other (See Comments) 06/22/2012 Had a gi bleed episode Olmesartan Hypotension Medium 01/22/2017 Prednisone Other (See Comments) High 09/12/2008 With oral med only, rash Sulfa (Sulfonamide Antibiotics) Rash Low 09/19/2008 Medications diclofenac sodium (VOLTAREN) 1 % gel Apply 4 Grams to affected area 4 times daily. 100 Gram PRN 0 Active nystatin (MYCOSTATIN) 100,000 unit/gram Cream Apply to affected area 2 times daily. 30 Gram 5 0 Active albuterol sulfate 90 mcg/Actuation inhaler 1 Active loratadine (Claritin) 10 mg tablet Take 1 Tablet (10 mg) by mouth daily. 90 Tablet 4 2 Active cpap medical deviceIndications: Obstructive sleep apnea on CPAP CPAP with auto titrate with heated humidifier. Length of need:99 months; full face mask with headgear every 6 months; mask only every 3 months; 1 cushions per month; Tubing heated 1 every 3 months, water chamber 1 every 6 months, chin strap 1 every 6 months, filters disposable 2 per month, filters reusable 1 per 6 months. 1 Each 2 Active benzonatate (TESSALON) 200 mg capsule Take 1 Capsule (200 mg) by mouth 3 times daily as needed for Cough. 30 Capsule 1 3 Active Magnesium 200 mg Tablet Take 200 mg by mouth 2 times daily. 4 Active terazosin (HYTRIN) 2 mg capsuleIndications :Benign prostatic hyperplasia with urinary hesitancy TAKE ONE CAPSULE BY MOUTH AT BEDTIME 100 Capsule 3 4 Active gemfibroziL (LOPID) 600 mg tabletIndications: Mixed hyperlipidemia TAKE ONE TABLET BY MOUTH TWICE DAILY 200 Tablet 3 4 Active Synthroid 175 mcg tabletIndications: Hypothyroidism due to acquired atrophy of thyroid Take 1 Tablet (175 mcg) by mouth daily in the morning. 90 Tablet 4 4 Active dilTIAZem (CARDIZEM CD, CARTIA XT) 120 mg Controlled Delivery 24 hour capsule Take 1 Capsule (120 mg) by mouth daily. 90 Capsule 4 5 Active metoprolol succinate (TOPROL XL) 50 mg Extended Release 24 hour tablet Take 1 Tablet (50 mg) by mouth daily. 90 Tablet 4 5 Active rizatriptan (MAXALT) 10 mg Tablet Take 10 mg by mouth every 2 hours as needed for Migraine. may repeat in 2 hours; max dose 30mg in 24 hours Active levalbuterol HFA (XOPENEX HFA) 45 mcg/Actuation HFA Aerosol Inhaler Take 2 Puffs by inhalation every 6 hours as needed for Shortness of Breath or Wheezing. 15 Gram 6 5 Active rivaroxaban (Xarelto) 20 mg Tablet Take 1 Tablet (20 mg) by mouth daily with supper. 90 Tablet 4 5 Active dicyclomine (BENTYL) 20 mg tabletIndications: Irritable bowel syndrome with diarrhea Take 1 Tablet (20 mg) by mouth 3 times daily as needed for Other (See Comment) (abdominal pain). 100 Tablet 1 5 Active Hospital, Clinic, or Other Facility Administered Medication Ordered Dose Route Frequency Start Date End Date Status sodium chloride flush injection 10 mLIndications:Hypote nsion, unspecified hypotension type,Atrial fibrillation with RVR (CMS/HCC) 10 mL IV SEE ADMIN INSTRUCTIONS 10/02/2021 Active Active Problems Problem Noted Date Diagnosed Date Paroxysmal atrial fibrillation 12/29/2021 Severe obesity (BMI 35.0-39.9) with comorbidity 12/29/2021 Atrial fibrillation with rapid ventricular respo nse 08/24/2019 Overview (03/28/2021): New Onset RIGHT TKA (08/22/2019) 08/22/2019 Irritable bowel syndrome with diarrhea 9 Gastroesophageal reflux disease without esophagi tis 08/08/2019 LEFT TKA (06/30/2018) 07/13/2018 Primary osteoarthritis of right knee 06/16/2018 Left bundle branch block 06/16/2018 Benign prostatic hyperplasia with urinary hesita ncy 06/16/2018 Obstructive sleep apnea on CPAP 02/01/2017 Essential hypertension 12/14/2016 Mixed hyperlipidemia 12/28/2012 Hypothyroidism due to acquired atrophy of thyroi d 09/12/2008 Migraine without aura and wi thout status migrainosus, not intractable Resolved Problems Problem Noted Date Diagnosed Date Resolved Date Somnolence 07/02/2018 08/08/2019 Leukocytopenia 06/16/2018 08/24/2019 Allergic rhinitis 06/16/2018 08/24/2019 Hypercalcemia 06/16/2018 08/24/2019 Preoperative general physical examination 06/16/2018 08/24/2019 Acute bronchitis 09/12/2008 03/28/2014 Need for influenza vaccine 09/12/2008 0 03/28/2014 Encounters Date Type Department Care Team Description 07/19/2025 [facility] Medicine [facility] [address] [place] [address] Martha Savage, DO Irritable bowel syndrome with diarrhea from Last 3 Months Immunizations Immunization Administration Dates Next Due (PNEUMOVAX [...] Years Used Date Smoking Tobacco: Former Cigarettes Q uit: 04/30/2014 Smokeless Tobacco: Former Quit: 04/30/2014 Tobacco Cessation:Counseling Given: Not Answered Alcohol Use Standard Drinks/Week Comments No 0 (1 standard drink = 0.6 oz pur e alcohol) Financial Resource Strain Answer Date R ecorded How hard is it for you to pa y for the very basics like food, housing, medical care, and heating? Patient declined 07/06/2023 Food Insecurity Answer Date Recorded In the past 12 months, have you worried that your food would run out before you had money to buy more? Patient declined 2022 In the past 12 months, did y ou run out of food and didn't have money to buy more? Patient declined 07/06/2023 Transportation Needs Answer Date Record ed In the past 12 months, has l ack of transportation kept you from medical appointments or from getting medications? 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 Gender Identity Not on file Sexual Orientation Not on file Last Filed Vital Signs Vital Sign Reading Time Taken Comments Blood Pressure 146/80 03/23/2025 11:15 AM CDT Pulse 79 03/23/2025 11:07 AM CDT Temperature 36.6 C (97.9 F) 03/23/2025 11:07 AM CDT Respiratory Rate 22 03/21/2024 10:35 AM CDT Oxygen Saturation 94% 03/23/2025 11:07 AM CDT Inhaled Oxygen Concentration - - Weight 127.6 kg (281 lb 4 oz) 03/23/2025 11:07 A M CDT Height 188 cm (6' 2 ) 03/23/2025 11:[address] ated Body Mass Index 36.11 03/23/2025 11:07 AM CDT Plan of Treatment Upcoming Encounters Date Type Department Care Team (Late st Contact Info) Description 09/28/2025 2:40 PM CDT Office Visit [facility] [address] [place] [address] Martha Savage, DO [address] [place] [address] Health Maintenance Due Date Last Done Comments FIT/ DNA Q 3 YEARS (AUTO ORDER) 1978 FIT/FOBT Q 1 YEAR (AUTO ORDER) 1978 FLEX SIG/CT COLONOGRAPHY Q 5 YEARS (AUTO ORDER) 1978 DTAP/TDAP/TD VACCINES (1 - Tdap) 1979 FIT-DNA Q 3 years 2005 FIT/FOBT Q 1 year 2005 Flex Sig/CT Colonography Q 5 years 2005 RSV VACCINE (60+ or ) (1 - Risk 50-74 years 1-dose series) 2010 ZOSTER VACCINE (1 of 2) 2010 PNEUMOCOCCAL VACCINE 50+ YEA RS (2 of 2 - PCV) 03/30/2013 03/30/2012 [place] Preventative Visit/Annual Wellness Visit 11/30/2024 11/16/2024, 07/01/2023, 06/26/2022 INFLUENZA VACCINE (#1) 2025 , 09/13/2018, 09/27/2013, Additional history exists Pre-Diabetes and Diabetes Screening 02/12/2028 02/11/2025, 03/26/2023 COLORECTAL CANCER SCREENING (AUTO ORDER) 04/10/2033 04/10/2023, 11/04/2017, 11/04/2017, Additional history exists COLORECTAL SCREENING 04/10/2033 04/10/2023, 11/04/2017, 11/04/2017, Additional history exists Colorectal Cancer Screening (AUTO ORDER) 04/10/2033 Colorectal Cancer Screening 04/10/2033 Abdominal Aortic Aneurysm (A AA) Screening Completed 07/19/2014 Medical Devices Implanted Type Area Electrician Research Device Identifier Shelf Expiration Date Model / Serial / Lot Simplex Hi Viscosity Gent 6195-1-010 - [id number] Implanted:Qty : 1 on 06/30/2018 by Cruz Mccarthy III, MD Cement Left: Knee [employer]FFANIE- [employer] 07/30/2019 6195-1-010 / / [id number] Simplex Hi Viscosity Gent 6195-1-010 - [id number] Implanted:Qty : 1 on 06/30/2018 by Cruz Mccarthy III, MD Cement Left: Knee [employer]ANIE- [employer] 07/30/2019 6195-1-010 / / [id number] Simplex Hi Viscosity Gent 6195-1- - [id number] Implanted:Qty : 1 on 08/22/2019 by Cruz Mccarthy III, MD Cement Right: Knee [employer]IE- [employer] 02/27/2021 6195- / / [id number] Simplex Hi Viscosity Gent 6195- - [id number] Implanted: by Cruz Mccarthy III, MD (Quantity not on file) Cement Right: Knee [employer]IE[employer] 02/27/2021 6195- / / [id number] Comp Fem Attn Ps Cmnt Sz9 1504-10-109 - [id number] Implanted:Qty : 1 on 06/30/2018 by Cruz Mccarthy III, MD Knee Left: Knee [employer] 03/29/2026 [id number] / / [id number] Comp Tib Sttn Fb Cmnt Sz8 1506-70-008 - [id number] Implanted:Qty : 1 on 06/30/2018 by Cruz Mccarthy III, MD Knee Left: Knee J[employer] 12/30/2027 [id number] / / [id number] Ins Attn Fb Ps Sz9 12mm 1516-40-912 - [id number] Implanted:Qty : 1 on 06/30/2018 by Cruz Mccarthy III, MD Knee Left: Knee [employer] 02/27/2019 [id number] / / [id number] Patella Attune Stefanie 35mm 1518-10-035 - [id number] Implanted:Qty : 1 on 06/30/2018 by Cruz Mccarthy III, MD Knee Left: Knee [employer] 03/29/2023 [id number] / / [id number] Comp Fem Attn Ps Cmnt Sz9 1504-10-209 - [id number] Implanted:Qty : 1 on 08/22/2019 by Cruz Mccarthy III, MD Knee Right: Knee [employer] 01/27/2026 [id number] / / [id number] Comp Tib Attn Fb Cmnt Sz8 1506-70-008 - [id number] Implanted:Qty : 1 on 08/22/2019 by Cruz Mccarthy III, MD Knee Right: Knee [employer] 06/29/2029 [id number] / / [id number] Ins Attn Fb Ps Sz9 6mm 1516-40-906 - [id number] Implanted:Qty : 1 on 08/22/2019 by Cruz Mccarthy III, MD Knee Right: Knee [employer] 01/27/2021 [id number] / / [id number] Patella Attune Stefanie 35mm 1518-10-035 - [id number] Implanted:Qty : 1 on 08/22/2019 by Cruz Mccarthy III, MD Knee Right: Knee [employer] 02/27/2023 [id number] / / [id number] Procedures Procedure Name Priority Date/Time Associated Diagnosis Comments HEMOGLOBIN A1C Routine 02/11/2025 ENDOSCOPY, COLON, SCREENING Routine 04/10/2023 12:45 PM CDT US ABDOMEN COMPLETE 07/19/2014 1 2:00 AM CDT from Last 3 Months or Most Recently Relevant to Health Maintenance Results * HEMOGLOBIN A1C (02/11/2025) ABSTRACTED HGB A1C 5.6 % Blood 02/11/2025 us Abstract Provider CHEMISTRY ORDERABLES Final Res ult * ENDOSCOPY, COLON, SCREENING (04/10/2023 12:45 PM CDT) us Abstract Provider GI PROCEDURE ORDERABLES Final Result * US ABDOMEN COMPLETE (07/19/2014 12:00 AM CDT) Anatomical Region Laterality Modality Abdomen Ultrasound us Sgf Scanning US ORDERABLES Final Result from Last 3 Months or Most Recently Relevant to Health Maintenance Insurance [facility] MEDICARE HMO * Guarantor: DEEPAK MARINELLI Account Type Relation to Patient Date of Phone Billing Address Personal/Family [phone] [address] [address] [facility] Medicare Part D Care Teams General Science Teacher Relationship Specialty Start Date End Date Martha Savage DO [address] [place] [address] PCP - General Family Practice 10/18/10
--- OUTSIDE RECORDS SUMMARY | 2025-09-21 23:30 | XMS_ITS | Encounter Summary ---
Author Organization [facility] Address [address] [place] [address] Care Team Providers Care Mushroom Sorter Grader Name Role Phone JanetteMartha magaña Choco BARNES Primary Care Provider Encounter Details Date Type Department Care Team (Latest Contact Info) Description 08/03/2007 Outpatient Historical [facility] [address] [place] [address] Ariel Lilly MD [address] [place] [phone] Derangement of Posterior Horn of Medial Meniscus (Primary Dx) Social History Tobacco Use Types Packs/Day Years Used Date Smoking Tobacco: Never Assessed Sex and Gender Information Value Date Recorded Sex Assigned at Not on file 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 Gender Identity Not on file Sexual Orientation Not on file documented as of this encounter Plan of Treatment Not on file documented as of this encounter Procedures Procedure Name Priority Date/Time Associated Diagnosis Comments POC SODIUM, POTASSIUM, AND H&H Routine 08/03/2007 6:30 AM CDT documented in this encounter Results * POC ISTAT 3 (08/03/2007 6:30 AM CDT) SODIUM POC 141 136 - 145 mEq/L INTERFACE SYSTEM POTASSIUM POC 3.6 3.5 - 5.0 mEq/L INTERFACE SYSTEM HEMATOCRIT POC 44.0 41.0 - 53.0 % INTERFACE SYSTEM HEMOGLOBIN POC 15.0 14.0 - 18.0 g/dL INTERFACE SYSTEM 08/03/2007 6:30 AM CDT us Ariel Lilly MD POINT OF CARE TESTING Edited INTERFACE SYSTEM Refer to clinic/hospital department documented in this encounter Visit Diagnoses Diagnosis Derangement of posterior horn of medial meniscus- Primary documented in this encounter Care Teams Mushroom Sorter Grader Relationship Specialty Start Date End Date Martha Savage DO [address] [place] [address] PCP - General Family Practice 10/18/10 documented as of this encounter
--- OUTSIDE RECORDS SUMMARY | 2025-09-21 23:30 | XMS_ITS | Encounter Summary ---
Author Organization [facility] Address [address] [place] [address] Care Team Providers Care Cook'S Assistant Name Role Phone Martha Savage DO Primary Care Provider [phone]- [phone] Encounter Details Date Type Department Care Team (Latest Contact Info) Description 11/08/2007 Inpatient Historical [facility] [address] [place] [address] Ariel Lilly MD [address] [place] [address] Chondromalacia of Patella; Unspecified Disorder of Thyroid; Tobacco Use Disorder Social History Tobacco Use Types Packs/Day Years Used Date Smoking Tobacco: Never Assessed Sex and Gender Information Value Date Recorded Sex Assigned at Not on file 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
--- OUTSIDE RECORDS SUMMARY | 2025-09-21 23:30 | XMS_ITS | Encounter Summary ---
Author Organization [facility] Address [address] [place] [address] Care Team Providers Care Contact Lens Flashing Puncher Name Role Phone Martha Savage DO Primary Care Provider [phone] Encounter Details Date Type Department Care Team (Latest Contact Info) Description 06/10/2007 Outpatient Historical [facility] Orthopedics- 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
--- OUTSIDE RECORDS SUMMARY | 2025-09-21 23:30 | XMS_ITS | Encounter Summary ---
Author Organization [facility] Address [address] [place] [address] Care Team Providers Care Elastic Yarn Twister Helper Name Role Phone Martha Savage DO Primary Care Provider Encounter Details Date Type Department Care Team (Latest Contact Info) Description 02/23/2007 Outpatient Historical [facility] Medicine- [place] [address] [place] [address] Jacky Cummings MD NO ADDRESS ON FILE Other Tear of Cartilage or Meniscus of Knee, Current (Primary Dx) Social History Tobacco Use Types Packs/Day Years Used Date Smoking Tobacco: Never Assessed Sex and Gender Information Value Date Recorded Sex Assigned at Not on file 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
--- OUTSIDE RECORDS SUMMARY | 2025-09-21 23:30 | XMS_ITS | Encounter Summary ---
Author Organization [facility] Address [address] [place] [address] Care Team Providers Care Irrigation Supervisor Name Role Phone Martha Savage DO Primary Care Provider Encounter Details Date Type Department Care Team (Late st Contact Info) Description 12/02/2007 Outpatient Historical [facility] Orthopedics- [address] [place] 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
--- OUTSIDE RECORDS SUMMARY | 2025-09-21 23:30 | XMS_ITS | Encounter Summary ---
Author Organization [facility] Address [address] [place] [address] Care Team Providers Care Manager Culinary Name Role Phone Martha Savage DO Primary Care Provider [phone]- [phone] Encounter Details Date Type Department Care Team (Latest Contact Info) Description 07/09/2006 Outpatient Historical [facility] [address] [place] [phone] Jacky Cummings MD NO ADDRESS ON FILE Unspecified Hypothyroidism (Primary Dx) Social History Tobacco Use Types Packs/Day Years Used Date Smoking Tobacco: Never Assessed Sex and Gender Information Value Date Recorded Sex Assigned at Not on file 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
--- OUTSIDE RECORDS SUMMARY | 2025-09-21 23:30 | XMS_ITS | Encounter Summary ---
Author Organization [facility] Address [address] [place] [address] Care Team Providers Care Combination Operator Name Role Phone Khloe Savageoragianfranco Wilhelm DO Primary Care Provider Encounter Details Date Type Department Care Team (Late st Contact Info) Description 03/02/2007 Outpatient Historical [facility] Imaging Services [facility] 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 The patient has knee pain and concern formeniscal tear. The ACL and PCL are intact. The quadriceps tendon and the patellar tendon are intact. The medialcollateral ligament is intact, but there is edema along the medial joint line. There is diffusecartilage loss in the medial femur and tibia and there is a prominent oblique tear of the posteriorhorn medial meniscus. Fluid extends into the tear and there is reactive edema in the medial femurand tibia directly adjacent to the meniscal tear. There is also a focal area of cartilage loss withsubchondral edema and cyst formation in the central and anterior aspect of the medial tibia. Theiliotibial tract, the fibulocollateral ligament, and biceps femoris are intact. No linear lateralmeniscal tear is identified. The medial patellofemoral ligament is intact. There is some mildfraying of the cartilage of the patella but no focal osteochondral lesion is identified and thereis no Allison's cyst. IMPRESSION: Prominent cartilage loss in the medial compartment of the knee with bony edema andsclerosis. There is also a prominent tear of the posterior horn medial meniscus filled with fluidsignal intensity. - Dictated By: Melinda Munson M.D. Electronically Signed By: Melinda Munson M.D. Date Signed: 03/02/07 Procedure Note 10/20/2009 MRI of the right knee was performed without contrast. The patient has kneepain and concern formeniscal tear. The ACL and PCL are intact. The quadriceps tendon and the patellar tendonare intact. The medialcollateral ligament is intact, but there is edema along the medialjoint line. There is diffusecartilage loss in the medial femur and tibia and there is aprominent oblique tear of the posteriorhorn medial meniscus. Fluid extends into the tear and there isreactive edema in the medial femurand tibia directly adjacent to the meniscal tear. There is also afocal area of cartilage loss withsubchondral edema and cyst formation in the central and anterioraspect of the medial tibia. Theiliotibial tract, the fibulocollateral ligament, and biceps femoris areintact. No linear lateralmeniscal tear is identified. The medial patellofemoral ligament isintact. There is some mildfraying of the cartilage of the patella but no focal osteochondrallesion is identified and thereis no Allison's cyst. IMPRESSION: Prominent cartilage loss in the medial compartment of the knee with bonyedema andsclerosis. There is also a prominent tear of the posterior horn medial meniscus filled withfluidsignal intensity. - Dictated By: Melinda Munson M.D. Electronically Signed By: Melinda Munson M.D. Date Signed: 03/02/07 us Jacky Cummings MD MR ORDERABLES Final Result documented in this encounter Visit Diagnoses Not on filedocumented in this encounter Care Teams Combination Operator Relationship Specialty Start Date End Date Martha Savage DO [address] [place] [address] PCP - General Family Practice 10/18/10 documented as of this encounter
--- OUTSIDE RECORDS SUMMARY | 2025-09-21 23:30 | XMS_ITS | Encounter Summary ---
Author Organization [facility] Address [address] [place] [address] Care Team Providers Care Canal Boat Operator Name Role Phone Martha Savage DO Primary Care Provider Encounter Details Date Type Department Care Team (Latest Contact Info) Description 08/16/2007 Outpatient Historical [facility] Orthopedics- 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
--- OUTSIDE RECORDS SUMMARY | 2025-09-21 23:30 | XMS_ITS | Encounter Summary ---
Author Organization [facility] Address [address] [place] [address] Care Team Providers Care Networking Technician Name Role Phone JanetteMartha magaña Choco BARNES Primary Care Provider Encounter Details Date Type Department Care Team (Late st Contact Info) Description 01/18/2008 Outpatient Historical [facility] [address] [place] [address] Sohail Wray, BLUEPRINT ENGINEER [address] [place] [phone] Social History Tobacco Use Types Packs/Day Years Used Date Smoking Tobacco: Never Assessed Sex and Gender Information Value Date Recorded Sex Assigned at Not on file 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 02/07/2008 2:34 PM CDT 02/07/2008 2:35 PM CDT us Ramses Smith MD CHEMISTRY ORDERABLES Final Result [facility] SOFIA# [id number] [address] [place] [address] documented in this encounter Visit Diagnoses Not on filedocumented in this encounter Care Teams Networking Technician Relationship Specialty Start Date End Date Martha Savage DO [address] [place] [address] PCP - General Family Practice 10/18/10 documented as of this encounter
--- OUTSIDE RECORDS SUMMARY | 2025-09-21 23:30 | XMS_ITS | Encounter Summary ---
Author Organization [facility] Address [address] [place] [address] Care Team Providers Care Structural Mill Supervisor Name Role Phone Martha Savage DO Primary Care Provider [phone]- [phone] Encounter Details Date Type Department Care Team (Latest Contact Info) Description 12/29/2006 Outpatient Historical [facility] Medicine- [place] [address] [place] [phone] Jacky Cummings MD NO ADDRESS ON FILE Other Specified Disorders of Thyroid (Primary Dx) Social History Tobacco Use Types Packs/Day Years Used Date Smoking Tobacco: Never Assessed Sex and Gender Information Value Date Recorded Sex Assigned at Not on file 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
--- OUTSIDE RECORDS SUMMARY | 2025-09-21 23:30 | XMS_ITS | Encounter Summary ---
Author Organization [facility] Address [address] [place] [address] Care Team Providers Care Piercing Artist Name Role Phone Martha Savage DO Primary Care Provider Encounter Details Date Type Department Care Team (Latest Contact Info) Description 12/30/2006 Outpatient Historical 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
--- OUTSIDE RECORDS SUMMARY | 2025-09-21 23:30 | XMS_ITS | Encounter Summary ---
Author Organization [facility] Address [address] [place] [address] Care Team Providers Care Dimension Quarry Supervisor Name Role Phone Martha Savage DO Primary Care Provider Encounter Details Date Type Department Care Team (Latest Contact Info) Description 03/02/2007 Outpatient Historical [facility] Imaging Services [facility] [address] 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
--- OUTSIDE RECORDS SUMMARY | 2025-09-21 23:30 | XMS_ITS | Encounter Summary ---
Author Organization [facility] Address [address] [place] [address] Care Team Providers Care Painting Supervisor Name Role Phone Martha Savage DO Primary Care Provider Encounter Details Date Type Department Care Team (Latest Contact Info) Description 10/18/2004 Outpatient Historical [facility] Medicine- [place] [address] [place] [address] Naldo Costello MD [address] [place] [phone] CHRONIC SINUSITIS NOS (Primary Dx) Social History Tobacco Use Types Packs/Day Years Used Date Smoking Tobacco: Never Assessed Sex and Gender Information Value Date Recorded Sex Assigned at Not on file 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
--- OUTSIDE RECORDS SUMMARY | 2025-09-21 23:30 | XMS_ITS | Encounter Summary ---
Author Organization [facility] Address [address] [place] [address] Care Team Providers Care Resource Room Teacher Name Role Phone Martha Savage DO Primary Care Provider Encounter Details Date Type Department Care Team (Latest Contact Info) Description 09/27/2007 Outpatient Historical [facility] Imaging Services 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
--- OUTSIDE RECORDS SUMMARY | 2025-09-21 23:31 | XMS_ITS | Encounter Summary ---
Author Organization [facility] Address [address] [place] [address] Care Team Providers Care Health Information Systems Technician Name Role Phone Martah Savage DO Primary Care Provider Encounter Details Date Type Department Care Team (Latest Contact Info) Description 05/08/2006 Outpatient Historical [facility] Medicine- [place] [address] [place] [address] Kaushik Benitez, SOLE LEVELING MACHINE OPERATOR [address] [place] [address] Osteoarth NOS-L/Leg (Primary Dx); Unspecified Hypothyroidism; Unspecified Essential Hypertension; Esophageal Reflux Social History Tobacco Use Types Packs/Day Years Used Date Smoking Tobacco: Never Assessed Sex and Gender Information Value Date Recorded Sex Assigned at Not on file 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 Male 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
--- OUTSIDE RECORDS SUMMARY | 2025-09-21 23:31 | XMS_ITS | Encounter Summary ---
Author Organization [facility] Address [address] [place] [address] Care Team Providers Care Vacuum Evaporation Operator Name Role Phone Martha Savage DO Primary Care Provider [phone]- [phone] Encounter Details Date Type Department Care Team (Latest Contact Info) Description 03/20/2006 Outpatient Historical [facility] Medicine- [place] [address] [place] [address] Kaushik Benitez, FLOTATION OPERATOR [address] [place] [address] Allergic Rhinitis, Cause Unspecified (Primary Dx); Edema; Other Malaise and Fatigue Social History Tobacco Use Types Packs/Day Years Used Date Smoking Tobacco: Never Assessed Sex and Gender Information Value Date Recorded Sex Assigned at Not on file 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
--- OUTSIDE RECORDS SUMMARY | 2025-09-21 23:31 | XMS_ITS | Encounter Summary ---
Author Organization [facility] Address [address] [place] [address] Care Team Providers Care Industrial Technology Teacher Name Role Phone Martha Savage DO Primary Care Provider [phone]- [phone] Encounter Details Date Type Department Care Team (Latest Contact Info) Description 09/13/2004 Outpatient Historical [facility] Medicine- [place] [address] [place] [address] Naldo Costello MD [address] [place] [phone] MIGRAINE NOS W/O MENTN INTRACTABLE (Primary Dx) Social History Tobacco Use Types Packs/Day Years Used Date Smoking Tobacco: Never Assessed Sex and Gender Information Value Date Recorded Sex Assigned at Not on file 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
--- OUTSIDE RECORDS SUMMARY | 2025-09-21 23:31 | XMS_ITS | Encounter Summary ---
Author Organization [facility] Address [address] [place] [address] Care Team Providers Care Shrinker Name Role Phone Martha Savage DO Primary Care Provider [phone] Encounter Details Date Type Department Care Team (Latest Contact Info) Description 04/01/2006 Outpatient Historical [facility] Family Medicine- [place] [address] [place] [address] Kaushik Benitez, MIDDLE SCHOOL BASEBALL COACH [address] [place] [address] Unspecified Hypothyroidism (Primary Dx) Social History Tobacco Use Types Packs/Day Years Used Date Smoking Tobacco: Never Assessed Sex and Gender Information Value Date Recorded Sex Assigned at Not on file Legal Sex Male 5:09 AM CHAPLAINCY Gender Identity Not on file Sexual Orientation Not on file documented as of this encounter Plan of Treatment Not on file documented as of this encounter Visit Diagnoses Diagnosis Unspecified hypothyroidism- Primary documented in this encounter Care Teams Shrinker Relationship Specialty Start Date End Date Martha Savage DO [address] [place] [address] PCP - General Family Practice 10/18/10 documented as of this encounter
[2025-09-22] VITALS (34 sets, daily range): BP systolic 116–175; BP diastolic 44–106; PULSE 54–78; RESP 9–27; TEMP 36.4–36.6; O2SAT 90–98
[2025-09-22] MEDS: AMIODARONE HCL/D5W 900 MG/500 ML BAG 33.33 MG IV (00:38)
[2025-09-22] MEDS: nitroglycerin 1 gm/inch oint Pkt 0.5 INCH TOPICAL (00:38)
[2025-09-22] MEDS: morphine 4 mg/mL SDV 1 mL IVP ×2 (00:39→02:18)
[2025-09-22 01:04] LABS: Hematocrit 40.3 % (37-53); Hemoglobin 13.60 g/dL (11.27-16.99); Mean Corpuscular HGB Conc 33.7 g/dL (30-55); Mean Corpuscular Hemoglobin 28.9 pg (27-33); Mean Corpuscular Volume 85.7 fl (82-101); Nucleated Red Blood Cells % 0 %; Platelet Count 130 10^3/cmm (157-399); Red Blood Count 4.70 10^6/uL (3.85-5.65); White Blood Count 4.25 10^3/uL (3.29-11.43)
[2025-09-22 01:18] LABS: Troponin(5th) Baseline 16 ng/L (0-15)
--- NOTE | 2025-09-22 01:28 | ECG_ITS ---
[email or web address] 2025-09[facility]22 Pat Name: Deepak Chacon Department: Room: Gender: Male Firing Pin Gauger: : 1960 Requested By: Priti Broderick Order Number: [id number] Efra MD: Sandor Marques M.D. Measurements Intervals [place] Rate: 69 P: 37 VA: 197 QRS: 1 QRSD: 180 T: 138 QT: 454 QTc: 487 Interpretive Statements SINUS RHYTHM LEFT BUNDLE BRANCH BLOCK [120+ ms QRS DURATION, 80+ ms Q/S IN V1/V2, 85+ ms R IN I/aVL/V5/V6] Compared to ECG 09/21/2025 23:21:40 No significant changes Electronically Signed On 09-22-2025 15:27:50 CDT by Sandor Marques M.D. [email or web address]
[2025-09-22 01:40] LABS: Alanine Aminotransferase 27 U/L (0-41); Albumin Level 4.2 g/dL (3.5-5.2); Alkaline Phosphatase 70 U/L (40-130); Anion Gap 15.5 (5-19); Aspartate Amino Transferase 21 U/L (0-40); Blood Urea Nitrogen 12 mg/dL (8-23); Calcium 9.5 mg/dL (8.5-10.5); Carbon Dioxide 23 mmol/L (22-29); Chloride 105 mmol/L (98-107); Creatinine Clr Calc Pharmacy 127.9552; Globulin 1.9 g/dL (1.3-4.6); Glucose 104 mg/dL (65-115); NT Pro B Type Natriuretic Pept 60 pg/mL (0-125); Osmolality Calculated 290 mOsm/kg (285-295); Potassium 3.5 mmol/L (3.5-5.1); Sodium 140 mmol/L (136-145); Total Protein 6.1 g/dL (6.6-8.7)
--- NOTE | 2025-09-22 02:42 | ECG_ITS ---
[facility] Test Date: 2025-09-22 Pat Name: Deepak Chacon Department: Room: EDIP Gender: Male Gi Physician: : 1960 Requested By: Misty George Order Number: [id number] Reading MD: VIVI CAROLINA Interpretive Statements Lung unchanged pre/post procedure; Intraprocedure shortess of breath; Symptoms resoled by discharge NOTE: Please note that this is the electrocardiogram portion of the Lexiscan/Sestamibi stress test. The perfusion scan will be documented separately. DATA: Baseline heart rate was 59 beats per minute. Baseline blood pressure was 177/99 millimeters of mercury. Target heart rate was 155. Maximum heart rate achieved was 132. which was 85% of the predicted target heart rate. Maximum blood pressure was 177/107 millimeters of mercury. The reason for ending the test was completion of the protocol. The patient did not experience any symptoms. ELECTROCARDIOGRAM: BASELINE: Sinus rhythm. Normal axis. Left bundle branch block EXERCISE: After Lexiscan injection, no ST-T changes suggestive of ischemic noted. No arrhythmia noted. CONCLUSION: Please note due to baseline abnormality of the EKG specificity and sensitivity of the EKG portion of LexiScan MIBI stress test will be low 1. EKG not suggestive of ischemia 2. Lexiscan injection unremarkable. 3. Perfusion scan will be documented separately. Electronically Signed On 09-24-2025 22:37:43 CDT by VIVI CAROLINA [email or web address]
--- NOTE | 2025-09-22 02:42 | NMCV_ITS ---
NM carrie perf SPECT r/s* [id number] Deepak Chacon Age: 65 Gender: M : 1960 Exam Date: 09/22/2025 06:16 Ordering Phys: Misty Jansen MD Technologist: VICTORIA Frey Exam Location: [facility] Indications: cp STRESS TEST Please see separate stress test report in [facility]any for full findings IMAGE PROTOCOL Rest/Stress 1 Lexiscan Day Radiopharmaceutical Dose (mCi) Administration Site Administered by Rest: Tc-99m 11 IV VICTORIA Newman Sestamibi Stress:Tc-99m 33 IV VICTORIA Frey Sestamialberta Rest: 22-Sep-2025 60 Discovery 630 Stress: 22-Sep-2025 30 Discovery 630 0.4mg Lexiscan. Images obtained in supine and prone position. SPECT RESULTS Technical Quality: Good Raw Data Analysis: Normal Image Corrections: No attenuation or motion correction applied Summed Stress Score: 1 Summed Rest Score: 4 Summed Difference Score: 0 PERFUSION FINDINGS Patchy areas of slightly decreased tracer uptake were noted in the anteroseptal, inferoseptal and apical apical regions. No significant reversibility was noted in these areas. FUNCTIONAL RESULTS (calculated via Gated SPECT) Stress Image LV EF (%): 43 Stress EDV (mL):172 TID: 0.97 Stress ESV (mL):98 FUNCTIONAL FINDINGS: Segmental wall motion analysis revealed mild diffuse hypokinesia of the left ventricle. Transient ischemic dilatation ratio was normal. LV volume was found to be elevated. IMPRESSIONS 1. Myocardial perfusion imaging revealing patchy areas of persistent decreased tracer uptake in the anteroseptal, inferoseptal and apical septal segments suggesting myocardial scarring versus attenuation artifact 2. Diminished LV ejection fraction of 43%. 3. LV wall motion analysis revealing diffuse hypokinesia of the left ventricle. 4. Mildly dilated LV cavity with an end-systolic volume of 98 mL No significant coronary ischemia, based on the above findings. Compared to the study from 04/15/2022, the current study does not show any evidence of ischemia. There is slight drop in the LV ejection fraction from 47% to 43% Dr Sandor Marques MD FAC (Electronically Signed) Final Date: 22 September 2025 09:50 S
--- NOTE | 2025-09-22 02:42 | USCV_ITS ---
Deepak Chacon Age: 65 Gender: M : 1960 Exam Date: 09/22/2025 03:12 Ordering Phys: Misty Jansen MD Technologist: PAYAM [place] [facility] [place]: chest pain, hx Afib, HTN, hypoxia, HL, hx CAD s/p PCI BP: 118 / 74 HR: 59 Rhythm: Sinus Technical Quality: Adequate MEASUREMENTS (Male / Female) Normal Values 2D ECHO LV Diastolic Diameter PLAX 5.0 cm 4.2 - 5.9 / 3.9 - 5.3 cm IVS Diastolic Thickness 1.8 cm 0.6 - 1.0 / 0.6 - 0.9 cm IVS Systolic Thickness 2.2 cm LVPW Diastolic Thickness 1.7 cm 0.6 - 1.0 / 0.6 - 0.9 cm LVPW Systolic Thickness 2.2 cm LVOT Diameter 2.2 cm LV Ejection Fraction 2D Teich 62.6 % LV Ejection Fraction MOD 4C 50.2 % LV Ejection Fraction MOD 2C 36.4 % LV Ejection Fraction 2C AL 37.3 % LA Diameter 4.0 cm Aorta at Sinotubular Diameter 3.9 cm IVC Diameter 2.8 cm M-MODE LA Ao Ratio MM 1.1 AV Cusp Separation MM 2.6 cm DOPPLER AV Peak Velocity 109.0 cm/s LVOT Peak Velocity 96.0 cm/s AV Area Cont Eq vti 4.0 cm squared AV Area Cont Eq pk 3.4 cm squared MV Peak Velocity 87.0 cm/s MV Area PHT 2.6 cm squared Mitral E to A Ratio 0.7 TV Peak E Velocity 38.0 cm/s PV Peak Velocity 73.0 cm/s FINDINGS Left Ventricle Moderate concentric left ventricular hypertrophy. Diffuse hypokinesia of the septum and the anteroseptal segments. LV ejection fraction 45 - 50%. Grade I/IV diastolic dysfunction (abnormal relaxation filling pattern), normal to mildly elevated filling pressures. Right Ventricle Normal right ventricular size and systolic function. Right Atrium Normal right atrial size. Left Atrium Normal left atrial size. IA Septum Normal appearance of the interatrial septum. Mitral Valve Mild mitral valve regurgitation. Aortic Valve No gross abnormalities noted Tricuspid Valve Trace tricuspid valve regurgitation. Pulmonic Valve Mild pulmonary valve regurgitation. Pericardium No pericardial effusion. Aorta Normal aortic annulus size. IVC Normal inferior vena cava. CONCLUSIONS Normal left ventricular size, systolic function and wall thickness with ejection fraction of 45- 50%. Wall motion abnormalities as mentioned above Normal right ventricular size and systolic function. No significant valvular abnormalities. Mild mitral valve regurgitation. Trace tricuspid valve regurgitation. Mild pulmonary valve regurgitation. No intracardiac masses. There is no pericardial effusion. Compared to the study from 02/11/2025, there may not be a significant change Dr Sandor Marques MD [facility] (Electronically Signed) Final Date: 22 September 2025 13:08 S
[2025-09-22 02:43] LABS: Troponin 5 2HR 15.66 ng/L (0-15)
--- NOTE | 2025-09-22 02:45 | PM.HP ---
Providers/Chief Complaint Admitting Physician: Misty Jansen MD--patient admitted after 12 midnight Primary Care Provider: Martha Savage DO Chief Complaint: CP History of Present Illness Deepak Chacon is a 65 year old male with history of hypertension and thyroid disease chest pains. Patient also has history of atrial fibrillation a patient of Dr. Vargas. The tells me that the patient started having chest pain at 9 AM on the day of presentation at 7/10 pain level. Patient aids on oxygen at 2L troponin obtain and it was unremarkable with negative delta. I have ordered a stress test on this patient keep the patient n.p.o. Patient is ED hold at this time. Review of Systems Narrative: System review upon 10 organ system review with significant for cardiovascular with chest pain Medications/Allergies Home Medications ?Medication ?Instructions ?Recorded ?Confirmed ?Last Taken ?Type gemfibrozil 600 mg tablet 600 mg PO BID 10/04/21 03/22/25 07/07/24 History rivaroxaban 20 mg tablet (Xarelto) 20 mg PO BEDTIME 10/04/21 03/22/25 07/07/24 History terazosin 2 mg capsule 2 mg PO BEDTIME 10/04/21 03/22/25 07/07/24 History levothyroxine 175 mcg tablet 175 mcg PO DAILY 12/01/24 03/22/25 Unknown History (Synthroid) diltiazem HCl 120 mg 120 mg PO DAILY #90 caps 03/22/25 03/22/25 Unknown Rx capsule,extended release 24 hr (Cardizem CD) metoprolol succinate 50 mg 50 mg PO BID #90 tabs 05/10/25 Unknown Rx tablet,extended release 24 hr valsartan 40 mg tablet 20 mg (1/2 x 40 mg) PO BID #60 tabs 06/23/25 Unknown Rx Allergies Allergy/AdvReac Type Severity Reaction Status Date / Time No Known Allergies Allergy Verified 03/22/25 16:05 PFSH Acute PFSH: Medical History Atrial fibrillation with rapid ventricular response Hypertension Labile hypertension Chest pain Acute hypokalemia Hypoxia Hyperlipidemia Atrial fibrillation CHF (congestive heart failure), NYHA class III Family history of colon cancer COVID-19 Chest pain Atrial fibrillation with RVR Surgical History Hx of knee surgery bilateral Hx of colonoscopy with polypectomy 2014 History of esophagogastroduodenoscopy (EGD) History of knee replacement Social History Smoking and tobacco/nicotine status: former use of tobacco/nicotine Alcohol intake: never Substance/Drug Use: never Vitals/I&O/Wt Last Vital Signs Temp 98 F 09/21/25 23:25 Pulse 64 09/22/25 02:22 Resp 16 09/22/25 02:18 BP 118/74 09/22/25 02:22 Pulse Ox 93 09/22/25 02:22 09/21/25 09/21/25 09/22/25 14:59 22:59 06:59 Intake Total 0 / 0 Balance 0 / 0 Weight last 48 hrs Weight 129.274 kg Physical Exam Narrative: General the patient is in no apparent distress at my evaluation. HEENT normocephalic atraumatic neck neck is supple cardiovascular heart rate is regular lungs are pretty much clear abdomen is soft nontender nondistended unremarkable extremities are intact no edema has good pulses neurology has no focality lab studies lab studies reviewed and noted. Data 09/22/25 09:15 09/22/25 09:15 A&P Assessment and plan 1. Unstable angina: 2. Hypertension: 3. Hyperlipidemia: Plan: Unstable angina - Admit to medical floor bed patient is in ED hold - Patient has been kept n.p.o. after midnight and stress test ordered - Patient had already gone for stress test - Attending physician today to follow through about the result and other plan with this. - Patient did not have any further recurrent chest pain since his stay in the ED or in the hospital - Must continue to monitor - Patient is on observation stay PDMP PDMP Reviewed: Not Reviewed Attestations Medical Necessity Statement*: Patient is unstable angina and need to allow 23 hours stay for optimization of care to run through stress test and see how patient does. Coding Level of Care Code Acute Code for Chg Fwd Diagnoses Unstable angina I20.0 Hypertension I10 Hyperlipidemia E78.5 Time Spent (min) 50
[2025-09-22 03:10] LABS: Troponin 5 2HR Delta -0.34 ABS# (0-10)
--- NOTE | 2025-09-22 05:28 | ECG_ITS ---
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 Measurements Intervals [place] Rate: 63 P: 45 VT: 141 QRS: 64 QRSD: 181 T: 165 QT: 475 QTc: 488 Interpretive Statements SINUS RHYTHM LEFT BUNDLE BRANCH BLOCK [120+ ms QRS DURATION, 80+ ms Q/S IN V1/V2, 85+ ms R IN I/aVL/V5/V6] Compared to ECG 04/15/2022 09:05:16 Left bundle-branch block now present Sinus tachycardia no longer present Short VT interval no longer present Intraventricular conduction delay no longer present Electronically Signed On 09-22-2025 15:30:41 CDT by Sandor Marques M.D. [email or web address]
[2025-09-22] MEDS: aminophylline 25 mg/mL SDV 20 mL IVP (07:13)
--- NOTE | 2025-09-22 07:17 | PC.NURSE ---
pt still having stress test, not in room at this time
--- NOTE | 2025-09-22 07:59 | PC.NURSE ---
pt arrived back to unit at approx 0800
[2025-09-22 09:22] LABS: Hematocrit 40.7 % (37-53); Hemoglobin 13.60 g/dL (11.27-16.99); Mean Corpuscular HGB Conc 33.4 g/dL (30-55); Mean Corpuscular Hemoglobin 28.8 pg (27-33); Mean Corpuscular Volume 86.2 fl (82-101); Nucleated Red Blood Cells % 0 %; Platelet Count 125 10^3/cmm (157-399); Red Blood Count 4.72 10^6/uL (3.85-5.65); White Blood Count 4.25 10^3/uL (3.29-11.43)
[2025-09-22 09:40] LABS: Troponin 5 6HR 15.18 ng/L (0-15)
[2025-09-22 09:43] LABS: Alanine Aminotransferase 28 U/L (0-41); Albumin Level 4.3 g/dL (3.5-5.2); Alkaline Phosphatase 68 U/L (40-130); Chloride 102 mmol/L (98-107); Potassium 3.5 mmol/L (3.5-5.1); Sodium 138 mmol/L (136-145)
[2025-09-22 09:49] LABS: Troponin 5 6HR Delta -0.82 ng/L (0-12)
[2025-09-22 10:00] LABS: Anion Gap 15.5 (5-19); Aspartate Amino Transferase 21 U/L (0-40); Blood Urea Nitrogen 15 mg/dL (8-23); Calcium 9.7 mg/dL (8.5-10.5); Carbon Dioxide 24 mmol/L (22-29); Creatinine Clr Calc Pharmacy 127.9552; Globulin 1.9 g/dL (1.3-4.6); Glucose 103 mg/dL (65-115); Magnesium 2.1 mg/dL (1.7-2.3); Osmolality Calculated 287 mOsm/kg (285-295); Total Protein 6.2 g/dL (6.6-8.7)
--- NOTE | 2025-09-22 10:07 | PC.PHAR ---
Pt presented med list. Verified with [facility] pharmacy pt's Synthroid has changed from 200mcg to 175mcg and Valsartan 40mg is 20mg bid (not on med list). Have a call out to Akanksha Cornejo to verify if pt should still be taking and have not heard back. Also, verified with pt and he is still taking it.
--- OUTSIDE RECORDS SUMMARY | 2025-09-22 10:37 | XMS_ITS | Encounter Summary ---
Author Organization [facility] Address [address] [place] [address] Care Team Providers Care Warehouser Name Role Phone Martha Savage DO Primary Care Provider Encounter Details Date Type Department Care Team (Late st Contact Info) Description 07/09/2018 Telephone [facility] Case Management [address] [facility] 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
--- OUTSIDE RECORDS SUMMARY | 2025-09-22 10:37 | XMS_ITS | Encounter Summary ---
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
--- OUTSIDE RECORDS SUMMARY | 2025-09-22 10:37 | XMS_ITS | Clinical Summary ---
Author Organization [facility] Address [address] [place] [address] Care Team Providers Care Corrections Lieutenant Name Role Phone Khloe Savageoragianfranco Wilhelm DO Primary Care Provider Allergies Active Allergy Reactions Criticality Noted Date [...] on file Legal Sex Male 5:09 AM SUBSCRIPTION CREW LEADER Gender Identity Not on file Sexual Orientation Not on file Occupation Industry Job Start Date Job End Date Not on file Not on file Not on file Not on file Not on file Not on file Not on file Last Filed Vital Signs Vital Sign Reading Time Taken Comments Blood Pressure 127/76 12/28/2020 9:04 AM SUBSCRIPTION CREW LEADER Pulse 75 12/28/2020 9:04 AM SUBSCRIPTION CREW LEADER Temperature 36.2 C (97.1 F) 12/28/2020 9:04 AM SUBSCRIPTION CREW LEADER Respiratory Rate 18 12/28/2020 9:04 AM SUBSCRIPTION CREW LEADER Oxygen Saturation 94% 12/28/2020 9:04 AM SUBSCRIPTION CREW LEADER Inhaled Oxygen Concentration - - Weight 120.7 kg (266 lb) 12/28/2020 9:04 AM SUBSCRIPTION CREW LEADER Height 188 cm (6' 2 ) 12/28/2020 9:04 AM SUBSCRIPTION CREW LEADER Body Mass Index 34.15 12/28/2020 9:04 AM SUBSCRIPTION CREW LEADER Plan of Treatment Health Maintenance Due Date [...] series) 2035 Medical Devices Implanted Type Area Microbiology Quality Control Technician Device Identifier Shelf Expiration Date Model / Serial / Lot Simplex Hi Viscosity Gent 6195-1-010 - [id number] Implanted:Qty: 1 on 06/30/2018 by Cruz Mccarthy III, MD at [facility] Cement Left: Knee [employer] 07/30/2019 6195-1-010 / / [id number] Simplex Hi Viscosity Gent 6195-1-010 - [id number] Implanted:Qty: 1 on 06/30/2018 by Cruz Mccarthy III, MD at [facility] Cement Left: Knee [employer] 07/30/2019 6195-1-010 / / [id number] Simplex Hi Viscosity Gent 6195-1-010 - [id number] Implanted:Qty: 1 on 08/22/2019 by Cruz Mccarthy III, MD at [facility] Cement Right: Knee [employer] 02/27/2021 6195-1-010 / / [id number] Simplex Hi Viscosity Gent 6195-1-010 - [id number] Implanted:08/22 by Cruz Mccarthy III, MD at [facility] (Quantity not on file) Cement Right: Knee [employer]IE[employer] 02/27/2021 6195-1-010 / / [id number] Comp Fem Attn Ps Cmnt Sz9 1504-10-109 - [id number] Implanted:Qty: 1 on 06/30/2018 by Cruz Mccarthy III, MD at [facility] Knee Left: Knee [employer] 03/29/2026 [id number] / / [id number] Comp Tib Sttn Fb Cmnt Sz8 1506-70-008 - [id number] Implanted:Qty: 1 on 06/30/2018 by Cruz Mccarthy III, MD at [facility] Knee Left: Knee [employer] 12/30/2027 [id number] / / [id number] Ins Attn Fb Ps Sz9 12mm 1516-40-912 - [id number] Implanted:Qty: 1 on 06/30/2018 by Cruz Mccarthy III, MD at [facility] Knee Left: Knee [employer] 02/27/2019 [id number] / / [id number] Patella Attune Stefanie 35mm 1518-10-035 - [id number] Implanted:Qty: 1 on 06/30/2018 by Cruz Mccarthy III, MD at [facility] Knee Left: Knee [employer] 03/29/2023 [id number] / / [id number] Comp Fem Attn Ps Cmnt Sz9 1504-10-209 - [id number] Implanted:Qty: 1 on 08/22/2019 by Cruz Mccarthy III, MD at [facility] Knee Right: Knee [employer] 01/27/2026 [id number] / / [id number] Patella Attune Stefanie 35mm 1518-10-035 - [id number] Implanted:Qty: 1 on 08/22/2019 by Cruz Mccarthy III, MD at [facility] Knee Right: Knee [employer] 02/27/2023 [id number] / / [id number] Ins Attn Fb Ps Sz9 6mm 1516-40-906 - [id number] Implanted:Qty: 1 on 08/22/2019 by Cruz Mccarthy III, MD at [facility] Knee Right: Knee [employer] 01/27/2021 [id number] / / [id number] Comp Tib Attn Fb Cmnt Sz8 1506-70-008 - [id number] Implanted:Qty: 1 on 08/22/2019 by Cruz Mccarthy III, MD at [facility] Knee Right: Knee [employer] 06/29/2029 [id number] / / [id number] Procedures Procedure Name Priority Date/Time Associated Diagnosis Comments ENDOSCOPY, COLON, DIAGNOSTIC Routine 11/04/2017 from Last 3 Months or Most Recently Relevant to Health Maintenance Results * ENDOSCOPY, COLON, DIAGNOSTIC (11/04/2017) us Abstract Spg Provider GI PROCEDURE ORDERABLES Fi nal Result from Last 3 Months or Most Recently Relevant to Health Maintenance Insurance RX [facility] Medicare [facility] Advance Directives For more information, please contact: [phone] * Full Code (Latest Code Status on [...] 8:37 AM 06/30/2018 4:09 PM Care Teams Corrections Lieutenant Relationship Specialty Start Date End Date Martha Savage DO [address] [address] PCP - General Family Practice 10/18/10
--- OUTSIDE RECORDS SUMMARY | 2025-09-22 10:37 | XMS_ITS | Encounter Summary ---
Author Organization [facility] Address [address] [place] [address] Care Team Providers Care Restaurant Management Internship Name Role Phone Martha Savage DO Primary Care Provider [phone]- [phone] Encounter Details Date Type Department Care Team (Latest Contact Info) Description 09/04/2006 Outpatient Historical [facility] Family Medicine- [place] [address] [place] [phone] Jacky Cummings MD NO ADDRESS ON FILE Olecranon Bursitis (Primary Dx) Social History Tobacco Use Types Packs/Day Years Used Date Smoking Tobacco: Never Assessed Sex and Gender Information Value Date Recorded Sex Assigned at Not on file 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
--- OUTSIDE RECORDS SUMMARY | 2025-09-22 10:37 | XMS_ITS | Encounter Summary ---
Author Organization [facility] Address [address] [place] [address] Care Team Providers Care Geological Scout Name Role Phone Martha Savage DO Primary Care Provider [phone]- [phone] Encounter Details Date Type Department Care Team (Latest Contact Info) Description 11/10/[address] [facility] 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 Social History Tobacco Use Types Packs/Day Years Used Date Smoking Tobacco: Never Assessed Sex and Gender Information Value Date Recorded Sex Assigned at Not on file Legal Sex Male 5:09 AM IMMIGRATION LAW SPECIALIST Gender Identity Not on file Sexual Orientation Not on file documented as of this encounter Plan of Treatment Not on file documented as of this encounter Visit Diagnoses Diagnosis Unspecified nontoxic nodular goiter- Primary Throat pain 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
--- OUTSIDE RECORDS SUMMARY | 2025-09-22 10:37 | XMS_ITS | Encounter Summary ---
Author Organization [facility] Address [address] [place] [address] Care Team Providers Care Fifth Grade Teacher Name Role Phone Martha Savage DO Primary Care Provider [phone]- [phone] Encounter Details Date Type Department Care Team (Latest Contact Info) Description 09/22/[address] 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
--- OUTSIDE RECORDS SUMMARY | 2025-09-22 10:37 | XMS_ITS | Encounter Summary ---
Author Organization [facility] Address [address] [place] [address] Care Team Providers Care Global Sales Manager Name Role Phone Martha Savage DO Primary Care Provider [phone]- [phone] Encounter Details Date Type Department Care Team (Latest Contact Info) Description 10/29/2006 Outpatient Historical [facility] Family Medicine- [place] [address] [place] [phone] Jacky Cummings MD NO ADDRESS ON FILE Olecranon Bursitis (Primary Dx) Social History Tobacco Use Types Packs/Day Years Used Date Smoking Tobacco: Never Assessed Sex and Gender Information Value Date Recorded Sex Assigned at Not on file Legal Sex Male 5:09 AM REVIEW APPRAISER Gender Identity Not on file Sexual Orientation Not on file documented as of this encounter Plan of Treatment Not on file documented as of this encounter Visit Diagnoses Diagnosis Olecranon bursitis- Primary documented in this encounter Care Teams Global Sales Manager Relationship Specialty Start Date End Date Martha Savage DO [address] [place] [phone] PCP - General Family Practice 10/18/10 documented as of this encounter
--- OUTSIDE RECORDS SUMMARY | 2025-09-22 10:37 | XMS_ITS | Encounter Summary ---
Author Organization [facility] Address [address] [place] [address] Care Team Providers Care Attendant Coin Operated Laundry Name Role Phone JanetteMartha magaña Primary Care Provider [phone] Encounter Details Date Type Department Care Team (Latest Contact Info) Description 12/22/2006 Outpatient Historical [facility] [phone] Keven De Los Santos MD NO ADDRESS ON FILE Unspecified Hypothyroidism (Primary Dx) Social History Tobacco Use Types Packs/Day Years Used Date Smoking Tobacco: Never Assessed Sex and Gender Information Value Date Recorded Sex Assigned at Not on file Legal Sex Male 5:09 AM GENERAL ASSEMBLER Gender Identity Not on file Sexual Orientation Not on file documented as of this encounter Plan of Treatment Not on file documented as of this encounter Procedures Procedure Name Priority Date/Time Associated Diagnosis Comments NM THYROID UPTAKE SINGLE 24 HR Routine 12/22/2006 12:01 AM GENERAL ASSEMBLER documented in this encounter Results * NM THYROID UPTAKE SINGLE 24 HR (12/22/2006 12:01 AM GENERAL ASSEMBLER) Anatomical Region Laterality Modality Neck Other 12/22/2006 12:0 1 AM GENERAL ASSEMBLER Narrative 12/22/2006 12:01 AM GENERAL ASSEMBLER Thyroid Imaging and Single Uptake Examination: Radiopharmaceutical: [...] Primary documented in this encounter Care Teams Attendant Coin Operated Laundry Relationship Specialty Start Date End Date Martha Savage DO [address] [place] [phone] PCP - General Family Practice 10/18/10 documented as of this encounter
--- OUTSIDE RECORDS SUMMARY | 2025-09-22 10:37 | XMS_ITS | Encounter Summary ---
Author Organization [facility] Address [address] [place] [address] Care Team Providers Care After School Caregiver Name Role Phone Martha Savage DO Primary Care Provider [phone]- [phone] Reason for Visit * Reason Onset Date Comments Post-op Follow-up 07/07/2018 day 4 Encounter Details Date Type Department Care Team (Late st Contact Info) Description 07/07/2018 Telephone [facility] Case Management [address] 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
--- OUTSIDE RECORDS SUMMARY | 2025-09-22 10:37 | XMS_ITS | Encounter Summary ---
Author Organization [facility] Address [address] [place] [address] Care Team Providers Care Traveling Buyer Name Role Phone Martha Savage DO Primary Care Provider [phone] Reason for Referral * Outpatient Services (Routine) - Closed Specialty Diagnoses / Procedures Referred By Contac t Referred To Contact Diagnoses Visual field defect, unspecified Headache(784.0) Transient arterial occlusion of retina Chest pain, unspecified Procedures CT ORBITS W CONTRAST [facility] Pre-Registration [place] CALL TO MAKE APPOINTMENT ONLY [address] [place] [address] Phone: tel: [facility] [place] CALL TO MAKE APPOINTMENT ONLY [address] [place] [address] Phone: tel: fax: Referral ID Status Reason Start Date Expiration Date V isits Requested Visits Authorized [id number] Closed [facility] TO SCHEDULE ([facility]) 10/10/2013 11/10/2014 1 1 Electronically signed by [facility], External Provider at 10/10/2013 2:00 PM CNMT * Outpatient Services (Routine) - Closed Specialty Diagnoses / Procedures Referred By Contac t Referred To Contact Diagnoses Visual field defect, unspecified Headache(784.0) Transient arterial occlusion of retina Chest pain, unspecified Procedures US [facility]OTID [facility]OPPLER [facility] [place] CALL TO MAKE APPOINTMENT ONLY [address] [place] [address] Phone: tel: fax: [facility] Pre-Registration [place] CALL TO MAKE APPOINTMENT ONLY [address] [place] [address] Phone: tel: fax: Referral ID Status Reason Start Date Expiration Date V isits Requested Visits Authorized [id number] Closed [facility] TO SCHEDULE ([facility]) 10/10/2013 11/10/2014 1 1 Electronically signed by [facility], External Provider at 10/10/2013 1:49 PM CNMT * Outpatient Services (Routine) - Closed Specialty Diagnoses / Procedures Referred By Contac t Referred To Contact Diagnoses Visual field defect, unspecified Headache(784.0) Transient arterial occlusion of retina Chest pain, unspecified Procedures ECHO COMPLETE [facility] Pre-Registration [place] CALL TO MAKE APPOINTMENT ONLY [address] [place] [address] Phone: tel: fax: [facility] Pre-Registration [place] CALL TO MAKE APPOINTMENT ONLY [address] [place] [address] Phone: tel: fax: Referral ID Status Reason Start Date Expiration Date V isits Requested Visits Authorized [id number] Closed [facility] TO SCHEDULE ([facility]) 10/10/2013 11/10/2014 1 1 Electronically signed by [facility], External Provider at 10/10/2013 1:48 PM CNMT * Outpatient Services (Routine) - Closed Specialty Diagnoses / Procedures Referred By Contac t Referred To Contact Diagnoses Visual field defect Headache(784.0) Transient arterial occlusion of retina Chest pain, unspecified Procedures CT HEAD W WO CONTRAST [facility] Pre-Registration [place] CALL TO MAKE APPOINTMENT ONLY [address] [place] [address] Phone: tel: fax: [facility] Pre-Registration [place] CALL TO MAKE APPOINTMENT ONLY [address] [place] [address] Phone: tel: fax: Referral ID Status Reason Start Date Expiration Date V isits Requested Visits Authorized [id number] Closed [facility] TO SCHEDULE ([facility] 10/10/2013 11/10/2014 1 1 Electronically signed by [facility], External Provider at 10/10/2013 1:37 PM CNMT Encounter Details Date Type Department Care Team (Late st Contact Info) Description 10/10/2013 Ancillary Orders [facility] Pre-Registration [place] CALL TO MAKE APPOINTMENT ONLY [address] [place] [address] [facility], External Provider [address] [place] [address] Visual field defect (Primary Dx); Headache; Transient [...] on file Legal Sex Male 5:09 AM CNMT Gender Identity Not on file Sexual Orientation Not on file 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 Not on file Not on file Not on file documented as of this encounter Plan of Treatment Not on file documented as of this encounter Results * ECHO COMPLETE (10/11/2013 10:36 AM CNMT) 10/11/2013 9:50 AM [facility] Narrative INTERFACE SYSTEM - 10/11/2013 11:01 AM [facility] Echocardiography-[address] [place] [address] Transthoracic Echocardiography Patient: Deepak Marinelli Study ID: ECHO COMPLETE Gender: M : 1960 Age: 53 Room: Study Date: 10/11/2013 Pt Status: Outpatient Study Time: 09:50 AM Ordering:[facility], External Provider Provider Interpreting:Andre Glynn [[id number]] Special Loan Officer: Maria A Garcia Indications and History: Chest [...] (*) zimmerman values outside specified normal range. [facility] Echo Lab is accredited with the Intersocietal Commission for the Accreditation of Echocardiography Laboratories (ICAEL) Prepared and Electronically Authenticated Andre Glynn [[id number]] Confirmed 10/11/2013 11:01 Procedure Note Andre Glynn MD - 10/11/2013 [facility] Echocardiography-[address] [place] [address] Transthoracic Echocardiography Patient: Deepak Marinelli Study ID: ECHO COMPLETE Gender: M : 1960 Age: 53 Room: Study Date: 10/11/2013 Pt Status: Outpatient Study Time: 09:50 AM Ordering:[facility], External Provider Provider Interpreting:Andre Glynn [[id number]] Special Loan Officer: Maria A Garcia Indications and History: Chest [...] (*) zimmerman values outside specified normal range. [facility] Echo Lab is accredited with the Intersocietal Commission for the Accreditation of Echocardiography Laboratories (ICAEL) Prepared and Electronically Authenticated Andre Glynn [[id number]] Confirmed 10/11/2013 11:01 us External Provider [facility] US ORDERABLES Final Resu lt INTERFACE SYSTEM Refer to clinic/hospital department * US CAROTID DOPPLER (10/11/2013 8:23 AM CNMT) Anatomical Region Laterality Modality Neck Ultrasound 10/11/2013 7:50 AM CNMT Narrative 10/11/2013 9:08 AM CNMT [facility] Cardiovascular Services Noninvasive Vascular Laboratory [address] [place] [address] Noninvasive Vascular Lab Cerebrovascular Exam Carotid Duplex Patient: Deepak Marinelli Study ID: US CAROTID DOPPL Gender: M : 1960 Age: 53 Room: Height: Weight: BSA: Pt status: Outpatient Study Date: 10/11/2013 Study Time: 07:50 AM BSA: Ordering: [facility], External Provider Provider Special Loan Officer: Mary Ann Farr [[id number]] History: Amaurosis fugax in the left eye [...] 0.57m/sec - Left vertebral - 0.53m/sec 0.21m/sec [facility] Vascular Lab is accredited with the Intersocietal Commission for the Accreditation of Vascular Laboratories (ICAVL) Prepared and Electronically Authenticated Jose Nava MD, FACS, RPVI Confirmed 10/11/2013 09:08 Procedure Note Jose Nava MD - 10/11/2013 [facility] Cardiovascular Services Noninvasive Vascular Laboratory [address] [place] [address] Noninvasive Vascular Lab Cerebrovascular Exam Carotid Duplex Patient: Deepak Marinelli Study ID: US CAROTID DOPPL Gender: M : 1960 Age: 53 Room: Height: Weight: BSA: Pt status: Outpatient Study Date: 10/11/2013 Study Time: 07:50 AM BSA: Ordering: [facility], External Provider Provider Special Loan Officer: Mary Ann Farr [[id number]] History: Amaurosis fugax in the left eye [...] 0.57m/sec - Left vertebral - 0.53m/sec 0.21m/sec [facility] Vascular Lab is accredited with the Intersocietal Commission for the Accreditation of Vascular Laboratories (ICAVL) Prepared and Electronically Authenticated Jose Nava MD FACS, RPVI Confirmed 10/11/2013 09:08 us External Provider [facility] US ORDERABLES Final Resu lt * CT ORBITS W CONTRAST (10/11/2013 8:01 AM CNMT) Anatomical Region Laterality Modality Head Computed Tomogra phy 10/11/2013 7:56 AM CNMT Impressions 10/11/2013 11:20 AM CNMT IMPRESSION: See report below. Exam: CT ORBITS [...] Impression: Unremarkable exam. Chin - uploaded from [employer]- Narrative Procedure Note Gustabo Rivera MD - [...] Impression: Unremarkable exam. Chin - uploaded from [employer]- us External Provider [facility] CT ORDERABLES Final Resu lt * CT HEAD W WO CONTRAST (10/11/2013 7:59 AM CNMT) Anatomical Region Laterality Modality Head Computed Tomogra phy 10/11/2013 7:55 AM CNMT Impressions 10/11/2013 11:20 AM CNMT IMPRESSION: See report below. Exam: CT HEAD [...] Impression: Unremarkable exam. Madeleine - uploaded from [employer] - Narrative Procedure Note Gustabo Rivera MD [...] Impression: Unremarkable exam. Madeleine - uploaded from [employer] - us External Provider [facility] CT ORDERABLES Final Resu lt documented in [...] unspecified documented in this encounter Care Teams Traveling Buyer Relationship Specialty Start Date End Date Martha Savage DO [address] [place] [address] PCP - General Family Practice 10/18/10 documented as of this encounter
--- OUTSIDE RECORDS SUMMARY | 2025-09-22 10:38 | XMS_ITS | Encounter Summary ---
Author Organization [facility] Address [address] [place] [address] Care Team Providers Care Tractor Operator Name Role Phone Martha Savage DO Primary Care Provider [phone] Encounter Details Date Type Department Care Team (Latest Contact Info) Description 12/29/2006 Outpatient Historical [facility] Medicine- [place] [address] [place] [phone] Jacky Cummings MD NO ADDRESS ON FILE Other Specified Disorders of Thyroid (Primary Dx) Social History Tobacco Use Types Packs/Day Years Used Date Smoking Tobacco: Never Assessed Sex and Gender Information Value Date Recorded Sex Assigned at Not on file 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
--- OUTSIDE RECORDS SUMMARY | 2025-09-22 10:38 | XMS_ITS | Encounter Summary ---
Author Organization [facility] Address [address] [place] [address] Care Team Providers Care Overhead Distribution Engineer Name Role Phone JanetteMartha magaña Choco BARNES Primary Care Provider [phone] Encounter Details Date Type Department Care Team (Latest Contact Info) Description 08/03/2007 Outpatient Historical [facility] [address] [place] [address] [place] [address] Ariel Lilly MD [address] [place] [phone] Derangement of Posterior Horn of Medial Meniscus (Primary Dx) Social History Tobacco Use Types Packs/Day Years Used Date Smoking Tobacco: Never Assessed Sex and Gender Information Value Date Recorded Sex Assigned at Not on file Legal Sex Male 5:09 AM SPA DIRECTOR Gender Identity Not on file Sexual [...] Primary documented in this encounter Care Teams Overhead Distribution Engineer Relationship Specialty Start Date End Date Martha Savage DO [address] [place] [address] PCP - General Family Practice 10/18/10 documented as of this encounter
--- OUTSIDE RECORDS SUMMARY | 2025-09-22 10:38 | XMS_ITS | Encounter Summary ---
Author Organization [facility] Address [address] [place] [address] Care Team Providers Care Scale Manager Name Role Phone Martha Savage DO Primary Care Provider Encounter Details Date Type Department Care Team (Latest Contact Info) Description 12/30/2006 Outpatient Historical [facility] Endocrinology-[place] [address] [place] [address] [place] [address] Ramses Smith MD NO ADDRESS ON FILE Unspecified Hypothyroidism (Primary Dx); Chronic Lymphocytic Thyroiditis Social History Tobacco Use Types Packs/Day Years Used Date Smoking Tobacco: Never Assessed Sex and Gender Information Value Date Recorded Sex Assigned at Not on file Legal Sex Male 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
--- OUTSIDE RECORDS SUMMARY | 2025-09-22 10:38 | XMS_ITS | Encounter Summary ---
Author Organization [facility] Address [address] [place] [address] Care Team Providers Care Cigar Packer And Sorter Name Role Phone Martha Savage DO Primary Care Provider Encounter Details Date Type Department Care Team (Late st Contact Info) Description 12/02/2007 Outpatient Historical [facility] Orthopedics- [address] [place] [phone] Ariel Lilly MD [address] [place] [address] Social History Tobacco Use Types Packs/Day Years Used Date Smoking Tobacco: Never Assessed Sex and Gender Information Value Date Recorded Sex Assigned at Not on file Legal Sex Male 5:09 AM REGULATORY AFFAIRS COORDINATOR Gender Identity Not on file Sexual Orientation Not on file documented as of this encounter Plan of Treatment Not on file documented as of this encounter Visit Diagnoses Not on filedocumented in this encounter Care Teams Cigar Packer And Sorter Relationship Specialty Start Date End Date Martha Savage DO [address] [place] [address] PCP - General Family Practice 10/18/10 documented as of this encounter
--- OUTSIDE RECORDS SUMMARY | 2025-09-22 10:38 | XMS_ITS | Encounter Summary ---
Author Organization [facility] Address [address] [place] [address] Care Team Providers Care Permanent Mold Supervisor Name Role Phone Martha Savage DO Primary Care Provider [phone] Encounter Details Date Type Department Care Team (Latest Contact Info) Description 09/13/2004 Outpatient Historical [facility] Medicine- [place] [address] [place] [address] Naldo Costello MD [address] [place] [phone] MIGRAINE NOS W/O MENTN INTRACTABLE (Primary Dx) Social History Tobacco Use Types Packs/Day Years Used Date Smoking Tobacco: Never Assessed Sex and Gender Information Value Date Recorded Sex Assigned at Not on file Legal Sex Male 5:09 AM STAGE HAND Gender Identity Not on file Sexual Orientation Not on file documented as of this encounter Plan of Treatment Not on file documented as of this encounter Visit Diagnoses Diagnosis Migraine, unspecified, without mention of intractable migraine without mention of status migrainosus- Primary documented in this encounter Care Teams Permanent Mold Supervisor Relationship Specialty Start Date End Date Martha Savage DO [address] [place] [address] PCP - General Family Practice 10/18/10 documented as of this encounter
--- OUTSIDE RECORDS SUMMARY | 2025-09-22 10:38 | XMS_ITS | Encounter Summary ---
Author Organization [facility] Address [address] [place] [address] Care Team Providers Care Coil Winder Hand Name Role Phone Martha Savage DO Primary Care Provider Encounter Details Date Type Department Care Team (Latest Contact Info) Description 03/02/2007 Outpatient Historical [facility] Imaging Services [facility] [address] 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
--- OUTSIDE RECORDS SUMMARY | 2025-09-22 10:38 | XMS_ITS | Encounter Summary ---
Author Organization [facility] Address [address] [place] [address] Care Team Providers Care Delivery Associate Name Role Phone Martha Savage DO Primary Care Provider [phone] Encounter Details Date Type Department Care Team (Latest Contact Info) Description 03/02/2007 Outpatient Historical [facility] Endocrinology-[address] [place] [address] [place] [address] Ramses Smith MD NO ADDRESS ON FILE Unspecified Hypothyroidism (Primary Dx) Social History Tobacco Use Types Packs/Day Years Used Date Smoking Tobacco: Never Assessed Sex and Gender Information Value Date Recorded Sex Assigned at Not on file Legal Sex Male 5:09 AM 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
--- OUTSIDE RECORDS SUMMARY | 2025-09-22 10:38 | XMS_ITS | Encounter Summary ---
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) Social History Tobacco Use Types Packs/Day Years Used Date Smoking Tobacco: Never Assessed Sex and Gender Information Value Date Recorded Sex Assigned at Not on file 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
--- OUTSIDE RECORDS SUMMARY | 2025-09-22 10:38 | XMS_ITS | Encounter Summary ---
Author Organization [facility] Address [address] [place] [address] Care Team Providers Care Administrative Services Coordinator Name Role Phone Khloe Savageoragianfranco Wilhelm DO Primary Care Provider Encounter Details Date Type Department Care Team (Late st Contact Info) Description 03/02/[address] [facility] Imaging Services [facility] 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
--- OUTSIDE RECORDS SUMMARY | 2025-09-22 10:38 | XMS_ITS | Patient Health Record ---
Author Organization [facility] Address [address] [place] [address] Support Name Relationship Address Phone Deepak Marinelli Guarantor Unknown [phone] Reason For Referral No Information Plan Of Treatment No Information
--- OUTSIDE RECORDS SUMMARY | 2025-09-22 10:38 | XMS_ITS | Encounter Summary ---
Author Organization [facility] Address [address] [place] [address] Care Team Providers Care Operational Risk Consultant Name Role Phone Martha Savage DO Primary Care Provider Encounter Details Date Type Department Care Team (Latest Contact Info) Description 05/08/2006 Outpatient Historical [facility] Medicine- [place] [address] [place] [address] Kaushik Benitez, TIMBER GRADER [address] [place] [address] Osteoarth NOS-L/Leg (Primary Dx); Unspecified Hypothyroidism; Unspecified Essential Hypertension; Esophageal Reflux Social History Tobacco Use Types Packs/Day Years Used Date Smoking Tobacco: Never Assessed Sex and Gender Information Value Date Recorded Sex Assigned at Not on file Legal Sex Male 5:09 AM RETIREMENT ADMINISTRATOR Gender Identity Not on file Sexual Orientation Not on file documented as of this encounter Plan of Treatment Not on file documented as of this encounter Visit Diagnoses Diagnosis Osteoarthrosis, unspecified whether generalized or localized, lower leg- Primary Unspecified hypothyroidism Unspecified essential hypertension Esophageal reflux documented in this encounter Care Teams Operational Risk Consultant Relationship Specialty Start Date End Date Martha Savage DO [address] [place] [address] PCP - General Family Practice 10/18/10 documented as of this encounter
--- OUTSIDE RECORDS SUMMARY | 2025-09-22 10:38 | XMS_ITS | Encounter Summary ---
Author Organization [facility] Address [address] [place] [address] Care Team Providers Care Industrial Economics Teacher Name Role Phone Martha Savage DO Primary Care Provider [phone]- [phone] Encounter Details Date Type Department Care Team (Latest Contact Info) Description 07/09/2006 Outpatient Historical [facility] Medicine- [place] [address] [place] [phone] Jacky Cummings MD NO ADDRESS ON FILE Unspecified Hypothyroidism (Primary Dx) Social History Tobacco Use Types Packs/Day Years Used Date Smoking Tobacco: Never Assessed Sex and Gender Information Value Date Recorded Sex Assigned at Not on file 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
--- OUTSIDE RECORDS SUMMARY | 2025-09-22 10:38 | XMS_ITS | Encounter Summary ---
Author Organization [facility] Address [address] [place] [address] Care Team Providers Care Communication Equipment Mechanic Name Role Phone Martha Savage DO Primary Care Provider [phone]- [phone] Encounter Details Date Type Department Care Team (Latest Contact Info) Description 11/08/2007 Inpatient Historical [facility] [address] [place] [address] [place] [phone] Ariel Lilly MD [address] [place] [address] Chondromalacia of Patella; Unspecified Disorder of Thyroid; Tobacco Use Disorder Social History Tobacco Use Types Packs/Day Years Used Date Smoking Tobacco: Never Assessed Sex and Gender Information Value Date Recorded Sex Assigned at Not on file Legal Sex Male 5:09 AM CLERICAL 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
--- OUTSIDE RECORDS SUMMARY | 2025-09-22 10:38 | XMS_ITS | Encounter Summary ---
Author Organization [facility] Address [address] [place] [address] Care Team Providers Care Mangle Catcher Name Role Phone Martha Savage DO Primary Care Provider Encounter Details Date Type Department Care Team (Latest Contact Info) Description 12/25/2006 Outpatient Historical [facility] [address] [place] [address] Keven De Los Santos MD NO ADDRESS ON FILE Unspecified Thyroiditis (Primary Dx); Nontoxic Uninodular Goiter Social History Tobacco Use Types Packs/Day Years Used Date Smoking Tobacco: Never Assessed Sex and Gender Information Value Date Recorded Sex Assigned at Not on file Legal Sex Male 5:09 AM RN FLIGHT Gender Identity Not on file Sexual Orientation Not on file documented as of this encounter Plan of Treatment Not on file documented as of this encounter Visit Diagnoses Diagnosis Thyroiditis, unspecified- Primary Nontoxic uninodular goiter documented in this encounter Care Teams Mangle Catcher Relationship Specialty Start Date End Date Martha Savage DO [address] [place] [address] PCP - General Family Practice 10/18/10 documented as of this encounter
--- OUTSIDE RECORDS SUMMARY | 2025-09-22 10:38 | XMS_ITS | Encounter Summary ---
Author Organization [facility] Address [address] [place] [address] Care Team Providers Care Professor Of Industrial Technology Name Role Phone Martha Savage DO Primary Care Provider Encounter Details Date Type Department Care Team (Latest Contact Info) Description 08/16/2007 Outpatient Historical [facility]- 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
--- OUTSIDE RECORDS SUMMARY | 2025-09-22 10:38 | XMS_ITS | Clinical Summary ---
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 Gender Identity Not on file Sexual Orientation [...] Description 09/28/2025 2:40 PM CDT Office Visit [facility] [address] [place] [address] Martha Savage, DO [address] [place] [address] Health Maintenance Due Date Last Done Comments [...] 2 - PCV) 03/30/2013 03/30/2012 [place] ([place]) Preventative Visit/Annual Wellness Visit 11/30/2024 11/16/2024, 07/01/2023, [...] Completed 07/19/2014 Medical Devices Implanted Type Area Cold Working Supervisor Device Identifier Shelf Expiration Date Model / Serial / Lot Simplex Hi Viscosity Gent 6195-1-010 - [id number] Implanted:Qty : 1 on 06/30/2018 by Cruz Mccarthy III, MD Cement Left: Knee [employer]FFANIE[employer] 07/30/2019 6195-1-010 / / [id number] Simplex Hi Viscosity Gent 6195-1-010 - [id number] Implanted:Qty : 1 on 06/30/2018 by Cruz Mccarthy III, MD Cement Left: Knee [employer]IE- [employer] 07/30/2019 6195-1-010 / / [id number] Simplex Hi Viscosity Gent 6195-1- - [id number] Implanted:Qty : 1 on 08/22/2019 by Cruz Mccarthy III, MD Cement Right: Knee [employer]IE- [employer] 02/27/2021 6195- / / [id number] Simplex Hi Viscosity Gent 6195- - [id number] Implanted: by Cruz Mccarthy III, MD (Quantity not on file) Cement Right: Knee [employer]IE- [employer] 02/27/2021 6195- / / [id number] Comp Fem Attn Ps Cmnt Sz9 1504-10-109 - [id number] Implanted:Qty : 1 on 06/30/2018 by Cruz Mccarthy III, MD Knee Left: Knee J[employer] 03/29/2026 [id number] / / [id number] Comp Tib Sttn Fb Cmnt Sz8 1506-70-008 - [id number] Implanted:Qty : 1 on 06/30/2018 by Cruz Mccarthy III, MD Knee Left: Knee J[employer] 12/30/2027 [id number] / / [id number] Ins Attn Fb Ps Sz9 12mm 1516-40-912 - [id number] Implanted:Qty : 1 on 06/30/2018 by Cruz Mccarthy III, MD Knee Left: Knee J[employer] 02/27/2019 [id number] / / [id number] Patella Attune Stefanie 35mm 1518-10-035 - [id number] Implanted:Qty : 1 on 06/30/2018 by Cruz Mccarthy III, MD Knee Left: Knee [employer] 03/29/2023 [id number] / / [id number] Comp Fem Attn Ps Cmnt Sz9 1504-10-209 - [id number] Implanted:Qty : 1 on 08/22/2019 by Cruz Mccarthy III, MD Knee Right: Knee [employer] 01/27/2026 [id number] / / [id number] Comp Tib Attn Fb Cmnt Sz8 1506-70-008 - [id number] Implanted:Qty : 1 on 08/22/2019 by Cruz Mccarthy III, MD Knee Right: Knee [employer] 06/29/2029 [id number] / / [id number] Ins Attn Fb Ps Sz9 6mm 1516-40-906 - [id number] Implanted:Qty : 1 on 08/22/2019 by Cruz Mccarthy III, MD Knee Right: Knee [employer] 01/27/2021 [id number] / / [id number] Patella Attune Stefanie 35mm 1518-10-035 - [id number] Implanted:Qty : 1 on 08/22/2019 by Cruz Mccarthy III, MD Knee Right: Knee [employer] 02/27/2023 [id number] / / [id number] Procedures Procedure Name Priority Date/Time Associated Diagnosis [...] Most Recently Relevant to Health Maintenance Insurance [facility] MEDICARE HMO * Guarantor: DEEPAK MARINELLI Account Type Relation to Patient Date of Phone Billing Address Personal/Family [phone] [address] [address] [facility] Medicare Part D Care Teams Well Driller Relationship Specialty Start Date End Date Martha Savage DO [address] [place] [address] PCP - General Family Practice 10/18/10
--- OUTSIDE RECORDS SUMMARY | 2025-09-22 10:38 | XMS_ITS | Encounter Summary ---
Author Organization [facility] Address [address] [place] [address] Care Team Providers Care Principal Research Economist Name Role Phone Martha Savage DO Primary Care Provider [phone] Encounter Details Date Type Department Care Team (Latest Contact Info) Description 06/10/2007 Outpatient Historical [facility] Orth[facility]ics- 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
--- OUTSIDE RECORDS SUMMARY | 2025-09-22 10:38 | XMS_ITS | Encounter Summary ---
Author Organization [facility] Address [address] [place] [address] Care Team Providers Care Mechanical Engineering Technologist Name Role Phone Martha Savage DO Primary Care Provider Encounter Details Date Type Department Care Team (Latest Contact Info) Description 10/18/2004 Outpatient Historical [facility] Medicine- [place] [address] [place] [address] Naldo Costello MD [address] [place] [phone] CHRONIC SINUSITIS NOS (Primary Dx) Social History Tobacco Use Types Packs/Day Years Used Date Smoking Tobacco: Never Assessed Sex and Gender Information Value Date Recorded Sex Assigned at Not on file 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
--- OUTSIDE RECORDS SUMMARY | 2025-09-22 10:38 | XMS_ITS | Encounter Summary ---
Author Organization [facility] Address [address] [place] [address] Care Team Providers Care Commercial Litigation Attorney Name Role Phone Martha Savage DO Primary Care Provider Encounter Details Date Type Department Care Team (Latest Contact Info) Description 02/23/2007 Outpatient Historical [facility] Medicine- [place] [address] [place] [address] Jacky Cummings MD NO ADDRESS ON FILE Other Tear of Cartilage or Meniscus of Knee, Current (Primary Dx) Social History Tobacco Use Types Packs/Day Years Used Date Smoking Tobacco: Never Assessed Sex and Gender Information Value Date Recorded Sex Assigned at Not on file 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
--- OUTSIDE RECORDS SUMMARY | 2025-09-22 10:38 | XMS_ITS | Encounter Summary ---
Author Organization [facility] Address [address] [place] [address] Care Team Providers Care Screw Driver Operator Name Role Phone Martha Savage DO Primary Care Provider [phone] Encounter Details Date Type Department Care Team (Latest Contact Info) Description 03/20/2006 Outpatient Historical [facility] Medicine- [place] [address] [place] [address] Kaushik Benitez, MATHEMATICS DEPARTMENT CHAIR [address] [place] [address] Allergic Rhinitis, Cause Unspecified (Primary Dx); Edema; Other Malaise and Fatigue Social History Tobacco Use Types Packs/Day Years Used Date Smoking Tobacco: Never Assessed Sex and Gender Information Value Date Recorded Sex Assigned at Not on file 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
--- OUTSIDE RECORDS SUMMARY | 2025-09-22 10:38 | XMS_ITS | Encounter Summary ---
Author Organization [facility] Address [address] [place] [address] Care Team Providers Care Computer Operator Name Role Phone JanetteMartha magaña Choco BARNES Primary Care Provider Encounter Details Date Type Department Care Team (Late st Contact Info) Description 01/18/2008 Outpatient Historical [facility] [address] [place] [address] Sohail Wray, MOTOR AND CHASSIS INSPECTOR [address] [place] [phone] Social History Tobacco Use Types Packs/Day Years Used Date Smoking Tobacco: Never Assessed Sex and Gender Information Value Date Recorded Sex Assigned at Not on file 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 Male 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 Gender Identity Not on file Sexual Orientation Not on file documented as of this encounter Plan of Treatment Not on file documented as of this encounter Procedures Procedure Name Priority Date/Time Associated Diagnosis Comments TSH Routine 02/07/2008 2:34 PM CDT documented in this encounter Results * TSH (02/07/2008 2:34 PM CDT) TSH 4.13 0.27 - 4.20 uIU/ML [facility]-ELIZABETH KAY 02/07/2008 2:34 PM CDT 02/07/2008 2:35 PM CDT us Ramses Smith MD CHEMISTRY ORDERABLES Final Result [facility]-ELIZABETH SOFIA# [id number] [address] [place] [address] documented in this encounter Visit Diagnoses Not on filedocumented in this encounter Care Teams Computer Operator Relationship Specialty Start Date End Date Martha Savage DO [address] [place] [address] PCP - General Family Practice 10/18/10 documented as of this encounter
--- OUTSIDE RECORDS SUMMARY | 2025-09-22 10:38 | XMS_ITS | Encounter Summary ---
Author Organization [facility] Address [address] [place] [address] Care Team Providers Care Science Analyst Name Role Phone Martha Savage DO Primary Care Provider [phone] Encounter Details Date Type Department Care Team (Latest Contact Info) Description 04/01/2006 Outpatient Historical [facility] Family Medicine- [place] [address] [place] [address] Kaushik Benitez, FEED GRINDER [address] [place] [address] Unspecified Hypothyroidism (Primary Dx) Social History Tobacco Use Types Packs/Day Years Used Date Smoking Tobacco: Never Assessed Sex and Gender Information Value Date Recorded Sex Assigned at Not on file 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
[2025-09-22] MEDS: LOSARTAN 25 MG TABLET PO (16:16)
[2025-09-22] MEDS: metoprolol succinate ER (24 HR) 50 mg Tablet PO (16:16)
--- NOTE | 2025-09-22 17:48 | PC.NURSE ---
patient does not have IV at this time due to infiltration. Informed Dr Johnson and received instruction to leave out for now. Potentially will discharge in the am.
--- NOTE | 2025-09-22 18:06 | P.PN_ITS ---
Subjective 2 Subjective: 65-year-old male had palpitati ons and chest pain last night. He was started on amiodarone. I am told by Wayne that the patient had been in and out of irregular heartbeat with no P waves. I do not see any EKGs from last night that were A-fib most of his EKGs are sinus rhythm but he did have what looks like a flutter 02/10/2025. I see atrial fibs on 08/17/2024. 02/10/2025.Medicine scan showed drop in EF from normal with a EF of 43% down from 47%. There was some patchy areas of persistent decrease tracer uptake showing myocardial scarring and LV diffuse hypokinesis with mildly dilated LV cavity. No reversible ischemia is seen Patient states he had chest pain last night but none now he is accompanied by his nephew Chan. Patient had blood pressure 192/117 with heart rate 98 last night prior to coming to the emergency department Vitals/I&O/Wt Last Vital Signs Temp 97.8 F 09/22/25 16:00 Pulse 66 09/22/25 16:00 Resp 12 09/22/25 16:00 BP 161/96 09/22/25 16:00 Pulse Ox 98 09/22/25 15:18 O2 Del Method Room Air 09/22/25 10:26 09/22/25 09/22/25 09/22/25 06:59 14:59 22:59 Intake Total 0 / 0 609.279 / 609.279 816.003 / 1425.282 Balance 0 / 0 609.279 / 609.279 816.003 / 1425.282 Weight last 48 hrs Weight 132.3 kg Weight 129.274 kg Physical Exam 2 Narrative: General well-developed well-nourished male in no acute cardiopulmonary stress CV regular rate and rhythm Lungs clear to auscultation bilaterally Abdomen positive bowel tones soft nontender Calves no tenderness cords pretibial edema Data 09/22/25 09:15 09/22/25 09:15 A&P Assessment and plan 1. Unstable angina: This appears to be rate and blood pressure related. Will continue amiodarone as I think he probably is having paroxysmal A-fib given low EF. Additionally stop diltiazem continue metoprolol increase losartan and add amlodipine if blood pressure still not controlled on higher dose ARB will avoid calcium channel nahid with heart failure for now 2. Primary hypertension: As above 3. Mixed hyperlipidemia: Continue gemfibrozil will discuss statin with the patient tomorrow PDMP PDMP Reviewed: Not Reviewed Attestations 2 Medical Necessity Statement*: Patient remains in hospital for 1 midnight for titration of his medications monitoring and potential discharge tomorrow Coding Level of Care Code 69786 Diagnoses Unstable angina I20.0 Primary hypertension I10 Hypertension type: primary hypertension Mixed hyperlipidemia E78.2 Hyperlipidemia type: mixed hyperlipidemia Time Spent (min) 35
[2025-09-23 03:10] VITALS: BP 141/73; PULSE 67; RESP 24; TEMP 36.3; O2SAT 91
[2025-09-23 05:08] VITALS: BMI 17.7
[2025-09-23] MEDS: multivitamin therapeutic Tablet 1 TAB PO (05:22)
[2025-09-23] MEDS: LOSARTAN 25 MG TABLET 50 MG PO (05:22)
[2025-09-23] MEDS: metoprolol succinate ER (24 HR) 50 mg Tablet PO (05:22)
[2025-09-23 05:58] VITALS: PULSE 73
[2025-09-23 07:11] VITALS: BP 126/97; PULSE 82; RESP 20; TEMP 36.6; O2SAT 95
--- NOTE | 2025-09-23 10:23 | P.DS_ITS ---
Discharge Providers Date of Admission: 09/22/25 02:20 Date of Discharge: September 23, 2025 Attending Provider at Admission: Misty Jansen MD Attending Provider at Discharge: Roldan Johnson MD Primary Care Provider: Martha Savage DO Diagnoses at Discharge Discharge Diagnosis 1. Unstable angina: Details from hospital stay: Resolved with control of blood pressure and tachycardia. Negative Lexiscan nuclear test 2. Paroxysmal atrial fibrillation with rapid ventricular response: Details from hospital stay: Stop diltiazem. Started amiodarone IV load and now 200 mg twice a day. Follow- up with Dr. Landry in 1 to [address] weeks to determine whether Dr. Landry would like to keep him on amiodarone or a different antiarrhythmic. Continue metoprolol. EF was 43% no ischemia seen on nuclear medicine scan this admission . Recommend tight control of blood pressure to decrease chance of left atrial enlargement. Continue with home treatment of sleep apnea and lose weight to reach BMI of 25 3. Primary hypertension: Details from hospital stay: Increase losartan to 50 mg twice a day. Hold if systolic blood pressure less than 125. Stop Diovan. Stop diltiazem 4. Mixed hyperlipidemia: Details from hospital stay: Continue gemfibrozil. Last LDL was 77 triglycerides 159. He is treated for hypertriglyceridemia with gemfibrozil 5. Sleep apnea: Details from hospital stay: Continue CPAP at home 6. Obesity: Details from hospital stay: Start weight loss diet 2100-calorie ADA features to lose 2 pounds a week till you reach goal weight with BMI of 25 Reason for Visit Reason for Visit: CP Brief History: Deepak Chacon is a 65 year old male with history of hypertension and thyroid disease chest pains. Patient also has history of atrial fibrillation a patient of Dr. Vargas. The tells me that the patient started having chest pain at 9 AM on the day of presentation at 7/10 pain level. Patient aids on oxygen at 2L troponin obtain and it was unremarkable with negative delta. I have ordered a stress test on this patient keep the patient n.p.o. Patient is ED hold at this time. Hospital Course Hospital Course 65-year-old male had palpitations and chest pain night of admission. He was started on amiodarone. I am told by Danielle that the patient had been in and out of irregular heartbeat with no P waves in the emergency department. I do not see any EKGs from this hospitalization that were A-fib. Most of his past EKGs are sinus rhythm but he did have what looks like a flutter 02/10/2025. I see atrial fibs on 08/17/2024. Patient tells me that he has palpitations intermittently at home and high heart rate 09/22/2025.Medicine scan showed drop in EF from normal with a EF of 43% down from 47%. There was some patchy areas of persistent decrease tracer uptake showing myocardial scarring and LV diffuse hypokinesis with mildly dilated LV cavity. No reversible ischemia is seen Patient has had no chest pain since admission and blood pressure has been controlled with increase of losartan to 50 mg twice a day. Diltiazem was discontinued due to low EF Physical Exam Narrative: General well-developed well-nourished male in no acute cardiopulmonary stress CV regular rate and rhythm Lungs clear to auscultation bilaterally Abdomen positive bowel tones soft nontender Calves no tenderness cords pretibial edema Discharge Data Studies Completed and Pending Completed Studies During Hospitalization Category Date Time Status Cardiac Stress Test MIBI [Sestamibi Stress Test Request Exams 09/22/25 02:42 Draft ] Stat XR chest 1V portable [id number] Stat Exams 09/21/25 23:27 Completed NM carrie perf SPECT r/s* [id number] Routine Nuc Med 09/22/25 02:42 Completed CV. echo complete* [id number] Stat Ultrasound 09/22/25 02:42 Completed Radiology Impressions Chest X-Ray 09/21/25 23:27 IMPRESSION: 1. Suggested basilar atelectasis. 2. Otherwise, no acute cardiopulmonary process. Laboratory Results WBC 4.25 10^3/uL (3.29-11.43) 09/22/25 09:15 RBC 4.72 10^6/uL (3.85-5.65) 09/22/25 09:15 Hgb 13.60 g/dL (11.27-16.99) 09/22/25 09:15 Hct 40.7 % (37-53) 09/22/25 09:15 MCV 86.2 fl (82-101) 09/22/25 09:15 MCH 28.8 pg (27-33) 09/22/25 09:15 MCHC 33.4 g/dL (30-55) 09/22/25 09:15 RDW 14.4 % (12.1-15.1) 09/22/25 09:15 Plt Count 125 10^3/cmm (157-399) L 09/22/25 09:15 MPV 12.0 fL (7.4-10.4) H 09/22/25 09:15 Neut % (Auto) 66.8 % 09/22/25 09:15 Lymph % (Auto) 23.8 % 09/22/25 09:15 [place] % (Auto) 7.5 % 09/22/25 09:15 Eos % (Auto) 0.7 % 09/22/25 09:15 Baso % (Auto) 0.7 % 09/22/25 09:15 Neut # (Auto) 2.84 10^3/uL (1.8-7.7) 09/22/25 09:15 Lymph # (Auto) 1.0 10^3/uL (0.8-4.8) 09/22/25 09:15 [place] # (Auto) 0.3 10^3/uL (0.2-0.9) 09/22/25 09:15 Eos # (Auto) 0.0 10^3/uL (0.0-0.8) 09/22/25 09:15 Baso # (Auto) 0.0 10^3/uL (0.0-0.1) 09/22/25 09:15 Nucleated RBC % (auto) 0 % 09/22/25 09:15 Nucleated RBCs # 0.0 /100WBC 09/22/25 09:15 Sodium 138 mmol/L (136-145) 09/22/25 09:15 Potassium 3.5 mmol/L (3.5-5.1) 09/22/25 09:15 Chloride 102 mmol/L (98-107) 09/22/25 09:15 Carbon Dioxide 24 mmol/L (22-29) 09/22/25 09:15 Anion Gap 15.5 (5-19) 09/22/25 09:15 BUN 15 mg/dL (8-23) 09/22/25 09:15 Creatinine 0.8 mg/dL (0.7-1.2) 09/22/25 09:15 GFR Calculation 97.0 mL/min (90-130) 09/22/25 09:15 Glucose 103 mg/dL (65-115) 09/22/25 09:15 Calculated Osmolality 287 mOsm/kg (285-295) 09/22/25 09:15 Calcium 9.7 mg/dL (8.5-10.5) 09/22/25 09:15 Phosphorus 2.4 mg/dL (2.5-4.5) L 09/22/25 09:15 Magnesium 2.1 mg/dL (1.7-2.3) 09/22/25 09:15 Total Bilirubin 0.6 mg/dL (0.15-1.2) 09/22/25 09:15 AST 21 U/L (0-40) 09/22/25 09:15 ALT 28 U/L (0-41) 09/22/25 09:15 Alkaline Phosphatase 68 U/L (40-130) 09/22/25 09:15 Troponin T Baseline 16 ng/L (0-15) H 09/22/25 00:49 Troponin T 120 Minute 15.66 ng/L (0-15) H 09/22/25 02:19 Delta Troponin T -0.34 ABS# (0-10) L 09/22/25 02:19 Troponin T Hi Sens 6Hr 15.18 ng/L (0-15) H 09/22/25 09:15 Troponin T Hi Sens 6Hr Delta -0.82 ng/L (0-12) L 09/22/25 09:15 NT-Pro-B Natriuret Pep 60 pg/mL (0-125) 09/22/25 00:49 Total Protein 6.2 g/dL (6.6-8.7) L 09/22/25 09:15 Albumin 4.3 g/dL (3.5-5.2) 09/22/25 09:15 Globulin 1.9 g/dL (1.3-4.6) 09/22/25 09:15 Vitals Last Vital Signs Temp 97.8 F 09/23/25 07:11 Pulse 82 09/23/25 07:11 Resp 20 H 09/23/25 07:11 BP 126/97 09/23/25 07:11 Pulse Ox 95 09/23/25 07:11 O2 Del Method Room Air 09/23/25 03:10 Discharge Plan Discharge Patient Disposition: Home Condition: Stable Prescriptions: New Phospha 250 Neutral 250 mg Tablet 2 tab PO BID Qty: 6 0RF losartan 50 mg tablet 50 mg PO BID Qty: 60 1RF amiodarone 200 mg tablet 200 mg PO BID Qty: 60 1RF nitroglycerin 0.4 mg tablet, sublingual 0.4 mg sublingual Q5M PRN (Reason: chest pain) Qty: 20 0RF Rx Instructions: do not exceed 3 doses per episode Continued diltiazem HCl [Cardizem CD] 120 mg capsule,extended release 24hr 120 mg PO DAILY Qty: 90 3RF metoprolol succinate 50 mg tablet extended release 24 hr 50 mg PO BID Qty: 90 3RF terazosin 2 mg capsule 2 mg PO BEDTIME gemfibrozil 600 mg tablet 600 mg PO BID Xarelto 20 mg tablet 20 mg PO BEDTIME levothyroxine [Synthroid] 175 mcg tablet 175 mcg PO DAILY zinc sulfate 50 mg zinc (220 mg) Tablet 50 mg PO DAILY vitamin B complex [Super B Complex] Tablet 1 tab PO BID folic acid 800 mcg Tablet 0.8 mg PO DAILY magnesium 200 mg Tablet 200 mg PO BID Centrum Silver Men [phone] mcg Tablet 1 tab PO DAILY Discontinued valsartan 40 mg tablet 20 mg PO BID Qty: 60 1RF Discharge Order = DC NOW: Discharge Order (Routine); Ordered 09/23/25 Ordered By: Roldan Johnson Referrals: Martha Savage DO [Primary Care Provider, Family Practice] Discharge Diet: Cardiac, Diabetic and Low Cholesterol Discharge Activity: Increase activity as tolerated Patient Instructions: Opioid Safety, Patient Portal & Lou Instructions, Amiodarone (By mouth), A-fib (Atrial Fibrillation) (GEN), Hypertension (GEN) Activity Restrictions/Additional Instructions: Take your blood pressure twice a day and if your heart rate is less than 60 skip your metoprolol If your blood pressure is less than 125 skip your losartan Write all those readings of blood pressure and heart rate down and take those to your appointment with Dr. Landry Discussed with him if he would like you to stay on amiodarone or a different antiarrhythmic I recommend a low carbohydrate 2100-calorie to get your weight into ideal body weight. This will help you stay in sinus rhythm Discharge Attestations Time Spent in Discharge Care*: greater than 30 min Time Spent in Smoking Cessation: Patient is not a smoker Status at Discharge: Cognitive status at discharge: cognitively intact , Behavioral status at discharge: [facility] , Quality Metrics Clinical Quality Measures [ No reported AMI, CVA or VTE this stay] Coding Level of Care Code 44112 Diagnoses Unstable angina I20.0 Paroxysmal atrial fibrillation with rapid ventricular response I48.0 Primary hypertension I10 Hypertension type: primary hypertension Mixed hyperlipidemia E78.2 Hyperlipidemia type: mixed hyperlipidemia Sleep apnea G47.30 Obesity E66.9 Time Spent (min) 40
[2025-09-23 11:20] VITALS: BP 147/97; PULSE 79; RESP 15; TEMP 36.6; O2SAT 96
== END 2025-09-23 11:22 | disposition home or self-care (01) ==
LOC: ER 09-22 02:19 → ER IP 09-22 03:27 → CSU 09-22 15:05
PROVIDERS: Admitting Provider Internal Medicine; Emergency Provider Emergency Medicine; PCP Family Medicine; Visit Provider Internal Medicine
DX: I20.0 Unstable angina (principal); I48.0 Paroxysmal atrial fibrillation; E78.2 Mixed hyperlipidemia; G47.30 Sleep apnea, unspecified; Z99.89 Dependence on other enabling machines and devices; I11.0 Hypertensive heart disease with heart failure; I50.9 Heart failure, unspecified; Z87.891 Personal history of nicotine dependence; Z80.0 Family history of malignant neoplasm of digestive organs; E66.9 Obesity, unspecified; Z68.1 Body mass index [BMI] 19.9 or less, adult
CPT/HCPCS: 36415; 71045; 78452; 80053; 83735; 83880; 84100; 84484; 85025; 93005; 93017; 93306; 96361; 96365; 96372; 96375; 96376; 99285; A4222; A9500; G0378; J0280; J0282; J1650; J2270; J2785; J7030; J9999

== ENCOUNTER → 2025-10-02 14:16 | Outpatient (BNVA) | payer MEDICARE, SELFPAY | PROVIDERS: PCP Family Medicine; Visit Provider Nurse Practitioner Family | DX: I48.0 Paroxysmal atrial fibrillation (principal); I10 Essential (primary) hypertension; E78.5 Hyperlipidemia, unspecified; R06.02 Shortness of breath; Z87.891 Personal history of nicotine dependence; Z79.01 Long term (current) use of anticoagulants; I44.7 Left bundle-branch block, unspecified | CPT/HCPCS: 93005; 99214 ==